=== PATIENT | female | born 1970 | race Caucasian/White ===

== ENCOUNTER 2019-07-07 20:30 | Inpatient (IN) | payer SELFPAY | END 2019-07-09 15:47 | disposition home or self-care (01) | DRG 880 | PROVIDERS: Admitting Provider Psychiatry & Neurology Psychiatry; Emergency Provider Emergency Medicine; Visit Provider Psychiatry & Neurology Psychiatry | DX: F41.8 Other specified anxiety disorders (principal); F15.129 Other stimulant abuse with intoxication, unspecified; F11.129 Opioid abuse with intoxication, unspecified; Z59.0 Homelessness; Z53.29 Procedure and treatment not carried out because of patient's decision for other reasons; F17.210 Nicotine dependence, cigarettes, uncomplicated; I10 Essential (primary) hypertension ==

== ENCOUNTER 2019-07-26 16:58 | Inpatient (IN) | payer SELFPAY ==
[2019-07-26] VITALS (10 sets, daily range): BP systolic 124–196; BP diastolic 69–113; PULSE 62–106; RESP 10–28; TEMP 36.4–36.9; O2SAT 86–97; BMI 24.2
--- NOTE | 2019-07-26 17:04 | ED_ITS ---
Entered by Tiffanie Johnson, acting as scribe for Timothy Escobar DO HPI - Alcohol General: Chief Complaint: Alcohol Stated Complaint: ETOH INTOX Time Seen by Provider: 07/26/19 17:04 Source: patient Mode of arrival: EMS Limitations: altered mental status History of Present Illness: HPI narrative: 49 yo Female presents to ED with complaint of alcohol intoxication. Per EMS, patient swallowed multiple safety pins yesterday. Per special police, patient has consumed a gallon of Aristocrat vodka and she had another small bottle while the officer was at the home. Pt's roommate called EMS regarding the patient. 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 Chronic alcohol use: Yes Review of Systems General: Reports: ROS unobtainable due to mental status PFSH ED PFSH: Statuses (acute, chronic, etc) shown below reflect problem list status as previously entered and may not be historically accurate Medical History (Updated 07/26/19 @ 18:23 by Timothy Escobar DO) Bipolar disorder (Acute) HTN (hypertension) (Acute) Manic depressive disorder (Acute) Uterine cancer (Acute) Surgical History (Updated 07/26/19 @ 18:22 by Tiffanie Johnson) History of (Acute) History of plastic surgery (Acute) History of tubal ligation (Acute) Social History Smoking and tobacco status: current every day smoker Physical Exam Const: COMMON NORMALS: no apparent distress, average body habitus, oriented x3, no limitations, healthy appearing, alert and well nourished HENMT: COMMON NORMALS: normocephalic, head/scalp atraumatic, hearing grossly normal bilaterally, external ears normal, EAC's normal, TM's normal bilaterally, external nose normal, nasal mucous membranes and turbinates normal, moist oral mucous membranes, oropharynx normal, dentition normal and gingiva normal HEAD & SCALP: normocephalic and atraumatic NOSE: external nose normal and nasal mucous membranes and turbinates normal EXTERNAL EAR: Yes external ears normal EXTERNAL AUDITORY CANAL: EAC's normal TYMPANIC MEMBRANE: TM's normal bilaterally Eye: COMMON NORMALS: PERRL, EOMs intact bilaterally, conjunctivae normal, no scleral icterus, no papilledema, normal visual wiseman by confrontation and fundi normal bilaterally CONJUNCTIVA: Yes conjunctivae normal PUPIL: Yes PERRL DIRECT OPHTHALMOSCOPY: Yes no papilledema and Yes fundi normal bilaterally Neck/C-Spine: COMMON NORMALS: full ROM, no lymphadenopathy, supple, no meningeal signs, no JVD, thyroid normal and no carotid bruits THYROID: thyroid normal Chest: COMMONS NORMALS: inspection of chest normal and palpation of chest normal Resp: COMMON NORMALS: normal respiratory effort, no retractions, no use of accessory muscles, clear to auscultation bilaterally and percussion normal AUSCULTATION: clear to auscultation bilaterally PERCUSSION: percussion normal Cardio: COMMON NORMALS: no JVD, regular rate, regular rhythm, S1 normal heart sound, S2 normal heart sound, no gallops, no clicks, no murmurs, no rub and peripheral pulses 2+ throughout RATE: regular rate RHYTHM: regular rhythm HEART SOUNDS: S1 normal and S2 normal PERIPHERAL PULSES: pulses 2+ throughout GI: COMMON NORMALS: normal to inspection, nondistended, normoactive bowel sounds, soft to palpation, non-tender, no hepatosplenomegaly, no masses and no bruits PALPATION: Yes soft and Yes no hepatosplenomegaly : COMMON NORMALS: Yes no CVA tenderness and Yes external appearance normal BLADDER/KIDNEY EXAM: Yes no CVA tenderness Back/Pelvis: COMMON NORMALS: no CVA tenderness, thoracic and lumbar spine normal to inspection, no thoracic nor lumbar tenderness, thoraco-lumbar ROM normal and straight leg raise negative bilaterally Extremity: COMMON NORMALS: normal to inspection, full ROM, normal capillary refill, no joint enlargement, no clubbing, cyanosis or edema, no calf tenderness and no pedal edema Neuro: COMMON NORMALS: oriented x3 SENSORIUM/ORIENTATION: Yes alert MENI NGEAL SIGNS: Yes no meningeal signs Skin: COMMON NORMALS: no rashes or lesions noted, no wounds, skin turgor n ormal, no jaundice, no petechiae and no mottling GENERAL SKIN EXAM: no rashes or lesions noted and turgor normal Course Vital Signs: Vital signs: Vital Signs Temperature 97.5 F L 07/26/19 17:01 Pulse Rate 99 07/26/19 18:19 Respiratory Rate 16 07/26/19 18:19 Blood Pressure 174/113 07/26/19 18:19 Pulse Oximetry 97 07/26/19 18:19 MDM - Alcohol Lab Data: Labs: Lab Results 07/26/19 07/26/19 07/26/19 Range/Units 17:33 17:33 17:38 WBC 6.3 (4.0-10.0) 10^3/ uL RBC 3.92 L (4.1-5.3) 10^6/u L Hgb 10.8 L (11.5-15.3) g/dL Hct 33.1 L (37.0-47.0) % MCV 84.4 (81-99) fL MCH 27.6 L (28.0-34.0) pg MCHC 32.6 (30.0-36.0) g/dL RDW 15.3 H (12.1-15.1) % Plt Count 287 (130-400) 10^3/c mm MPV 9.2 (7.4-10.4) fL Neut % (Auto) 63.8 % Lymph % (Auto) 29.3 % [place]ville % (Auto) 5.2 % Eos % (Auto) 0.9 % Baso % (Auto) 0.6 % Neut # (Auto) 4.0 (1.8-7.7) 10^3/u L Lymph # (Auto) 1.9 (0.8-4.8) 10^3/u L [place]ville # (Auto) 0.3 (0.2-0.9) 10^3/u L Eos # (Auto) 0.1 (0.0-0.8) 10^3/u L Baso # (Auto) 0.0 (0.0-0.1) 10^3/u L Nucleated RBC % (a uto) 0 % Nucleated RBCs # 0.0 /100WBC Sodium 139 (136-145) mmol/L Potassium 3.0 L (3.5-5.1) mmol/L Chloride 102 (98-107) mmol/L Carbon Dioxide 23 (22-29) mmol/L Anion Gap 17.0 (5-19) BUN 7 (6-20) mg/dL Creatinine 0.4 L (0.5-0.9) mg/dL GFR Calculation 169.0 H (90-130) mL/min Glucose 112 H (74-109) mg/dL Calcium 8.4 L (8.6-10.0) mg/Dl Total Bilirubin 0.2 (0.15-1.2) mg/dL AST 26 (0-32) U/L ALT 20 (0-33) U/L Alkaline Phosphata se 73 (35-105) IU/L Total Protein 5.8 L (6.6-8.7) g/dL Albumin 4.4 (3.5-5.2) g/dL Globulin 1.4 (1.3-4.6) g/dL HCG, Qual Negative (Negative) Urine Color (Yellow) Urine Appearance (CLEAR) Urine pH (5-7) Ur Specific Gravit y (1.005-1.030) Urine Protein (Negative) Urine Glucose (UA) (Normal) Urine Ketones (Negative) Urine Occult Blood (Negative) Urine Nitrate (Negative) Urine Bilirubin (NEGATIVE) Urine Urobilinogen (Negative) mg/dL Ur Leukocyte Akila ase (Negative) Urine RBC (0-2) /hpf Urine WBC (0-5) /hpf Ur Squamous Epith Cells (0-5) Urine Bacteria (NONE) Salicylates < 0.3 L (3-10) mg/dL Urine Opiates Scre en (Negative) ng/mL Acetaminophen < 5.0 L (10-30) ug/mL Ur Barbiturates Sc reen (Negative) ng/mL Ur Phencyclidine S crn (Negative) ng/mL Ur Amphetamines Sc reen (Negative) ng/mL U Benzodiazepines Scrn (Negative) ng/mL Urine Cocaine Scre en (Negative) ng/mL U Marijuana (THC) Screen (Negative) ng/mL Ethyl Alcohol 359 H* (0-10) mg/dL 07/26/19 07/26/19 Range/Units 17:38 17:38 WBC (4.0-10.0) 10^3/ uL RBC (4.1-5.3) 10^6/u L Hgb (11.5-15.3) g/dL Hct (37.0-47.0) % MCV (81-99) fL MCH (28.0-34.0) pg MCHC (30.0-36.0) g/dL RDW (12.1-15.1) % Plt Count (130-400) 10^3/c mm MPV (7.4-10.4) fL Neut % (Auto) % Lymph % (Auto) % Granville % (Auto) % Eos % (Auto) % Baso % (Auto) % Neut # (Auto) (1.8-7.7) 10^3/u L Lymph # (Auto) (0.8-4.8) 10^3/u L [place]ville # (Auto) (0.2-0.9) 10^3/u L Eos # (Auto) (0.0-0.8) 10^3/u L Baso # (Auto) (0.0-0.1) 10^3/u L Nucleated RBC % (a uto) % Nucleated RBCs # /100WBC Sodium (136-145) mmol/L Potassium (3.5-5.1) mmol/L Chloride (98-107) mmol/L Carbon Dioxide (22-29) mmol/L Anion Gap (5-19) BUN (6-20) mg/dL Creatinine (0.5-0.9) mg/dL GFR Calculation (90-130) mL/min Glucose (74-109) mg/dL Calcium (8.6-10.0) mg/Dl Total Bilirubin (0.15-1.2) mg/dL AST (0-32) U/L ALT (0-33) U/L Alkaline Phosphata se (35-105) IU/L Total Protein (6.6-8.7) g/dL Albumin (3.5-5.2) g/dL Globulin (1.3-4.6) g/dL HCG, Qual (Negative) Urine Color Yellow (Yellow) Urine Appearance Clear (CLEAR) Urine pH 6 (5-7) Ur Specific Gravit y 1.010 (1.005-1.030) Urine Protein Neg (Negative) Urine Glucose (UA) Norm (Normal) Urine Ketones Negative (Negative) Urine Occult Blood Neg (Negative) Urine Nitrate Positive H (Negative) Urine Bilirubin Neg (NEGATIVE) Urine Urobilinogen Norm (Negative) mg/dL Ur Leukocyte Akila ase Negative (Negative) Urine RBC 0-4 H (0-2) /hpf Urine WBC 0-4 H (0-5) /hpf Ur Squamous Epith Cells 0-4 H (0-5) Urine Bacteria 2+ H (NONE) Salicylates (3-10) mg/dL Urine Opiates Scre en Negative (Negative) ng/mL Acetaminophen (10-30) ug/mL Ur Barbiturates Sc reen Negative (Negative) ng/mL Ur Phencyclidine S crn Negative (Negative) ng/mL Ur Amphetamines Sc reen Positive H (Negative) ng/mL U Benzodiazepines Scrn Negative (Negative) ng/mL Urine Cocaine Scre en Negative (Negative) ng/mL U Marijuana (THC) Screen Negative (Negative) ng/mL Ethyl Alcohol (0-10) mg/dL Discharge Plan Discharge Patient Disposition: Admitted As Inpatient Clinical Impression: Alcoholic intoxication Qualifiers: Complication of substance-induced condition: with delirium Qualified Code(s): F10.921 - Alcohol use, unspecified with intoxication delirium 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
--- NOTE | 2019-07-26 17:07 | ECG_ITS ---
Measurements Intervals [place] Rate: 100 P: 80 AL: 164 QRS: 63 QRSD: 92 T: 68 QT: 382 QTc: 494 SINUS TACHYCARDIA POSSIBLE ANTEROLATERAL MYOCARDIAL INFARCTION , OF INDETERMINATE AGE [30 ms Q WAVE IN I/aVL/V3-V6] No previous ECG available for comparison Electronically Signed On 07-27-2019 5:56:31 PERFORATOR TYPIST by Alice Avila M.D. [email or web address]
--- NOTE | 2019-07-26 17:07 | XRR_ITS ---
PROCEDURE INFORMATION: Exam: XR Chest, 1 View Exam date and time: 07/26/2019 5:26 PM Age: 49 years old Clinical indication: Screening exam; Other screening; Patient HX: Checking for fb; Additional info: Swallowed safety pins TECHNIQUE: Imaging protocol: XR of the chest Views: 1 view. COMPARISON: No relevant prior studies available. FINDINGS: Lungs: Unremarkable. No consolidation. Pleural space: Unremarkable. No pleural effusion. No pneumothorax. Heart/Mediastinum: Unremarkable. No cardiomegaly. Bones/joints: Unremarkable. XR/XR chest 1V portable [id number] IMPRESSION: No acute findings.
--- NOTE | 2019-07-26 17:10 | XRR_ITS ---
PROCEDURE INFORMATION: Exam: XR Abdomen, 1 View Exam date and time: 07/26/2019 5:12 PM Age: 49 years old Clinical indication: Screening exam; Other: Looking for safety pins; Additional info: Abd pain TECHNIQUE: Imaging protocol: XR of the abdomen. Views: Frontal supine view of the abdomen. 1 View. COMPARISON: No relevant prior studies available. FINDINGS: Gastrointestinal tract: There are mildly dilated air-filled loops of small bowel concerning for enteritis or low-grade partial small bowel obstruction. The greatest transverse measurement the dilated loops of bowel is 3 cm. Vasculature: There are numerous benign phleboliths in the pelvis. Bones/joints: Unremarkable. Soft tissues: No foreign body or safety pin is identified. XR/XR KUB portable [id number] IMPRESSION: 1. Dilated loops of small bowel concerning for mild partial small bowel obstruction or enteritis. 2. No foreign body is identified.
--- NOTE | 2019-07-26 17:14 | PC.NURSE ---
Radiology at bedside
[2019-07-26] MEDS: folic acid 1 MG, multivitamin inj 10 ML, thiamine 100 MG in sodium chloride 0.9% 1,000 ML 252.8 MG IV (17:39)
[2019-07-26] MEDS: sodium chloride 0.9% 1,000 ML 999 ML IV (17:39)
[2019-07-26] MEDS: haloperidol inj 5 mg/mL INJ 1 mL IM (17:40)
[2019-07-26 17:41] LABS: Basophils % 0.6 %; Eosinophils # 0.1 10^3/uL (0.0-0.8); Eosinophils % 0.9 %; Hematocrit 33.1 % (37.0-47.0); Hemoglobin 10.8 g/dL (11.5-15.3); Lymphocytes # 1.9 10^3/uL (0.8-4.8); Lymphocytes % 29.3 %; Mean Corpuscular HGB Conc 32.6 g/dL (30.0-36.0); Mean Corpuscular Hemoglobin 27.6 pg (28.0-34.0); Mean Corpuscular Volume 84.4 fL (81-99); Mean Platelet Volume 9.2 fL (7.4-10.4); Monocytes # 0.3 10^3/uL (0.2-0.9); Monocytes % 5.2 %; Neutrophils % 63.8 %; Nucleated Red Blood Cells % 0 %; Platelet Count 287 10^3/cmm (130-400); Red Blood Count 3.92 10^6/uL (4.1-5.3); Red Cell Distribution Width 15.3 % (12.1-15.1); White Blood Count 6.3 10^3/uL (4.0-10.0)
[2019-07-26 17:59] LABS: Alanine Aminotransferase 20 U/L (0-33); Albumin Level 4.4 g/dL (3.5-5.2); Alkaline Phosphatase 73 IU/L (35-105); Aspartate Amino Transferase 26 U/L (0-32); Blood Urea Nitrogen 7 mg/dL (6-20); Calcium 8.4 mg/Dl (8.6-10.0); Carbon Dioxide 23 mmol/L (22-29); Chloride 102 mmol/L (98-107); Globulin 1.4 g/dL (1.3-4.6); Glucose 112 mg/dL (74-109); Sodium 139 mmol/L (136-145); Total Bilirubin 0.2 mg/dL (0.15-1.2); Total Protein 5.8 g/dL (6.6-8.7)
[2019-07-26 18:01] LABS: Acetaminophen < 5.0 ug/mL (10-30); Salicylate < 0.3 mg/dL (3-10)
[2019-07-26 18:06] LABS: Alcohol Level 359 mg/dL (0-10)
[2019-07-26 18:21] LABS: HCG Qualitative Urine. Negative (Negative); Urine Appearance Clear (CLEAR); Urine Color Yellow (Yellow)
[2019-07-26 18:22] LABS: Add Urine Culture? Yes; Bacteria Urine 2+; Bilirubin Urine Neg (NEGATIVE); Blood Urine Neg (Negative); Glucose Urine UA Norm (Normal); Ketones Urine Negative (Negative); Leukocyte Esterase Urine Negative (Negative); Nitrate Urine Positive (Negative); Protein Urine Neg (Negative); RBC Urine 0-4 /hpf (0-2); Squamous Epithelial Cell Urine 0-4 (0-5); Urobilinogen Urine Norm (Negative); WBC Urine 0-4 /hpf (0-5); pH Urine 6 (5-7)
--- NOTE | 2019-07-26 18:28 | PC.NURSE ---
Pt assisted to BSC, linens and gown changed, pt put back in bed and given warm blankets.
[2019-07-26 18:30] LABS: Barbiturates Screen Urine Negative (Negative); Benzodiazepines Screen Urine Negative (Negative); Cocaine Screen Urine Negative (Negative); Opiate Screen Urine Negative (Negative); PCP Screen Urine Negative (Negative); THC Screen Urine Negative (Negative)
[2019-07-26 18:40] LABS: Amphetamines Screen Urine Positive (Negative)
--- NOTE | 2019-07-26 19:06 | PM.HP ---
Providers/Chief Complaint Chief Complaint: ETOH INTOX History of Present Illness Keya Leonard is a 49 year old female who was seen by Dr. Ignacio Castaneda for her psychotic behavior in June 2019, at that time she had bipolar presentation, U tox was positive for methamphetamine, benzodiazepine, she was discharged AGAINST MEDICAL ADVICE to her aunt's home when she was very abusive and uncooperative with the staff. Today patient has been sent to the ER for her psychotic behavior by her aunt. Patient is stating she has no idea why she was sent to the hospital, she is denying any suicidal or homicidal ideation. She is endorsing to smoking a few cigarettes a day and drinking vodka 2 shots today, she is denying use of methamphetamine cocaine or marijuana. She is endorsing to using marijuana when she was in [place] when she became homeless. She is stating that she moved to [place] 2 weeks ago to live with her and and that experiences not going well for her. She is denying chest pain, shortness of breath, dysuria, abdominal pain she is able to tell me that she is in the ER she is oriented to time place and person, she kept asking that she should be discharged. Diagnostics in ER showed electrolyte imbalance, tachycardia, hypotension, patient was exhibiting psychotic/very anxious behavior however cooperative with the staff on this visit Hospitalist service was requested to admit to ICU because of her high alcohol level and high risk for withdrawal Review of Systems Narrative: Very agitated, nonpurposeful extremity movements no active tremors She looks dehydrated Unkempt appearance Const: Reports: chills and change in weight Eyes: Reports: eye discomfort and dry eyes ENMT: Denies: throat pain or uvular edema Card: Denies: chest pain or palpitations Resp: Denies: shortness of breath or non-productive cough GI: Denies: abdominal pain, nausea, vomiting or coffee grounds in vomit : Denies: flank pain, difficulty urinating, urinary frequency or urinary urgency Musc: Denies: neck pain or back pain Neuro: Reports: dizziness and confusion; Denies: headache Psych: Reports: anxiety, mood swings, irritability, paranoia, memory loss and difficulty concentrating; Denies: visual hallucinations, auditory hallucinations, suicidal ideation or homicidal ideation Endo: Denies: excessive urination James/Lymph: Denies: easy bruising All/Imm: Denies: hives Medications/Allergies Home Medications Medication Instructions Recorded Confirmed Last Taken Type No Known Home Medications 07/26/19 07/26/19 Unknown History Allergies Allergy/AdvReac Type Severity Reaction Status Date / Time No Known Allergies Allergy Verified 07/26/19 17:10 PFSH Acute PFSH: Statuses (acute, chronic, etc) shown below reflect problem list status as previously entered and may not be historically accurate Medical History (Updated 07/26/19 @ 19:46 by Mervat Felder MD) Bipolar disorder (Acute) HTN (hypertension) (Acute) Manic depressive disorder (Acute) Polysubstance abuse (Acute) Uterine cancer (Acute) Surgical History (Updated 07/26/19 @ 18:22 by Tiffanie Johnson) History of (Acute) History of plastic surgery (Acute) History of tubal ligation (Acute) Family History (Updated 07/26/19 @ 19:50 by Mervat Felder MD) Other Hyperlipidemia Hypertension Social History (Updated 07/26/19 @ 19:50 by Mervat Felder MD) Smoking and tobacco status: current every day smoker Alcohol intake: current Substance/Drug Use: current Lives independently: No Household members: other Details: Lives with her aunt Marital status: Number of children: 5 Vitals/I&O/Wt Last Vital Signs Temp 97.5 F L 07/26/19 17:01 Pulse 99 07/26/19 18:19 Resp 16 07/26/19 18:19 BP 174/113 07/26/19 18:19 Pulse Ox 97 07/26/19 18:19 07/26/19 07/26/19 07/26/19 06:59 14:59 22:59 Intake Total 2010. Balance 2010. Weight last 48 hrs Weight 68.039 kg Physical Exam Const: GENERAL APPEARANCE: cooperative, in distress, anxious and ill appearing; not comfortable, not well kempt, not well developed, not combative and not lethargic NUTRITIONAL APPEARANCE: thin ORIENTATION/CONSCIOUSNESS: Yes awake and Yes oriented to person HENMT: COMMON NORMALS: normocephalic, head/scalp atraumatic, hearing grossly normal bilaterally, external nose normal and nasal mucous membranes and turbinates normal; oral mucous membranes not moist FACE & SINUS: normal facial exam NOSE: external nose normal Eye: COMMON NORMALS: EOMs intact bilaterally and negative for conjunctivae normal PERIORBITAL: periorbital findings abnormal (Periorbital mild edema) EYELID: eyelid abnormal CONJUNCTIVA: Yes conjunctiva abnormal PUPIL: Yes PERRL DIRECT OPHTHALMOSCOPY: Yes decreased light reflex Neck/C-Spine: COMMON NORMALS: full ROM Chest: COMMONS NORMALS: inspection of chest normal CHEST: Yes symmetrical chest wall rise Resp: COMMON NORMALS: normal respiratory effort EFFORT & INSPECTION: Yes able to speak in complete sentences AUSCULTATION: clear to auscultation bilaterally, no crackles and no rales Cardio: COMMON NORMALS: no JVD, S1 normal heart sound and S2 normal heart sound; negative for regular rate JUGULAR VENOUS DISTENTION: no JVD BRUITS: no abdominal aortic bruits GI: COMMON NORMALS: normal to inspection, nondistended, normoactive bowel sounds, soft to palpation, non-tender, no hepatosplenomegaly, no masses and no bruits INSPECTION: Yes normal to inspection AUSCULTATION: Yes normoactive bowel sounds Extremity: COMMON NORMALS: normal to inspection and full ROM Neuro: COMMON NORMALS: oriented x3, CN's II-XII intact bilaterally, moves all extremities, no focal motor deficits, no sensory deficits noted and deep tendon reflexes 2+ bilaterally; negative for gait normal SENSORIUM/ORIENTATION: Yes alert MENINGEAL SIGNS: No no meningeal signs and No nuccal rigidity COORDINATION: [id number] test abnormal and [id number] test abnormal Psych: COMMON NORMALS: cooperative; negative for affect normal APPEARANCE: Yes unkempt ATTITUDE: Yes paranoid and Yes agitated ACTIVITY/MOTOR BEHAVIOR: No appropriate eye contact and Yes avoids eye contact SPEECH: Yes excessive MOOD & AFFECT: Yes anxious THOUGHT PROCESS: circumstantial and confabulating THOUGHT CONTENT: No suicidality, No homicidality, Yes delusion(s), No hallucination(s) and Yes derealization ATTENTION/CONCENTRATION: Yes concentration grossly impaired INSIGHT: limited JUDGEMENT: limited Skin: NAILS: normal A&P Assessment and plan (1) Wernicke encephalopathy: Status: Acute Code(s): E51.2 - Wernicke's encephalopathy (2) Alcoholic intoxication: Status: Acute Qualifiers: Complication of substance-induced condition: with delirium Qualified Code(s): F10.921 - Alcohol use, unspecified with intoxication delirium Code(s): F10.929 - Alcohol use, unspecified with intoxication, unspecified (3) Psychotic behavior due to ingestible alcohol: Status: Acute Code(s): F10.959 - Alcohol use, unspecified with alcohol-induced psychotic disorder, unspecified (4) Polysubstance abuse: Status: Acute Code(s): F19.10 - Other psychoactive substance abuse, uncomplicated (5) HTN (hypertension): Status: Acute Code(s): I10 - Essential (primary) hypertension (6) 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: Status: Acute Qualifiers: Complication of substance-induced condition: with unspecified complication Qualified Code(s): F10.959 - Alcohol use, unspecified with alcohol-induced psychotic disorder, unspecified Code(s): F10.95 - Alcohol use, unspecified with alcohol-induced psychotic disorder, unspecified Additional A&P Information Additional A&P Information: Psychotic behavior due to polysubstance abuse U tox positive for methamphetamine, high levels of alcohol identified Currently patient is very agitated and psychotic with hypotensive and tachycardia she took vodka 2 shots today She is also confabulating and 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 Ignacio Castaneda Patient is full code DVT prophylaxis: Lovenox Attestations Medical Necessity Statement*: Anticipating her stay to cross more than 2 midnights because of her high alcohol level she is high risk for alcohol withdrawal Time Spent in Patient Care: (>than 50% of time spent in counselling and/or direct pt care on unit). 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
--- NOTE | 2019-07-26 19:26 | PC.NURSE ---
REPORT RECEIVED FROM RUBY SHAIKH AND CARE TRANSFERRED TO ABDIRAHMAN SHAIKH
--- NOTE | 2019-07-26 19:31 | PC.NURSE ---
TRIED TO CALL REPORT TO ICU BUT NURSE IN ANOTHER ROOM, ICU STATED THAT THEY WOULD CALL ED NURSE BACK
[2019-07-26 20:59] LABS: Magnesium 1.9 mg/dL (1.7-2.3)
[2019-07-26] MEDS: sodium chloride 0.9% 1,000 ML 150 ML IV (21:03)
[2019-07-26] MEDS: metoprolol tartrate 25 mg Tablet PO (21:07)
--- NOTE | 2019-07-26 21:42 | PC.NURSE ---
Admitted to ICU room 10. Patient is tearful and states I don't know why I am even here . Blood pressure elevated. Patient reports that she is very anxious. 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 Eudora and drink given to patient.
[2019-07-26] MEDS: LORazepam 2 mg/mL INJ 1 mL IVP (22:51)
[2019-07-27] VITALS (18 sets, daily range): BP systolic 122–192; BP diastolic 72–109; PULSE 77–94; RESP 16–87; TEMP 36.8–37.1; O2SAT 93–99
[2019-07-27] MEDS: LORazepam 2 mg/mL INJ 1 mL IVP (03:05)
[2019-07-27] MEDS: sodium chloride 0.9% 1,000 ML 150 ML IV ×4 (03:48→23:45)
[2019-07-27] MEDS: multivitamin therapeutic Tablet 1 TAB PO (09:08)
[2019-07-27] MEDS: folic acid 1 mg Tablet PO (09:08)
[2019-07-27] MEDS: thiamine 100 mg Tablet PO (09:08)
[2019-07-27] MEDS: metoprolol tartrate 25 mg Tablet PO ×2 (09:08→17:04)
[2019-07-27] MEDS: escitalopram 10 mg Tablet 20 MG PO (09:08)
--- NOTE | 2019-07-27 11:52 | PM.PN ---
Subjective Subjective: Interval history: Chart reviewed. Patient seen and examined, asleep but easily arousable, aware she is in the hospital, able to tell me that she lives with her aunt and recently moved from [place] though does not seem to have very good social support. Admits to consumption of hard liquor though denies daily use. Informed by nursing staff that patient has affidavits in chart and family members trying to get her involuntarily admitted to the hospital. Has been appropriate in my interactions with her, denies SI/HI. Noted hypertension so we will add oral antihypertensives and PRN hydralazine. Medications: Reviewed: Yes Medication Review Details: Active Medications Generic Name Dose Route Start Last Admin Trade Name Freq PRN Reason Stop Dose Admin Enoxaparin Sodium 40 mg 07/26/19 22:00 07/26/19 22:17 Lovenox SUBCUT Not Given Q24H BECK Escitalopram Oxala te 20 mg 07/27/19 09:00 07/27/19 09:08 Lexapro PO 20 mg DAILY BECK Administration Folic Acid 1 mg 07/27/19 09:00 07/27/19 09:08 Folic Acid PO 1 mg DAILY BECK Administration Sodium Chloride 1,000 mls @ 150 m ls/hr 07/26/19 18:45 07/27/19 10:26 Sodium Chloride 0.9% IV 150 mls/hr .Q6H40M BECK Administration Lorazepam 2 mg 07/26/19 18:41 Ativan IVP Q6H PRN s/sx's of etoh wi thdrawal Lorazepam 2 mg 07/26/19 20:26 Ativan IM Q4H PRN ALCOWD Protocol Lorazepam 2 mg 07/26/19 20:26 07/27/19 03:05 Ativan IVP 2 mg PRN PRN Administration WITHDRAWAL Protocol Lorazepam 2 mg 07/26/19 20:26 Ativan PO Q4H PRN WITHDRAWAL Protocol Metoprolol Tartrat e 25 mg 07/26/19 20:26 07/27/19 09:08 Lopressor PO 25 mg BID BECK Administration Multivitamins Ther apeutic 1 tab 07/27/19 09:00 07/27/19 09:08 Multivitamin Tab PO 1 tab DAILY BECK Administration Ondansetron HCl 4 mg 07/26/19 18:41 Zofran IVP Q6H PRN NAUSEA AND VOMITI NG Potassium Chloride 40 meq 07/27/19 16:04 Klor-Con 10 PO 07/27/19 16:05 ONCE ONE Thiamine Mononitra te 100 mg 07/27/19 09:00 07/27/19 09:08 Vitamin B-1 PO 100 mg DAILY BECK Administration No Known Allergies Allergy (Verified 07/26/19 17:10) Vitals/I&O/Wt Last Vital Signs Temp 98.7 F 07/27/19 10:00 Pulse 90 07/27/19 10:00 Resp 87 H 07/27/19 10:00 BP 169/99 07/27/19 10:00 Pulse Ox 98 07/27/19 10:00 07/26/19 07/27/19 07/27/19 22:59 06:59 14:59 Intake Total 2411.2 / 2411.2 1600 / 4011.2 995 / 995 Balance 2411.2 / 2411.2 1600 / 4011.2 995 / 995 Weight last 48 hrs Weight 68.039 kg Physical Exam Const: COMMON NORMALS: no apparent distress and oriented x3 GENERAL APPEARANCE: cooperative ORIENTATION/CONSCIOUSNESS: Yes oriented to person, Yes oriented to place and Yes oriented to time HENMT: COMMON NORMALS: normocephalic and head/scalp atraumatic HEAD & SCALP: normocephalic and atraumatic Eye: COMMON NORMALS: PERRL, EOMs intact bilaterally and conjunctivae normal CONJUNCTIVA: Yes conjunctivae normal PUPIL: Yes PERRL Resp: COMMON NORMALS: normal respiratory effort, no retractions, no use of accessory muscles and clear to auscultation bilaterally AUSCULTATION: clear to auscultation bilaterally Cardio: COMMON NORMALS: regular rate, regular rhythm, S1 normal heart sound, S2 normal heart sound and no murmurs RATE: regular rate RHYTHM: regular rhythm HEART SOUNDS: S1 normal and S2 normal OTHER: Noted significant hypertension GI: COMMON NORMALS: normal to inspection, nondistended, normoactive bowel sounds, soft to palpation and non-tender PALPATION: Yes soft Extremity: COMMON NORMALS: normal to inspection and full ROM Neuro: COMMON NORMALS: oriented x3 and no focal motor deficits SENSORIUM/ORIENTATION: Yes oriented to person, Yes oriented to place and Yes oriented to time Psych: COMMON NORMALS: mental status grossly normal, thought process normal, cooperative and speech normal SPEECH: Yes normal speech MOOD & AFFECT: Yes flat affect THOUGHT PROCESS: normal thought process Skin: COMMON NORMALS: no rashes or lesions noted GENERAL SKIN EXAM: no rashes or lesions noted A&P Assessment and plan (1) Alcoholic intoxication: -Evidence of acute alcohol intoxication on admission -Alcohol level of 359 -[facility] protocol, thiamine/multivitamins/folic acid daily -Seizure, aspiration, fall precautions -Very high risk for severe withdrawal -Continue IV fluid hydration -Electrolytes replaced as needed Status: Acute Qualifiers: Complication of substance-induced condition: with delirium Qualified Code(s): F10.921 - Alcohol use, unspecified with intoxication delirium Code(s): F10.929 - Alcohol use, unspecified with intoxication, unspecified (2) Wernicke encephalopathy: -Evidence of confabulation likely secondary to Wernicke's encephalopathy due to alcohol abuse -On thiamine Status: Acute Code(s): E51.2 - Wernicke's encephalopathy (3) Polysubstance abuse: -Evidence of methamphetamines in urine drug screen in addition to alcohol abuse; patient also admits to marijuana use while in [place] Status: Acute Code(s): F19.10 - Other psychoactive substance abuse, uncomplicated (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: -Noted agitation, verbally aggressive behavior reportedly has happened before during recent psychiatric evaluation in June -Will likely need formal psychiatric evaluation; affidavits in chart Status: Acute Qualifiers: Complication of substance-induced condition: with unspecified complication Qualified Code(s): F10.959 - Alcohol use, unspecified with alcohol-induced psychotic disorder, unspecified Code(s): F10.959 - Alcohol use, unspecified with alcohol-induced psychotic disorder, unspecified (5) HTN (hypertension): -Has known history of essential hypertension, has not been on medication recently -Trend towards hypertension noted on review of vital signs, continue to monitor vital signs particularly blood pressure -Suspect that acute withdrawal is likely culprit of increased blood pressure -If continued trend up will titrate metoprolol accordingly consider addition of alternative agent if needed Status: Acute Qualifiers: Hypertension type: essential hypertension Qualified Code(s): I10 - Essential (primary) hypertension Code(s): I10 - Essential (primary) hypertension Additional A&P Information Additional A&P Information: -Hypokalemia: Replaced. Magnesium within normal limits -History of bipolar disorder; will need psychiatric evaluation -regular diet as tolerated -DVT ppx with Lovenox -Dispo: pending Psych; has been living with aunt -Code status: FULL code Attestations Medical Necessity Statement*: Patient requires hospitalization for continued management of acute alcohol intoxication with associated psychosis and Warnicke's encephalopathy, pending psychiatric evaluation. 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
[2019-07-27] MEDS: cloNIDine 0.1 mg Tablet PO ×2 (15:17→18:11)
[2019-07-27] MEDS: hyDRALAzine 20 mg/mL INJ 1 mL 10 MG IVP (15:46)
[2019-07-27] MEDS: enoxaparin 40 mg/0.4 mL Syringe SUBCUT (22:18)
[2019-07-27] MEDS: acetaminophen 325 mg Tablet 650 MG PO (22:46)
[2019-07-28] VITALS (16 sets, daily range): BP systolic 116–167; BP diastolic 71–97; PULSE 71–89; RESP 14–23; TEMP 36.6–37; O2SAT 94–100
[2019-07-28] MEDS: sodium chloride 0.9% 1,000 ML 150 ML IV ×2 (07:41→14:23)
[2019-07-28] MEDS: LORazepam 2 mg/mL INJ 1 mL IVP (07:42)
[2019-07-28] MEDS: thiamine 100 mg Tablet PO (09:02)
[2019-07-28] MEDS: multivitamin therapeutic Tablet 1 TAB PO (09:02)
[2019-07-28] MEDS: escitalopram 10 mg Tablet 20 MG PO (09:03)
[2019-07-28] MEDS: cloNIDine 0.1 mg Tablet PO ×2 (09:03→17:09)
[2019-07-28] MEDS: metoprolol tartrate 25 mg Tablet PO ×2 (09:03→17:09)
[2019-07-28] MEDS: folic acid 1 mg Tablet PO (09:03)
--- NOTE | 2019-07-28 16:47 | PC.CHAP ---
Pastoral Care Encounter/Spiritual Assessment Type of Contact [] Declined returned telephone equipment appraiser visit [x] Patient/Family/Request visit [] Outpatient visit [] Follow-up visit [] Physician referral [] Code/Alert [x] Routine visit [] Staff referral [] Actively dying [] Patient sleeping [] Family support [] [] Out of room [] Palliative care [] [] Receiving care in room [] Pre-surgical visit [] Trauma [] Long length of stay [] ICU visit [] Other: Relational/Emotional Strength [] Patient feels connected with others/family/visitors/staff [x] Distress [x] Loneliness/isolation [] Abandonment Spirituality of Patient [] Person of Jennifer [] Attends Amish of their Jennifer [] Believes in Prayer [] Reads Bible or Yazidism materials [] There are Spiritual issues to be addressed Digital Advertising Specialist Interventions [x] Prayer [x] Active listening [x] Non-anxious presence [x] Spiritual/emotional support [] Crisis/trauma care [x Spiritual counseling [] Bereavement support [] Provided bereavement packet [] Provided Bible/devotional materials [] Provided toy/stuffed animal, coloring book to patient or family member [x] Completed spiritual assessment [] Provided Communion [x] Anointing/[place] [] Salvation [] Other: Impact on Illness or Injury [] Angry [] Fearful [x] Anxious [] Often cries [x] Exhaustion [] Unable to work [] Unable to attend mormon [] Unable to walk/stand [] Unable to read [] Unable to drive [] Unable to eat/drink [] Unable to sleep [] Unable to be with family [] Other: Summary Had prayer with she and nurse Time spent with patient 5 min.
--- NOTE | 2019-07-28 19:29 | P.PN_ITS ---
Subjective Subjective: Interval history: Patient seen and examined, sitter at bedside, resting in bed, has spent much of her time sleeping though easily arousable. Blood pressure continues to be well controlled. Per nursing staff has shown some paranoid behavior and anxiety as well. Has been tolerating oral intake without difficulty. Will discontinue IV fluid hydration at this time. Will transition her off of Ativan and start her on Librium in case her behavior is due to alcohol withdrawal. Medications: Reviewed: Yes Medication Review Details: Active Medications Generic Name Dose Route Start Last Admin Trade Name Freq PRN Reason Stop Dose Admin Acetaminophen 650 mg 07/27/19 22:37 07/27/19 22:46 Tylenol PO 650 mg Q6H PRN Administration MILD PAIN Clonidine HCl 0.1 mg 07/27/19 15:10 07/28/19 17:09 Catapres PO 0.1 mg BID BECK Administration Enoxaparin Sodium 40 mg 07/26/19 22:00 07/27/19 22:18 Lovenox SUBCUT 40 mg Q24H BECK Administration Escitalopram Oxala te 20 mg 07/27/19 09:00 07/28/19 09:03 Lexapro PO 20 mg DAILY BECK Administration Folic Acid 1 mg 07/27/19 09:00 07/28/19 09:03 Folic Acid PO 1 mg DAILY BECK Administration Hydralazine HCl 10 mg 07/27/19 15:09 07/27/19 15:46 Apresoline IVP 10 mg Q4H PRN Administration SYSTOLIC BLOOD AR ESSURE Sodium Chloride 1,000 mls @ 150 m ls/hr 07/26/19 18:45 07/28/19 14:23 Sodium Chloride 0.9% IV 150 mls/hr .Q6H40M BECK Administration Lorazepam 2 mg 07/26/19 18:41 07/28/19 07:42 Ativan IVP 2 mg Q6H PRN Administration s/sx's of etoh wi thdrawal Lorazepam 2 mg 07/26/19 20:26 Ativan IM Q4H PRN ALCOWD Protocol Lorazepam 2 mg 07/26/19 20:26 07/27/19 03:05 Ativan IVP 2 mg PRN PRN Administration WITHDRAWAL Protocol Lorazepam 2 mg 07/26/19 20:26 Ativan PO Q4H PRN WITHDRAWAL Protocol Metoprolol Tartrat e 25 mg 07/26/19 20:26 07/28/19 17:09 Lopressor PO 25 mg BID BECK Administration Multivitamins Ther apeutic 1 tab 07/27/19 09:00 07/28/19 09:02 Multivitamin Tab PO 1 tab DAILY BECK Administration Ondansetron HCl 4 mg 07/26/19 18:41 Zofran IVP Q6H PRN NAUSEA AND VOMITI NG Thiamine Mononitra te 100 mg 07/27/19 09:00 07/28/19 09:02 Vitamin B-1 PO 100 mg DAILY BECK Administration No Known Allergies Allergy (Verified 07/26/19 17:10) Vitals/I&O/Wt Last Vital Signs Temp 98.6 F 07/28/19 18:00 Pulse 86 07/28/19 18:00 Resp 14 07/28/19 18:00 BP 125/78 07/28/19 18:00 Pulse Ox 94 07/28/19 08:57 07/28/19 07/28/19 07/28/19 06:59 14:59 22:59 Intake Total 965 / 3465 1999 Balance 965 / 3465 1999 Physical Exam Const: COMMON NORMALS: no apparent distress and oriented x3 GENERAL APPEARANCE: cooperative ORIENTATION/CONSCIOUSNESS: Yes oriented to person, Yes oriented to place and Yes oriented to time HENMT: COMMON NORMALS: normocephalic and head/scalp atraumatic HEAD & SCALP: normocephalic and atraumatic Eye: COMMON NORMALS: PERRL, EOMs intact bilaterally and conjunctivae normal CONJUNCTIVA: Yes conjunctivae normal PUPIL: Yes PERRL Resp: COMMON NORMALS: normal respiratory effort, no retractions, no use of accessory muscles and clear to auscultation bilaterally AUSCULTATION: clear to auscultation bilaterally Cardio: COMMON NORMALS: regular rate, regular rhythm, S1 normal heart sound, S2 normal heart sound and no murmurs RATE: regular rate RHYTHM: regular rhythm HEART SOUNDS: S1 normal and S2 normal GI: COMMON NORMALS: normal to inspection, nondistended, normoactive bowel sounds, soft to palpation and non-tender PALPATION: Yes soft Extremity: COMMON NORMALS: normal to inspection and full ROM Neuro: COMMON NORMALS: oriented x3 and no focal motor deficits SENS ORIUM/ORIENTATION: Yes oriented to person, Yes oriented to place and Yes oriented to time Psych: COMMON NORMALS: mental status grossly normal, thought process normal, cooperative and speech normal SPEECH: Yes normal speech MOOD & AFFECT: Yes flat affect THOUGHT PROCESS: normal thought process Skin: COMMON NORMALS: no rashes or lesions noted GENERAL SKIN EXAM: no rashes or lesions noted Data Micro: Micro: Microbiology 07/26/19 17:38 Urine Culture - Pr eliminary Urine,Clean Catch Gram Negative R ods A&P Assessment and plan (1) Alcoholic intoxication: -Evidence of acute alcohol intoxication on admission; now resolved -Alcohol level of 359 -[facility] protocol, thiamine/multivitamins/folic acid daily. Will discontinue Ativan and start on Librium for alcohol withdrawal -Seizure, aspiration, fall precautions -Very high risk for severe withdrawal -Discontinue IV fluids, encourage oral hydration -Electrolytes replaced as needed Status: Acute Qualifiers: Complication of substance-induced condition: with delirium Qualified Code(s): F10.921 - Alcohol use, unspecified with intoxication delirium Code(s): F10.929 - Alcohol use, unspecified with intoxication, unspecified (2) Wernicke encephalopathy: -Evidence of confabulation likely secondary to Wernicke's encephalopathy due to alcohol abuse -On thiamine Status: Acute Code(s): E51.2 - Wernicke's encephalopathy (3) Polysubstance abuse: -Evidence of methamphetamines in urine drug screen in addition to alcohol abuse; patient also admits to marijuana use while in [place] Status: Acute Code(s): F19.10 - Other psychoactive substance abuse, uncomplicated (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: -Noted agitation, verbally aggressive behavior reportedly has happened before during recent psychiatric evaluation in June -Will likely need formal psychiatric evaluation; affidavits in chart Status: Acute Qualifiers: Complication of substance-induced condition: with unspecified complication Qualified Code(s): F10.959 - Alcohol use, unspecified with alcohol-induced psychotic disorder, unspecified Code(s): F10.959 - Alcohol use, unspecified with alcohol-induced psychotic disorder, unspecified (5) HTN (hypertension): -Has known history of essential hypertension, has not been on medication recently -Trend towards hypertension noted on review of vital signs, continue to monitor vital signs particularly blood pressure -Suspect that acute withdrawal is likely culprit of increased blood pressure -If continued trend up will titrate metoprolol accordingly consider addition of alternative agent if needed Status: Acute Qualifiers: Hypertension type: essential hypertension Qualified Code(s): I10 - Essential (primary) hypertension Code(s): I10 - Essential (primary) hypertension Additional A&P Information Additional A&P Information: -Hypokalemia: Replaced. Magnesium within normal limits -History of bipolar disorder; will need psychiatric evaluation -regular diet as tolerated -DVT ppx with Lovenox -Dispo: pending Psych; has been living with aunt -Code status: FULL code Attestations Medical Necessity Statement*: Patient requires hospitalization pending psychiatric evaluation and need for continued 1:1 monitoring. 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
[2019-07-28] MEDS: chlordiazePOXIDE 10 mg Capsule PO (20:05)
--- NOTE | 2019-07-28 22:56 | PC.NURSE ---
Call to Dr Segura; patient is complaining of diarrhea and not being able to sleep. Dr Segura verified that the diarrhea is from the ETOH and it needs to run out of her system and it is too soon to give the patient anything to help her sleep since I gave her the Librium earlier. Will continue to monitor
[2019-07-29] VITALS (12 sets, daily range): BP systolic 124–184; BP diastolic 9–105; PULSE 66–85; RESP 16–22; TEMP 36.6–37.1; O2SAT 94–97
[2019-07-29] MEDS: LORazepam 2 mg/mL INJ 1 mL 1 MG IVP (01:48)
--- NOTE | 2019-07-29 02:21 | PC.NURSE ---
Patients CIWA was calculated on a paper CIWA form and her scare was a 20. Ativan was given per Dr Segura.
--- NOTE | 2019-07-29 04:17 | PC.NURSE ---
patient has been refusing the pulse ox most of the night
[2019-07-29] MEDS: cloNIDine 0.1 mg Tablet PO ×2 (08:47→17:56)
[2019-07-29] MEDS: metoprolol tartrate 25 mg Tablet PO ×2 (08:47→17:57)
[2019-07-29] MEDS: folic acid 1 mg Tablet PO (08:47)
[2019-07-29] MEDS: escitalopram 10 mg Tablet 20 MG PO (08:47)
[2019-07-29] MEDS: multivitamin therapeutic Tablet 1 TAB PO (08:47)
[2019-07-29] MEDS: thiamine 100 mg Tablet PO (08:48)
--- NOTE | 2019-07-29 11:28 | PM.PN ---
Subjective Subjective: Interval history: Patient seen and examined, sitting up in bed, sitter at bedside, has multiple complaints stating that she has heard several staff members talking about her, has requested several things such as Imodium and toilet paper which have been withheld from her, believes that we are sharing her personal information with outsiders without her permission. Is getting quite agitated with noted slight increase in BP likely due to this. Discussed briefly with Dr. Castaneda and will place 96 hr hold order and transfer to NPU. Medications: Reviewed: Yes Medication Review Details: Active Medications Generic Name Dose Route Start Last Admin Trade Name Freq PRN Reason Stop Dose Admin Acetaminophen 650 mg 07/27/19 22:37 07/27/19 22:46 Tylenol PO 650 mg Q6H PRN Administration MILD PAIN Chlordiazepoxide 10 mg 07/28/19 19:34 07/28/19 20:05 Librium PO 10 mg Q6H PRN Administration ANXIETY Clonidine HCl 0.1 mg 07/27/19 15:10 07/29/19 08:47 Catapres PO 0.1 mg BID BECK Administration Enoxaparin Sodium 40 mg 07/26/19 22:00 07/28/19 21:12 Lovenox SUBCUT Not Given Q24H BECK Escitalopram Oxala te 20 mg 07/27/19 09:00 07/29/19 08:47 Lexapro PO 20 mg DAILY BECK Administration Folic Acid 1 mg 07/27/19 09:00 07/29/19 08:47 Folic Acid PO 1 mg DAILY BECK Administration Hydralazine HCl 10 mg 07/27/19 15:09 07/27/19 15:46 Apresoline IVP 10 mg Q4H PRN Administration SYSTOLIC BLOOD [place] ESSURE Metoprolol Tartrat e 25 mg 07/26/19 20:26 07/29/19 08:47 Lopressor PO 25 mg BID BECK Administration Multivitamins Ther apeutic 1 tab 07/27/19 09:00 07/29/19 08:47 Multivitamin Tab PO 1 tab DAILY BECK Administration Ondansetron HCl 4 mg 07/26/19 18:41 Zofran IVP Q6H PRN NAUSEA AND VOMITI NG Thiamine Mononitra te 100 mg 07/27/19 09:00 07/29/19 08:48 Vitamin B-1 PO 100 mg DAILY BECK Administration No Known Allergies Allergy (Verified 07/26/19 17:10) Vitals/I&O/Wt Last Vital Signs Temp 98.1 F 07/29/19 06:00 Pulse 67 07/29/19 10:00 Resp 18 07/29/19 10:00 BP 136/85 07/29/19 10:00 Pulse Ox 94 07/29/19 08:30 Physical Exam Const: COMMON NORMALS: no apparent distress and oriented x3 GENERAL APPEARANCE: cooperative ORIENTATION/CONSCIOUSNESS: Yes oriented to person, Yes oriented to place and Yes oriented to time HENMT: COMMON NORMALS: normocephalic and head/scalp atraumatic HEAD & SCALP: normocephalic and atraumatic Eye: COMMON NORMALS: PERRL, EOMs intact bilaterally and conjunctivae normal CONJUNCTIVA: Yes conjunctivae normal PUPIL: Yes PERRL Resp: COMMON NORMALS: normal respiratory effort, no retractions, no use of accessory muscles and clear to auscultation bilaterally AUSCULTATION: clear to auscultation bilaterally Cardio: COMMON NORMALS: regular rate, regular rhythm, S1 normal heart sound, S2 normal heart sound and no murmurs RATE: regular rate RHYTHM: regular rhythm HEART SOUNDS: S1 normal and S2 normal OTHER: Noted significant hypertension GI: COMMON NORMALS: normal to inspection, nondistended, normoactive bowel sounds, soft to palpation and non-tender PALPATION: Yes soft Extremity: COMMON NORMALS: normal to inspection and full ROM Neuro: COMMON NORMALS: oriented x3 and no focal motor deficits SENSORIUM/ORIENTATION: Yes oriented to person, Yes oriented to place and Yes oriented to time Psych: COMMON NORMALS: mental status grossly normal, thought process normal, cooperative and speech normal SPEECH: Yes normal speech MOOD & AFFECT: Yes flat affect THOUGHT PROCESS: normal thought process Skin: COMMON NORMALS: no rashes or lesions noted GENERAL SKIN EXAM: no rashes or lesions noted Data Micro: Micro: Microbiology 07/26/19 17:38 Urine Culture - Pr eliminary Urine,Clean Catch Gram Negative R ods A&P Assessment and plan (1) Alcoholic intoxication: -Evidence of acute alcohol intoxication on admission; now resolved -Alcohol level of 359 -[facility] protocol, thiamine/multivitamins/folic acid daily. Off Ativan and started on Librium for alcohol withdrawal -Seizure, aspiration, fall precautions -Very high risk for severe withdrawal -Discontinued IV fluids, encourage oral hydration -Electrolytes replaced as needed Status: Acute Qualifiers: Complication of substance-induced condition: with delirium Qualified Code(s): F10.921 - Alcohol use, unspecified with intoxication delirium Code(s): F10.929 - Alcohol use, unspecified with intoxication, unspecified (2) Wernicke encephalopathy: -Evidence of confabulation likely secondary to Wernicke's encephalopathy due to alcohol abuse -On thiamine Status: Acute Code(s): E51.2 - Wernicke's encephalopathy (3) Polysubstance abuse: -Evidence of methamphetamines in urine drug screen in addition to alcohol abuse; patient also admits to marijuana use while in [place] Status: Acute Code(s): F19.10 - Other psychoactive substance abuse, uncomplicated (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: -Noted agitation, verbally aggressive behavior reportedly has happened before during recent psychiatric evaluation in June -affidavits in chart -96 hr hold -transfer to NPU for continued care Status: Acute Qualifiers: Complication of substance-induced condition: with unspecified complication Qualified Code(s): F10.959 - Alcohol use, unspecified with alcohol-induced psychotic disorder, unspecified Code(s): F10.959 - Alcohol use, unspecified with alcohol-induced psychotic disorder, unspecified (5) HTN (hypertension): -Has known history of essential hypertension, has not been on medication recently -Trend towards hypertension noted on review of vital signs, continue to monitor vital signs particularly blood pressure -Suspect that acute withdrawal is likely culprit of increased blood pressure -continue Clonidine, metoprolol; titrate as needed; On Hydralazine PRN Status: Acute Qualifiers: Hypertension type: essential hypertension Qualified Code(s): I10 - Essential (primary) hypertension Code(s): I10 - Essential (primary) hypertension Additional A&P Information Additional A&P Information: -Hypokalemia: Replaced. Magnesium within normal limits -History of bipolar disorder; will need psychiatric evaluation -abnormal UA, urine cx growing GNRs, pending ID & sensitivity, no abx as patient is asymptomatic -regular diet as tolerated -DVT ppx with Lovenox -Dispo: pending Psych; has been living with aunt -Code status: FULL code Attestations Medical Necessity Statement*: Patient requires hospitalization for continued 1:1 monitoring, Psychiatric evaluation; will be transferred to NPU. 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
[2019-07-29] MEDS: hyDROXYzine 25 mg Capsule 50 MG PO (20:42)
--- NOTE | 2019-07-29 20:47 | PC.NURSE ---
vistiril 50 mg po given for anxiety.
[2019-07-30 06:00] VITALS: BP 159/94; PULSE 68; RESP 18; TEMP 36.9; O2SAT 96
[2019-07-30] MEDS: hyDROXYzine 25 mg Capsule 50 MG PO (08:21)
--- NOTE | 2019-07-30 08:23 | PC.NURSE ---
Addendum entered by Marietta Mena LPN 07/30/19 10:27: PRN VISTARIL EFFECTIVE NO FURTHER C/O ANXIETY Original Note: PRN VISTARIL 50 MG GIVEN PO PER PT C/O ANXIETY. PT LAYING DOWN IN BED IN ROOM, HAD TO BE WOKEN UP TO ADMINISTER MEDICATION. PT STATED STAFF IS MORE CONCERNED ABOUT MAKING SURE HER DOOR IS OPEN THAN GIVING HER MEDICINE. PT INFORMED THAT IT IS UNIT RULES THAT ALL PT DOORS REMAIN OPEN AT ALL TIMES SO STAFF CAN ENSURE PT SAFETY. PT MOOD VERY IRRITABLE WILL CONT TO MONITOR
[2019-07-30 09:27] VITALS: BP 159/94
[2019-07-30] MEDS: cloNIDine 0.1 mg Tablet PO ×2 (09:27→17:29)
[2019-07-30] MEDS: folic acid 1 mg Tablet PO (09:29)
[2019-07-30] MEDS: thiamine 100 mg Tablet PO (09:29)
[2019-07-30] MEDS: metoprolol tartrate 25 mg Tablet PO ×2 (09:30→17:29)
[2019-07-30] MEDS: escitalopram 10 mg Tablet 20 MG PO (09:31)
[2019-07-30] MEDS: multivitamin therapeutic Tablet 1 TAB PO (09:31)
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
[2019-07-30 13:56] VITALS: BP 116/69; PULSE 73; RESP 16; TEMP 36.8; O2SAT 98
[2019-07-30 20:38] VITALS: BP 116/67; PULSE 67; RESP 18; TEMP 36.3; O2SAT 97
[2019-07-30] MEDS: trazodone 50 mg Tablet PO (21:29)
[2019-07-31 06:00] VITALS: BP 106/68; PULSE 66; RESP 20; TEMP 36.6; O2SAT 99
--- NOTE | 2019-07-31 09:08 | PC.NURSE ---
WHEN TEACHER OF THE HEARING IMPAIRED AND RN WENT TO PATIENTS ROOM TO GIVE HER MORNING MEDICATIONS, PT PARANOID AND SAYING THAT NOBODY CARED ABOUT HER AND THAT WE WERE GIVING HER MEDICATIONS THAT WERE WRONG AND THAT SHE HADN'T SEEN THE DOCTOR,AND THIS WAS HELL, AND HAD TOLD STAFF THAT SHE FELT LIKE SHE WAS GOING TO HAVE A HEART ATTACK,BUT NOBODY CARED. TEACHER OF THE HEARING IMPAIRED ASKED STAFF TO TAKE VS 116/77-97-. MEDICATION NURSE OFFERED PT VISTARIL FOR ANXIETY. PT DENIES ANY PAIN IN HER CHEST THAT RADIATES.DENIES SOB,JUST ANXIOUS. WILL CONT TO MONITOR AND FOLLOW UP NEEDED.
[2019-07-31 09:12] VITALS: BP 116/77; PULSE 97; RESP 19; O2SAT 98
[2019-07-31] MEDS: diphenhydrAMINE 50 mg Capsule PO (12:37)
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
== END 2019-07-31 14:31 | disposition home or self-care (01) | DRG 641 ==
LOC: ER 18:46 → ICU 19:14 → NP 07-29 13:37
PROVIDERS: Admitting Provider Internal Medicine; Emergency Provider Family Medicine; Visit Provider Psychiatry & Neurology Psychiatry
DX: E51.2 Wernicke's encephalopathy (principal); F10.259 Alcohol dependence with alcohol-induced psychotic disorder, unspecified; F10.221 Alcohol dependence with intoxication delirium; F10.239 Alcohol dependence with withdrawal, unspecified; I10 Essential (primary) hypertension; F17.210 Nicotine dependence, cigarettes, uncomplicated; Z59.0 Homelessness; Z85.42 Personal history of malignant neoplasm of other parts of uterus; F32.9 Major depressive disorder, single episode, unspecified; E87.6 Hypokalemia; F31.9 Bipolar disorder, unspecified
CPT/HCPCS: 12345; 71045; 74018; 80053; 80307; 81001; 81025; 83735; 85025; 87077; 87086; 87186; 93005; 96372; 96375; 99283; J0360; J1630; J1650; J2060; J3411; J7030; Q0163

== ENCOUNTER → 2019-09-21 17:00 | Outpatient (BNVA) | payer SELFPAY | PROVIDERS: Visit Provider Family Medicine | DX: M25.521 Pain in right elbow (principal) | CPT/HCPCS: 73080 ==

== ENCOUNTER 2019-12-11 16:08 | Emergency (ER) | payer SELFPAY ==
[2019-12-11] VITALS (7 sets, daily range): BP systolic 162–206; BP diastolic 95–115; PULSE 77–103; RESP 16–21; TEMP 36.5; O2SAT 97–99; BMI 25.7
--- NOTE | 2019-12-11 16:31 | ECG_ITS ---
Measurements Intervals Calvin Rate: 77 P: 63 IL: 160 QRS: 51 QRSD: 88 T: 57 QT: 414 QTc: 469 SINUS RHYTHM POSSIBLE LEFT ATRIAL ENLARGEMENT [-0.1mV P WAVE IN V1/V2] SEPTAL MYOCARDIAL INFARCTION , OF INDETERMINATE AGE [40+ ms Q WAVE IN V1/V2] Compared to ECG 07/26/2019 17:28:14 Sinus tachycardia no longer present Myocardial infarct finding still present Electronically Signed On 12-11-2019 18:00:08 CDT by Alice Avila M.D. [email or web address]
--- NOTE | 2019-12-11 16:32 | XRR_ITS ---
PROCEDURE INFORMATION: Exam: XR Chest, 1 View Exam date and time: 12/11/2019 4:51 PM Age: 49 years old Clinical indication: Chest pain TECHNIQUE: Imaging protocol: XR of the chest Views: 1 view. COMPARISON: CR XR chest 1V portable [id number] 07/26/2019 5:10 PM FINDINGS: Lungs: Unremarkable. No consolidation. Pleural space: Unremarkable. No pleural effusion. No pneumothorax. Heart/Mediastinum: Unremarkable. No cardiomegaly. Bones/joints: Unremarkable. XR/XR chest 1V portable [id number] IMPRESSION: No acute findings.
--- NOTE | 2019-12-11 16:58 | ED_ITS ---
HPI - General Adult General: Chief complaint: General Medical Stated complaint: POSSIBLE ALLERGIC RX/ PANIC ATTACK Time Seen by Provider: 12/11/19 16:09 History of Present Illness: HPI narrative: Patient is a 49-year-old female who presents today with concerns for an allergic reaction. She said she took a sampler radioactive waste diet pill and about 20 or 30 minutes later started having chest pain, nausea, trouble breathing and shaking all over. She also has a history of hypertension but says she did take her blood pressure medicine today. She also has a history of some anxiety. She denies any drug or alcohol use. She reports a history of a heart attack in the past. Onset (ago): hour(s) (1) Location: chest Radiation: non-radiation Severity: moderate Quality: burning and aching Pain Consistency: constant Associated symptoms: Reports chest pain, diaphoresis, dyspnea, malaise, nausea and short of breath; Deny headache(s), rash or vomiting Review of Systems General: Reports: 10 or more systems reviewed and unremarkable except in HPI and below Const: Reports: malaise and diaphoresis Eyes: Denies: change in vision ENMT: Denies: odynophagia Card: Reports: chest pain Resp: Reports: dyspnea; Denies: productive cough or non-productive cough GI: Reports: nausea; Denies: abdominal pain or vomiting : Denies: flank pain or difficulty voiding Musc: Denies: neck pain or back pain Skin/Breast: Denies: rash Neuro: Denies: headache(s), numbness in extremities or weakness in extremities James/Lymph: Denies: easy bruising or easy bleeding PFSH ED PFSH: Medical History Bipolar disorder HTN (hypertension) Manic depressive disorder Polysubstance abuse Uterine cancer Surgical History History of History of plastic surgery History of tubal ligation Family History Other Hyperlipidemia Hypertension Social History Smoking and tobacco status: current every day smoker cigarettes Packs smoked per day: 0.5 Years cigarettes smoked: 3 Quit status (tobacco): has tried quititng Number of times tried to quit tobacco: 2 Second hand smoke exposure: Yes Smoking risk assessment/counseling performed?: Yes Tobacco counseling given: counseling >3 minutes Alcohol intake: current Lives independently: No Household members: other Details: Lives with her aunt Marital status: Number of children: 5 Current gender identity: Female Female Reproductive History: Date of last menstrual period: 12/11/19 Physical Exam Const: COMMON NORMALS: no acute distress, patient oriented x3, no limitations and alert GENERAL APPEARANCE: cooperative and comfortable HENMT: HEAD & SCALP: normal to inspection FACE & SINUS: normal facial exam Eye: GENERAL EYE: appearance normal, both eyes and all related structures Neck/C-Spine: COMMON NORMALS: supple, no meningeal signs and no JVD Chest: COMMONS NORMALS: normal inspection of the chest Resp: COMMON NORMALS: normal respiratory effort, No use of accessory muscles and clear to auscultation bilaterally AUSCULTATION: clear to auscultation bilaterally Cardio: COMMON NORMALS: no JVD, regular rate, regular rhythm and No murmurs present (Cardio) RATE: regular rate RHYTHM: regular rhythm GI: COMMON NORMALS: Normal to inspection, nondistended, normoactive bowel sounds present, Soft to palpation and non-tender INSPECTION: Yes normal to inspection AUSCULTATION: Yes normoactive bowel sounds PALPATION: Yes Soft to palpation Back/Pelvis: COMMON NORMALS: thoracic and lumbar spine normal to inspection Extremity: COMMON NORMALS: normal to inspection Neuro: COMMON NORMALS: patient oriented x3, moves all extremities, no focal motor deficits and no sensory deficits noted SENSORIUM/ORIENTATION: Yes alert MENINGEAL SIGNS: Yes no meningeal signs Psych: COMMON NORMALS: mental status grossly normal, cooperative and normal affect Skin: COMMON NORMALS: no rashes or lesions noted and turgor normal GENERAL SKIN EXAM: no rashes or lesions noted and turgor normal Course ED course: Patient presents with anxiety and agitation after taking a sampler radioactive waste. She does have a history of meth abuse but denies any recent use. She is hypertensive and is supposed to be on clonidine for her blood pressure. She says she took 1 this morning. She does also report a history of an SC. Her work-up in the ED is benign and she felt better after little bit of Ativan in some time. I suggested that she start on amlodipine as this might be a better long-term medication than the clonidine for her blood pressure. For now she can take both if she needs them. We discussed that she should avoid all energy drinks and diet [id number] medicines. Vital Signs: Vital signs: Vital Signs Temperature 97.7 F 12/11/19 16:09 Pulse Rate 103 H 12/11/19 19:41 Respiratory Rate 17 12/11/19 19:41 Blood Pressure 162/95 12/11/19 19:41 Pulse Oximetry 99 12/11/19 19:41 [facility] - General Adult Lab Data: Labs: Lab Results 12/11/19 12/11/19 12/11/19 Range/Units 17:13 17:13 17:13 WBC 7.1 (4.0-10.0) 10^3/ uL RBC 3.68 L (4.1-5.3) 10^6/u L Hgb 9.2 L (11.5-15.3) g/dL Hct 30.2 L (37.0-47.0) % MCV 82.1 (81-99) fL MCH 25.0 L (28.0-34.0) pg MCHC 30.5 (30.0-36.0) g/dL RDW 16.8 H (12.1-15.1) % Plt Count 241 (130-400) 10^3/c mm MPV 10.1 (7.4-10.4) fL Neut % (Auto) 76.7 % Lymph % (Auto) 14.7 % [place] % (Auto) 5.5 % Eos % (Auto) 2.0 % Baso % (Auto) 0.7 % Neut # (Auto) 5.4 (1.8-7.7) 10^3/u L Lymph # (Auto) 1.0 (0.8-4.8) 10^3/u L [place] # (Auto) 0.4 (0.2-0.9) 10^3/u L Eos # (Auto) 0.1 (0.0-0.8) 10^3/u L Baso # (Auto) 0.1 (0.0-0.1) 10^3/u L Nucleated RBC % (a uto) 0 % Nucleated RBCs # 0.0 /100WBC Sodium 141 (136-145) mmol/L Potassium 4.2 (3.5-5.1) mmol/L Chloride 105 (98-107) mmol/L Carbon Dioxide 23 (22-29) mmol/L Anion Gap 17.2 (5-19) BUN 13 (6-20) mg/dL Creatinine 0.5 (0.5-0.9) mg/dL GFR Calculation 130.6 H (90-130) mL/min Glucose 94 (65-115) mg/dL Calculated Osmolal ity 288 (285-295) mOsm/k g Calcium 8.4 L (8.5-10.5) mg/dL Total Bilirubin 0.2 (0.15-1.2) mg/dL AST 23 (0-32) U/L ALT 18 (0-33) U/L Alkaline Phosphata se 59 (35-105) IU/L Troponin T Baselin e 6 (0-10) ng/mL Troponin T 120 Min [place] (0-10) ng/mL Delta Troponin T (0-10) ABS# Total Protein 6.6 (6.6-8.7) g/dL Albumin 4.5 (3.5-5.2) g/dL Globulin 2.1 (1.3-4.6) g/dL 12/11/19 Range/Units 19:00 WBC (4.0-10.0) 10^3/ uL RBC (4.1-5.3) 10^6/u L Hgb (11.5-15.3) g/dL Hct (37.0-47.0) % MCV (81-99) fL MCH (28.0-34.0) pg MCHC (30.0-36.0) g/dL RDW (12.1-15.1) % Plt Count (130-400) 10^3/c mm MPV (7.4-10.4) fL Neut % (Auto) % Lymph % (Auto) % [place] % (Auto) % Eos % (Auto) % Baso % (Auto) % Neut # (Auto) (1.8-7.7) 10^3/u L Lymph # (Auto) (0.8-4.8) 10^3/u L [place] # (Auto) (0.2-0.9) 10^3/u L Eos # (Auto) (0.0-0.8) 10^3/u L Baso # (Auto) (0.0-0.1) 10^3/u L Nucleated RBC % (a uto) % Nucleated RBCs # /100WBC Sodium (136-145) mmol/L Potassium (3.5-5.1) mmol/L Chloride (98-107) mmol/L Carbon Dioxide (22-29) mmol/L Anion Gap (5-19) BUN (6-20) mg/dL Creatinine (0.5-0.9) mg/dL GFR Calculation (90-130) mL/min Glucose (65-115) mg/dL Calculated Osmolal ity (285-295) mOsm/k g Calcium (8.5-10.5) mg/dL Total Bilirubin (0.15-1.2) mg/dL AST (0-32) U/L ALT (0-33) U/L Alkaline Phosphata se (35-105) IU/L Troponin T Baselin e (0-10) ng/mL Troponin T 120 Min [place] 6.00 (0-10) ng/mL Delta Troponin T 0 (0-10) ABS# Total Protein (6.6-8.7) g/dL Albumin (3.5-5.2) g/dL Globulin (1.3-4.6) g/dL Discharge Plan Discharge Patient Disposition: Home, Self-Care Clinical Impression: Hypertension Qualifiers: Hypertension type: unspecified Qualified Code(s): I10 - Essential (primary) hypertension Condition: Stable Prescriptions: New amlodipine 5 mg tablet 5 mg PO DAILY Qty: 30 RF: 0 No Action ibuprofen 800 mg tablet 800 mg PO Q8H Qty: 90 RF: 2 permethrin [Elimite] 5 % cream 1 applic TOPICAL ONCE Qty: 60 RF: 1 escitalopram oxalate 10 mg tablet 20 mg PO DAILY 30 Days Qty: 60 RF: 2 trazodone 50 mg tablet 50 mg PO BEDTIME PRN (Reason: Sleep) 30 Days Qty: 30 RF: 2 bupropion HCl [Wellbutrin XL] 150 mg tablet extended release 24 hr 150 mg PO QAM Qty: 30 RF: 2 clonidine HCl 0.1 mg tablet 0.1 mg PO BID 30 Days Qty: 60 RF: 1 Discharge Orders: Discharge Order (Routine); Ordered 12/11/19 Ordered By: Lauren Jamison Discharge Diet: Usual diet Discharge Activity: Resume usual activity Patient Instructions: Chronic Hypertension (ED) Activity Restrictions/Additional Instructions: Do not use any type of energy drinks or supplements, as these can raise your blood pressure and cause anxiety and unpleasant side effects. Follow up with your regular doctor regarding your blood pressure. Continue your regular medicaitons and start the amlodipine as well. Discharge Date/Time: 12/11/19 19:43 Coding Level of Care Code ED Aeronautical Engineering Teacher for Chg Fwd Exam Comprehensive
[2019-12-11] MEDS: LORazepam 2 mg/mL INJ 1 mL 0.5 MG IVP (17:27)
[2019-12-11 17:32] LABS: Basophils # 0.1 10^3/uL (0.0-0.1); Basophils % 0.7 %; Eosinophils # 0.1 10^3/uL (0.0-0.8); Hematocrit 30.2 % (37.0-47.0); Hemoglobin 9.2 g/dL (11.5-15.3); Lymphocytes % 14.7 %; Mean Corpuscular HGB Conc 30.5 g/dL (30.0-36.0); Mean Corpuscular Volume 82.1 fL (81-99); Mean Platelet Volume 10.1 fL (7.4-10.4); Monocytes # 0.4 10^3/uL (0.2-0.9); Monocytes % 5.5 %; Neutrophils # 5.4 10^3/uL (1.8-7.7); Neutrophils % 76.7 %; Nucleated Red Blood Cells % 0 %; Platelet Count 241 10^3/cmm (130-400); Red Blood Count 3.68 10^6/uL (4.1-5.3); Red Cell Distribution Width 16.8 % (12.1-15.1); White Blood Count 7.1 10^3/uL (4.0-10.0)
[2019-12-11 17:54] LABS: Alanine Aminotransferase 18 U/L (0-33); Albumin Level 4.5 g/dL (3.5-5.2); Alkaline Phosphatase 59 IU/L (35-105); Anion Gap 17.2 (5-19); Aspartate Amino Transferase 23 U/L (0-32); Blood Urea Nitrogen 13 mg/dL (6-20); Calcium 8.4 mg/dL (8.5-10.5); Carbon Dioxide 23 mmol/L (22-29); Chloride 105 mmol/L (98-107); Globulin 2.1 g/dL (1.3-4.6); Glomerular Filtration Rate 130.6 mL/min (90-130); Glucose 94 mg/dL (65-115); Osmolality Calculated 288 mOsm/kg (285-295); Potassium 4.2 mmol/L (3.5-5.1); Sodium 141 mmol/L (136-145); Total Bilirubin 0.2 mg/dL (0.15-1.2); Total Protein 6.6 g/dL (6.6-8.7)
[2019-12-11 17:57] LABS: Troponin(5th) Baseline 6 ng/mL (0-10)
--- NOTE | 2019-12-11 19:08 | PC.NURSE ---
Report received from NEEL Alcaraz and care transferred to NEEL Hicks
[2019-12-11] MEDS: cloNIDine 0.1 mg Tablet PO (19:25)
[2019-12-11 19:26] LABS: Troponin 5 2HR Delta 0 ABS# (0-10)
--- NOTE | 2019-12-11 22:31 | ECG_ITS ---
Measurements Intervals [place] Rate: 68 P: 59 ME: 153 QRS: 61 QRSD: 85 T: 60 QT: 436 QTc: 464 SINUS RHYTHM WITH MARKED SINUS ARRHYTHMIA SEPTAL MYOCARDIAL INFARCTION , OF INDETERMINATE AGE [40+ ms Q WAVE IN V1/V2] Compared to ECG 12/11/2019 16:58:25 No significant changes Electronically Signed On 12-11-2019 21:49:27 CDT by Alice Avila M.D. [id number]
== END 2019-12-11 19:43 | disposition home or self-care (01) ==
PROVIDERS: Emergency Provider Emergency Medicine
DX: I10 Essential (primary) hypertension (principal); Z85.42 Personal history of malignant neoplasm of other parts of uterus; F17.210 Nicotine dependence, cigarettes, uncomplicated
CPT/HCPCS: 12345; 36415; 71045; 80053; 84484; 85025; 93005; 96374; 96375; 99283; J2060

== ENCOUNTER 2020-01-28 15:42 | Emergency (ER) | payer SELFPAY ==
[2020-01-28 16:04] VITALS: BP 175/93; PULSE 71; RESP 14; TEMP 36.6; O2SAT 98; BMI 25.7
== END 2020-01-28 18:53 | disposition left against medical advice (07) ==
PROVIDERS: Emergency Provider Family Medicine; PCP Family Medicine
DX: Z53.21 Procedure and treatment not carried out due to patient leaving prior to being seen by health care provider (principal)
CPT/HCPCS: 99281

== ENCOUNTER → 2020-02-18 12:18 | Outpatient (BNVA) | payer SELFPAY | PROVIDERS: PCP Family Medicine; Visit Provider Family Medicine | DX: R73.9 Hyperglycemia, unspecified (principal) | CPT/HCPCS: 80053; 83036 ==

== ENCOUNTER → 2020-05-03 15:44 | Outpatient (BNVA) | payer MEDICAID, SELFPAY | PROVIDERS: PCP Family Medicine; Visit Provider Nurse Practitioner Family | DX: R87.619 Unspecified abnormal cytological findings in specimens from cervix uteri (principal); R10.9 Unspecified abdominal pain | CPT/HCPCS: 80053; 81003; 85025; 87077; 87086; 87184 ==

== ENCOUNTER → 2020-05-06 10:31 | Outpatient (BNVA) | payer MEDICAID, SELFPAY | PROVIDERS: PCP Family Medicine; Visit Provider Obstetrics & Gynecology | DX: R87.619 Unspecified abnormal cytological findings in specimens from cervix uteri (principal) | CPT/HCPCS: 88175 ==

== ENCOUNTER 2020-05-27 12:42 | Outpatient (CLI) | payer MEDICAID, SELFPAY ==
--- NOTE | 2020-05-27 12:48 | CT_ITS ---
WS: [id number] CT scan of the abdomen and pelvis without Oral and with IV contrast. Additional two-dimensional emi nal and sagittal reconstruction was performed. 05/27/2020 Clinical Data: LLQ abdominal pain Comparison: None. DLP: 1045.[address] scans at [facility] use at least one of these dose optimization techniques: automat ed exposure control; mA and/or kV adjustment per patient size (includes targeted exams where dose is matched to clinical indication); or iterative reconstruction. Findings: The lower lungs show no nodules, masses or effusions. The patient has augmentation mammoplasty implan ts. There are gastric clips and faith from gastric bypass surgery. The liver, gallbladder, spleen, adrenal glands and pancreas are normal. The kidneys show equal bilateral contrast excretion with a small left cyst but no masses. No hydronep hrosis or renal calculi are seen. The abdominal aorta is normal in size. No appendicitis or diverticulitis is seen. There are numerous sigmoid diverticula with a large amount of fecal material in the colon. The small bowel is unremarkable. No abscess, adenopathy, ascites, ma ss, obstruction, or free air is seen. The bladder is unremarkable. Uterus is normal. No inguinal hernia is seen. There is an adnexal cyst o n the left measuring 6.51 cm. The origin of this cyst is unclear but it may be arising from the left ovary. The bones of the lower thorax, lumbar spine, pelvis, and hips show only minimal osteoarthritic change of the lower thoracic and lower lumbar vertebral bodies. CT/CT abdomen pelvis w con* [id number] Impression: 1. Negative for acute intra-abdominal abnormalities. 2. Clips in the stomach from gastric bypass surgery. 3. Left adnexal cyst measuring 6.51 cm, recommend pelvic ultrasound.
[2020-05-27] MEDS: iohexol 300 mg/mL 100 mL Btl IV (13:16)
== END 2020-05-27 12:43 | disposition home or self-care (01) ==
LOC: RADWPI 12:46
PROVIDERS: PCP Family Medicine; Visit Provider Nurse Practitioner Family
DX: R10.32 Left lower quadrant pain (principal)
CPT/HCPCS: 74177; Q9967

== ENCOUNTER 2020-06-21 15:46 | Outpatient (CLI) | payer MEDICAID, SELFPAY ==
[2020-06-21 17:36] LABS: Amphetamines Screen Urine Positive (Negative); Barbiturates Screen Urine Negative (Negative); Benzodiazepines Screen Urine Negative (Negative); Cocaine Screen Urine Negative (Negative); Opiate Screen Urine Negative (Negative); PCP Screen Urine Negative (Negative); THC Screen Urine Negative (Negative)
== END 2020-06-21 15:47 | disposition home or self-care (01) ==
PROVIDERS: PCP Family Medicine; Visit Provider Dermatology
DX: F19.11 Other psychoactive substance abuse, in remission (principal); R20.2 Paresthesia of skin
CPT/HCPCS: 80306

== ENCOUNTER 2020-08-23 14:46 | Emergency (ER) | payer MEDICAID, SELFPAY ==
--- NOTE | 2020-08-23 14:48 | ECG_ITS ---
[facility] Test Date: 2020-08-23 Pat Name: Keya Castaneda Department: Room: Gender: Female Wedding Coordinator: YASEMIN : 1970 Requested By: Selin Pineda Order Number: [id number] Reading MD: BALDEV NIXON Measurements Intervals [place] Rate: 72 P: -33 MN: 143 QRS: 42 QRSD: 91 T: 54 QT: 476 QTc: 522 Interpretive Statements SINUS RHYTHM MINIMAL VOLTAGE CRITERIA FOR LVH, CONSIDER NORMAL VARIANT [MEETS CRITERIA IN ONE OF: R(aVL), S(V1), R(V5), R(V5/V6)+S(V1)] SEPTAL MYOCARDIAL INFARCTION [40+ ms Q WAVE IN V1/V2], OF INDETERMINATE AGE No previous ECG available for comparison Electronically Signed On 08-23-2020 18:01:43 RESEARCH SPEC by BALDEV NIXON [email or web address]
--- NOTE | 2020-08-23 14:48 | XR_ITS ---
WS: [id number] PORTABLE CHEST HISTORY: chest pain COMPARISON: 12/11/2019 Lungs are clear and well expanded. No pleural effusion or pneumothorax. Cardiac size: Normal. Mediastinum/Aorta: Normal mediastinum. No osseous abnormality seen. XR/XR chest 1V portable [id number] IMPRESSION: Unremarkable portable chest.
[2020-08-23 14:59] VITALS: BP 156/73; PULSE 72; RESP 14; TEMP 36.6; O2SAT 97; BMI 30.9
== END 2020-08-23 16:04 | disposition left against medical advice (07) ==
PROVIDERS: Emergency Provider Family Medicine; PCP Nurse Practitioner Family
DX: Z53.21 Procedure and treatment not carried out due to patient leaving prior to being seen by health care provider (principal)
CPT/HCPCS: 71045; 93005; 99281

== ENCOUNTER → 2020-08-25 10:23 | Outpatient (BNVA) | payer MEDICAID, SELFPAY | PROVIDERS: PCP Family Medicine; Visit Provider Psychiatry & Neurology Psychiatry | DX: F60.3 Borderline personality disorder (principal); F31.9 Bipolar disorder, unspecified; F10.20 Alcohol dependence, uncomplicated; F15.20 Other stimulant dependence, uncomplicated; F12.20 Cannabis dependence, uncomplicated; F11.21 Opioid dependence, in remission | CPT/HCPCS: 99214 ==

== ENCOUNTER 2020-08-27 08:52 | Emergency (ER) | payer MEDICAID, SELFPAY ==
[2020-08-27 08:52] VITALS: BP 151/123; PULSE 115; RESP 18; TEMP 36.8; O2SAT 97; BMI 25.7
[2020-08-27 09:10] LABS: Basophils # 0.1 10^3/uL (0.0-0.1); Basophils % 1.2 %; Eosinophils # 0.1 10^3/uL (0.0-0.8); Eosinophils % 0.7 %; Hematocrit 36.7 % (37.0-47.0); Hemoglobin 11.3 g/dL (11.5-15.3); Lymphocytes # 1.7 10^3/uL (0.8-4.8); Lymphocytes % 23.3 %; Mean Corpuscular HGB Conc 30.8 g/dL (30.0-36.0); Mean Corpuscular Hemoglobin 24.9 pg (28.0-34.0); Mean Platelet Volume 9.1 fL (7.4-10.4); Monocytes # 0.4 10^3/uL (0.2-0.9); Neutrophils # 5.08 10^3/uL (1.8-7.7); Neutrophils % 69.4 %; Nucleated Red Blood Cells % 0 %; Platelet Count 390 10^3/cmm (130-400); Red Blood Count 4.53 10^6/uL (4.1-5.3); White Blood Count 7.3 10^3/uL (4.0-10.0)
[2020-08-27] MEDS: ondansetron 2 mg/ML SDV 2 mL 4 MG IVP (09:17)
[2020-08-27] MEDS: sodium chloride 0.9% 1,000 ML 999 ML IV (09:18)
--- NOTE | 2020-08-27 09:19 | ED_ITS ---
HPI - Abdominal Pain General: Chief Complaint: Abdominal Pain Stated Complaint: ABD PAIN / ETOH Time Seen by Provider: 08/27/20 08:57 History of Present Illness: HPI narrative: 50-year-old female presents to the emergency room via EMS. She does not know why she was here. She states she actually feels quite fine. Evidently at home she is claiming some epigastric pain. She drinks very heavily bottle of vodka per day. Evidently her called because of abdominal pain. She states she is chronic pain all over but that is not new or different necessarily. She denies any hematemesis or coffee- ground emesis no dysuria urgency or frequency refers most of her abdominal pain to the epigastric area. MD elicited complaint: abdominal pain Pertinent past history: gastritis Onset (ago): hour(s) Pain Consistency: intermittent Location: Epigastric Severity: moderate Quality: cramping Radiation: none Migration to: no migration Exacerbating factors: nothing Relieving factors: nothing Associated Symptoms: Reports GI cramping and dyspepsia; Denies anorexia, belching, bloating, change in bowel habits, change in stool character, chills, coffee ground emesis, constipation, diarrhea, dysuria, excessive flatus, fever(s), heartburn, hematochezia, hematuria, hematemesis, fec al incontinence, loose stools, melena, nausea, poor appetite, syncope and vomiting Related Data: Date of Last Menstrual Period: 12/11/19 Review of Systems Const: Denies: fever(s) or chills ENMT: Denies: throat pain, ear or mastoid pain, nasal discharge or nasal congestion Card: Denies: syncope Resp: Denies: dyspnea, productive cough or non-productive cough GI: Reports: GI cramping; Denies: nausea, vomiting, hematemesis, coffee ground emesis, heartburn, diarrhea, constipation, bloating, belching, excessive flatus, fecal incontinence, change in bowel habits, change in stool character, hematochezia or melena : Denies: dysuria or hematuria Skin/Breast: Denies: rash or pruritus [facility] ED PFSH: Medical History (Updated 08/27/20 @ 10:20 by Oscar Cabrales DO) Bipolar disorder HTN (hypertension) Hyperglycemia Manic depressive disorder Polysubstance abuse Uterine cancer Surgical History History of History of plastic surgery History of tubal ligation Family History Other Hyperlipidemia Hypertension Social History Smoking and tobacco status: current every day smoker cigarettes Packs smoked per day: 0.5 Years cigarettes smoked: 3 Quit status (tobacco): has tried quititng Number of times tried to quit tobacco: 2 Second hand smoke exposure: Yes Smoking risk assessment/counseling performed?: Yes Tobacco counseling given: counseling >3 minutes Alcohol intake: current Lives independently: No Household members: other Details: Lives with her aunt Marital status: Number of children: 5 Current gender identity: Female Female Reproductive History: Date of last menstrual period: 12/11/19 Physical Exam Const: COMMON NORMALS: no acute distress GENERAL APPEARANCE: cooperative and comfortable HENMT: COMMON NORMALS: normocephalic, atraumatic and hearing grossly normal bilaterally HEAD & SCALP: normocephalic and atraumatic Neck/C-Spine: COMMON NORMALS: no JVD Resp: COMMON NORMALS: normal respiratory effort, No retractions, No use of accessory muscles and clear to auscultation bilaterally AUSCULTATION: clear to auscultation bilaterally Cardio: COMMON NORMALS: no JVD, regular rate, regular rhythm and No murmurs present (Cardio) RATE: regular rate RHYTHM: regular rhythm GI: COMMON NORMALS: Soft to palpation and No hepatosplenomegaly present AUSCULTATION: Yes normoactive bowel sounds PALPATION: Yes Soft to palpation, No Tenderness to palpation present (GI), No Guarding due to palpation present (GI) and Yes No hepatosplenomegaly present Extremity: COMMON NORMALS: normal to inspection, capillary refill normal, no clubbing, cyanosis or edema, no calf tenderness and no pedal edema Course Vital Signs: Vital signs: Vital Signs Temperature 98.2 F 08/27/20 08:52 Pulse Rate 118 H 08/27/20 09:25 Respiratory Rate 18 08/27/20 09:25 Blood Pressure 136/88 08/27/20 09:25 Pulse Oximetry 98 08/27/20 09:25 MDM - Abdominal Pain MDM Narrative: Medical decision making narrative: Patient awake alert ambulatory without difficulty and actually a relatively good historian despite her impressive blood alcohol level. Encourage her to abstain from alcohol. Her response would seem to indicate that this is highly unlikely. Lab Data: Labs: Lab Results 08/27/20 08/27/20 08/27/20 Range/Units 09:00 09:00 09:00 WBC 7.3 (4.0-10.0) 10^3/ uL RBC 4.53 (4.1-5.3) 10^6/u L Hgb 11.3 L (11.5-15.3) g/dL Hct 36.7 L (37.0-47.0) % MCV 81.0 (81-99) fL MCH 24.9 L (28.0-34.0) pg MCHC 30.8 (30.0-36.0) g/dL RDW 19.0 H (12.1-15.1) % Plt Count 390 (130-400) 10^3/c mm MPV 9.1 (7.4-10.4) fL Neut % (Auto) 69.4 % Lymph % (Auto) 23.3 % [place] % (Auto) 5.0 % Eos % (Auto) 0.7 % Baso % (Auto) 1.2 % Neut # (Auto) 5.08 (1.8-7.7) 10^3/u L Lymph # (Auto) 1.7 (0.8-4.8) 10^3/u L [place] # (Auto) 0.4 (0.2-0.9) 10^3/u L Eos # (Auto) 0.1 (0.0-0.8) 10^3/u L Baso # (Auto) 0.1 (0.0-0.1) 10^3/u L Nucleated RBC % (a uto) 0 % Nucleated RBCs # 0.0 /100WBC PT (12.1-14.9) SECO NDS INR (0.8-1.2) APTT (23.9-36.7) SECO NDS Sodium 138 (136-145) mmol/L Potassium 4.0 (3.5-5.1) mmol/L Chloride 99 (98-107) mmol/L Carbon Dioxide 23 (22-29) mmol/L Anion Gap 20.0 H (5-19) BUN 8 (6-20) mg/dL Creatinine 0.4 L (0.5-0.9) mg/dL GFR Calculation 168.3 H (90-130) mL/min Glucose 120 H (65-115) mg/dL Calculated Osmolal ity 286 (285-295) mOsm/k g Calcium 8.3 L (8.5-10.5) mg/dL Total Bilirubin 0.2 (0.15-1.2) mg/dL AST 20 (0-32) U/L ALT 10 (0-33) U/L Alkaline Phosphata se 96 (35-105) IU/L Total Protein 6.9 (6.6-8.7) g/dL Albumin 4.0 (3.5-5.2) g/dL Globulin 2.9 (1.3-4.6) g/dL Lipase 39 (13-60) U/L Urine Color (Yellow) Urine Appearance (CLEAR) Urine pH (5-7) Ur Specific Gravit y (1.005-1.030) Urine Protein (Negative) Urine Glucose (UA) (Normal) Urine Ketones (Negative) Urine Blood (Negative) Urine Nitrate (Negative) Urine Bilirubin (Negative) Urine Urobilinogen (Negative) mg/dL Ur Leukocyte [place] ase (Negative) Urine RBC (0-2) /hpf Urine WBC (0-5) /hpf Ur Squamous Epith Cells (0-5) /hpf Amorphous Sediment Urine Bacteria (NONE) /hpf Urine Mucus /hpf Ethyl Alcohol 309 H* (0-10) mg/dL 08/27/20 08/27/20 Range/Units 09:00 09:36 WBC (4.0-10.0) 10^3/ uL RBC (4.1-5.3) 10^6/u L Hgb (11.5-15.3) g/dL Hct (37.0-47.0) % MCV (81-99) fL MCH (28.0-34.0) pg MCHC (30.0-36.0) g/dL RDW (12.1-15.1) % Plt Count (130-400) 10^3/c mm MPV (7.4-10.4) fL Neut % (Auto) % Lymph % (Auto) % [place] % (Auto) % Eos % (Auto) % Baso % (Auto) % Neut # (Auto) (1.8-7.7) 10^3/u L Lymph # (Auto) (0.8-4.8) 10^3/u L [place] # (Auto) (0.2-0.9) 10^3/u L Eos # (Auto) (0.0-0.8) 10^3/u L Baso # (Auto) (0.0-0.1) 10^3/u L Nucleated RBC % (a uto) % Nucleated RBCs # /100WBC PT 13.80 (12.1-14.9) SECO NDS INR 1.02 (0.8-1.2) APTT 25.2 (23.9-36.7) SECO NDS Sodium (136-145) mmol/L Potassium (3.5-5.1) mmol/L Chloride (98-107) mmol/L Carbon Dioxide (22-29) mmol/L Anion Gap (5-19) BUN (6-20) mg/dL Creatinine (0.5-0.9) mg/dL GFR Calculation (90-130) mL/min Glucose (65-115) mg/dL Calculated Osmolal ity (285-295) mOsm/k g Calcium (8.5-10.5) mg/dL Total Bilirubin (0.15-1.2) mg/dL AST (0-32) U/L ALT (0-33) U/L Alkaline Phosphata se (35-105) IU/L Total Protein (6.6-8.7) g/dL Albumin (3.5-5.2) g/dL Globulin (1.3-4.6) g/dL Lipase (13-60) U/L Urine Color Yellow (Yellow) Urine Appearance Sl hazy (CLEAR) Urine pH 5 (5-7) Ur Specific Gravit y 1.025 (1.005-1.030) Urine Protein 1+ H (Negative) Urine Glucose (UA) Norm (Normal) Urine Ketones Negative (Negative) Urine Blood Trace H (Negative) Urine Nitrate Negative (Negative) Urine Bilirubin Neg (Negative) Urine Urobilinogen Norm (Negative) mg/dL Ur Leukocyte [place]ila ase Negative (Negative) Urine RBC 0-4 H (0-2) /hpf Urine WBC None (0-5) /hpf Ur Squamous Epith Cells 5-10 H (0-5) /hpf Amorphous Sediment Not Reportable Urine Bacteria Trace (NONE) /hpf Urine Mucus 1+ /hpf Ethyl Alcohol (0-10) mg/dL Discharge Plan Discharge Patient Disposition: Home Clinical Impression: Alcoholic intoxication, Polysubstance abuse, Alcoholic gastritis Condition: Stable Prescriptions: New Pepcid 20 mg tablet 20 mg PO BID 56 Days Qty: 112 RF: 0 No Action ibuprofen 800 mg tablet 800 mg PO Q8H Qty: 90 RF: 2 metoprolol succinate 50 mg tablet extended release 24 hr 50 mg PO BID RF: 0 gabapentin 100 mg capsule 100 mg PO DAILY RF: 0 clobetasol 0.05 % ointment 1 applic topical BID 14 Days Qty: 60 RF: 0 metformin 500 mg tablet See Rx Instructions .ROUTE .COMPLEX Qty: 30 RF: 0 clonidine HCl 0.1 mg tablet 0.1 mg PO BID 30 Days Qty: 60 RF: 2 escitalopram oxalate 10 mg tablet 20 mg PO .HS Qty: 60 RF: 2 risperidone [Risperdal] 0.5 mg tablet 0.5 mg PO BID Qty: 60 RF: 2 trazodone 50 mg tablet 50 mg PO BEDTIME PRN (Reason: Sleep) 30 Days Qty: 30 RF: 2 bupropion HCl [Wellbutrin XL] 300 mg tablet extended release 24 hr 300 mg PO QAM Qty: 30 RF: 2 Discharge Orders: Discharge ED (Routine); Ordered 08/27/20 Ordered By: Oscar Cabrales Referrals: Raiza Woo MD [Primary Care Provider] - Discharge Diet: Usual diet Discharge Activity: Increase activity as tolerated Activity Restrictions/Additional Instructions: Recommend abstinence from alcohol. Coding Level of Care Code ED Television News Anchor for Chg Fwd Exam Detailed
[2020-08-27 09:25] VITALS: BP 136/88; PULSE 118; RESP 18; O2SAT 98
[2020-08-27 09:30] LABS: Alanine Aminotransferase 10 U/L (0-33); Alkaline Phosphatase 96 IU/L (35-105); Aspartate Amino Transferase 20 U/L (0-32); Blood Urea Nitrogen 8 mg/dL (6-20); Calcium 8.3 mg/dL (8.5-10.5); Carbon Dioxide 23 mmol/L (22-29); Chloride 99 mmol/L (98-107); Globulin 2.9 g/dL (1.3-4.6); Glomerular Filtration Rate 168.3 mL/min (90-130); Glucose 120 mg/dL (65-115); Lipase 39 U/L (13-60); Osmolality Calculated 286 mOsm/kg (285-295); Sodium 138 mmol/L (136-145); Total Bilirubin 0.2 mg/dL (0.15-1.2); Total Protein 6.9 g/dL (6.6-8.7)
[2020-08-27 09:44] LABS: INR 1.02 (0.8-1.2); Partial Thromboplastin Time 25.2 SECONDS (23.9-36.7)
[2020-08-27 09:58] LABS: Add Urine Microscopic? YES; Bilirubin Urine Neg (Negative); Blood Urine Trace (Negative); Glucose Urine UA Norm (Normal); Ketones Urine Negative (Negative); Leukocyte Esterase Urine Negative (Negative); Nitrate Urine Negative (Negative); Protein Urine 1+ (Negative); Specific Gravity, Urine 1.025 (1.005-1.030); Urine Appearance SL Hazy (CLEAR); Urine Color Yellow (Yellow); Urobilinogen Urine Norm (Negative); pH Urine 5 (5-7)
[2020-08-27 10:01] LABS: RBC Urine 0-4 /hpf (0-2)
[2020-08-27 10:02] LABS: Bacteria Urine TRACE /hpf; Mucus Urine 1+ /hpf
[2020-08-27 10:03] LABS: Add Urine Culture? No
[2020-08-27 10:19] LABS: Alcohol Level 309 mg/dL (0-10)
[2020-08-27 10:27] VITALS: BP 136/88; PULSE 118; RESP 18; O2SAT 98
== END 2020-08-27 10:28 | disposition home or self-care (01) ==
LOC: ER 10:23
PROVIDERS: Emergency Provider Family Medicine; PCP Family Medicine
DX: K29.20 Alcoholic gastritis without bleeding (principal); F10.129 Alcohol abuse with intoxication, unspecified; F19.10 Other psychoactive substance abuse, uncomplicated; Z79.84 Long term (current) use of oral hypoglycemic drugs; Y90.8 Blood alcohol level of 240 mg/100 ml or more; I10 Essential (primary) hypertension; Z85.42 Personal history of malignant neoplasm of other parts of uterus; F17.210 Nicotine dependence, cigarettes, uncomplicated
CPT/HCPCS: 12345; 80053; 80307; 81001; 83690; 85025; 85610; 85730; 96361; 96374; 99283; J2405; J7030

== ENCOUNTER → 2020-09-22 10:54 | Outpatient (BNVA) | payer MEDICAID, SELFPAY | PROVIDERS: PCP Family Medicine; Visit Provider Psychiatry & Neurology Psychiatry | DX: F60.3 Borderline personality disorder (principal); F31.9 Bipolar disorder, unspecified; F10.20 Alcohol dependence, uncomplicated; F32.9 Major depressive disorder, single episode, unspecified; F11.21 Opioid dependence, in remission; F15.20 Other stimulant dependence, uncomplicated; F12.20 Cannabis dependence, uncomplicated; E51.2 Wernicke's encephalopathy | CPT/HCPCS: 99214 ==

== ENCOUNTER → 2021-01-19 12:52 | Outpatient (BNVA) | payer MEDICAID, SELFPAY | PROVIDERS: PCP Family Medicine; Visit Provider Psychiatry & Neurology Psychiatry | DX: F60.3 Borderline personality disorder (principal); F31.9 Bipolar disorder, unspecified; F32.9 Major depressive disorder, single episode, unspecified; Z03.89 Encounter for observation for other suspected diseases and conditions ruled out; F10.20 Alcohol dependence, uncomplicated; Z79.899 Other long term (current) drug therapy; F11.21 Opioid dependence, in remission; F15.20 Other stimulant dependence, uncomplicated; F43.12 Post-traumatic stress disorder, chronic | CPT/HCPCS: 80053; 80061; 83036; 84443; 85025; 99214 ==

== ENCOUNTER → 2021-04-06 13:06 | Outpatient (BNVA) | payer MEDICAID, SELFPAY | PROVIDERS: PCP Family Medicine; Visit Provider Psychiatry & Neurology Psychiatry | DX: F32.9 Major depressive disorder, single episode, unspecified (principal); F11.21 Opioid dependence, in remission; F10.20 Alcohol dependence, uncomplicated; Z79.899 Other long term (current) drug therapy; Z03.89 Encounter for observation for other suspected diseases and conditions ruled out; F15.20 Other stimulant dependence, uncomplicated; F12.20 Cannabis dependence, uncomplicated; E51.2 Wernicke's encephalopathy; F39 Unspecified mood [affective] disorder | CPT/HCPCS: 99214 ==

== ENCOUNTER → 2021-05-18 12:50 | Outpatient (BNVA) | payer MEDICAID, SELFPAY | PROVIDERS: PCP Family Medicine; Visit Provider Psychiatry & Neurology Psychiatry | DX: F32.9 Major depressive disorder, single episode, unspecified (principal); F98.8 Other specified behavioral and emotional disorders with onset usually occurring in childhood and adolescence; F11.21 Opioid dependence, in remission; Z79.899 Other long term (current) drug therapy; Z03.89 Encounter for observation for other suspected diseases and conditions ruled out; F10.20 Alcohol dependence, uncomplicated; F15.20 Other stimulant dependence, uncomplicated; F12.20 Cannabis dependence, uncomplicated; E51.2 Wernicke's encephalopathy | CPT/HCPCS: 99214 ==

== ENCOUNTER → 2021-09-12 12:13 | Outpatient (BNVA) | payer MEDICAID, SELFPAY | PROVIDERS: PCP Family Medicine; Visit Provider Psychiatry & Neurology Psychiatry | DX: F32.9 Major depressive disorder, single episode, unspecified (principal); F11.21 Opioid dependence, in remission; F10.20 Alcohol dependence, uncomplicated; F15.20 Other stimulant dependence, uncomplicated; F12.20 Cannabis dependence, uncomplicated; E51.2 Wernicke's encephalopathy | CPT/HCPCS: 99214 ==

== ENCOUNTER 2021-10-01 12:36 | Inpatient (IN) | payer MEDICAID, SELFPAY ==
[2021-10-01 12:48] VITALS: BP 169/124; PULSE 102; RESP 18; TEMP 36.7; O2SAT 98; BMI 33.3
--- NOTE | 2021-10-01 12:59 | W.ED.PSYCHS ---
HPI - Psych General: Chief Complaint: Psychiatric Symptoms Stated Complaint: Mental Eval, Incoherant Time Seen by Provider: 10/01/21 12:59 Limitations: altered mental status History of Present Illness: Ms. Castaneda is a 51-year-old lady with reported past medical history of bipolar disorder, and per chart review history of substance abuse who presents emergency department with altered mental status. History is somewhat limited but provided by patient's at bedside. He reports never seeing her in the state before. Approximately 2 weeks ago she began acting bizarrely including collecting sticks and leaves from outside and building piles of them believing that they are from God. She has had poor sleep and has been doing other bizarre activities throughout the day. She did sleep for the past 2 nights and was mildly improved in the morning however continue to worsen. Overall the course of symptoms has been worsening. Intensity is moderate to severe. No otherwise known changes in health, exacerbating, or relieving factors. Patient is apparently not on medication for her bipolar at this time. Onset (ago): week(s) Duration: getting worse Review of Systems General: Reports: ROS unobtainable due to mental status PFSH ED PFSH: Medical History ADD (attention deficit disorder) Attention and concentration deficit Bipolar disorder Depression HTN (hypertension) Hyperglycemia Manic depressive disorder Other intermodal customer service (current) drug therapy Polysubstance abuse Psychiatric care Uterine cancer Surgical History History of History of plastic surgery History of tubal ligation Family History Other Hyperlipidemia Hypertension Social History Smoking and tobacco status: current every day smoker cigarettes Packs smoked per day: 0.5 Years cigarettes smoked: 3 Quit status (tobacco): has tried quititng Number of times tried to quit tobacco: 2 Second hand smoke exposure: Yes Smoking risk assessment/counseling performed?: Yes Tobacco counseling given: counseling >3 minutes Alcohol intake: current Lives independently: No Household members: other Details: Lives with her aunt Marital status: Number of children: 5 Current gender identity: Female Female Reproductive History: Date of last menstrual period: 12/11/19 Physical Exam Const: COMMON NORMALS: alert GENERAL APPEARANCE: well developed HENMT: COMMON NORMALS: normocephalic and atraumatic HEAD & SCALP: normocephalic and atraumatic Eye: COMMON NORMALS: conjunctivae normal CONJUNCTIVA: Yes conjunctivae normal SCLERA: sclerae normal Neck/C-Spine: COMMON NORMALS: supple GENERAL: Yes trachea midline Resp: COMMON NORMALS: clear to auscultation bilaterally EFFORT & INSPECTION: Yes able to speak in complete sentences AUSCULTATION: clear to auscultation bilaterally Cardio: COMMON NORMALS: regular rhythm RATE: tachycardic RHYTHM: regular rhythm GI: COMMON NORMALS: Soft to palpation PALPATION: Yes Soft to palpation and No Tenderness to palpation present (GI) Extremity: GENERAL: Yes normal exam except as noted and No edema Neuro: COMMON NORMALS: moves all extremities SENSORIUM/ORIENTATION: Yes alert Psych: ACTIVITY/MOTOR BEHAVIOR: Yes hyperactivity SPEECH: Yes rapid MOOD & AFFECT: Yes elevated mood THOUGHT PROCESS: disorganized INSIGHT: Poor insight present (Psych) JUDGEMENT: Poor judgement present (Psych) Course ED course: - Patient was seen and evaluated by me at bedside - Patient placed on cardiac monitors, IV access obtained - Initial evaluation notable for exam as above, patient appears to have psychosis - Labs notable for no leukocytosis, microcytic anemia. Metabolic panel without acute metabolic derangement to explain symptoms. Urinalysis not concerning for urinary tract infection. Drug screen as tested positive for amphetamines and marijuana. - Case discussed with psychiatry service railroad commissioner. Patient to be admitted to neuropsych unit for stabilization and definitive management. - Based on ED evaluation at this point there is no obvious condition that would preclude the patient from inpatient management of psychiatric concerns. Note: Click bubbles or prepopulated wiseman in note writing are used for assistance with data collection and billing and are inherently more limited than narrative and other text portions of this note. Please use narrative for additional clinical history and defer to narrative/free test for any case of contradictory information. If information appears in only free text or click bubble it should be considered present or absent as reported. Please contact note publicity writer for clarifications of clinical information or contradictory information. MDM is a brief summary, contradictory or erroneous seeming information should be clarified and full note should be reviewed. Vital Signs: Vital signs: Vital Signs Temperature 97.6 F 10/05/21 22:00 Pulse Rate 63 10/06/21 06:00 Respiratory Rate 18 10/06/21 06:00 Blood Pressure 94/63 10/06/21 06:00 Pulse Oximetry 97 10/06/21 06:00 [facility] - Psych Medical Decision Making 51-year-old lady presenting with 2-week history of psychotic behavior. Admitted to psych unit for definitive management and stabilization. Medical Records I reviewed the patient's medical records. Lab Data I reviewed the patient's lab results. : 10/01/21 13:43 10/01/21 13:43 Laboratory Results WBC 5.6 10^3/uL (4.0-10.0) 10/01/21 13:43 RBC 4.55 10^6/uL (4.1-5.3) 10/01/21 13:43 Hgb 10.3 g/dL (11.5-15.3) L 10/01/21 13:43 Hct 34.5 % (37.0-47.0) L 10/01/21 13:43 MCV 75.8 fl (81-99) L 10/01/21 13:43 MCH 22.6 pg (28.0-34.0) L 10/01/21 13:43 MCHC 29.9 g/dL (30.0-36.0) L 10/01/21 13:43 RDW 15.5 % (12.1-15.1) H 10/01/21 13:43 Plt Count 318 10^3/cmm (130-400) 10/01/21 13:43 MPV 10.0 fL (7.4-10.4) 10/01/21 13:43 Neut % (Auto) 57.5 % 10/01/21 13:43 Lymph % (Auto) 27.2 % 10/01/21 13:43 [place] % (Auto) 8.8 % 10/01/21 13:43 Eos % (Auto) 5.2 % 10/01/21 13:43 Baso % (Auto) 1.3 % 10/01/21 13:43 Neut # (Auto) 3.21 10^3/uL (1.8-7.7) 10/01/21 13:43 Lymph # (Auto) 1.5 10^3/uL (0.8-4.8) 10/01/21 13:43 [place] # (Auto) 0.5 10^3/uL (0.2-0.9) 10/01/21 13:43 Eos # (Auto) 0.3 10^3/uL (0.0-0.8) 10/01/21 13:43 Baso # (Auto) 0.1 10^3/uL (0.0-0.1) 10/01/21 13:43 Nucleated RBC % (auto) 0 % 10/01/21 13:43 Nucleated RBCs # 0.0 /100WBC 10/01/21 13:43 Sodium 138 mmol/L (136-145) 10/01/21 13:43 Potassium 4.0 mmol/L (3.5-5.1) 10/01/21 13:43 Chloride 101 mmol/L (98-107) 10/01/21 13:43 Carbon Dioxide 26 mmol/L (22-29) 10/01/21 13:43 Anion Gap 15.0 (5-19) 10/01/21 13:43 BUN 7 mg/dL (6-20) 10/01/21 13:43 Creatinine 0.7 mg/dL (0.5-0.9) 10/01/21 13:43 GFR Calculation 87.9 mL/min (90-130) L 10/01/21 13:43 Glucose 107 mg/dL (65-115) 10/01/21 13:43 Calculated Osmolality 284 mOsm/kg (285-295) L 10/01/21 13:43 Calcium 8.4 mg/dL (8.5-10.5) L 10/01/21 13:43 Total Bilirubin 0.2 mg/dL (0.15-1.2) 10/01/21 13:43 AST 28 U/L (0-32) 10/01/21 13:43 ALT 17 U/L (0-33) 10/01/21 13:43 Alkaline Phosphatase 75 IU/L (35-105) 10/01/21 13:43 Total Protein 6.7 g/dL (6.6-8.7) 10/01/21 13:43 Albumin 4.6 g/dL (3.5-5.2) 10/01/21 13:43 Globulin 2.1 g/dL (1.3-4.6) 10/01/21 13:43 TSH 1.97 uIU/mL (0.27-4.20) 10/01/21 13:43 Urine Color Yellow (Yellow) 10/01/21 14:09 Urine Appearance Clear (CLEAR) 10/01/21 14:09 Urine pH 6 (5-7) 10/01/21 14:09 Ur Specific [place] 1.020 (1.005-1.030) 10/01/21 14:09 Urine Protein Neg (Negative) 10/01/21 14:09 Urine Glucose (UA) Norm (Normal) 10/01/21 14:09 Urine Ketones 1+ (Negative) H 10/01/21 14:09 Urine Blood Neg (Negative) 10/01/21 14:09 Urine Nitrate Negative (Negative) 10/01/21 14:09 Urine Bilirubin Neg (Negative) 10/01/21 14:09 Urine Urobilinogen 1 mg/dL (Negative) H 10/01/21 14:09 Ur Leukocyte Esterase Negative (Negative) 10/01/21 14:09 Salicylates 1.0 mg/dL (3-10) L 10/01/21 13:43 Urine Opiates Screen Negative ng/mL (Negative) 10/01/21 14:09 Acetaminophen < 5.0 ug/mL (10-30) L 10/01/21 13:43 Ur Barbiturates Screen Negative ng/mL (Negative) 10/01/21 14:09 Ur Phencyclidine Scrn Negative ng/mL (Negative) 10/01/21 14:09 Ur Amphetamines Screen Positive ng/mL (Negative) H 10/01/21 14:09 U Benzodiazepines Scrn Negative ng/mL (Negative) 10/01/21 14:09 Urine Cocaine Screen Negative ng/mL (Negative) 10/01/21 14:09 U Marijuana (THC) Screen Positive ng/mL (Negative) H 10/01/21 14:09 Ethyl Alcohol < 10 mg/dL (0-10) 10/01/21 13:43 Discharge Plan Discharge Patient Disposition: Admitted As Inpatient Admit Provider: Blue Washington Clinical Impression: Psychosis Condition: Stable Coding Level of Care Code ED [employer] for Chg Fwd Exam Comprehensive
[2021-10-01 13:47] LABS: Basophils # 0.1 10^3/uL (0.0-0.1); Basophils % 1.3 %; Eosinophils # 0.3 10^3/uL (0.0-0.8); Eosinophils % 5.2 %; Hematocrit 34.5 % (37.0-47.0); Hemoglobin 10.3 g/dL (11.5-15.3); Lymphocytes # 1.5 10^3/uL (0.8-4.8); Lymphocytes % 27.2 %; Mean Corpuscular HGB Conc 29.9 g/dL (30.0-36.0); Mean Corpuscular Hemoglobin 22.6 pg (28.0-34.0); Mean Corpuscular Volume 75.8 fl (81-99); Monocytes # 0.5 10^3/uL (0.2-0.9); Monocytes % 8.8 %; Neutrophils # 3.21 10^3/uL (1.8-7.7); Neutrophils % 57.5 %; Nucleated Red Blood Cells % 0 %; Platelet Count 318 10^3/cmm (130-400); Red Blood Count 4.55 10^6/uL (4.1-5.3); Red Cell Distribution Width 15.5 % (12.1-15.1); White Blood Count 5.6 10^3/uL (4.0-10.0)
[2021-10-01] MEDS: LORazepam 2 mg/mL INJ 1 mL IM ×2 (14:07→17:39)
[2021-10-01 14:13] LABS: Add Urine Microscopic? NO; Charge for UA Resulting for Rev
[2021-10-01 14:13] LABS: Alanine Aminotransferase 17 U/L (0-33); Albumin Level 4.6 g/dL (3.5-5.2); Alkaline Phosphatase 75 IU/L (35-105); Aspartate Amino Transferase 28 U/L (0-32); Blood Urea Nitrogen 7 mg/dL (6-20); Calcium 8.4 mg/dL (8.5-10.5); Carbon Dioxide 26 mmol/L (22-29); Chloride 101 mmol/L (98-107); Globulin 2.1 g/dL (1.3-4.6); Glomerular Filtration Rate 87.9 mL/min (90-130); Glucose 107 mg/dL (65-115); Osmolality Calculated 284 mOsm/kg (285-295); Sodium 138 mmol/L (136-145); Thyroid Stimulating Hormone 1.97 uIU/mL (0.27-4.20); Total Bilirubin 0.2 mg/dL (0.15-1.2); Total Protein 6.7 g/dL (6.6-8.7)
[2021-10-01 14:30] LABS: Bilirubin Urine Neg (Negative); Blood Urine Neg (Negative); Glucose Urine UA Norm (Normal); Ketones Urine 1+ (Negative); Leukocyte Esterase Urine Negative (Negative); Nitrate Urine Negative (Negative); Protein Urine Neg (Negative); Urine Appearance Clear (CLEAR); Urine Color Yellow (Yellow); pH Urine 6 (5-7)
[2021-10-01 14:31] LABS: Urobilinogen Urine 1 mg/dL (Negative)
[2021-10-01 14:38] LABS: Acetaminophen < 5.0 ug/mL (10-30); Alcohol Level < 10 mg/dL (0-10)
[2021-10-01 14:39] LABS: Amphetamines Screen Urine Positive (Negative); Barbiturates Screen Urine Negative (Negative); Benzodiazepines Screen Urine Negative (Negative); Cocaine Screen Urine Negative (Negative); Opiate Screen Urine Negative (Negative); PCP Screen Urine Negative (Negative); THC Screen Urine Positive (Negative)
[2021-10-01 16:18] VITALS: PULSE 98; RESP 17; O2SAT 98
[2021-10-01 16:50] VITALS: BP 183/135; PULSE 97; RESP 18; TEMP 37.5; O2SAT 98
[2021-10-01] MEDS: propranolol 20 mg Tablet PO (17:27)
[2021-10-01] MEDS: haloperidol inj 5 mg/mL INJ 1 mL IM (17:39)
[2021-10-01] MEDS: diphenhydrAMINE 50 mg/mL SDV 1mL IM (17:39)
[2021-10-01 20:12] VITALS: BP 141/64; PULSE 83; RESP 18; TEMP 36.5; O2SAT 97
--- NOTE | 2021-10-01 21:39 | PC.NURSE ---
at 1830 this evening patient was placed on a 96 hour hold due to psychosis, paranoia, hinduism ideation witnessed by this nurse and affidavit filled out by . Physician notified. Order received.
[2021-10-02 06:00] VITALS: BP 145/88; PULSE 89; RESP 18; TEMP 36.3; O2SAT 98
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
[2021-10-02] MEDS: atorvastatin 40 mg Tablet 20 MG PO (09:10)
[2021-10-02] MEDS: metoprolol succinate ER (24 HR) 50 mg Tablet PO (09:11)
[2021-10-02] MEDS: multivitamin therapeutic Tablet 1 TAB PO (09:11)
[2021-10-02] MEDS: folic acid 1 mg Tablet PO (09:11)
[2021-10-02] MEDS: thiamine 100 mg Tablet PO (09:11)
[2021-10-02] MEDS: cloNIDine 0.1 mg Tablet 0.2 MG PO (09:11)
[2021-10-02] MEDS: buPROPion XL (24 HR) 150 mg Tablet PO (09:12)
[2021-10-02] MEDS: escitalopram 10 mg Tablet PO (09:12)
--- NOTE | 2021-10-02 11:33 | NPU.GN ---
[facility] Unit Group Topic:David Villagomez General Mood of Group: Keya did not attend group she wanted to sleep. CSS met with patient after group and client was not awake or stable enough to discuss [facility] services. CSS will re engage with patient tomorrow.
[2021-10-02 14:00] VITALS: BP 132/80; PULSE 69; RESP 18; TEMP 36.7; O2SAT 96
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
[2021-10-02] MEDS: LORazepam 2 mg/mL INJ 1 mL IM (16:03)
[2021-10-02] MEDS: diphenhydrAMINE 50 mg/mL SDV 1mL IM (16:03)
[2021-10-02] MEDS: haloperidol inj 5 mg/mL INJ 1 mL IM (16:03)
--- NOTE | 2021-10-02 16:04 | PC.NURSE ---
PRN ATIVAN/HALODL/BENADRYL ATIVAN 2 MG GIVEN WITH HALDOL 5 MG IM IN LEFT DELTOID PER PT C/O INCREASED AGITATION/ANXIETY. BENADRYL 50 MG GIVEN IM IN RIGHT DELTOID PER PT C/O INCREASED AGITATION/ANXIETY. DURING VISITING HOURS PT BECAME UPSET, YELLING ABOUT BEING ON THE UNIT, DEMANDING TO LEAVE THE UNIT WITH HER . STAFF INFORMED PT SHE WAS ON A COURT ORDERED HOLD, PT CONT TO BE ARGUMENTATIVE WITH STAFF, WAS ESCORTED OFF THE UNIT WITHOUT INCIDENT. SECURITY AND FORESTRY ADVISER ALSO SPEAKING WITH PATIENT ATTEMPTED TO REDIRECT WITH LITTLE SUCCESS. PT WENT INTO HER ROOMS FOR INJECTIONS & TOOK INJECTIONS WILLINGLY. GIVEN DRINKS/SNACKS PER REQUEST. STAFF WILL CONT TO MONITOR FOR DESIRED MED EFFECTIVENESS.
[2021-10-02 20:11] VITALS: BP 97/62; PULSE 68; RESP 18; TEMP 36.4; O2SAT 96
[2021-10-02 20:49] VITALS: BP 97/62
[2021-10-03 09:36] VITALS: BP 97/62
[2021-10-03] MEDS: buPROPion XL (24 HR) 150 mg Tablet PO (09:36)
[2021-10-03] MEDS: folic acid 1 mg Tablet PO (09:36)
[2021-10-03] MEDS: metoprolol succinate ER (24 HR) 50 mg Tablet PO (09:36)
[2021-10-03] MEDS: multivitamin therapeutic Tablet 1 TAB PO (09:36)
[2021-10-03] MEDS: thiamine 100 mg Tablet PO (09:36)
[2021-10-03] MEDS: escitalopram 10 mg Tablet PO (09:36)
[2021-10-03] MEDS: atorvastatin 40 mg Tablet 20 MG PO (09:36)
[2021-10-03] MEDS: cloNIDine 0.1 mg Tablet 0.2 MG PO (09:36)
--- NOTE | 2021-10-03 10:00 | W.PM.NPUPNS ---
Subjective NPU Subjective: She continues to be quite psychotic and delusional. She is not sleeping at night. She is getting Zydis daily. She continues to be full of energy and have difficulty advancing. He says he has already seen him to much information about him. Mental Status Exam MSE Comments: This is a 51-year-old overweight female who appears approximately her stated age and is in no acute distress. She was found in the day room at 9:30 AM appeared to be asleep. She awoke easily but kept her eyes closed throughout the interview. She is fairly groomed and dressed in hospital scrubs. psychomotor activity is decreased. Speech is at a regular rate and rhythm, normal volume, good articulation, not pressured. Alert, oriented X3 Attention and concentration appear to be somewhat decreased. Memory is intact Mood is good. Affect is somewhat bland she has half-asleep Thought process is not logical. Her thoughts are not connected. She knows what she says does not have anything to do with the current context of the conversation or questions asked. Thought content: She admits to hearing voices of her mother and other spirits but no visual hallucinations. She has hyperreligious and believes that she is here to assist with medical experiments requested by the [facility] . No current suicidal ideation, and no homicidal ideation. Fund of knowledge is difficult to discern. Insight and judgment appear to be impaired. Impulse control is impaired. Cognition: Patient Appearance: Disheveled/Poor Hygiene and No Eye Contact Level of Consciousness: Awake and Alert Ability to Follow Directions: Poor Patient Orientation (long list): Person, Place, Time, Name, Age and Birthday Comprehension Ability: Unable to Comprehend Hallucination Type: None Delusion Description: Not Present Thought Process: Appropriate Affect: Affect Description: Anxious, Labile and Tearful Depressive Symptoms: Increased Anxiety Behavior: Patient Behavior: Evasive, Intrusive and Withdrawn Speech Pattern: Garbled Vitals/I&O/Wt Last Vital Signs Temp 97.7 F 10/04/21 06:00 Pulse 80 10/04/21 06:00 Resp 24 H 10/04/21 06:00 BP 124/10/04/21 08:12 Pulse Ox 98 10/04/21 06:00 Data NPU : 10/01/21 13:43 10/01/21 13:43 A&P Assessment and plan (1) Psychosis: Status: Acute (2) Depression: Status: Acute (3) Opioid use disorder, severe, in sustained remission: Status: Acute (4) Alcohol dependence, uncomplicated: Status: Acute (5) Other stimulant dependence, uncomplicated: Status: Acute (6) Cannabis dependence, uncomplicated: Status: Acute (7) Borderline personality disorder: Status: Acute (8) Wernicke encephalopathy: Status: Acute Plan This is a 51-year-old female with a long history of polysubstance abuse with 2 weeks of very erratic behavior and psychosis which has been says it is very different and has never been like this before. Plan: 1. We will restart Lexapro and Wellbutrin. She is receiving Zyprexa Zydis as needed daily 2. Continue every 15 minute checks for safety. 3. Encourage individual, group and milieu therapies. 4. Encourage sober living treatment after discharge at the highest level of care to which she is willing to commit. 5. We will monitor for safety for herself in the community prior to discharge. Involuntary Hold Information 96 Hour Hold: 96 Hour Involuntary Admission: Yes 96 Hour Hold Ending Date: 10/06/21 96 Hour Hold Ending Time: 00:01 Attestations NPU Medical Necessity Statement*: Inpatient hospitalization is medically necessary and the clinically appropriate intervention at this time. We will initiate medications and make changes as indicated. 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
[2021-10-03] MEDS: OLANZapine 5 mg ODT PO (11:01)
--- NOTE | 2021-10-03 11:23 | NPU.GN ---
[facility] Topic: Roll The Dice General Mood of Group: Keya did not attend group today. CSS did meet with her and discussed [facility] services. CSS and patient began to fill out the [facility] paperwork. Patient was mentally and emotionally unstable in the middle of the meeting.. CSS left the room and asked the Manufactured Buildings Supervisor to help her complete the last page when client is stable. At this time client is not stable and her hygiene is poor. Patient sleeps alot and may have some incontinence issues.
[2021-10-03 14:00] VITALS: BP 92/58; PULSE 80; RESP 17; TEMP 36.6; O2SAT 97
[2021-10-03 21:06] VITALS: BP 106/71; PULSE 66; RESP 18; TEMP 36.7; O2SAT 97
[2021-10-04 06:00] VITALS: BP 124/22; PULSE 80; RESP 24; TEMP 36.5; O2SAT 98
[2021-10-04] MEDS: OLANZapine 5 mg ODT PO (07:25)
[2021-10-04 08:12] VITALS: BP 124/22
[2021-10-04] MEDS: escitalopram 10 mg Tablet PO (08:12)
[2021-10-04] MEDS: buPROPion XL (24 HR) 150 mg Tablet PO (08:12)
[2021-10-04] MEDS: atorvastatin 40 mg Tablet 20 MG PO (08:12)
[2021-10-04] MEDS: multivitamin therapeutic Tablet 1 TAB PO (08:12)
[2021-10-04] MEDS: metoprolol succinate ER (24 HR) 50 mg Tablet PO (08:12)
[2021-10-04] MEDS: haloperidol 5 mg Tablet PO (08:12)
[2021-10-04] MEDS: thiamine 100 mg Tablet PO (08:12)
[2021-10-04] MEDS: cloNIDine 0.1 mg Tablet 0.2 MG PO (08:12)
[2021-10-04] MEDS: folic acid 1 mg Tablet PO (08:12)
[2021-10-04] MEDS: LORazepam 2 mg Tablet PO ×2 (09:55→15:16)
--- NOTE | 2021-10-04 11:34 | NPU.GN ---
[facility] Topic:Coping Mechanisms Activity General Mood of Group: Keya did attend and participate in group today. Her hygiene was ok and she was pleasant and social with others in group. Keya does not seem mentally stable yet. She often was in her own conversation instead of on the topic in group. Keya did complete the [facility] paperwork yesterday for [facility] services.
[2021-10-04 14:00] VITALS: BP 97/66; PULSE 72; RESP 17; TEMP 36.8; O2SAT 100
--- NOTE | 2021-10-04 14:04 | W.PM.NPUPNS ---
Subjective NPU Subjective: She continues to be quite psychotic and delusional. She is not sleeping at night. She is getting Zydis daily. He says that she has too much information coming in her head is difficult to sort out well. She said that he is so big and has so much information and she cannot deal with it. She then said it is Jesis that he is doing it. It is her story. She feels this medication comes from [facility]. She continues to be full of energy and have difficulty relaxing and sleeping. He agreed to take something at bedtime to help her sleep. Mental Status Exam MSE Comments: This is a 51-year-old overweight female who appears approximately her stated age and is in no acute distress. She was found in the day room at 9:30 AM appeared to be asleep. She awoke easily but kept her eyes closed throughout the interview. She is fairly groomed and dressed in hospital scrubs. psychomotor activity is decreased. Speech is at a regular rate and rhythm, normal volume, good articulation, not pressured. Alert, oriented X3 Attention and concentration appear to be somewhat decreased. Memory is intact Mood is good. Affect is somewhat bland she has half-asleep Thought process is not logical. Her thoughts are not connected. She knows what she says does not have anything to do with the current context of the conversation or questions asked. Thought content: She admits to hearing voices of her mother and other spirits but no visual hallucinations. She has hyperreligious and believes that she is here to assist with medical experiments requested by the [facility] . No current suicidal ideation, and no homicidal ideation. Fund of knowledge is difficult to discern. Insight and judgment appear to be impaired. Impulse control is impaired. Cognition: Patient Appearance: Disheveled/Poor Hygiene and No Eye Contact Level of Consciousness: Awake and Alert Ability to Follow Directions: Poor Patient Orientation (long list): Person, Place, Time, Name, Age and Birthday Comprehension Ability: Unable to Comprehend Hallucination Type: None Delusion Description: Not Present Thought Process: Appropriate Affect: Affect Description: Anxious, Labile and Tearful Depressive Symptoms: Increased Anxiety Behavior: Patient Behavior: Evasive, Intrusive and Withdrawn Speech Pattern: Garbled Vitals/I&O/Wt Last Vital Signs Temp 97.7 F 10/04/21 06:00 Pulse 80 10/04/21 06:00 Resp 24 H 10/04/21 06:00 BP 124/22 10/04/21 08:12 Pulse Ox 98 10/04/21 06:00 Data NPU : 10/01/21 13:43 10/01/21 13:43 A&P Assessment and plan (1) Psychosis: Status: Acute (2) Depression: Status: Acute (3) Opioid use disorder, severe, in sustained remission: Status: Acute (4) Alcohol dependence, uncomplicated: Status: Acute (5) Other stimulant dependence, uncomplicated: Status: Acute (6) Cannabis dependence, uncomplicated: Status: Acute (7) Borderline personality disorder: Status: Acute (8) Wernicke encephalopathy: Status: Acute Plan This is a 51-year-old female with a long history of polysubstance abuse with 2 weeks of very erratic behavior and psychosis which has been says it is very different and has never been like this before. Plan: 1. We will restart Lexapro and Wellbutrin. She is receiving Zyprexa Zydis as needed daily. We will add Seroquel 150 mg at bedtime. 2. Continue every 15 minute checks for safety. 3. Encourage individual, group and milieu therapies. 4. Encourage sober living treatment after discharge at the highest level of care to which she is willing to commit. 5. We will monitor for safety for herself in the community prior to discharge. Involuntary Hold Information 96 Hour Hold: 96 Hour Involuntary Admission: Yes 96 Hour Hold Ending Date: 10/06/21 96 Hour Hold Ending Time: 00:01 Attestations NPU Medical Necessity Statement*: Inpatient hospitalization is medically necessary and the clinically appropriate intervention at this time. We will initiate medications and make changes as indicated. 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
[2021-10-04 21:05] VITALS: BP 112/73; PULSE 60; RESP 16; TEMP 36.7; O2SAT 98
[2021-10-04] MEDS: quetiapine 100 mg Tablet 150 MG PO (21:17)
[2021-10-05 06:00] VITALS: BP 109/59; PULSE 69; RESP 16; TEMP 36.7; O2SAT 97
[2021-10-05] MEDS: folic acid 1 mg Tablet PO (09:29)
[2021-10-05] MEDS: thiamine 100 mg Tablet PO (09:29)
[2021-10-05] MEDS: multivitamin therapeutic Tablet 1 TAB PO (09:29)
[2021-10-05] MEDS: escitalopram 10 mg Tablet PO (09:29)
[2021-10-05] MEDS: metoprolol succinate ER (24 HR) 50 mg Tablet PO ×2 (09:29→20:43)
[2021-10-05] MEDS: atorvastatin 40 mg Tablet 20 MG PO (09:29)
[2021-10-05] MEDS: buPROPion XL (24 HR) 150 mg Tablet PO (09:30)
[2021-10-05 09:32] VITALS: BP 119/85
--- NOTE | 2021-10-05 12:04 | W.PM.NPUPNS ---
Subjective NPU Subjective: She did not sleep much with the Seroquel 150 mg last night. Past like her room and heard her giggling to herself. I ask her what she was giggling about it and she said that she was just talking to herself. She had taken a straw and put the wrapper in her hair. She had not help with sleep and it. She said it was a mixture of sugar, her lesson from this morning, some coffee and some pretzels. She was trying to eat it with this fall. She said that she was trying to learn how to use chopsticks. The strasw was folded and she was mostly trying to use it as a spoon. She said that she was doing great mood and ready to go home. Mental Status Exam MSE Comments: This is a 51-year-old overweight female who appears approximately her stated age and is in no acute distress. She was sitting in her bed giggling and trying to eat something out of a cup with a straw. She is fairly groomed and dressed in hospital scrubs. psychomotor activity is increased. Speech is at a regular rate and rhythm, normal volume, good articulation, not pressured. Alert, oriented X3 Attention and concentration appear to be somewhat decreased. Memory is intact Mood is good. Affect giddy, Hypodynamic Thought process is not logical. Her thoughts are not connected. She knows what she says does not have anything to do with the current context of the conversation or questions asked. Thought content: She admits to hearing voices of her mother and other spirits but no visual hallucinations. She is obviously delusional thinking well. No current suicidal ideation, and no homicidal ideation. Fund of knowledge is difficult to discern. Insight and judgment appear to be impaired. Impulse control is impaired. Cognition: Patient Appearance: Disheveled/Poor Hygiene and No Eye Contact Level of Consciousness: Awake and Alert Ability to Follow Directions: Poor Patient Orientation (long list): Person and Name Comprehension Ability: Unable to Comprehend Hallucination Type: None Delusion Description: Not Present Thought Process: Disorganized, Flight of Ideas and Loose Associations Affect: Affect Description: Calm Depressive Symptoms: Increased Anxiety Behavior: Patient Behavior: Withdrawn Speech Pattern: Appropriate Vitals/I&O/Wt Last Vital Signs Temp 98.1 F 10/05/21 06:00 Pulse 69 03/17/22 06:00 Resp 16 10/05/21 06:00 BP 119/85 10/05/21 09:32 Pulse Ox 97 10/05/21 06:00 Data NPU : 10/01/21 13:43 10/01/21 13:43 A&P Assessment and plan (1) Psychosis: Status: Acute (2) Depression: Status: Acute (3) Opioid use disorder, severe, in sustained remission: Status: Acute (4) Alcohol dependence, uncomplicated: Status: Acute (5) Other stimulant dependence, uncomplicated: Status: Acute (6) Cannabis dependence, uncomplicated: Status: Acute (7) Borderline personality disorder: Status: Acute (8) Wernicke encephalopathy: Status: Acute Plan This is a 51-year-old female with a long history of polysubstance abuse with 2 weeks of very erratic behavior and psychosis which has been says it is very different and has never been like this before. Plan: 1. We will restart Lexapro and Wellbutrin. She is receiving Zyprexa Zydis as needed daily. Increase Seroquel 300 mg at bedtime. 2. Continue every 15 minute checks for safety. 3. Encourage individual, group and milieu therapies. 4. Encourage sober living treatment after discharge at the highest level of care to which she is willing to commit. 5. We will monitor for safety for herself in the community prior to discharge. Involuntary Hold Information 96 Hour Hold: 96 Hour Involuntary Admission: Yes 96 Hour Hold Ending Date: 10/06/21 96 Hour Hold Ending Time: 00:01 Attestations NPU Medical Necessity Statement*: Inpatient hospitalization is medically necessary and the clinically appropriate intervention at this time. We will initiate medications and make changes as indicated. 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
[2021-10-05] MEDS: OLANZapine 5 mg ODT PO (12:55)
[2021-10-05] MEDS: hyDROXYzine 25 mg Capsule 50 MG PO ×2 (12:55→22:51)
--- NOTE | 2021-10-05 13:45 | PC.NURSE ---
PRN PT HAS REMAINED DELUSIONAL WITH DISORGANIZED THOUGHT PROCESS THROUGHOUT DAY. AT 1255 PT BECAME UPSET AND AGITATED, VOICED RAISED AND CRYING. PRN MEDS OF HYDROXYZINE AND ZYDIS GIVE AT THAT TIME. MEDS SOMEWHAT EFFECT. PT NO LONGER CRYING OR AGITATED BUT DELUSIONAL THOUGHT PROCESS REMAINS. SPEECH IS EXCESSIVE AND RAMBLING STILL.
[2021-10-05 13:53] VITALS: BP 131/85; PULSE 68; RESP 18; TEMP 36.4; O2SAT 96
[2021-10-05] MEDS: haloperidol 5 mg Tablet PO (14:18)
--- NOTE | 2021-10-05 14:55 | PC.NURSE ---
PRN PATIENT BEGAN ESCALATING AGAIN. THOUGHT PROCESS DELUSIONAL. BEGAN TO RAMBLE ABOUT NOT BEING ABLE TO GO TO GROUP OR IT WOULD BE BAD FOR OTHERS. CRYING ANL LOUD RAMBLING SPEECH AGAIN AT THAT TIME. GIVEN PRN HALDOL AT 1420. PATIENT SAT ONE ON ONE WITH STAFF TO TALK AND IS CALM AT THIS TIME.
[2021-10-05] MEDS: quetiapine 300 mg Tablet PO (20:43)
[2021-10-05] MEDS: cloNIDine 0.1 mg Tablet 0.2 MG PO (20:43)
[2021-10-05 22:00] VITALS: BP 155/89; PULSE 71; RESP 18; TEMP 36.4; O2SAT 98
[2021-10-06 06:00] VITALS: BP 94/63; PULSE 63; RESP 18; O2SAT 97
[2021-10-06] MEDS: haloperidol 5 mg Tablet PO (07:01)
--- NOTE | 2021-10-06 07:01 | PC.NURSE ---
patient agitated, stating I want to leave you cannot keep me here against my will I am a human being and I am falsely charged. Dr. Adame notified, states he is going to file 21 day paperwork on her. Patient states I know God has me if I wanted to kill myself and slice open my neck I would I will sign anything that says the hospital is not liable but I want to leave now I am an adult
[2021-10-06] MEDS: buPROPion XL (24 HR) 150 mg Tablet PO (08:24)
[2021-10-06] MEDS: metoprolol succinate ER (24 HR) 50 mg Tablet PO (08:25)
[2021-10-06] MEDS: OLANZapine 5 mg ODT PO (08:25)
[2021-10-06] MEDS: thiamine 100 mg Tablet PO (08:25)
[2021-10-06] MEDS: folic acid 1 mg Tablet PO (08:25)
[2021-10-06] MEDS: escitalopram 10 mg Tablet PO (08:25)
[2021-10-06] MEDS: multivitamin therapeutic Tablet 1 TAB PO (08:25)
[2021-10-06] MEDS: atorvastatin 40 mg Tablet 20 MG PO (08:25)
[2021-10-06 08:29] VITALS: BP 120/79
[2021-10-06] MEDS: cloNIDine 0.1 mg Tablet 0.2 MG PO (08:29)
[2021-10-06] MEDS: LORazepam 2 mg/mL INJ 1 mL IM (08:45)
[2021-10-06] MEDS: diphenhydrAMINE 50 mg/mL SDV 1mL IM (08:45)
[2021-10-06] MEDS: haloperidol inj 5 mg/mL INJ 1 mL IM (08:45)
--- NOTE | 2021-10-06 11:13 | W.PM.NPUPNS ---
Subjective NPU Subjective: She slept well with the Seroquel 300 mg last night. Unfortunately she was quite agitated this morning. She continues to be very delusional. She was demanding to leave. She got more agitated and angry when we told her that we were going to do the 21-day commitment because she was not any better. Director talk to her and explained the 21-day processed in detail. He was told that we were hoping she would not need to stay that whole time. She required a B-52 injection this morning. Mental Status Exam MSE Comments: This is a 51-year-old overweight female who appears approximately her stated age and is in no acute distress. She was in the hallway agitated and complaining about still being here. She is poor groomed and dressed in hospital scrubs. psychomotor activity is increased. Speech is at a regular rate and rhythm, normal volume, good articulation, not pressured. Alert, oriented X3 Attention and concentration appear to be somewhat decreased. Memory is intact Mood is frustrated at being here. Affect angry, Hypodynamic Thought process is not logical. Her thoughts are not connected. She knows what she says does not have anything to do with the current context of the conversation or questions asked. Thought content: She admits to hearing voices of her mother and other spirits but no visual hallucinations. She is obviously delusional and not thinking well. No current suicidal ideation, and no homicidal ideation. Fund of knowledge is difficult to discern. Insight and judgment appear to be impaired. Impulse control is impaired. Cognition: Patient Appearance: Disheveled/Poor Hygiene and No Eye Contact Level of Consciousness: Awake and Alert Ability to Follow Directions: Poor Patient Orientation (long list): Person and Name Comprehension Ability: Unable to Comprehend Hallucination Type: None Delusion Description: Not Present Thought Process: Disorganized, Flight of Ideas and Loose Associations Affect: Affect Description: Appropriate Depressive Symptoms: Increased Anxiety Behavior: Patient Behavior: Appropriate Speech Pattern: Appropriate Vitals/I&O/Wt Last Vital Signs Temp 97.6 F 10/05/21 22:00 Pulse 63 10/06/21 06:00 Resp 18 10/06/21 06:00 BP 120/79 10/06/21 08:29 Pulse Ox 97 10/06/21 06:00 Data NPU : 10/01/21 13:43 10/01/21 13:43 A&P Assessment and plan (1) Psychosis: Status: Acute (2) Depression: Status: Acute (3) Opioid use disorder, severe, in sustained remission: Status: Acute (4) Alcohol dependence, uncomplicated: Status: Acute (5) Other stimulant dependence, uncomplicated: Status: Acute (6) Cannabis dependence, uncomplicated: Status: Acute (7) Borderline personality disorder: Status: Acute (8) Wernicke encephalopathy: Status: Acute Plan This is a 51-year-old female with a long history of polysubstance abuse with 2 weeks of very erratic behavior and psychosis which has been says it is very different and has never been like this before. Plan: 1. We will restart Lexapro and Wellbutrin. She is receiving Zyprexa Zydis as needed daily. Increase Seroquel 300 mg at bedtime. 2. Continue every 15 minute checks for safety. 3. Encourage individual, group and milieu therapies. 4. Encourage sober living treatment after discharge at the highest level of care to which she is willing to commit. 5. We will monitor for safety for herself in the community prior to discharge. Involuntary Hold Information 96 Hour Hold: 96 Hour Involuntary Admission: Yes 96 Hour Hold Ending Date: 10/06/21 96 Hour Hold Ending Time: 00:01 Attestations NPU Medical Necessity Statement*: Inpatient hospitalization is medically necessary and the clinically appropriate intervention at this time. We will initiate medications and make changes as indicated. 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
--- NOTE | 2021-10-06 12:36 | PC.NURSE ---
Patient served [address] documents by .
[2021-10-06 20:18] VITALS: RESP 16
[2021-10-06] MEDS: quetiapine 300 mg Tablet PO (22:00)
[2021-10-07] MEDS: OLANZapine 5 mg ODT PO ×2 (02:48→16:14)
[2021-10-07 06:00] VITALS: BP 100/71; PULSE 63; RESP 16; TEMP 36.4; O2SAT 98
[2021-10-07] MEDS: buPROPion XL (24 HR) 150 mg Tablet PO (08:29)
[2021-10-07 08:31] VITALS: BP 124/74
[2021-10-07] MEDS: hyDROXYzine 25 mg Capsule 50 MG PO (08:32)
[2021-10-07] MEDS: metoprolol succinate ER (24 HR) 50 mg Tablet PO ×2 (08:32→20:43)
[2021-10-07] MEDS: folic acid 1 mg Tablet PO (08:32)
[2021-10-07] MEDS: atorvastatin 40 mg Tablet 20 MG PO (08:32)
[2021-10-07] MEDS: thiamine 100 mg Tablet PO (08:32)
[2021-10-07] MEDS: multivitamin therapeutic Tablet 1 TAB PO (08:32)
[2021-10-07] MEDS: escitalopram 10 mg Tablet PO (08:32)
[2021-10-07] MEDS: acetaminophen 325 mg Tablet 650 MG PO (08:32)
--- NOTE | 2021-10-07 10:09 | W.PM.NPUPNS ---
Subjective NPU Subjective: She slept well last night. She did get up once in the middle of the night and was given Zyprexa Zydis and was back to sleep.He said that she got up twice. The first time she felt intoxicated. She said that she did not like the Seroquel because of that. She has not had side effects from the Seroquel since she was. She says that she feels great. She said that she understands she has a magnetic personality and will want to keep her here however we all need to work together so that she can go home. She said that she understands that timing is perfect. Overall she does not seem as delusional as she has on previous encounters. She has still been agitated at times but has not needed an injection for the agitation such as yesterday. Mental Status Exam MSE Comments: This is a 51-year-old overweight female who appears approximately her stated age and is in no acute distress. She was found standing at the nursing station. She wanted to talk with me so she could try to talk me into letting her go home. She is poor groomed and dressed in hospital scrubs. psychomotor activity is increased. Speech is at a regular rate and rhythm, normal volume, good articulation, not pressured. Alert, oriented X3 Attention and concentration appear to be somewhat decreased. Memory is intact Mood is great. Affect cheerful. Thought process is more logical. Her thoughts are are more connected today She knows what she says does not have anything to do with the current context of the conversation or questions asked. Thought content: She admits to hearing voices of her mother and other spirits but no visual hallucinations. She is obviously delusional and not thinking well. No current suicidal ideation, and no homicidal ideation. Fund of knowledge is difficult to discern. Insight and judgment appear to be impaired. Impulse control is impaired. Cognition: Patient Appearance: Disheveled/Poor Hygiene and No Eye Contact Level of Consciousness: Awake and Alert Ability to Follow Directions: Poor Patient Orientation (long list): Person and Name Comprehension Ability: Unable to Comprehend Hallucination Type: None Delusion Description: Not Present Thought Process: Disorganized, Flight of Ideas and Loose Associations Affect: Affect Description: Appropriate Depressive Symptoms: Increased Anxiety Behavior: Patient Behavior: Appropriate Speech Pattern: Appropriate Vitals/I&O/Wt Last Vital Signs Temp 97.5 F L 03/19/22 06:00 Pulse 63 10/07/21 06:00 Resp 16 10/07/21 06:00 BP 124/74 10/07/21 08:31 Pulse Ox 98 10/07/21 06:00 Data NPU : 10/01/21 13:43 10/01/21 13:43 A&P Assessment and plan (1) Psychosis: Status: Acute (2) Depression: Status: Acute (3) Opioid use disorder, severe, in sustained remission: Status: Acute (4) Alcohol dependence, uncomplicated: Status: Acute (5) Other stimulant dependence, uncomplicated: Status: Acute (6) Cannabis dependence, uncomplicated: Status: Acute (7) Borderline personality disorder: Status: Acute (8) Wernicke encephalopathy: Status: Acute Plan This is a 51-year-old female with a long history of polysubstance abuse with 2 weeks of very erratic behavior and psychosis which has been says it is very different and has never been like this before. Plan: 1. She is receiving Zyprexa Zydis as needed daily. Increase Seroquel 300 mg at bedtime. stop Prozac and wellbutrin. 2. Continue every 15 minute checks for safety. 3. Encourage individual, group and milieu therapies. 4. Encourage sober living treatment after discharge at the highest level of care to which she is willing to commit. 5. We will monitor for safety for herself in the community prior to discharge. Involuntary Hold Information 96 Hour Hold: 96 Hour Involuntary Admission: Yes 96 Hour Hold Ending Date: 10/06/21 96 Hour Hold Ending Time: 00:01 Attestations NPU Medical Necessity Statement*: Inpatient hospitalization is medically necessary and the clinically appropriate intervention at this time. We will initiate medications and make changes as indicated. Coding Level of Care Code Acute Human Resources Benefits Assistant for [facility] Diagnoses Psychosis F29 Depression F32.9 Opioid use disorder, severe, in sustained remission F11.21 Alcohol dependence, uncomplicated F10.20 Other stimulant dependence, uncomplicated F15.20 Cannabis dependence, uncomplicated F12.20 Borderline personality disorder F60.3 Wernicke encephalopathy E51.2
[2021-10-07 14:00] VITALS: BP 124/82; PULSE 71; RESP 22; TEMP 36.7; O2SAT 98
[2021-10-07 20:30] VITALS: BP 120/76; PULSE 64; RESP 17; TEMP 36.8; O2SAT 97
[2021-10-07 20:43] VITALS: BP 122/76
[2021-10-07] MEDS: quetiapine 300 mg Tablet PO (20:43)
[2021-10-07] MEDS: cloNIDine 0.1 mg Tablet 0.2 MG PO (20:43)
[2021-10-07] MEDS: LORazepam 2 mg/mL INJ 1 mL IM ×2 (22:00→22:20)
[2021-10-07] MEDS: haloperidol inj 5 mg/mL INJ 1 mL IM ×2 (22:00→22:20)
[2021-10-07] MEDS: diphenhydrAMINE 50 mg/mL SDV 1mL IM (22:24)
--- NOTE | 2021-10-07 23:00 | PC.NURSE ---
Patient escalating in hallway. Pacing halls and yelling. Pushed snacks and trash off tables in day room onto floor making large mess. When asked to assist cleaning patient escalated further, yelling and screaming at staff stating I want to punch you, stay away from me, I'm leaving, you can't hold me here against my will. Several staff members attempted to redirect and deescalate patient several times. Security was called for safety of unit. Patient grabbed this nurses wrist and held them for a moment then let go. Patient assisted to floor and received PRN Im medication haldol, ativan, and benadryl in day room with assistance from security.Patient calmed down and was apologetic began cleaning up mess. [facility] offered patient clean clothes and shower, when given shower stuff patient became agitated again, this time screaming and yelling, hitting self in face, slamming doors, and hitting wall. All attempts to redirect and deescalate failed. Code 10 called with security still present on unit. MD Washington notified of patient behavior and additional order for IM Ativan and Haldol given. Patient sat down on floor and was compliant with medication. Patient then changed and showered and rested quietly in bed rest of shift.
--- NOTE | 2021-10-08 04:15 | PC.NURSE ---
2199- She was yelling and banging on the padron. She threw her food onto the floor. She was refusing to take any medications. She continued to escalate. She was given Haldol, ativan, and benadryl. 2223- It was not effective. She continue to escalate her behavior. Doctor was called and got once time order for haldol and ativan.
--- NOTE | 2021-10-08 08:37 | W.PM.NPUPNS ---
Subjective NPU Subjective: She slept well last night with the Seroquel 300 mg. She continues to be quite delusional and rambling when she talks. Mental Status Exam MSE Comments: This is a 51-year-old overweight female who appears approximately her stated age and is in no acute distress.? She was found standing at the nursing station.? She wanted to talk with me so she could try to talk me into letting her go home.? She is poor groomed and dressed in hospital scrubs. psychomotor activity is increased. Speech is at a regular rate and rhythm, normal volume, good articulation, not pressured. Alert, oriented X3 Attention and concentration appear to be somewhat decreased. Memory is intact Mood is great.? Affect cheerful. Thought process is more logical.? Her thoughts are are more connected today? She knows what she says does not have anything to do with the current context of the conversation or questions asked. Thought content: She admits to hearing voices of her mother and other spirits but no visual hallucinations.? She is obviously delusional and not thinking well.? No current suicidal ideation, and no homicidal ideation.? Fund of knowledge is difficult to discern. Insight and judgment appear to be impaired. Impulse control is impaired. Cognition: Patient Appearance: Disheveled/Poor Hygiene and No Eye Contact Level of Consciousness: Awake, Alert and Appropriate Ability to Follow Directions: Poor Patient Orientation (long list): Person and Name Comprehension Ability: Unable to Comprehend Hallucination Type: None Delusion Description: Not Present Thought Process: Disorganized, Flight of Ideas and Loose Associations Affect: Affect Description: Anxious Depressive Symptoms: Increased Anxiety Behavior: Patient Behavior: Impulsive, Irritable and Negative Speech Pattern: Animated, Garbled, Includes Profanity and Mumbled Vitals/I&O/Wt Last Vital Signs Temp 97.9 F 10/08/21 20:07 Pulse 57 L 10/08/21 20:07 Resp 16 10/09/21 09:03 BP 88/49 10/08/21 20:47 Pulse Ox 95 10/08/21 20:07 Data NPU : 10/09/21 07:50 10/09/21 07:50 A&P Assessment and plan (1) Psychosis: Status: Acute (2) Opioid use disorder, severe, in sustained remission: Status: Acute (3) Alcohol dependence, uncomplicated: Status: Acute (4) Other stimulant dependence, uncomplicated: Status: Acute (5) Cannabis dependence, uncomplicated: Status: Acute (6) Borderline personality disorder: Status: Acute (7) Wernicke encephalopathy: Status: Acute (8) Bipolar disorder: Status: Acute Plan This is a 51-year-old female with a long history of polysubstance abuse with 2 weeks of very erratic behavior and psychosis which has been says it is very different and has never been like this before. Plan: 1. She is receiving Zyprexa Zydis as needed daily. Increase Seroquel 300 mg at bedtime. stop Prozac and wellbutrin. 2. Continue every 15 minute checks for safety. 3. Encourage individual, group and milieu therapies. 4. Encourage sober living treatment after discharge at the highest level of care to which she is willing to commit. 5. We will monitor for safety for herself in the community prior to discharge. Involuntary Hold Information 96 Hour Hold: 96 Hour Involuntary Admission: Yes 96 Hour Hold Ending Date: 10/06/21 96 Hour Hold Ending Time: 00:01 Attestations NPU Medical Necessity Statement*: Inpatient hospitalization is medically necessary and the clinically appropriate intervention at this time. We will initiate medications and make changes as indicated. Coding Level of Care Code Acute Internal Sales for Jerry Ellis Diagnoses Psychosis F29 Opioid use disorder, severe, in sustained remission F11.21 Alcohol dependence, uncomplicated F10.20 Other stimulant dependence, uncomplicated F15.20 Cannabis dependence, uncomplicated F12.20 Borderline personality disorder F60.3 Wernicke encephalopathy E51.2 Bipolar disorder F31.9
[2021-10-08 09:24] VITALS: BP 127/72
[2021-10-08] MEDS: multivitamin therapeutic Tablet 1 TAB PO (09:24)
[2021-10-08] MEDS: folic acid 1 mg Tablet PO (09:24)
[2021-10-08] MEDS: cloNIDine 0.1 mg Tablet 0.2 MG PO (09:24)
[2021-10-08] MEDS: atorvastatin 40 mg Tablet 20 MG PO (09:27)
[2021-10-08] MEDS: thiamine 100 mg Tablet PO (09:27)
[2021-10-08] MEDS: metoprolol succinate ER (24 HR) 50 mg Tablet PO (09:34)
[2021-10-08] MEDS: OLANZapine 5 mg ODT PO ×2 (10:14→20:46)
[2021-10-08 14:00] VITALS: BP 114/78; PULSE 61; RESP 18; TEMP 36.7; O2SAT 95
[2021-10-08] MEDS: haloperidol inj 5 mg/mL INJ 1 mL IM (15:50)
[2021-10-08] MEDS: diphenhydrAMINE 50 mg/mL SDV 1mL IM (15:50)
[2021-10-08] MEDS: LORazepam 2 mg/mL INJ 1 mL IM (15:50)
--- NOTE | 2021-10-08 17:08 | PC.NURSE ---
OUTBURST DURING VISIT WITH PT BEGAN TO BECOME AGITATED AND YELL AT . STANDING OVER WHO WAS SITTING IN CHAIR, POSTURING TOWARDS . STAFF ATTEMPTED TO VERBALLY DE-ESCALATE PT WITH NO SUCCESS. PT YELLING AT STAFF WELL. ASKED TO STEP OUT TO END VISITATION, PT GRABBED AND STATED HE WAS NOT LEAVING WITHOUT HER AND THAT SHE NEEDED TO LEAVE. PT YELLING ABOUT NOT BEING JAYME AND HAVING ALL THE WORLD ON HER TO CARRY, STATING NOTHING WAS WRONG WITH HER AND SHE WAS TO LEAVE NOW. SPEECH BECAME INCREASINGLY RAMBLING WITH FLIGHTS OF IDEAS. SECURITY PRESENT TO UNIT AND SPOKE WITH PT. PT DID RELEASE AND HE LEFT THE UNIT AT THAT TIME. PT CONTINUED YELLING AND HIT WALL. PT WALKED DOWN MAK AND MOOD CHANGED QUICKLY, PT BEGAN LAUGHING LOUDLY. OFFERED PRN MEDS AND PT AGREEABLE TO TAKING MEDS. MEDS GIVEN AT 1550. PT HAS CONTINUED TO HAVE RAMBLING SPEECH AND EASILY BECOMES AGITATED, BUT HAS NOT HAD ANY FURTHER OUTBURSTS.
[2021-10-08 20:07] VITALS: BP 88/49; PULSE 57; RESP 16; TEMP 36.6; O2SAT 95
[2021-10-08] MEDS: quetiapine 300 mg Tablet PO (20:46)
[2021-10-08 20:47] VITALS: BP 88/49
[2021-10-09 06:00] VITALS: RESP 16
[2021-10-09 08:10] LABS: Basophils # 0.1 10^3/uL (0.0-0.1); Eosinophils # 0.3 10^3/uL (0.0-0.8); Eosinophils % 5.1 %; Hematocrit 32.4 % (37.0-47.0); Hemoglobin 9.4 g/dL (11.5-15.3); Lymphocytes # 1.1 10^3/uL (0.8-4.8); Mean Corpuscular Hemoglobin 22.7 pg (28.0-34.0); Mean Corpuscular Volume 78.1 fl (81-99); Mean Platelet Volume 11.4 fL (7.4-10.4); Monocytes # 0.3 10^3/uL (0.2-0.9); Monocytes % 6.7 %; Neutrophils # 3.17 10^3/uL (1.8-7.7); Nucleated Red Blood Cells % 0 %; Platelet Count 271 10^3/cmm (130-400); Red Blood Count 4.15 10^6/uL (4.1-5.3); Red Cell Distribution Width 15.9 % (12.1-15.1)
[2021-10-09 08:28] LABS: Alanine Aminotransferase 13 U/L (0-33); Albumin Level 3.7 g/dL (3.5-5.2); Alkaline Phosphatase 65 IU/L (35-105); Anion Gap 15.1 (5-19); Aspartate Amino Transferase 22 U/L (0-32); Blood Urea Nitrogen 15 mg/dL (6-20); Calcium 8.9 mg/dL (8.5-10.5); Carbon Dioxide 22 mmol/L (22-29); Chloride 106 mmol/L (98-107); Globulin 2.5 g/dL (1.3-4.6); Glomerular Filtration Rate 87.9 mL/min (90-130); Glucose 152 mg/dL (65-115); Osmolality Calculated 292 mOsm/kg (285-295); Potassium 4.1 mmol/L (3.5-5.1); Sodium 139 mmol/L (136-145); Total Bilirubin 0.2 mg/dL (0.15-1.2); Total Protein 6.2 g/dL (6.6-8.7)
[2021-10-09] MEDS: cloNIDine 0.1 mg Tablet 0.2 MG PO (08:31)
[2021-10-09] MEDS: atorvastatin 40 mg Tablet 20 MG PO (08:31)
[2021-10-09] MEDS: folic acid 1 mg Tablet PO (08:32)
[2021-10-09] MEDS: multivitamin therapeutic Tablet 1 TAB PO (08:32)
[2021-10-09] MEDS: thiamine 100 mg Tablet PO (08:32)
[2021-10-09] MEDS: OLANZapine 5 mg ODT PO (08:32)
[2021-10-09] MEDS: metoprolol succinate ER (24 HR) 50 mg Tablet PO (08:32)
--- NOTE | 2021-10-09 08:34 | P.NPUPN_ITS ---
Subjective NPU Subjective: She is significantly improved today. She is much more calm. I talked with her and he does not feel that she is a danger to herself or others. He still wants her to come home. He promises to make sure that she will take the Seroquel every night to get a good night sleep. He also was instructed about how to use the Zyprexa Zydis when she gets agitated. He is thinking that she has schizophrenia. He was told with she has been very manic recently and we think she has bipolar disorder. Mental Status Exam MSE Comments: This is a 51-year-old overweight female who appears approximately her stated age and is in no acute distress. She was found standing at the nursing station. She wanted to talk with me so she could try to talk me into letting her go home. She is poor groomed and dressed in hospital scrubs. psychomotor activity is almost normal for the first time. Speech is at a regular rate and rhythm, normal volume, good articulation, not pressured. Alert, oriented X3 Attention and concentration appear to be somewhat decreased. Memory is intact Mood is good. Affect cheerful. Thought process is more logical. Her thoughts are are more connected today She knows what she says does not have anything to do with the current context of the conversation or questions asked. Thought content: She admits to hearing voices of her mother and other spirits they are decreasing but no visual hallucinations. She is much more at ease and not talking about delusions. No current suicidal ideation, and no homicidal ideation. Fund of knowledge is difficult to discern. Insight and judgment appear to be impaired. Impulse control is impaired. Cognition: Patient Appearance: Disheveled/Poor Hygiene and No Eye Contact Level of Consciousness: Awake and Alert Ability to Follow Directions: Poor Patient Orientation (long list): Person and Name Comprehension Ability: Unable to Comprehend Hallucination Type: None Delusion Description: Not Present Thought Process: Disorganized, Flight of Ideas and Loose Associations Affect: Affect Description: Anxious Depressive Symptoms: Increased Anxiety Behavior: Patient Behavior: Impulsive, Irritable and Negative Speech Pattern: Animated, Garbled, Includes Profanity and Mumbled Vitals/I&O/Wt Last Vital Signs Temp 97.9 F 10/08/21 20:07 Pulse 57 L 10/08/21 20:07 Resp 16 10/09/21 06:00 BP 88/49 10/08/21 20:47 Pulse Ox 95 10/08/21 20:07 Data NPU : 10/09/21 07:50 10/09/21 07:50 A&P Assessment and plan (1) Psychosis: Status: Acute (2) Opioid use disorder, severe, in sustained remission: Status: Acute (3) Alcohol dependence, uncomplicated: Status: Acute (4) Other stimulant dependence, uncomplicated: Status: Acute (5) Cannabis dependence, uncomplicated: Status: Acute (6) Borderline personality disorder: Status: Acute (7) Wernicke encephalopathy: Status: Acute (8) Bipolar disorder: Status: Acute Plan This is a 51-year-old female with a long history of polysubstance abuse with 2 weeks of very erratic behavior and psychosis which has been says it is very different and has never been like this before. Plan: 1. She is receiving Zyprexa Zydis as needed daily. Increase Seroquel 300 mg at bedtime. stop Prozac and wellbutrin. 2. Continue every 15 minute checks for safety. 3. Encourage individual, group and milieu therapies. 4. Encourage sober living treatment after discharge at the highest level of care to which she is willing to commit. 5. We will monitor for safety for herself in the community prior to discharge. Involuntary Hold Information 96 Hour Hold: 96 Hour Involuntary Admission: Yes 96 Hour Hold Ending Date: 10/06/21 96 Hour Hold Ending Time: 00:01 Attestations NPU Medical Necessity Statement*: Inpatient hospitalization is medically necessary and the clinically appropriate intervention at this time. However, I do not feel that I can testify in court that she is a danger to herself or others and will release her. Coding Level of Care Code Acute Career Development Specialist for Jerry Fwimmanuel Diagnoses Psychosis F29 Opioid use disorder, severe, in sustained remission F11.21 Alcohol dependence, uncomplicated F10.20 Other stimulant dependence, uncomplicated F15.20 Cannabis dependence, uncomplicated F12.20 Borderline personality disorder F60.3 Wernicke encephalopathy E51.2 Bipolar disorder F31.9
--- NOTE | 2021-10-09 08:34 | PC.NURSE ---
PRN ZYPREXA ZYDIS 5 MG GIVEN PO PER PT C/O ANXIETY. WILL CONT TO MONITOR
--- NOTE | 2021-10-09 08:42 | W.PM.NPUDCS ---
Diagnoses at Discharge Discharge Diagnosis (1) Psychosis: Status: Acute (2) Opioid use disorder, severe, in sustained remission: Status: Acute (3) Alcohol dependence, uncomplicated: Status: Acute (4) Other stimulant dependence, uncomplicated: Status: Acute (5) Cannabis dependence, uncomplicated: Status: Acute (6) Borderline personality disorder: Status: Acute (7) Wernicke encephalopathy: Status: Acute (8) Bipolar disorder: Status: Acute Reason for Visit Reason for Visit: Mental Eval, [facility] Brief History: History of Present Illness Keya Castaneda is a 51 year old female Admitted through our emergency department with the following report: Ms. Castaneda is a 51-year-old lady with reported past medical history of bipolar disorder, and per chart review history of substance abuse who presents emergency department with altered mental status.? History is somewhat limited but provided by patient's at bedside.? He reports never seeing her in the state before.? Approximately 2 weeks ago she began acting bizarrely including collecting sticks and leaves from outside and building piles of them believing that they are from God.? She has had poor sleep and has been doing other bizarre activities throughout the day.? She did sleep for the past 2 nights and was mildly improved in the morning however continue to worsen.? Overall the course of symptoms has been worsening.? Intensity is moderate to severe.? No otherwise known changes in health, exacerbating, or relieving factors.? Patient is apparently not on medication for her bipolar at this time. Onset (ago): week(s) Duration: getting worse Urine drug screen was positive for methamphetamine and marijuana. She was uncooperative female a B-52 injection.? She wanted to sign out that her came in and filled out an affidavit. She was admitted to the neuropsychiatry unit for definitive treatment of these issues.? She says that she is here for test.? She says that there is a science project that has been requested by the [employer].? She feels like she has been cured of cancer.? She says that she was diagnosed with cervical cancer about 3 years ago and has not had treatment.? She said she initially thought she did not have a cancer.? She was depressed at the time of the diagnosis and that may be part of the reason that she did not get treatment.? She has not been sleeping but slept well last night was on medication.? She admits to hearing voices.? She hears the voice of her mother is .? She also feels that she is a vessel for many spirits and her their voices. She was recently seen by her outpatient psychiatrist and did admit to some struggles with methamphetamine.? She said that she was compliant with her medications but had not filled the Wellbutrin or Strattera since April and has not felt the Lexapro since January of last year.? She was on risperidone 1 mg twice a day in 2019. Hospital Course Hospital Course She slowly acclimated to the individual, group and milieu therapies provided. The psychosis did not resolve with time as we were hoping when the methamphetamine got out of her system. She was clearly manic and Seroquel was increased up to 300 mg/day which was required to keep her sleeping. She also received numerous injections of Zyprexa Zydis. She received numerous B-52 injections usually precipitated by her visiting in her getting very agitated because he would not take her home. She tolerated these doses and showed steady improvement during her stay. She was able to contract for safety outside hospital prior to discharge. During the hospitalization, patient had routine laboratory studies which were within normal limits except for few outliers. Additionally there was a general medical evaluation which was also within normal limits and revealed no new acute processes. Discharge Summary: At the time of discharge, lethality was denied and psychosis was resolving. Mood and anxiety were well managed. Patient endorsed a plan to follow-up with the aftercare recommendations of the treatment team. Patient was evaluated and deemed to be absent credible lethality, and had achieved the maximum benefit from an inpatient hospitalization, so was discharged. We had filed paperwork for a 21-day commitment and the court hearing was on the day of discharge. She was significantly improved on that date and we did not feel that we could make a case that she was a danger to herself or others. Involuntary Hold Information 96 Hour Hold: 96 Hour Involuntary Admission: Yes 96 Hour Hold Ending Date: 10/06/21 96 Hour Hold Ending Time: 00:01 Mental Status Exam MSE Comments: This is a 51-year-old overweight female who appears approximately her stated age and is in no acute distress. She was found standing at the nursing station. She wanted to talk with me so she could try to talk me into letting her go home. She is poor groomed and dressed in hospital scrubs. psychomotor activity is almost normal for the first time. Speech is at a regular rate and rhythm, normal volume, good articulation, not pressured. Alert, oriented X3 Attention and concentration appear to be somewhat decreased. Memory is intact Mood is good. Affect cheerful. Thought process is more logical. Her thoughts are are more connected today She knows what she says does not have anything to do with the current context of the conversation or questions asked. Thought content: She admits to hearing voices of her mother and other spirits they are decreasing but no visual hallucinations. She is much more at ease and not talking about delusions. No current suicidal ideation, and no homicidal ideation. Fund of knowledge is difficult to discern. Insight and judgment appear to be impaired. Impulse control is impaired. Cognition: Patient Appearance: Disheveled/Poor Hygiene and No Eye Contact Level of Consciousness: Awake and Alert Ability to Follow Directions: Poor Patient Orientation (long list): Person and Name Comprehension Ability: Unable to Comprehend Hallucination Type: None Delusion Description: Not Present Thought Process: Disorganized, Flight of Ideas and Loose Associations Affect: Affect Description: Anxious Depressive Symptoms: Increased Anxiety Behavior: Patient Behavior: Impulsive, Irritable and Negative Speech Pattern: Animated, Garbled, Includes Profanity and Mumbled Discharge Data Studies Completed and Pending: Laboratory Results WBC 5.0 10^3/uL (4.0- 10.0) 10/09/21 07:50 RBC 4.15 10^6/uL (4.1 -5.3) 10/09/21 07:50 Hgb 9.4 g/dL (11.5-15 .3) L 10/09/21 07:50 Hct 32.4 % (37.0-47.0 ) L 10/09/21 07:50 MCV 78.1 fl (81-99) L 10/09/21 07:50 MCH 22.7 pg (28.0-34. 0) L 10/09/21 07:50 MCHC 29.0 g/dL (30.0-3 6.0) L 10/09/21 07:50 RDW 15.9 % (12.1-15.1 ) H 10/09/21 07:50 Plt Count 271 10^3/cmm (130 -400) 10/09/21 07:50 MPV 11.4 fL (7.4-10.4 ) H 10/09/21 07:50 Neut % (Auto) 64.0 % 10/09/21 07:50 Lymph % (Auto) 23.0 % 10/09/21 07:50 [place] % (Auto) 6.7 % 10/09/21 07:50 Eos % (Auto) 5.1 % 10/09/21 07:50 Baso % (Auto) 1.0 % 10/09/21 07:50 Neut # (Auto) 3.17 10^3/uL (1.8 -7.7) 10/09/21 07:50 Lymph # (Auto) 1.1 10^3/uL (0.8- 4.8) 10/09/21 07:50 [place] # (Auto) 0.3 10^3/uL (0.2- 0.9) 10/09/21 07:50 Eos # (Auto) 0.3 10^3/uL (0.0- 0.8) 10/09/21 07:50 Baso # (Auto) 0.1 10^3/uL (0.0- 0.1) 10/09/21 07:50 Nucleated RBC % (a uto) 0 % 10/09/21 07:50 Nucleated RBCs # 0.0 /100WBC 10/09/21 07:50 Sodium 139 mmol/L (136-1 45) 10/09/21 07:50 Potassium 4.1 mmol/L (3.5-5 .1) 10/09/21 07:50 Chloride 106 mmol/L (98-10 7) 10/09/21 07:50 Carbon Dioxide 22 mmol/L (22-29) 10/09/21 07:50 Anion Gap 15.1 (5-19) 10/09/21 07:50 BUN 15 mg/dL (6-20) 10/09/21 07:50 Creatinine 0.7 mg/dL (0.5-0. 9) 10/09/21 07:50 GFR Calculation 87.9 mL/min (90-1 30) L 10/09/21 07:50 Glucose 152 mg/dL (65-115 ) H 10/09/21 07:50 Calculated Osmolal ity 292 mOsm/kg (285- 295) 10/09/21 07:50 Calcium 8.9 mg/dL (8.5-10 .5) 10/09/21 07:50 Total Bilirubin 0.2 mg/dL (0.15-1 .2) 10/09/21 07:50 AST 22 U/L (0-32) 10/09/21 07:50 ALT 13 U/L (0-33) 10/09/21 07:50 Alkaline Phosphata se 65 IU/L (35-105) 10/09/21 07:50 Total Protein 6.2 g/dL (6.6-8.7 ) L 10/09/21 07:50 Albumin 3.7 g/dL (3.5-5.2 ) 10/09/21 07:50 Globulin 2.5 g/dL (1.3-4.6 ) 10/09/21 07:50 TSH 1.97 uIU/mL (0.27 -4.20) 10/01/21 13:43 Urine Color Yellow (Yellow) 10/01/21 14:09 Urine Appearance Clear (CLEAR) 10/01/21 14:09 Urine pH 6 (5-7) 10/01/21 14:09 Ur Specific Gravit y 1.020 (1.005-1.0 30) 10/01/21 14:09 Urine Protein Neg (Negative) 10/01/21 14:09 Urine Glucose (UA) Norm (Normal) 10/01/21 14:09 Urine Ketones 1+ (Negative) H 10/01/21 14:09 Urine Blood Neg (Negative) 10/01/21 14:09 Urine Nitrate Negative (Negati ve) 10/01/21 14:09 Urine Bilirubin Neg (Negative) 10/01/21 14:09 Urine Urobilinogen 1 mg/dL (Negative ) H 10/01/21 14:09 Ur Leukocyte Akila ase Negative (Negati ve) 10/01/21 14:09 Salicylates 1.0 mg/dL (3-10) L 10/01/21 13:43 Urine Opiates Scre en Negative ng/mL (N egative) 10/01/21 14:09 Acetaminophen < 5.0 ug/mL (10-3 0) L 10/01/21 13:43 Ur Barbiturates Sc reen Negative ng/mL (N egative) 10/01/21 14:09 Ur Phencyclidine S crn Negative ng/mL (N egative) 10/01/21 14:09 Ur Amphetamines Sc reen Positive ng/mL (N egative) H 10/01/21 14:09 U Benzodiazepines Scrn Negative ng/mL (N egative) 10/01/21 14:09 Urine Cocaine Scre en Negative ng/mL (N egative) 10/01/21 14:09 U Marijuana (THC) Screen Positive ng/mL (N egative) H 10/01/21 14:09 Ethyl Alcohol < 10 mg/dL (0-10) 10/01/21 13:43 Vitals: Last Vital Signs Temp 97.9 F 10/08/21 20:07 Pulse 57 L 10/08/21 20:07 Resp 16 10/09/21 06:00 BP 88/49 10/08/21 20:47 Pulse Ox 95 10/08/21 20:07 Discharge Plan Discharge Patient Disposition: Home Condition: Stable Prescriptions: New quetiapine 300 mg Tablet 300 mg PO BEDTIME 30 Days Qty: 30 1RF olanzapine 5 mg Tablet,Disintegrating 5 mg PO BID PRN (Reason: Agitation/Psychosis) 30 Days Qty: 30 1RF Continued metoprolol succinate 50 mg tablet extended release 24 hr 50 mg PO BID 0RF metformin 500 mg tablet See Rx Instructions .ROUTE .COMPLEX Qty: 30 0RF Dose Instruction: Take 1 tablet by mouth once daily Rx Instructions: Take 1 tablet by mouth once daily atorvastatin 20 mg Tablet 20 mg PO DAILY 0RF clonidine HCl 0.2 mg Tablet 0.2 mg PO BID 0RF Discharge Orders: Discharge Order (Routine); Ordered 10/09/21 Ordered By: Blue Washington Referrals: [facility] [Outside] - 1 month Raiza Woo MD [Primary Care Provider] - 10/11/21 10:20 am (Follow up appointment. ) Discharge Diet: Regular Discharge Activity: Resume usual activity Patient Instructions: Opioid Safety Discharge Attestations NPU Time Spent in Discharge Care*: greater than 30 min Specific Discharge Activities: Specific discharge activities: educating patient, educating and/or supporting family/caregiver, discussing with rifle case repairer/social workers/dc planners, documenting/other paperwork and evaluating patient/reviewing data Coding Level of Care Code Acute Chg FW DC note Diagnoses Psychosis F29 Opioid use disorder, severe, in sustained remission F11.21 Alcohol dependence, uncomplicated F10.20 Other stimulant dependence, uncomplicated F15.20 Cannabis dependence, uncomplicated F12.20 Borderline personality disorder F60.3 Wernicke encephalopathy E51.2 Bipolar disorder F31.9
[2021-10-09 09:03] VITALS: RESP 16
== END 2021-10-09 10:15 | disposition home or self-care (01) | DRG 885 ==
LOC: ER 15:04 → NP 15:20
PROVIDERS: Admitting Provider Psychiatry & Neurology Psychiatry; Emergency Provider Emergency Medicine; PCP Family Medicine; Visit Provider Psychiatry & Neurology Psychiatry
DX: F31.2 Bipolar disorder, current episode manic severe with psychotic features (principal); F15.20 Other stimulant dependence, uncomplicated; F10.288 Alcohol dependence with other alcohol-induced disorder; F11.20 Opioid dependence, uncomplicated; E51.2 Wernicke's encephalopathy; F98.8 Other specified behavioral and emotional disorders with onset usually occurring in childhood and adolescence; I10 Essential (primary) hypertension; Z85.42 Personal history of malignant neoplasm of other parts of uterus; F17.210 Nicotine dependence, cigarettes, uncomplicated; F12.20 Cannabis dependence, uncomplicated; F60.3 Borderline personality disorder
CPT/HCPCS: 36415; 80053; 80306; 80307; 81003; 84443; 85025; 96372; 97150; 97165; 99285; J1200; J1630; J2060; J3411

== ENCOUNTER → 2021-10-12 15:40 | Outpatient (BNVA) | payer MEDICAID, SELFPAY | PROVIDERS: PCP Family Medicine; Visit Provider Psychiatry & Neurology Psychiatry | DX: F10.20 Alcohol dependence, uncomplicated (principal); F12.20 Cannabis dependence, uncomplicated; F11.21 Opioid dependence, in remission; F15.20 Other stimulant dependence, uncomplicated; F19.10 Other psychoactive substance abuse, uncomplicated; F29 Unspecified psychosis not due to a substance or known physiological condition | CPT/HCPCS: 99214 ==

== ENCOUNTER 2021-10-17 15:06 | Inpatient (IN) | payer MEDICAID, SELFPAY ==
[2021-10-17 15:06] VITALS: BP 184/107; PULSE 107; RESP 18; TEMP 36.9; O2SAT 97; BMI 29.9
--- NOTE | 2021-10-17 15:11 | CT_ITS ---
WS: [id number] CT HEAD NONCONTRAST HISTORY: ams TECHNIQUE: Contiguous axial imaging performed through the brain in 2.5 mm imaging. Bone and soft tiss ue windows. Sagittal and coronal reformats reviewed. All CT scans at [facility] use at least one of these dose optimization techniques: automated exposure control; mA and/or kV adjustment per pa tient size (includes targeted exams where dose is matched to clinical indication); or iterative recon struction. DLP: 1803.94 mGy.cm COMPARISON: None available. No acute intracranial hemorrhage, midline shift or mass effect. No atrophy or prior infarcts or herniation. Ventricles: Normal size with no hydrocephalus. Paranasal sinuses: As visualized are clear. Mastoid air cells: Well pneumatized. Calvarium and scalp: Skull is intact with no soft tissue edema or swelling. CT/CT head wo con* [id number] IMPRESSION: Negative head CT.
--- NOTE | 2021-10-17 15:12 | ECG_ITS ---
[facility] Test Date: 2021-10-17 Pat Name: Keya Castaneda Department: Room: Gender: Female Tube Builder: : 1970 Requested By: Sary Greer Order Number: [id number] Lorena MD: Tian Cardona M.D. Measurements Intervals [place] Rate: 100 P: 71 AL: 159 QRS: 53 QRSD: 91 T: 62 QT: 390 QTc: 503 Interpretive Statements SINUS TACHYCARDIA MINIMAL VOLTAGE CRITERIA FOR LVH, CONSIDER NORMAL VARIANT [MEETS CRITERIA IN ONE OF: R(aVL), S(V1), R(V5), R(V5/V6)+S(V1)] SEPTAL MYOCARDIAL INFARCTION , PROBABLY OLD [40+ ms Q WAVE IN V1/V2] Compared to ECG 08/23/2020 14:57:57 Sinus rhythm no longer present Myocardial infarct finding still present Electronically Signed On 10-18-2021 17:03:48 CDT by Tian Cardona M.D. [id number]
[2021-10-17 15:30] LABS: Glucose Point of Care 104 mg/dL (70-110)
[2021-10-17 15:35] LABS: Add Urine Microscopic? NO; Charge for UA Resulting for Rev
[2021-10-17 15:39] LABS: Basophils # 0.1 10^3/uL (0.0-0.1); Eosinophils # 0.1 10^3/uL (0.0-0.8); Eosinophils % 1.2 %; Hematocrit 29.5 % (37.0-47.0); Hemoglobin 8.6 g/dL (11.5-15.3); Lymphocytes # 0.8 10^3/uL (0.8-4.8); Lymphocytes % 10.6 %; Mean Corpuscular HGB Conc 29.2 g/dL (30.0-36.0); Mean Corpuscular Hemoglobin 22.2 pg (28.0-34.0); Mean Platelet Volume 10.3 fL (7.4-10.4); Monocytes # 0.4 10^3/uL (0.2-0.9); Monocytes % 5.5 %; Neutrophils # 5.96 10^3/uL (1.8-7.7); Neutrophils % 81.3 %; Nucleated Red Blood Cells % 0 %; Platelet Count 352 10^3/cmm (130-400); Red Blood Count 3.88 10^6/uL (4.1-5.3); Red Cell Distribution Width 15.9 % (12.1-15.1); White Blood Count 7.3 10^3/uL (4.0-10.0)
[2021-10-17 15:43] LABS: Bilirubin Urine Neg (Negative); Blood Urine Neg (Negative); Glucose Urine UA Norm (Normal); Ketones Urine 1+ (Negative); Leukocyte Esterase Urine Negative (Negative); Nitrate Urine Negative (Negative); Protein Urine Neg (Negative); Urine Appearance Clear (CLEAR); Urine Color Yellow (Yellow); Urobilinogen Urine Neg (Negative); pH Urine 5 (5-7)
[2021-10-17 15:50] LABS: Amphetamines Screen Urine Positive (Negative); Barbiturates Screen Urine Negative (Negative); Benzodiazepines Screen Urine Negative (Negative); Cocaine Screen Urine Negative (Negative); Opiate Screen Urine Negative (Negative); PCP Screen Urine Negative (Negative); THC Screen Urine Positive (Negative)
--- NOTE | 2021-10-17 15:57 | W.ED.GENADLT ---
HPI - General Adult General: Chief complaint: General Medical Stated complaint: HYPERTENSION Time Seen by Provider: 10/17/21 15:10 History of Present Illness: Patient is a 51-year-old female with a history of high blood pressure ADD, bipolar disorder, depression who presents to the emergency room for concerns of altered mental status and elevated blood pressure. Per EMS, patient was outside when she called EMS today for concerns of elevated blood pressure. By the time EMS arrived, patient was smiling and confused. EMS tells me that patient cannot stop smiling and was reported to be digging in somebody else's backyard. Patient on arrival does not recall any of this. Patient reports that her blood pressure is elevated. Patient denies any active complaints, chest pain shortness breath palpitation abdominal complaints nausea/vomiting, diarrhea focal weakness, or any other complaints at this time. Patient denies any ingestion at this time. No history of thyroid issues. Patient denies any headache or any other neurological complaints. Police brought in involuntary commitment form given concerns for patient's safety and inability to care of self. Onset: unknown Duration:ongoing Location:streets Severity:moderate/severe Associated symptoms: Deny chest pain, dyspnea, nausea, rash, palpitations or vomiting Review of Systems Const: Denies: fever(s) or chills Eyes: Denies: change in vision ENMT: Denies: mouth pain Card: Denies: chest pain or palpitations Resp: Denies: dyspnea or non-productive cough GI: Denies: abdominal pain, nausea, vomiting or diarrhea : Denies: dysuria Musc: Denies: extremity pain Skin/Breast: Denies: rash or new lesions Neuro: Reports: other (+confusion); Denies: weakness in extremities Psych: Reports: mood swings James/Lymph: Denies: easy bruising PFS ED PFSH: Medical History ADD (attention deficit disorder) Attention and concentration deficit Bipolar disorder Depression HTN (hypertension) Hyperglycemia Manic depressive disorder Other halfway (current) drug therapy Polysubstance abuse Psychiatric care Uterine cancer Surgical History History of History of plastic surgery History of tubal ligation Family History Other Hyperlipidemia Hypertension Social History Smoking and tobacco status: current every day smoker cigarettes Packs smoked per day: 0.5 Years cigarettes smoked: 3 Quit status (tobacco): has tried quititng Number of times tried to quit tobacco: 2 Second hand smoke exposure: Yes Smoking risk assessment/counseling performed?: Yes Tobacco counseling given: counseling >3 minutes Alcohol intake: current Lives independently: No Household members: other Details: Lives with her aunt Marital status: Number of children: 5 Current gender identity: Female Female Reproductive History: Date of last menstrual period: 12/11/19 Physical Exam Const: COMMON NORMALS: alert HENMT: COMMON NORMALS: atraumatic HEAD & SCALP: atraumatic MOUTH: moist mucous membranes not abnormal Eye: COMMON NORMALS: EOMs intact bilaterally and conjunctivae normal CONJUNCTIVA: Yes conjunctivae normal Neck/C-Spine: COMMON NORMALS: full ROM and supple Resp: COMMON NORMALS: normal respiratory effort and clear to auscultation bilaterally AUSCULTATION: clear to auscultation bilaterally Cardio: RATE: tachycardic GI: COMMON NORMALS: Soft to palpation and non-tender PALPATION: Yes Soft to palpation Extremity: COMMON NORMALS: full ROM Neuro: SENSORIUM/ORIENTATION: Yes alert MOTOR EXAM: No Abnormal motor strength present and Other motor observations present (no focal motor deficits) Psych: SPEECH: Yes incoherent and Yes rapid MOOD & AFFECT: Yes elevated mood Course Vital Signs: Vital signs: Vital Signs Temperature 98.4 F 10/17/21 15:06 Pulse Rate 107 H 10/17/21 15:06 Respiratory Rate 18 10/17/21 15:06 Blood Pressure 184/107 10/17/21 15:06 Pulse Oximetry 97 10/17/21 15:06 MDM - General Adult Medical Decision Making 51-year-old female w/ hx of manic depression presents emergency room for altered mental status and elevated blood pressure. Mildly hypertensive on arrival. Wrist exam with normal limit. Patient is noted to be disorganized in thoughts and having pressured speech. White count 7.3, hemoglobin 8.6 down from baseline of 9-10. CT brain negative for any acute finding. TSH T4 within normal limit. Salicylate Tylenol within normal. Patient has meth and marijuana in the urine. S/p 1L of NS. BP improved with norvasc. Case was discussed with Dr. Castaneda concern concerns for underlying psychiatric/maniac issues, and Dr. Castaneda agree with inpatient admission at this time. Disposition: admission Lab Data : 10/17/21 15:10 10/17/21 15:[address] 10/17/21 15:11 IMPRESSION: Negative head CT. Laboratory Results WBC 7.3 10^3/uL (4.0-10.0) 10/17/21 15:10 RBC 3.88 10^6/uL (4.1-5.3) L 10/17/21 15:10 Hgb 8.6 g/dL (11.5-15.3) L 10/17/21 15:10 Hct 29.5 % (37.0-47.0) L 10/17/21 15:10 MCV 76.0 fl (81-99) L 10/17/21 15:10 MCH 22.2 pg (28.0-34.0) L 10/17/21 15:10 MCHC 29.2 g/dL (30.0-36.0) L 10/17/21 15:10 RDW 15.9 % (12.1-15.1) H 10/17/21 15:10 Plt Count 352 10^3/cmm (130-400) 10/17/21 15:10 MPV 10.3 fL (7.4-10.4) 10/17/21 15:10 Neut % (Auto) 81.3 % 10/17/21 15:10 Lymph % (Auto) 10.6 % 10/17/21 15:10 [place] % (Auto) 5.5 % 10/17/21 15:10 Eos % (Auto) 1.2 % 10/17/21 15:10 Baso % (Auto) 1.0 % 10/17/21 15:10 Neut # (Auto) 5.96 10^3/uL (1.8-7.7) 10/17/21 15:10 Lymph # (Auto) 0.8 10^3/uL (0.8-4.8) 10/17/21 15:10 [place] # (Auto) 0.4 10^3/uL (0.2-0.9) 10/17/21 15:10 Eos # (Auto) 0.1 10^3/uL (0.0-0.8) 10/17/21 15:10 Baso # (Auto) 0.1 10^3/uL (0.0-0.1) 10/17/21 15:10 Nucleated RBC % (auto) 0 % 10/17/21 15:10 Nucleated RBCs # 0.0 /100WBC 10/17/21 15:10 Sodium 137 mmol/L (136-145) 10/17/21 15:10 Potassium 3.2 mmol/L (3.5-5.1) L 10/17/21 15:10 Chloride 103 mmol/L (98-107) 10/17/21 15:10 Carbon Dioxide 22 mmol/L (22-29) 10/17/21 15:10 Anion Gap 15.2 (5-19) 10/17/21 15:10 BUN 9 mg/dL (6-20) 10/17/21 15:10 Creatinine 0.6 mg/dL (0.5-0.9) 10/17/21 15:10 GFR Calculation 105.0 mL/min (90-130) 10/17/21 15:10 Glucose 97 mg/dL (65-115) 10/17/21 15:10 POC Glucose 104 mg/dL (70-110) 10/17/21 15:26 Calculated Osmolality 283 mOsm/kg (285-295) L 10/17/21 15:10 Calcium 9.0 mg/dL (8.5-10.5) 10/17/21 15:10 Total Bilirubin 0.3 mg/dL (0.15-1.2) 10/17/21 15:10 AST 41 U/L (0-32) H 10/17/21 15:10 ALT 21 U/L (0-33) 10/17/21 15:10 Alkaline Phosphatase 73 IU/L (35-105) 10/17/21 15:10 Total Protein 6.5 g/dL (6.6-8.7) L 10/17/21 15:10 Albumin 4.3 g/dL (3.5-5.2) 10/17/21 15:10 Globulin 2.2 g/dL (1.3-4.6) 10/17/21 15:10 Lipase 13 U/L (13-60) 10/17/21 15:10 TSH 2.71 uIU/mL (0.27-4.20) 10/17/21 15:10 Free T4 1.14 ng/dL (0.82-1.77) 10/17/21 15:10 Urine Color Yellow (Yellow) 10/17/21 15:23 Urine Appearance Clear (CLEAR) 10/17/21 15:23 Urine pH 5 (5-7) 10/17/21 15:23 Ur Specific [place] 1.020 (1.005-1.030) 10/17/21 15:23 Urine Protein Neg (Negative) 10/17/21 15:23 Urine Glucose (UA) Norm (Normal) 10/17/21 15:23 Urine Ketones 1+ (Negative) H 10/17/21 15:23 Urine Blood Neg (Negative) 10/17/21 15:23 Urine Nitrate Negative (Negative) 10/17/21 15:23 Urine Bilirubin Neg (Negative) 10/17/21 15:23 Urine Urobilinogen Neg mg/dL (Negative) 10/17/21 15:23 Ur Leukocyte Esterase Negative (Negative) 10/17/21 15:23 Salicylates < 0.3 mg/dL (3-10) L 10/17/21 15:10 Urine Opiates Screen Negative ng/mL (Negative) 10/17/21 15:23 Acetaminophen < 5.0 ug/mL (10-30) L 10/17/21 15:10 Ur Barbiturates Screen Negative ng/mL (Negative) 10/17/21 15:23 Ur Phencyclidine Scrn Negative ng/mL (Negative) 10/17/21 15:23 Ur Amphetamines Screen Positive ng/mL (Negative) H 10/17/21 15:23 U Benzodiazepines Scrn Negative ng/mL (Negative) 10/17/21 15:23 Urine Cocaine Screen Negative ng/mL (Negative) 10/17/21 15:23 U Marijuana (THC) Screen Positive ng/mL (Negative) H 10/17/21 15:23 Ethyl Alcohol < 10 mg/dL (0-10) 10/17/21 15:10 Imaging Data Other Imaging: Radiologist's impression: [address] [address] [address] Scan Report Signed Patient: Keya Castaneda Unit #: [id number] : 1970 Age/Sex: 51 / F ADM Date: 10/17/21 Loc: ER Room/Bed: Attending Dr: Ordering Provider/Ordering MD: Sary Greer MD Date of Service: 10/17/21 Procedure(s): CT head wo con* [id number] Accession Number(s): [id number] Report Number: [id number] WS: [id number] CT HEAD NONCONTRAST HISTORY: ams TECHNIQUE: Contiguous axial imaging performed through the brain in 2.5 mm imaging. Bone and soft tissue windows. Sagittal and coronal reformats reviewed.? All CT scans at [facility] use at least one of these dose optimization techniques: automated exposure control; mA and/or kV adjustment per patient size (includes targeted exams where dose is matched to clinical indication); or iterative reconstruction. DLP: 1803.94 mGy.cm COMPARISON: None available. No acute intracranial hemorrhage, midline shift or mass effect. No atrophy or prior infarcts or herniation. Ventricles:? Normal size with no hydrocephalus. Paranasal sinuses: As visualized are clear. Mastoid air cells: Well pneumatized. Calvarium and scalp: Skull is intact with no soft tissue edema or swelling. CT/CT head wo con* [id number] IMPRESSION: ? Negative head CT. ? Dictated By: Nelsy Wilson DO Signed By: Nelsy Wilson DO Signed Date/Time: 10/17/21 1551 DD/ 1549 Discharge Plan Discharge Patient Disposition: Admitted As Inpatient Clinical Impression: Altered mental status, Kate, Psychosis Condition: Stable Coding Level of Care Code ED Radiation Therapy Technician for Chg Fwd Exam Comprehensive
[2021-10-17 15:59] LABS: Alcohol Level < 10 mg/dL (0-10)
[2021-10-17] MEDS: sodium chloride 0.9% 1,000 ML 999 ML IV (16:00)
[2021-10-17 16:05] LABS: Alanine Aminotransferase 21 U/L (0-33); Albumin Level 4.3 g/dL (3.5-5.2); Alkaline Phosphatase 73 IU/L (35-105); Anion Gap 15.2 (5-19); Aspartate Amino Transferase 41 U/L (0-32); Blood Urea Nitrogen 9 mg/dL (6-20); Carbon Dioxide 22 mmol/L (22-29); Chloride 103 mmol/L (98-107); Free T4 Free Thyroxine 1.14 ng/dL (0.82-1.77); Globulin 2.2 g/dL (1.3-4.6); Glucose 97 mg/dL (65-115); Lipase 13 U/L (13-60); Osmolality Calculated 283 mOsm/kg (285-295); Potassium 3.2 mmol/L (3.5-5.1); Sodium 137 mmol/L (136-145); Thyroid Stimulating Hormone 2.71 uIU/mL (0.27-4.20); Total Bilirubin 0.3 mg/dL (0.15-1.2); Total Protein 6.5 g/dL (6.6-8.7)
--- NOTE | 2021-10-17 16:07 | PC.PHAR ---
PT UNABLE TO VERIFY MEDICATIONS-MEDICATIONS ENTERED ARE FROM WHEN THE PT WAS HERE ON 10/01/21 AND WHAT THE PHARMACY HAS FILLED FOR THE PT
[2021-10-17 16:10] LABS: Acetaminophen < 5.0 ug/mL (10-30); Salicylate < 0.3 mg/dL (3-10)
[2021-10-17] MEDS: amlodipine 5 mg Tablet PO (16:33)
[2021-10-17 17:34] VITALS: BP 183/106; PULSE 96; RESP 22; O2SAT 95
--- NOTE | 2021-10-17 17:43 | PC.NURSE ---
When patient arrived it was observed once she was in the room she was responding to internal stimuli. Patient hyperactive at this time. Patient cooperative at this time.
--- NOTE | 2021-10-17 17:44 | PC.NURSE ---
Report given to Ruchi SHAIKH.
[2021-10-17] MEDS: LORazepam 2 mg/mL INJ 1 mL IM (18:09)
[2021-10-17] MEDS: haloperidol inj 5 mg/mL INJ 1 mL IM (18:10)
--- NOTE | 2021-10-17 18:29 | PC.NURSE ---
Patient wheeled to her unit with this RN and Larry from security. Patient was cooperative but hyperactive during transport. patient stable upon transfer. Patient belongings went in locked nursing station. Patient IV removed before transport.
[2021-10-17 19:00] VITALS: BMI 29.9
[2021-10-17 22:00] VITALS: RESP 16
[2021-10-18 06:00] VITALS: BP 169/79; PULSE 100; RESP 18; TEMP 36.9; O2SAT 99
[2021-10-18] MEDS: metformin 500 mg Tablet PO ×2 (09:13→18:04)
[2021-10-18 09:14] VITALS: BP 169/79
[2021-10-18] MEDS: metoprolol tartrate 50 mg Tablet PO ×2 (09:14→18:04)
[2021-10-18] MEDS: atorvastatin 40 mg Tablet 20 MG PO (09:14)
[2021-10-18] MEDS: cloNIDine 0.1 mg Tablet 0.2 MG PO ×2 (09:14→18:05)
--- NOTE | 2021-10-18 09:35 | PC.OT ---
OT EVALUATION ORDERS RECEIVED. PER NURSING, HOLD EVALUATION AT THIS TIME
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
[2021-10-18] MEDS: OLANZapine 5 mg ODT PO (11:07)
--- NOTE | 2021-10-18 11:11 | PC.NURSE ---
Zyprexia 5 mg sl given for c/o anxiety.
--- NOTE | 2021-10-18 11:54 | NPU.GN ---
[facility] Group Topic:David Villagomez General Mood of Group: Patient did not attend group today.
[2021-10-18 14:00] VITALS: RESP 17
[2021-10-18 18:05] VITALS: BP 169/79
[2021-10-18 19:31] VITALS: RESP 18
[2021-10-18] MEDS: quetiapine 300 mg Tablet PO (22:06)
[2021-10-19 05:05] VITALS: BP 109/61; PULSE 68; RESP 16; TEMP 36.6; O2SAT 95
[2021-10-19] MEDS: acetaminophen 325 mg Tablet 650 MG PO (08:52)
[2021-10-19] MEDS: metformin 500 mg Tablet PO ×2 (08:52→18:14)
[2021-10-19 08:53] VITALS: BP 109/61
[2021-10-19] MEDS: atorvastatin 40 mg Tablet 20 MG PO (08:53)
[2021-10-19] MEDS: metoprolol tartrate 50 mg Tablet PO ×2 (08:53→18:14)
[2021-10-19] MEDS: cloNIDine 0.1 mg Tablet 0.2 MG PO ×2 (08:53→18:14)
--- NOTE | 2021-10-19 12:47 | NPU.GN ---
[facility] Group Topic:Dice Breaker General Mood of Group Patient did attend group today. Patient did participate but kept interrupting group with blurting out. Patients hygiene was poor. Patient also talks to herself. Patient does not seem stable at this time.
[2021-10-19] MEDS: OLANZapine 5 mg ODT PO (13:19)
[2021-10-19] MEDS: hyDROXYzine 25 mg Capsule 50 MG PO (13:19)
[2021-10-19] MEDS: diphenhydrAMINE 50 mg/mL SDV 1mL IM (13:43)
[2021-10-19] MEDS: LORazepam 2 mg/mL INJ 1 mL IM (13:44)
[2021-10-19] MEDS: haloperidol inj 5 mg/mL INJ 1 mL IM (13:44)
[2021-10-19 14:00] VITALS: BP 149/88; PULSE 69; RESP 18; TEMP 36.3; O2SAT 99
--- NOTE | 2021-10-19 14:15 | PC.NURSE ---
[facility] PATIENT SPOKE ON PHONE WITH . BECAME AGITATED THAT HE COULD NOT COME AND CHECK HER OUT. BEGAN YELLING OUT. STAFF OUT TO MAK WITH PATIENT. VERBAL DEESCALATION ATTEMPTED BY NURSE AND DIRECTOR TO NO EFFECT. STAFF ATTEMPTED REDIRECT THOUGHT PROCESS. FOOD AND DRINK GIVEN BUT ONLY BRIEFLY CALMED PATIENT. PATIENT THEN STARTED SCREAMING AND STAMPING FEET, TELLING STAFF TO LEAVE HER ALONE AND LET HER OUT RIGHT NOW. DR. BROUSSARD NOTIFIED. PATIENT DID AGREE TO TAKE MEDICATIONS WILLINGLY. PATIENT TO ROOM AND RESTED ON BED WHILE NURSES X2 GAVE INJECTIONS OF HALDOL, ATIVAN, AND BENADRYL TO RIGHT AND LEFT GLUTE WITHOUT INCIDENT. PATIENT REMAINED IN BED AFTER. SNACK AND DRINK LEFT WITH PATIENT IN ROOM. PT REMAINS IN BED RESTING WITH EYES CLOSED AT THIS TIME.
--- NOTE | 2021-10-19 15:46 | W.PM.NPUPNS ---
Subjective NPU Subjective: Patient presents today with another erratic outburst that lasted likely 20 minutes or more. She was seen in vomiting noted for her to be here and no reason for her to be held against my will. Multiple staff attempted to assist her in de-escalating offering medications. Ultimately she was able to go down to her room and take as needed medication without incident or restraint. After which she spoke in a fairly pressured fashion without pausing not making much sense whatsoever with that long rant. Mental Status Exam MSE Comments: This is an obese white female in hospital scrubs with limited? and limited eye contact.? No abnormal movements except for significant? psychomotor agitation.? Uncooperative with exam in extreme distress.? Speech was increased rate and volume.? Mood not described, affect agitated. Thought process disorganized.? Thought content: Patient did not respond to questions of lethality but had no aggression toward self or others but had significant agitation, there were no delusions reported or but paranoid and persecutory thinking existed, she was clearly responding to internal stimuli but did not report any auditory or visual hallucinations. ? Attention and concentration were impaired and memory was impaired, but none were formally tested.? She is alert and oriented x3.? Insight and judgment are impaired, impulse control impaired. Vitals/I&O/Wt Last Vital Signs Temp 97.3 F L 10/19/21 14:00 Pulse 69 10/19/21 14:00 Resp 16 10/19/21 21:30 BP 149/88 10/19/21 18:14 Pulse Ox 99 10/19/21 14:00 Data NPU : 10/17/21 15:10 10/17/21 15:10 A&P Assessment and plan (1) Delirium: Status: Acute (2) Altered mental status: Status: Acute (3) Kate: Status: Acute (4) Psychosis: Status: Acute (5) Other stimulant dependence, uncomplicated: Status: Acute (6) Cannabis dependence, uncomplicated: Status: Acute (7) Borderline personality disorder: Status: Acute (8) Polysubstance abuse: Status: Acute Plan This is a 51-year-old female with a long history of active addiction to multiple substances, psychosis with several weeks of very erratic behavior and psychosis presents unable to cognitively/actively participate in her initial assessment. Plan: 1.? Continue current medication.? Will evaluate for changes as she becomes more cogent. 2.? Continue every 15 minute checks for safety. 3.? Encourage individual, group and milieu therapies. 4.? Encourage sober living treatment after discharge at the highest level of care to which she is willing to commit. Involuntary Hold Information 96 Hour Hold: 96 Hour Involuntary Admission: Yes 96 Hour Hold Ending Date: 10/23/21 96 Hour Hold Ending Time: 16:15 Attestations NPU Medical Necessity Statement*: Inpatient hospitalization is medically necessary and the clinically appropriate intervention at this time. We will monitor medication to make changes as indicated. Likely length of stay 3 to 5 days. Coding Level of Care Code Acute Senior Mechanical Development Engineer for g Fwd Diagnoses Delirium R41.0 Altered mental status R41.82 Kate F30.9 Psychosis F29 Other stimulant dependence, uncomplicated F15.20 Cannabis dependence, uncomplicated F12.20 Borderline personality disorder F60.3 Polysubstance abuse F19.10
[2021-10-19 18:14] VITALS: BP 149/88
[2021-10-19 21:30] VITALS: RESP 16
[2021-10-20 06:00] VITALS: BP 117/80; PULSE 72; RESP 18; TEMP 36.5; O2SAT 97
[2021-10-20] MEDS: OLANZapine 5 mg ODT PO (06:55)
[2021-10-20 08:22] VITALS: BP 117/80
[2021-10-20] MEDS: acetaminophen 325 mg Tablet 650 MG PO (08:22)
[2021-10-20] MEDS: cloNIDine 0.1 mg Tablet 0.2 MG PO ×2 (08:22→18:35)
[2021-10-20] MEDS: metformin 500 mg Tablet PO ×2 (08:23→18:35)
[2021-10-20] MEDS: atorvastatin 40 mg Tablet 20 MG PO (08:23)
[2021-10-20] MEDS: metoprolol tartrate 50 mg Tablet PO ×2 (08:23→18:35)
--- NOTE | 2021-10-20 10:56 | NPU.GN ---
[facility] Group Topic: David Villagomez General Mood of Group: Patient did attend and participate in group today. Patients hygiene was very poor.. Patient was social and seems very unstable at this time. Patient kept blurting out in group and having her own conversation.
[2021-10-20 14:00] VITALS: BP 115/76; PULSE 62; RESP 17; TEMP 36.2; O2SAT 99
[2021-10-20] MEDS: haloperidol inj 5 mg/mL INJ 1 mL IM (14:50)
[2021-10-20] MEDS: diphenhydrAMINE 50 mg/mL SDV 1mL IM (14:51)
[2021-10-20] MEDS: LORazepam 2 mg/mL INJ 1 mL IM (14:51)
--- NOTE | 2021-10-20 17:51 | P.NPUPN_ITS ---
Subjective NPU Subjective: Patient presents today essentially unchanged and having a really rough time with outbursts and psychosis. She continues to be resistant to a trial of medication but has had multiple doses of antipsychotics which would be the recommendation. We discussed the fact that we believe she would benefit from taking an antipsychotic but she was clear that she did not make methamphetamine was a problem and that she believes her mind is working fine without any medications. That being said after she escalates she is generally amenable to taking something to help her but does not understand that we could schedule something that would help her. Mental Status Exam MSE Comments: This is an obese white female in hospital scrubs with limited grooming and eye contact.? No abnormal movements except for significant? psychomotor agitation.? Uncooperative with exam in extreme distress.? Speech was increased rate and volume.? Mood not described, affect agitated.? Thought process disorganized.? Thought content: Patient did not respond to questions of lethality but had no aggression toward self or others but had significant agitation, there were no delusions reported or but paranoid and persecutory thi nking existed, she was clearly responding to internal stimuli but did not report any auditory or visual hallucinations. ? Attention and concentration were impaired and memory was impaired, but none were formally tested.? She is alert and oriented x3.? Insight and judgment are impaired, impulse control impaired. Vitals/I&O/Wt Last Vital Signs Temp 97.2 F L 10/20/21 14:00 Pulse 62 10/20/21 14:00 Resp 17 10/20/21 14:00 BP 115/76 10/20/21 14:00 Pulse Ox 99 10/20/21 14:00 Data NPU : 10/17/21 15:10 10/17/21 15:10 A&P Assessment and plan (1) Delirium: Status: Acute (2) Altered mental status: Status: Acute (3) Kate: Status: Acute (4) Psychosis: Status: Acute (5) Bipolar disorder: Status: Acute (6) Borderline personality disorder: Status: Acute (7) Cannabis dependence, uncomplicated: Status: Acute (8) Other stimulant dependence, uncomplicated: Status: Acute (9) Polysubstance abuse: Status: Acute Plan This is a 51-year-old female with a long history of active addiction to multiple substances, psychosis with several weeks of very erratic behavior and psychosis presents unable to cognitively/actively participate in her initial assessment. Plan: 1.? Continue current medication.? Will evaluate for changes as she becomes more cogent. 2.? Continue every 15 minute checks for safety. 3.? Encourage individual, group and milieu therapies. 4.? Encourage sober living treatment after discharge at the highest level of care to which she is willing to commit. Involuntary Hold Information 96 Hour Hold: 96 Hour Involuntary Admission: Yes 96 Hour Hold Ending Date: 10/23/21 96 Hour Hold Ending Time: 16:15 Attestations NPU Medical Necessity Statement*: Inpatient hospitalization is medically necessary and the clinically appropriate intervention at this time. We will monitor medication to make changes as indicated. Likely length of stay 3 to 5 days. Coding Level of Care Code Acute Director Operating Room for Jerry Fwd Diagnoses Delirium R41.0 Altered mental status R41.82 Kate F30.9 Psychosis F29 Bipolar disorder F31.9 Borderline personality disorder F60.3 Cannabis dependence, uncomplicated F12.20 Other stimulant dependence, uncomplicated F15.20 Polysubstance abuse F19.10
[2021-10-20 18:35] VITALS: BP 115/76
[2021-10-20 20:43] VITALS: BP 120/74; PULSE 67; RESP 17; O2SAT 96
--- NOTE | 2021-10-21 02:29 | PC.NURSE ---
Patient is at the nurses station. She has been sleeping all shift up to this point related to the b52 the patient received earlier in the day. The RN attempted to give the patient her seroquel and the patient got upset stating that seroquel makes her feel like she has taken a date rape drug. She says that she has told this to her Dr. and her and velvet one will listen. She refused the medication. Patient asked for a snack and wanted popcorn. She was standing there opening creamer packets and pouring them in her mouth. She asked for more creamer saying that she needed it to pour over her popcorn. She walked back to her room.
[2021-10-21 06:00] VITALS: BP 116/71; PULSE 65; RESP 17; O2SAT 98
[2021-10-21 08:21] VITALS: BP 116/71
[2021-10-21] MEDS: metformin 500 mg Tablet PO ×2 (08:21→17:25)
[2021-10-21] MEDS: cloNIDine 0.1 mg Tablet 0.2 MG PO ×2 (08:21→17:25)
[2021-10-21] MEDS: atorvastatin 40 mg Tablet 20 MG PO (08:22)
[2021-10-21] MEDS: metoprolol tartrate 50 mg Tablet PO ×2 (08:22→17:25)
--- NOTE | 2021-10-21 08:27 | PC.NURSE ---
Blood Pressure BP 125/83, taken by this RN. Rechecked BP prior to administration of Clonidine 0.2 MG and Metoprolol to ensure BP was therapeutic for dose of medication that was administered. Patient aroused to voice and was laughing with eyes closed, then took meds and laid back down.
[2021-10-21] MEDS: acetaminophen 325 mg Tablet 650 MG PO (08:57)
[2021-10-21] MEDS: haloperidol 5 mg Tablet PO ×2 (09:01→15:33)
--- NOTE | 2021-10-21 10:24 | PC.NURSE ---
PRN Medications Patient up to nurses station, states she is in pain and I need to go smoke some ice because its like air and its the only thing that helps my pain. Informed patient she can have Tylenol. Verbalized acceptance. Reports back pain 02/28. Tylenol 650 mg given as ordered for pain. Reassessed pain. No pain reported or observed. Medication effective.
[2021-10-21] MEDS: nicotine 21 mg Patch 1 PATCH TRANSDERMA (11:47)
--- NOTE | 2021-10-21 12:14 | P.NPUPN_ITS ---
Subjective NPU Subjective: Patient presents today continuing to have extreme psychosis. She is talking freely about using methamphetamine now and reporting that there?s nothing wrong with it and ask him to be discharged so that she can ?go out and have some more ice.? She continues to be resistant to medication as we discussed the risks benefits and alternatives of considering an antipsychotic as unclear if she understood. Her was planning on visiting today and we are hoping that he could convince her to give some antipsychotic to try and hosted her psychosis can be broken and we could begin talking about sober living treatment of some sort. Mental Status Exam MSE Comments: This is an obese white female in hospital scrubs with limited grooming and eye contact.? No abnormal movements except for significant? psychomotor agitation.? Uncooperative with exam in extreme distress.? Speech was increased rate and volume.? Mood described as I am fine, affect agitated.? Thought process disorganized.? Thought content: Patient denied SI/HI but had significant agitation, there were no delusions reported or but paranoid and persecutory thinking existed, she was clearly responding to internal stimuli but did not report any auditory or visual hallucinations. ? Attention and concentration were impaired and memory was impaired, but none were formally tested.? She is alert and oriented x3.? Insight and judgment are impaired, impulse control impaired. Vitals/I&O/Wt Last Vital Signs Temp 97.2 F L 10/20/21 14:00 Pulse 65 10/21/21 06:00 Resp 17 10/21/21 06:00 BP 116/71 10/21/21 06:00 Pulse Ox 98 10/21/21 06:00 Data NPU : 10/17/21 15:10 10/17/21 15:10 A&P Assessment and plan (1) Delirium: Status: Acute (2) Altered mental status: Status: Acute (3) Kate: Status: Acute (4) Psychosis: Status: Acute (5) Bipolar disorder: Status: Acute (6) Polysubstance abuse: Status: Acute (7) Borderline personality disorder: Status: Acute (8) Cannabis dependence, uncomplicated: Status: Acute (9) Other stimulant dependence, uncomplicated: Status: Acute Plan This is a 51-year-old female with a long history of active addiction to multiple substances, psychosis with several weeks of very erratic behavior and psychosis presents unable to cognitively/actively participate in her initial assessment. Plan: 1.? Continue current medication.? Will evaluate for changes as she becomes more cogent. 2.? Continue every 15 minute checks for safety. 3.? Encourage individual, group and milieu therapies. 4.? Encourage sober living treatment after discharge at the highest level of care to which she is willing to commit. Involuntary Hold Information 96 Hour Hold: 96 Hour Involuntary Admission: Yes 96 Hour Hold Ending Date: 10/23/21 96 Hour Hold Ending Time: 16:15 Attestations NPU Medical Necessity Statement*: Inpatient hospitalization is medically necessary and the clinically appropriate intervention at this time. We will monitor medication to make changes as indicated. Likely length of stay 3 to 5 days. Coding Level of Care Code Acute Predictive Maintenance Technician for [place] Fwd Diagnoses Delirium R41.0 Altered mental status R41.82 Kate F30.9 Psychosis F29 Bipolar disorder F31.9 Polysubstance abuse F19.10 Borderline personality disorder F60.3 Cannabis dependence, uncomplicated F12.20 Other stimulant dependence, uncomplicated F15.20
[2021-10-21 14:00] VITALS: BP 104/69; PULSE 70; RESP 17; TEMP 36.3; O2SAT 95
[2021-10-21] MEDS: LORazepam 2 mg Tablet PO (15:33)
[2021-10-21] MEDS: diphenhydrAMINE 25 mg Capsule 50 MG PO (15:33)
--- NOTE | 2021-10-21 16:04 | PC.NURSE ---
VISITATION PT HAS HISTORY OF BECOMING HIGHLY AGITATED WHEN TALKING ON PHONE OR VISITING WITH . HAS VERBALIZED THAT HE WOULD NOT COME IN FOR VISITS SINCE LAST NPU ADMISSION, SECURITY WAS REQUIRED TO INTERVENE WHEN HE WAS READY TO LEAVE. DID COME TO VISITATION TODAY, STATING THAT SHE BEGGED HIM TO COME. NURSING STAFF AND DR PLANNED TO OFFER PRN MEDICATION FOR ANXIETY AND AGITATION IN ADVANCE TO PREVENT ESCALATION. STAFF TOOK MEDICATION WILLINGLY. STAFF EDUCATED PT PRIOR TO VISIT THAT SHE WOULD NOT BE ABLE TO LEAVE WITH FROM VISITATION. PATIENT VERBALIZED UNDERSTANDING OF THIS AT THAT TIME BUT THOUGHT PROCESS DOES REMAIN DISORGANIZED. PT HAD VISIT WITH THAT JUST ENDED. PT AGITATED ABOUT NOT BEING ABLE TO LEAVE WITH OR GOING OUTSIDE TO SMOKE. PT YELLING. STAFF ABLE TO VERBALLY DEESCALATE. HUSDAND LEFT. PT RETURNED TO ROOM ANGRILY BUT NO LONGER YELLING.
[2021-10-21 17:25] VITALS: BP 116/79
[2021-10-21 20:58] VITALS: BP 123/78; PULSE 56; RESP 16; TEMP 36.6; O2SAT 94
[2021-10-22 03:43] VITALS: BMI 29.6
[2021-10-22 06:00] VITALS: RESP 18
[2021-10-22] MEDS: diphenhydrAMINE 50 mg/mL SDV 1mL IM (08:46)
[2021-10-22] MEDS: LORazepam 2 mg/mL INJ 1 mL IM (08:46)
[2021-10-22] MEDS: haloperidol inj 5 mg/mL INJ 1 mL IM (08:46)
[2021-10-22 08:54] VITALS: BP 123/78
[2021-10-22] MEDS: cloNIDine 0.1 mg Tablet 0.2 MG PO ×2 (08:54→17:20)
[2021-10-22] MEDS: paliperidone ER 6 mg Tablet PO (08:54)
[2021-10-22] MEDS: metformin 500 mg Tablet PO ×2 (08:55→17:20)
[2021-10-22] MEDS: metoprolol tartrate 50 mg Tablet PO ×2 (08:55→17:20)
[2021-10-22] MEDS: atorvastatin 40 mg Tablet 20 MG PO (08:55)
--- NOTE | 2021-10-22 09:21 | W.PM.NPUPNS ---
Subjective NPU Subjective: Patient presented today having yet another explosive moment that needed IM as needed medication. During the conversation and de-escalation we did have a discussion about the risks, benefits and alternatives of Invega and she understood agreed to proceed as is documented in this note. She spent the time with this teletypewriter operator ranting about random things happen, methamphetamine, whether laying down or not laying down was good. She continued to spew of flight of ideas and reported wanting to be discharged essentially so she can go use. Mental Status Exam MSE Comments: This is an obese white female in hospital scrubs with limited grooming and eye contact.? No abnormal movements except for significant? psychomotor agitation.? Uncooperative with exam in extreme distress.? Speech was increased rate and volume.? Mood described as I want to be discharged, affect agitated.? Thought process disorganized.? Thought content: Patient denied suicidal or homicidal ideation but had significant agitation and intrusiveness there were no delusions reported or but paranoid and persecutory thinking existed, she was clearly responding to internal stimuli but did not report any auditory or visual hallucinations. ? Attention and concentration were impaired and memory was impaired, but none were formally tested.? She is alert and oriented x3.? Insight and judgment are impaired, impulse control impaired. Vitals/I&O/Wt Last Vital Signs Temp 97.8 F 10/21/21 20:58 Pulse 56 L 10/21/21 20:58 Resp 18 10/22/21 06:00 BP 123/78 10/22/21 08:54 Pulse Ox 94 10/21/21 20:58 Weight last 48 hrs Weight 80.853 kg Data NPU : 10/17/21 15:10 10/17/21 15:10 A&P Assessment and plan (1) Delirium: Status: Acute (2) Altered mental status: Status: Acute (3) Kate: Status: Acute (4) Psychosis: Status: Acute (5) Bipolar disorder: Status: Acute (6) Methamphetamine use disorder, severe: Status: Acute (7) Borderline personality disorder: Status: Acute Plan This is a 51-year-old female with a long history of active addiction to multiple substances, psychosis with several weeks of very erratic behavior and psychosis presents unable to cognitively/actively participate in her initial assessment. Plan: 1.? Continue current medication.? Started Invega 6 mg p.o. every morning. 2.? Continue every 15 minute checks for safety. 3.? Encourage individual, group and milieu therapies. 4.? Encourage sober living treatment after discharge at the highest level of care to which she is willing to commit. Involuntary Hold Information 96 Hour Hold: 96 Hour Involuntary Admission: Yes 96 Hour Hold Ending Date: 10/23/21 96 Hour Hold Ending Time: 16:15 Attestations NPU Medical Necessity Statement*: Inpatient hospitalization is medically necessary and the clinically appropriate intervention at this time. We will monitor medication to make changes as indicated. Likely length of stay 3 to 5 days. Coding Level of Care Code Acute Semiconductor Packages Leak Tester for g Fwd Diagnoses Delirium R41.0 Altered mental status R41.82 Kate F30.9 Psychosis F29 Bipolar disorder F31.9 Methamphetamine use disorder, severe F15.20 Borderline personality disorder F60.3
--- NOTE | 2021-10-22 10:24 | PC.NURSE ---
AT 0830 PT BEGAN TO ESCALATE AND BECOME INCREASINGLY AGITATED. TEARFUL, LOUDLY SPEAKING ABOUT NEEDING TO LEAVE. STATING THAT SHE NEEDED TO GO USE METH. RAMBLING ABOUT METH BEING A BAD NAME FOR THE DRUG AND THAT IT MAKES IT SOUND BAD BUT THAT IT IS ACTUALLY HEALTHY FOR YOU. STAFF ATTEMPTED TO EDUCATE PT ON RISKS AND HEALTHY ISSUES IN RELATION TO SUBSTANCE USE. PT RESISTIVE TO EDUCATION AND BECAME MORE ANGRY. DEMANDING TO CALL THE POLICE TO BE ABLE TO LEAVE. STAFF ATTEMPTED EDUCATION ON 96 HOUR HOLDS TO NO BENEFIT. STAFF BEGAN YELLING AT NURSE TO GET AWAY AND ABOUT STAFF BEING ROBOTS. STAFF UNABLE TO CALM OR REDIRECT PT. SECURITY TO UNIT. DR ON UNIT. PT GIVEN INJ TO B/L GLUTES. PT AGREEABLE TO TAKING INJ. PT REMAINED IN ROOM TALKING TO DR, SECURITY, AND NURSE AFTER. RAPIDLY CHANGED TO LAUGHING AND TELLING STAFF SHE LOVED THEM. AFTER CALMING, PT RETURNED TO DAYROOM TO WATCH TV.
[2021-10-22] MEDS: acetaminophen 325 mg Tablet 650 MG PO (13:55)
[2021-10-22 14:00] VITALS: BP 88/49; PULSE 68; RESP 16; TEMP 36.6; O2SAT 100
--- NOTE | 2021-10-22 14:27 | PC.NURSE ---
Prn Medication Up to nurses station at 1353 c/o neck and back pain, rates pain 9/10. Tylenol 650 mg given as ordered at 1355. States, i need something stronger. Patient did take medication without issue. Reassessed pain at 1426, presents in day area eating lunch in no distress. Does report pain 8/10. Continues to verbalize to this RN she needs something stronger, like a shot. While educating patient, no distress is noted, continues to eat lunch with no observed pain indicators. All questions answered and support voiced.
[2021-10-22 15:17] VITALS: BP 102/64
[2021-10-22 17:20] VITALS: BP 102/64
[2021-10-22] MEDS: quetiapine 300 mg Tablet PO (19:59)
[2021-10-22 20:12] VITALS: RESP 18
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
[2021-10-23 06:00] VITALS: BP 95/57; PULSE 76; RESP 18; TEMP 36.6; O2SAT 99
[2021-10-23] MEDS: acetaminophen 325 mg Tablet 650 MG PO ×2 (07:04→12:00)
[2021-10-23] MEDS: paliperidone ER 6 mg Tablet PO (08:28)
[2021-10-23] MEDS: metoprolol tartrate 50 mg Tablet PO ×2 (08:28→18:28)
[2021-10-23] MEDS: metformin 500 mg Tablet PO ×2 (08:28→18:28)
[2021-10-23] MEDS: atorvastatin 40 mg Tablet 20 MG PO (08:28)
[2021-10-23] MEDS: OLANZapine 5 mg ODT PO (09:00)
--- NOTE | 2021-10-23 09:50 | PC.NURSE ---
prn note patient noted to have pressured rambling speech, very loud and stating she should be leaving soon. Zyprexa administered at 0900. med partially effective at this time.
--- NOTE | 2021-10-23 10:12 | PC.NURSE ---
Addendum entered by Mary Rosenberg RN 10/23/21 11:41: Prn note: Ativan, Haldol and Benadryl effective. Patient resting quietly with eyes closed. Original Note: Prn note Patient continued to shout and ramble at the nurses station. She became verbally aggressive. Staff spoke with physician and Ativan 2mg IM with Haldol 5mg Im and Benadryl 50 mg Im ordered and given by staff. Patient in room at this time.
[2021-10-23] MEDS: LORazepam 2 mg/mL INJ 1 mL IM ×2 (10:16→15:40)
[2021-10-23] MEDS: haloperidol inj 5 mg/mL INJ 1 mL IM ×2 (10:16→15:40)
[2021-10-23] MEDS: diphenhydrAMINE 50 mg/mL SDV 1mL IM ×2 (10:17→15:41)
[2021-10-23 14:00] VITALS: BP 117/78; PULSE 66; RESP 17; TEMP 36.6; O2SAT 98
--- NOTE | 2021-10-23 15:41 | PC.NURSE ---
Prn note While spouse was visiting, patient became verbally aggressive, screaming she wanted to leave, banging fists on the desk. Staff attempted to redirect patient with no success. Staff assisted patient to room and received Ativan 2mg IM, Haldol 5mg IM and Benadryl 50 mg IM. Physician aware.
--- NOTE | 2021-10-23 16:33 | W.PM.NPUPNS ---
Subjective NPU Subjective: Patient presents today with continued difficulty controlling her outburst. She had another meltdown that led to as needed medication but she has been taking the Invega the last 2 days. Her came to visit and that ended poorly again. To continue to have no insight into the level of impairment that she is demonstrating at this point. A 21-day hold was filed as her 96-hour hold and is tomorrow and she is not safe for discharge. She was not happy hearing that and reported being very angry with this group underwriter because there is nothing wrong with her use of methamphetamine. Mental Status Exam MSE Comments: This is an obese white female in hospital scrubs with limited grooming and eye contact.? No abnormal movements except for significant? psychomotor agitation.? Uncooperative with exam in extreme distress.? Speech was increased rate and volume.? Mood described as I want to be discharged, affect agitated.? Thought process disorganized.? Thought content: Patient denied suicidal or homicidal ideation but had significant agitation and intrusiveness there were no delusions reported or but paranoid and persecutory thinking existed, she was clearly responding to internal stimuli but did not report any auditory or visual hallucinations. ? Attention and concentration were impaired and memory was impaired, but none were formally tested.? She is alert and oriented x3.? Insight and judgment are impaired, impulse control impaired. Vitals/I&O/Wt Last Vital Signs Temp 97.8 F 10/23/21 14:00 Pulse 66 10/23/21 14:00 Resp 17 10/23/21 14:00 BP 117/78 10/23/21 14:00 Pulse Ox 98 10/23/21 14:00 Weight last 48 hrs Weight 80.853 kg Data NPU : 10/17/21 15:10 10/17/21 15:10 A&P Assessment and plan (1) Methamphetamine use disorder, severe: Status: Acute (2) Delirium: Status: Acute (3) Altered mental status: Status: Acute (4) Kate: Status: Acute (5) Psychosis: Status: Acute (6) Bipolar disorder: Status: Acute (7) Psychosis: Status: Acute Plan This is a 51-year-old female with a long history of active addiction to multiple substances, psychosis with several weeks of very erratic behavior and psychosis presents unable to cognitively/actively participate in her initial assessment. Plan: 1.? Continue current medication.? Started Invega 6 mg p.o. every morning. 2.? Continue every 15 minute checks for safety. 3.? Encourage individual, group and milieu therapies. 4.? Encourage sober living treatment after discharge at the highest level of care to which she is willing to commit. 5. 21-day hold paperwork filed. Involuntary Hold Information 96 Hour Hold: 96 Hour Involuntary Admission: Yes 96 Hour Hold Ending Date: 10/23/21 96 Hour Hold Ending Time: 16:15 Attestations NPU Medical Necessity Statement*: Inpatient hospitalization is medically necessary and the clinically appropriate intervention at this time. We will monitor medication to make changes as indicated. Likely length of stay 7-10 days. Coding Level of Care Code Acute Commissioning Manager for Jerry Fwd Diagnoses Methamphetamine use disorder, severe F15.20 Delirium R41.0 Altered mental status R41.82 Kate F30.9 Psychosis F29 Bipolar disorder F31.9 Psychosis F29
--- NOTE | 2021-10-23 16:43 | PC.SOCIAL ---
Patient attended and participated in group. After the conclusion of group she became less appropriate.
[2021-10-23 18:28] VITALS: BP 117/73
[2021-10-23] MEDS: cloNIDine 0.1 mg Tablet 0.2 MG PO (18:28)
[2021-10-23 20:45] VITALS: RESP 20
[2021-10-24 06:00] VITALS: BP 129/74; PULSE 64; RESP 17; TEMP 36.5; O2SAT 97
[2021-10-24] MEDS: atorvastatin 40 mg Tablet 20 MG PO (09:49)
[2021-10-24] MEDS: metoprolol tartrate 50 mg Tablet PO ×2 (09:49→18:27)
[2021-10-24] MEDS: metformin 500 mg Tablet PO ×2 (09:49→18:27)
[2021-10-24] MEDS: paliperidone ER 6 mg Tablet PO (09:50)
[2021-10-24 09:51] VITALS: BP 105/72
[2021-10-24] MEDS: LORazepam 2 mg/mL INJ 1 mL IM ×2 (11:13→15:00)
[2021-10-24] MEDS: haloperidol inj 5 mg/mL INJ 1 mL IM ×2 (11:13→15:00)
[2021-10-24] MEDS: diphenhydrAMINE 50 mg/mL SDV 1mL IM ×2 (11:13→15:00)
--- NOTE | 2021-10-24 11:19 | PC.NURSE ---
PT'S MOOD HAS BEEN CHANGING RAPIDLY THROUGHOUT MORNING. ESCALATES QUICKLY ABOUT WANTING TO TALK TO DR RIGHT NOW ABOUT DISCHARGE. STAFF HAS BEEN OFFERING VERBAL DEESCALATION AND REDIRECTION TO SOME EFFECT THROUGHOUT MORNING. AT APPROXIMATELY 1100 PT BEGAN YELLING AGAIN ABOUT BEING HELD AGAINST HER WILL AND THERE BEING NO REASON FOR HER TO BE HERE. STAFF UNABLE TO DEESCALATE AT THAT TIME. SECURITY PRESENT ON UNIT. PT BECAME INCREASINGLY AGITATED, HITTING DOORS AND YELLING. DR ATTEMPTED TO TALK WITH PATIENT TO EXPLAIN REASONING FOR HOLD TO NO EFFECT. PT OFFERED MEDICATIONS, DECLINED PO BUT TOOK INJ WILLINGLY TO B/L DELTOIDS. PT HUGGING STAFF SOON MEDICATIONS GIVEN. DRINKS GIVEN. WALKING IN MAK AT THIS TIME.
--- NOTE | 2021-10-24 13:02 | PC.SOCIAL ---
Patient did not attend group.
[2021-10-24 14:00] VITALS: BP 105/67; PULSE 71; RESP 18; TEMP 37; O2SAT 96
--- NOTE | 2021-10-24 15:08 | PC.NURSE ---
PT RETURNED FROM COURT. VERY AGITATED UPON RETURN D/T REALIZING THAT SHE WOULD NOW BE ON A 21 DAY HOLD. PT SCREAMING AT STAFF FUCK YOU AND YOU TO EACH STAFF MEMBER. HITTING RODARTE AND DOORS, SLAMMING PHONE REPEATEDLY, POSTURING AT STAFF. SECURITY TO UNIT AGAIN. PT RETURNED TO ROOM WILLINGLY WITH SECURITY AND TOOK MEDICATIONS WILLINGLY. MEDS GIVEN USING ASEPTIC TECHNIQUE WITHOUT ISSUES. CRYING IN BED AFTER, TALKING ABOUT WANTING TO GO AND NOT UNDERSTANDING HOW TO GET BETTER OR WHY STAFF FEELS THAT SHE NEEDS TO GET BETTER. STAFF ATTEMPT TO OFFER EDUCATION. PT NOT RECEPTIVE TO EDU D/T DISORGANIZATION OF THOUGHT PROCESS.
--- NOTE | 2021-10-24 15:33 | W.PM.NPUPNS ---
Subjective NPU Subjective: Patient presents today unhappy about the hearing where she was remanded to [facility] for up to 21 days. She was not honest in the court room denying drug use. When she returned she had a meltdown and needed as needed medication again. She has continued to take the Invega. We discussed the fact that she did not need to stay here for 21 days we just need to make sure that she is safe and less volatile when she returns to community. She reported that she has capacity to do that but continues not to be able to display it. Mental Status Exam MSE Comments: This is an obese white female in hospital scrubs with limited grooming and eye contact.? No abnormal movements except for significant? psychomotor agitation.? Uncooperative with exam in extreme distress.? Speech was increased rate and volume.? Mood described as I want to be discharged, affect agitated.? Thought process disorganized.? Thought content: Patient denied suicidal or homicidal ideation but had significant agitation and intrusiveness there were no delusions reported or but paranoid and persecutory thinking existed, she was clearly responding to internal stimuli but did not report any auditory or visual hallucinations. ? Attention and concentration were impaired and memory was impaired, but none were formally tested.? She is alert and oriented x3.? Insight and judgment are impaired, impulse control impaired. Vitals/I&O/Wt Last Vital Signs Temp 97.8 F 10/23/21 14:00 Pulse 66 10/23/21 14:00 Resp 20 H 10/23/21 20:45 BP 117/73 10/23/21 18:28 Pulse Ox 98 10/23/21 14:00 Data NPU : 10/17/21 15:10 10/17/21 15:10 A&P Assessment and plan (1) Methamphetamine use disorder, severe: Status: Acute (2) Delirium: Status: Acute (3) Altered mental status: Status: Acute (4) Kate: Status: Acute (5) Psychosis: Status: Acute (6) Bipolar disorder: Status: Acute (7) Abnormal Pap smear of cervix: Status: Acute (8) Polysubstance abuse: Status: Acute Plan This is a 51-year-old female with a long history of active addiction to multiple substances, psychosis with several weeks of very erratic behavior and psychosis presents unable to cognitively/actively participate in her initial assessment. Plan: 1.? Continue current medication.? Started Invega 6 mg p.o. every morning. 2.? Continue every 15 minute checks for safety. 3.? Encourage individual, group and milieu therapies. 4.? Encourage sober living treatment after discharge at the highest level of care to which she is willing to commit. 5.? Patient on 21-day hold. Involuntary Hold Information 96 Hour Hold: 96 Hour Involuntary Admission: Yes 96 Hour Hold Ending Date: 10/23/21 96 Hour Hold Ending Time: 16:15 Attestations NPU Medical Necessity Statement*: npatient hospitalization is medically necessary and the clinically appropriate intervention at this time. We will monitor medication to make changes as indicated. Likely length of stay 7-10 days. Coding Level of Care Code Acute General Cleaner for Jerry [place] Diagnoses Methamphetamine use disorder, severe F15.20 Delirium R41.0 Altered mental status R41.82 Kate F30.9 Psychosis F29 Bipolar disorder F31.9 Abnormal Pap smear of cervix R87.619 Polysubstance abuse F19.10
[2021-10-24 20:29] VITALS: BP 149/84; PULSE 75; RESP 16; TEMP 36.9; O2SAT 96
[2021-10-25] MEDS: trazodone 50 mg Tablet PO (00:33)
[2021-10-25 06:00] VITALS: BP 153/67; PULSE 82; RESP 19; TEMP 36.8; O2SAT 97
[2021-10-25] MEDS: acetaminophen 325 mg Tablet 650 MG PO (06:11)
[2021-10-25] MEDS: atorvastatin 40 mg Tablet 20 MG PO (09:11)
[2021-10-25 09:12] VITALS: BP 153/67
[2021-10-25] MEDS: cloNIDine 0.1 mg Tablet 0.2 MG PO ×2 (09:12→17:32)
[2021-10-25] MEDS: metoprolol tartrate 50 mg Tablet PO ×2 (09:13→17:32)
[2021-10-25] MEDS: paliperidone ER 6 mg Tablet PO (09:13)
[2021-10-25] MEDS: metformin 500 mg Tablet PO ×2 (09:13→17:32)
--- NOTE | 2021-10-25 13:27 | PC.SOCIAL ---
Patient attended group intermittently. She participated to a limited extent while she was present.
[2021-10-25 13:59] VITALS: RESP 17; TEMP 36.9
[2021-10-25] MEDS: haloperidol inj 5 mg/mL INJ 1 mL IM (15:19)
[2021-10-25] MEDS: LORazepam 2 mg/mL INJ 1 mL IM (15:19)
[2021-10-25] MEDS: nicotine 21 mg Patch 1 PATCH TRANSDERMA (15:20)
[2021-10-25] MEDS: diphenhydrAMINE 50 mg/mL SDV 1mL IM (15:20)
--- NOTE | 2021-10-25 15:35 | W.PM.NPUPNS ---
Subjective NPU Subjective: Patient had multiple episodes where staff had to come to her area in numbers. She was very upset because it was decided that her not visit today secondary to the fact that she continues to have these eruptions right after he leaves. However by without effective at a certain level because she had an erection due to him not being able to come. Later she confronted this software writer and for peer to time would not let this software writer pass demanding that she be discharged. She struggling with personal space and lacking insight into her behavior patterns. Mental Status Exam MSE Comments: This is an obese white female in hospital scrubs with limited grooming and eye contact.? No abnormal movements except for significant? psychomotor agitation.? Uncooperative with exam in extreme distress.? Speech was increased rate and volume.? Mood described can I go home if I am quiet for 2 hours, affect agitated.? Thought process disorganized.? Thought content: Patient denied suicidal or homicidal ideation but had significant agitation and intrusiveness there were no delusions reported or but paranoid and persecutory thinking existed, she was clearly responding to internal stimuli but did not report any auditory or visual hallucinations. ? Attention and concentration were impaired and memory was impaired, but none were formally tested.? She is alert and oriented x3.? Insight and judgment are impaired, impulse control impaired. Vitals/I&O/Wt Last Vital Signs Temp 98.5 F 10/25/21 13:59 Pulse 82 10/25/21 06:00 Resp 17 10/25/21 20:59 BP 153/67 10/25/21 17:32 Pulse Ox 97 10/25/21 06:00 Data NPU : 10/17/21 15:10 10/17/21 15:10 A&P Assessment and plan (1) Methamphetamine use disorder, severe: Status: Acute (2) Delirium: Status: Acute (3) Altered mental status: Status: Acute (4) Kate: Status: Acute (5) Psychosis: Status: Acute (6) Bipolar disorder: Status: Acute (7) Abnormal Pap smear of cervix: Status: Acute (8) Borderline personality disorder: Status: Acute (9) Polysubstance abuse: Status: Acute Plan This is a 51-year-old female with a long history of active addiction to multiple substances, psychosis with several weeks of very erratic behavior and psychosis presents unable to cognitively/actively participate in her initial assessment. Plan: 1.? Continue current medication.? Started Invega 6 mg p.o. every morning. 2.? Continue every 15 minute checks for safety. 3.? Encourage individual, group and milieu therapies. 4.? Encourage sober living treatment after discharge at the highest level of care to which she is willing to commit. 5.? Patient on 21-day hold. Involuntary Hold Information 96 Hour Hold: 96 Hour Involuntary Admission: Yes 96 Hour Hold Ending Date: 10/23/21 96 Hour Hold Ending Time: 16:15 Attestations NPU Medical Necessity Statement*: Inpatient hospitalization is medically necessary and the clinically appropriate intervention at this time. We will monitor medication to make changes as indicated. Likely length of stay 7-10 days. Coding Level of Care Code Acute Dietitian Teacher for Jerry Fwd Diagnoses Methamphetamine use disorder, severe F15.20 Delirium R41.0 Altered mental status R41.82 Kate F30.9 Psychosis F29 Bipolar disorder F31.9 Abnormal Pap smear of cervix R87.619 Borderline personality disorder F60.3 Polysubstance abuse F19.10
[2021-10-25 17:32] VITALS: BP 153/67
[2021-10-25 20:59] VITALS: RESP 17
[2021-10-25] MEDS: quetiapine 300 mg Tablet PO (21:33)
[2021-10-26 06:00] VITALS: BP 137/83; PULSE 80; RESP 17; TEMP 36.4; O2SAT 95
[2021-10-26] MEDS: acetaminophen 325 mg Tablet 650 MG PO (08:40)
[2021-10-26] MEDS: paliperidone ER 6 mg Tablet PO (08:40)
[2021-10-26 08:41] VITALS: BP 137/83
[2021-10-26] MEDS: cloNIDine 0.1 mg Tablet 0.2 MG PO ×2 (08:41→17:24)
[2021-10-26] MEDS: metoprolol tartrate 50 mg Tablet PO ×2 (08:41→17:24)
[2021-10-26] MEDS: metformin 500 mg Tablet PO ×2 (08:41→17:24)
[2021-10-26] MEDS: OLANZapine 5 mg ODT PO (08:42)
[2021-10-26] MEDS: atorvastatin 40 mg Tablet 20 MG PO (08:42)
[2021-10-26] MEDS: calcium carbonate 500 mg Chew Tablet 1000 MG PO (08:42)
--- NOTE | 2021-10-26 13:39 | PC.NURSE ---
Patient has been delusional speaking to self in day area intermittently throughout the shift. Then she will have increased energy and states she is cleaning up in the day area while chanting this is how robots clean, this is how the robots clean. Did receive anti-anxiety mediations to relieve anxiety. Somewhat effective. Currently in group and appears to have eyes closed at times with inattention noted.
[2021-10-26 14:00] VITALS: BP 116/80; PULSE 83; RESP 20; TEMP 36.7; O2SAT 100
--- NOTE | 2021-10-26 15:22 | W.PM.NPUPNS ---
Subjective NPU Subjective: She was found sitting with her during visiting hours. He feels that she is doing better. He certainly did not want to say in front of her that he did not think she was ready to go home but it seemed apparent. He did argue when I said she needed to stay longer. She said that she wanted to come back and volunteer and run groups. She was making some rhyming things with my name. She became somewhat agitated and followed me back to the nurses station continuing to argue about her need to go home. She Nestl? said that she was not getting much sleep and was up and down. When I assume she sleep with the fact that she was not doing so well she said she was sleeping well and sleeping and getting plenty of sleep. She required a B-52 yesterday when she became very agitated when her did not come to visit. I came here outside yelling and complaining as I dictate this note because I did not let her go home. Mental Status Exam MSE Comments: This is an obese white female in hospital scrubs with limited grooming and eye contact.? No abnormal movements except for significant? psychomotor agitation.? Uncooperative with exam in extreme distress.? Speech was increased rate and volume.? Mood described can I go home if I am quiet for 2 hours, affect agitated.? Thought process disorganized.? Thought content: Patient denied suicidal or homicidal ideation but had significant agitation and intrusiveness there were no delusions reported or but paranoid and persecutory thinking existed, she was clearly responding to internal stimuli but did not report any auditory or visual hallucinations. ? Attention and concentration were impaired and memory was impaired, but none were formally tested.? She is alert and oriented x3.? Insight and judgment are impaired, impulse control impaired. Cognition: Patient Appearance: Disheveled/Poor Hygiene Level of Consciousness: Awake, Disoriented and Restless Patient Cognition Impaired: No Ability to Follow Directions: Fair Patient Orientation (long list): Person, Place, Name and Year Comprehension Ability: Moderate Impairment Hallucination Type: None Delusion Description: Not Present Thought Process: Disorganized, Flight of Ideas and Loose Associations Affect: Affect Description: Anxious Behavior: Patient Behavior: Irritable and Negative Speech Pattern: Clear Vitals/I&O/Wt Last Vital Signs Temp 98.1 F 10/26/21 14:00 Pulse 83 10/26/21 14:00 Resp 20 H 10/26/21 14:00 BP 116/80 10/26/21 14:00 Pulse Ox 100 10/26/21 14:00 Data NPU : 10/17/21 15:10 10/17/21 15:10 A&P Assessment and plan (1) Methamphetamine use disorder, severe: Status: Acute (2) Delirium: Status: Acute (3) Altered mental status: Status: Acute (4) Kate: Status: Acute (5) Psychosis: Status: Acute (6) Bipolar disorder: Status: Acute (7) Abnormal Pap smear of cervix: Status: Acute (8) Borderline personality disorder: Status: Acute (9) Polysubstance abuse: Status: Acute Plan This is a 51-year-old female with a long history of active addiction to multiple substances, psychosis with several weeks of very erratic behavior and psychosis presents unable to cognitively/actively participate in her initial assessment. Plan: 1.? Continue current medication.? Started Invega 6 mg p.o. every morning. 2.? Continue every 15 minute checks for safety. 3.? Encourage individual, group and milieu therapies. 4.? Encourage sober living treatment after discharge at the highest level of care to which she is willing to commit. 5.? Patient on 21-day hold. Involuntary Hold Information 96 Hour Hold: 96 Hour Involuntary Admission: Yes 96 Hour Hold Ending Date: 10/23/21 96 Hour Hold Ending Time: 16:15 Attestations NPU Medical Necessity Statement*: Inpatient hospitalization is medically necessary and the clinically appropriate intervention at this time. We will initiate medications and make changes as indicated. Coding Level of Care Code Acute Customs Patrol Officer for Jerry Ellis Diagnoses Methamphetamine use disorder, severe F15.20 Delirium R41.0 Altered mental status R41.82 Kate F30.9 Psychosis F29 Bipolar disorder F31.9 Abnormal Pap smear of cervix R87.619 Borderline personality disorder F60.3 Polysubstance abuse F19.10
[2021-10-26] MEDS: haloperidol inj 5 mg/mL INJ 1 mL IM (15:58)
[2021-10-26] MEDS: LORazepam 2 mg/mL INJ 1 mL IM (15:58)
[2021-10-26] MEDS: diphenhydrAMINE 50 mg/mL SDV 1mL IM (15:59)
--- NOTE | 2021-10-26 16:25 | PC.NURSE ---
Addendum entered by Elle Ramírez RN 10/26/21 18:35: 1650 In room continues to be delusional, speaking to unseen others. Patient is safe and calm. 1830 Resting in bed with eyes closed. No issues noted. Original Note: Behavior/Agitation/PRN Medication administration Security was asked to be present during visit due to previous episodes of escalation resulting in PRN medications and having leave due to aggressive behaviors in the past. here visiting and patient became increasingly agitated, yelling and verbally aggressive with and staff. Patient demanding to leave stating you have me here against my will, let me leave. Patient then began beating on door to acute side so hard it was opening at the bottom of door. Staff asked to leave due to increased agitation. Once was asked to leave patient started blocking husbands way to leave and yelling in husbands face. Continued to escalate rapidly. was escorted out the door without incidence. Patient then was very agitated, yellling and screaming and refused to go to room. At 1545 security and PRODUCTION SUPERVISOR TRAINEE initiated salt and escorted to room to receive, IM Ativan, Haldol and Benadryl. Once in room patient continued to yell, degrade staff, cuss and began hitting herself and in chest and face. Staff then held arms so she could no longer hurt herself, at that time 1549 IM medications were administered in both deltoids. Patient safe and left in room to calm. 3 minutes later came to nurses station requesting water and began calling staff robots and started pounding on the glass as she walked off. By 1628 patient asked for an attends and new set of scrubs to clean up. Appears to be calmer.
--- NOTE | 2021-10-26 16:58 | PC.SOCIAL ---
Patient attended group and had limited involvement.
[2021-10-26 17:24] VITALS: BP 116/80
--- NOTE | 2021-10-26 18:58 | PC.NURSE ---
1558 Administered a B52 for behaviors, also self harm. 5mg Haldol 2mg Ativan 50mg Benadryl continue to monitor pt
[2021-10-26 20:44] VITALS: RESP 17
[2021-10-26] MEDS: quetiapine 300 mg Tablet PO ×2 (22:00→22:40)
[2021-10-27 08:14] VITALS: BP 116/80
[2021-10-27] MEDS: cloNIDine 0.1 mg Tablet 0.2 MG PO ×2 (08:14→17:41)
[2021-10-27] MEDS: ondansetron 4 MG Tablet PO (08:15)
[2021-10-27] MEDS: metformin 500 mg Tablet PO ×2 (08:15→17:42)
[2021-10-27] MEDS: loperamide 2 mg Capsule PO (08:15)
[2021-10-27] MEDS: OLANZapine 5 mg ODT PO (08:15)
[2021-10-27] MEDS: paliperidone ER 6 mg Tablet PO (08:15)
[2021-10-27] MEDS: metoprolol tartrate 50 mg Tablet PO ×2 (08:15→17:42)
[2021-10-27] MEDS: atorvastatin 40 mg Tablet 20 MG PO (08:16)
--- NOTE | 2021-10-27 11:38 | W.PM.NPUPNS ---
Subjective NPU Subjective: She had another blowup yesterday afternoon. It was after I had talked with her and when her was leaving. She required a B-52 injection. She was more uncooperative with the injection than she frequently is. She settled down and was okay after the injection. She slept well last night. She still says that she is here and should not be. She said that I was making things up to keep her here. She was told repeatedly that she has had a blowup and required a B-52 injection every day and that is why she is still here. I told her if she maintained herself for the next 3 days and did not require an injection she could go home on Saturday. She also agreed to try starting lithium. Mental Status Exam MSE Comments: This is an obese white female in hospital scrubs with limited grooming and eye contact.? No abnormal movements. She had less psychomotor activity than previous days. she was fairly cooperative. Speech was normal rate and volume.? Mood described good if I could go home.? Thought process more organized.? Thought content: Patient denied suicidal or homicidal ideation but had significant agitation and intrusiveness there were no delusions reported or but paranoid and persecutory thinking existed. She said that she was trying to do what Garfield wanted and that I was saying that Garfield was not good enough to go home. ? Attention and concentration were impaired and memory was impaired, but none were formally tested.? She is alert and oriented x3.? Insight and judgment are impaired, impulse control impaired. Cognition: Patient Appearance: Appears Older than Age Level of Consciousness: Awake, Disoriented and Restless Patient Cognition Impaired: No Ability to Follow Directions: Fair Patient Orientation (long list): Person, Place, Name, Age, Birthday and Year Comprehension Ability: Moderate Impairment Hallucination Type: None Delusion Description: Not Present Thought Process: Circumstantial, Disorganized and Flight of Ideas Affect: Affect Description: Appropriate Behavior: Patient Behavior: Appropriate Speech Pattern: Appropriate Vitals/I&O/Wt Last Vital Signs Temp 98.1 F 10/26/21 14:00 Pulse 83 10/26/21 14:00 Resp 17 10/26/21 20:44 BP 116/80 10/27/21 08:14 Pulse Ox 100 10/26/21 14:00 Data NPU : 10/17/21 15:10 10/17/21 15:10 A&P Assessment and plan (1) Methamphetamine use disorder, severe: Status: Acute (2) Delirium: Status: Acute (3) Altered mental status: Status: Acute (4) Kate: Status: Acute (5) Psychosis: Status: Acute (6) Bipolar disorder: Status: Acute (7) Abnormal Pap smear of cervix: Status: Acute (8) Borderline personality disorder: Status: Acute (9) Polysubstance abuse: Status: Acute Plan This is a 51-year-old female with a long history of active addiction to multiple substances, psychosis with several weeks of very erratic behavior and psychosis presents unable to cognitively/actively participate in her initial assessment. Plan: 1.? Continue current medication.? Increase Invega 9 mg p.o. every morning. Continue Seroquel 300 mg at bedtime. Start lithium once today and 2 doses tomorrow. 2.? Continue every 15 minute checks for safety. 3.? Encourage individual, group and milieu therapies. 4.? Encourage sober living treatment after discharge at the highest level of care to which she is willing to commit. 5.? Patient on 21-day hold. Involuntary Hold Information 96 Hour Hold: 96 Hour Involuntary Admission: Yes 96 Hour Hold Ending Date: 10/23/21 96 Hour Hold Ending Time: 16:15 Attestations NPU Medical Necessity Statement*: Inpatient hospitalization is medically necessary and the clinically appropriate intervention at this time. We will initiate medications and make changes as indicated. Coding Level of Care Code Acute Press Tender [employer] for Jerry Ellis Diagnoses Methamphetamine use disorder, severe F15.20 Delirium R41.0 Altered mental status R41.82 Kate F30.9 Psychosis F29 Bipolar disorder F31.9 Abnormal Pap smear of cervix R87.619 Borderline personality disorder F60.3 Polysubstance abuse F19.10
--- NOTE | 2021-10-27 14:36 | PC.NURSE ---
Verbally aggressive towards staff. Patient verbally deescalated by this nurse and other staff. Patient agreed to take medications to help her anxiety levels. See MAR. Patient now cooperative with staff and apologetic.
[2021-10-27] MEDS: LORazepam 2 mg/mL INJ 1 mL IM (14:40)
[2021-10-27] MEDS: haloperidol inj 5 mg/mL INJ 1 mL IM (14:40)
[2021-10-27] MEDS: diphenhydrAMINE 50 mg/mL SDV 1mL IM (14:41)
--- NOTE | 2021-10-27 14:46 | PC.NURSE ---
Followed up with patient. Patient in day room watching TV and thanking nurse.
[2021-10-27 17:41] VITALS: BP 122/76
[2021-10-27] MEDS: lithium carbonate 300 mg Capsule PO (17:42)
[2021-10-27 17:54] VITALS: BP 122/76; PULSE 74
[2021-10-28 05:49] VITALS: BP 116/87; PULSE 81; RESP 16; O2SAT 96
--- NOTE | 2021-10-28 09:11 | W.PM.NPUPNS ---
Subjective NPU Subjective: She seems to be doing better. She did not require a B-52 injection yesterday. She said that she is trying to learn from her behaviors. 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 He says that she has made things from toilet paper and they are very intricate and amazing. She says that she tries to show what God can do through her art work. For some reason her Seroquel 300 mg is listed as active but did not popups last night to be given and she did not get it. She still slept well. She received 1 dose of lithium yesterday afternoon and denies any side effects. She said that she is due to start work on Saturday. She was supposed to start last Saturday. 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 She has worked with her before but she had cancer and needed a higher level of care but is back home now. Mental Status Exam MSE Comments: This is an obese white female in hospital scrubs with limited grooming but good eye contact.? No abnormal movements. She had less psychomotor activity than previous days. she was fairly cooperative. Speech was normal rate and volume.? Mood described really good.? Thought process more organized.? Thought content: Patient denied suicidal or homicidal ideation but had significant agitation and intrusiveness there were no delusions reported or but paranoid and persecutory thinking existed. She said that she is trying to show up [place] due to her art work.? Attention and concentration were impaired and memory was impaired, but none were formally tested.? She is alert and oriented x3.? Insight and judgment are impaired, impulse control impaired. Cognition: Patient Appearance: Appears Older than Age Level of Consciousness: Awake, Disoriented and Restless Patient Cognition Impaired: No Ability to Follow Directions: Fair Patient Orientation (long list): Person, Place, Name, Age, Birthday and Year Comprehension Ability: Moderate Impairment Hallucination Type: None Delusion Description: Not Present Thought Process: Appropriate Affect: Affect Description: Appropriate Behavior: Patient Behavior: Appropriate and Cooperative Speech Pattern: Appropriate Vitals/I&O/Wt Last Vital Signs Temp 98.1 F 10/26/21 14:00 Pulse 81 10/28/21 05:49 Resp 16 10/28/21 05:49 BP 116/87 10/28/21 05:49 Pulse Ox 96 10/28/21 05:49 Data NPU : 10/17/21 15:10 10/17/21 15:10 A&P Assessment and plan (1) Methamphetamine use disorder, severe: Status: Acute (2) Delirium: Status: Acute (3) Altered mental status: Status: Acute (4) Kate: Status: Acute (5) Psychosis: Status: Acute (6) Bipolar disorder: Status: Acute (7) Abnormal Pap smear of cervix: Status: Acute (8) Borderline personality disorder: Status: Acute (9) Polysubstance abuse: Status: Acute Plan This is a 51-year-old female with a long history of active addiction to multiple substances, psychosis with several weeks of very erratic behavior and psychosis presents unable to cognitively/actively participate in her initial assessment. Plan: 1.? Continue current medication.? Increase Invega 9 mg p.o. every morning. Continue Seroquel 300 mg at bedtime. Start lithium given 1 dose yesterday and will have 2 doses today 2.? Continue every 15 minute checks for safety. 3.? Encourage individual, group and milieu therapies. 4.? Encourage sober living treatment after discharge at the highest level of care to which she is willing to commit. 5.? Patient on 21-day hold. Involuntary Hold Information 96 Hour Hold: 96 Hour Involuntary Admission: Yes 96 Hour Hold Ending Date: 10/23/21 96 Hour Hold Ending Time: 16:15 Attestations NPU Medical Necessity Statement*: Inpatient hospitalization is medically necessary and the clinically appropriate intervention at this time. We will initiate medications and make changes as indicated. Coding Level of Care Code Acute Renal Case Manager for Jerry Fwd Diagnoses Methamphetamine use disorder, severe F15.20 Delirium R41.0 Altered mental status R41.82 Kate F30.9 Psychosis F29 Bipolar disorder F31.9 Abnormal Pap smear of cervix R87.619 Borderline personality disorder F60.3 Polysubstance abuse F19.10
[2021-10-28] MEDS: paliperidone ER 6 mg Tablet PO (09:15)
[2021-10-28 09:16] VITALS: BP 112/74
[2021-10-28] MEDS: metformin 500 mg Tablet PO ×2 (09:16→16:51)
[2021-10-28] MEDS: cloNIDine 0.1 mg Tablet 0.2 MG PO ×2 (09:16→16:50)
[2021-10-28] MEDS: paliperidone ER 3 mg Tablet PO (09:16)
[2021-10-28] MEDS: atorvastatin 40 mg Tablet 20 MG PO (09:16)
[2021-10-28] MEDS: lithium carbonate 300 mg Capsule PO ×2 (09:16→16:51)
[2021-10-28] MEDS: metoprolol tartrate 50 mg Tablet PO ×2 (09:16→16:52)
[2021-10-28] MEDS: haloperidol 5 mg Tablet PO ×2 (12:50→16:51)
--- NOTE | 2021-10-28 12:51 | PC.NURSE ---
Addendum entered by Mary Rosenberg RN 10/28/21 14:32: Prn note Patient more calm. Haldol effective. Original Note: Prn note Patient noted to begin to escalate, becoming loud and responding to others. Haldol given to help with anxiety.
[2021-10-28] MEDS: nicotine 2 mg Gum BUCCAL (13:21)
[2021-10-28 14:00] VITALS: BP 130/79; PULSE 66; RESP 17; TEMP 36.3; O2SAT 97
[2021-10-28] MEDS: OLANZapine 5 mg ODT PO (15:08)
--- NOTE | 2021-10-28 15:09 | PC.NURSE ---
Prn note Patient approached the desk, stating that she would like to go home and she felt very anxious. staff explained that the dr did not want to discharge today because he didn't feel like she was ready. Zyprexa given for agitation.
[2021-10-28] MEDS: acetaminophen 325 mg Tablet 650 MG PO (16:33)
[2021-10-28 16:50] VITALS: BP 130/79
[2021-10-28 19:46] VITALS: BP 120/72; PULSE 70; RESP 14; TEMP 36.8; O2SAT 94
[2021-10-28] MEDS: quetiapine 300 mg Tablet PO (20:36)
[2021-10-28] MEDS: trazodone 50 mg Tablet PO (20:48)
[2021-10-29] MEDS: acetaminophen 325 mg Tablet 650 MG PO (05:18)
[2021-10-29 06:00] VITALS: BP 95/59; PULSE 66; RESP 14; TEMP 36.7; O2SAT 96
[2021-10-29] MEDS: cloNIDine 0.1 mg Tablet 0.2 MG PO ×2 (08:04→20:31)
[2021-10-29] MEDS: metformin 500 mg Tablet PO ×2 (08:04→16:35)
[2021-10-29] MEDS: metoprolol tartrate 50 mg Tablet PO ×2 (08:04→20:31)
[2021-10-29] MEDS: lithium carbonate 300 mg Capsule PO ×2 (08:04→20:31)
[2021-10-29] MEDS: atorvastatin 40 mg Tablet 20 MG PO (08:04)
[2021-10-29] MEDS: paliperidone ER 6 mg Tablet PO (08:04)
[2021-10-29] MEDS: paliperidone ER 3 mg Tablet PO (08:04)
--- NOTE | 2021-10-29 10:00 | W.PM.NPUPNS ---
Subjective NPU Subjective: She seems to be doing better. She has not required B-52 injection in the last 2 afternoons. She actually asked for a shot twice yesterday evening. She said that the shots helped and she wanted to get better. When asked what she wanted to be better she really could not describe it. She begged to be discharged so that she could start work tomorrow morning at 8:00. She got down on her knees and asked. She did not mention any hyperreligious content today. She has not had any side effects from the lithium. Mental Status Exam MSE Comments: This is an obese white female in hospital scrubs with limited grooming but eye contact.? No abnormal movements. She had less psychomotor activity than previous days. she was fairly cooperative. Speech was normal rate and volume.? Mood described good.? Thought process more organized.? Thought content: Patient denied suicidal or homicidal ideation but had significant agitation and intrusiveness there were no delusions reported or but paranoid and persecutory thinking existed. Attention and concentration were impaired and memory was impaired, but none were formally tested.? She is alert and oriented x3.? Insight and judgment are poor improved, impulse control is poor but improved. Cognition: Patient Appearance: Appears Older than Age Level of Consciousness: Awake, Disoriented and Restless Patient Cognition Impaired: No Ability to Follow Directions: Fair Patient Orientation (long list): Person, Place, Name, Age, Birthday and Year Comprehension Ability: Moderate Impairment Hallucination Type: None Delusion Description: Not Present Thought Process: Appropriate Affect: Affect Description: Calm Behavior: Patient Behavior: Cooperative Speech Pattern: Clear and Delayed Vitals/I&O/Wt Last Vital Signs Temp 98.0 F 10/29/21 06:00 Pulse 66 10/29/21 06:00 Resp 14 10/29/21 06:00 BP 95/59 10/29/21 06:00 Pulse Ox 96 10/29/21 06:00 Weight last 48 hrs Weight 83.733 kg Data NPU : 10/17/21 15:10 10/17/21 15:10 A&P Assessment and plan (1) Methamphetamine use disorder, severe: Status: Acute (2) Delirium: Status: Acute (3) Altered mental status: Status: Acute (4) Kate: Status: Acute (5) Psychosis: Status: Acute (6) Bipolar disorder: Status: Acute (7) Abnormal Pap smear of cervix: Status: Acute (8) Borderline personality disorder: Status: Acute (9) Polysubstance abuse: Status: Acute Plan This is a 51-year-old female with a long history of active addiction to multiple substances, psychosis with several weeks of very erratic behavior and psychosis presents unable to cognitively/actively participate in her initial assessment. Seems to have had a good response to lithium at a very low-dose Plan: 1.? Continue current medication.? Increase Invega 9 mg p.o. every morning. Continue Seroquel 300 mg at bedtime. Continue lithium 300 mg twice a day 2.? Continue every 15 minute checks for safety. 3.? Encourage individual, group and milieu therapies. 4.? Encourage sober living treatment after discharge at the highest level of care to which she is willing to commit. 5.? Patient on 21-day hold. Involuntary Hold Information 96 Hour Hold: 96 Hour Involuntary Admission: Yes 96 Hour Hold Ending Date: 10/23/21 96 Hour Hold Ending Time: 16:15 Attestations NPU Medical Necessity Statement*: Inpatient hospitalization is medically necessary and the clinically appropriate intervention at this time. We will initiate medications and make changes as indicated. Coding Level of Care Code Acute Education Reviewer for Jerry Fwd Diagnoses Methamphetamine use disorder, severe F15.20 Delirium R41.0 Altered mental status R41.82 Kate F30.9 Psychosis F29 Bipolar disorder F31.9 Abnormal Pap smear of cervix R87.619 Borderline personality disorder F60.3 Polysubstance abuse F19.10
[2021-10-29] MEDS: hyDROXYzine 25 mg Capsule 50 MG PO (12:15)
[2021-10-29] MEDS: OLANZapine 5 mg ODT PO (12:15)
--- NOTE | 2021-10-29 12:18 | PC.NURSE ---
PRN VISTARIL & ZYPREXA ZYDIS VISTARIL 50 MG GIVEN PO WITH ZYPREXA ZYDIS 5 MG PO PER PT C/O ANXIETY/AGITATION. PT UP TO THE DESK CURSING, UPSET THAT KITCHEN DIDN'T SEND HER THE RIGHT FUCKING STUFF ON HER TRAY.
[2021-10-29] MEDS: haloperidol 5 mg Tablet PO (13:43)
--- NOTE | 2021-10-29 13:44 | PC.NURSE ---
PRN HALDOL HALDOL 5 MG GIVEN PO PER PT C/O FURTHER AGITATION.
[2021-10-29 14:00] VITALS: BP 121/69; PULSE 77; RESP 17; TEMP 36.7; O2SAT 97
--- NOTE | 2021-10-29 14:34 | XRR_ITS ---
PROCEDURE INFORMATION: Exam: XR Abdomen Exam date and time: 10/29/2021 3:06 PM Age: 51 years old Clinical indication: Other: History of gastric by pass; Prior surgery; Surgery date: 6+ months TECHNIQUE: Imaging protocol: XR of the abdomen. Views: Frontal supine view of the abdomen. 1 View. COMPARISON: CT abdomen pelvis w con* [id number] 05/27/2020 1:12 PM FINDINGS: Gastrointestinal tract: Normal. No bowel dilation. Bones/joints: Unremarkable. XR/XR abdomen 1V* [id number] IMPRESSION: No acute findings.
--- NOTE | 2021-10-29 14:34 | XRR_ITS ---
PROCEDURE INFORMATION: Exam: XR Chest Exam date and time: 10/29/2021 3:07 PM Age: 51 years old Clinical indication: Pain; Other: History of gastric bypass; Prior surgery; Surgery date: 6+ months TECHNIQUE: Imaging protocol: XR of the chest. Views: 1 view. COMPARISON: CR XR chest 1V portable [id number] 08/23/2020 3:16 PM FINDINGS: Lungs: Unremarkable. No consolidation. Pleural spaces: Unremarkable. No pleural effusion. No pneumothorax. Heart/Mediastinum: Unremarkable. No cardiomegaly. Bones/joints: Unremarkable. XR/XR chest 1V portable [id number] IMPRESSION: No acute findings.
[2021-10-29] MEDS: nicotine 2 mg Gum BUCCAL (15:12)
[2021-10-29] MEDS: blistex lip oint 7 gm Tube 1 APPLIC TOPICAL (16:37)
[2021-10-29 20:27] VITALS: BP 115/65; PULSE 76; RESP 16; TEMP 36.7; O2SAT 98
[2021-10-29 20:31] VITALS: BP 115/65
[2021-10-29] MEDS: quetiapine 300 mg Tablet PO (20:31)
[2021-10-30 06:00] VITALS: BP 103/66; PULSE 77; RESP 19; TEMP 36.8; O2SAT 96
[2021-10-30] MEDS: metformin 500 mg Tablet PO (06:11)
--- NOTE | 2021-10-30 07:24 | W.PM.NPUDCS ---
Diagnoses at Discharge Discharge Diagnosis (1) Methamphetamine use disorder, severe: Status: Acute (2) Delirium: Status: Acute (3) Altered mental status: Status: Acute (4) Kate: Status: Acute (5) Psychosis: Status: Acute (6) Bipolar disorder: Status: Acute (7) Abnormal Pap smear of cervix: Status: Acute (8) Borderline personality disorder: Status: Acute (9) Polysubstance abuse: Status: Acute Reason for Visit Reason for Visit: HYPERTENSION Brief History: is a 51-year-old female with a history of high blood pressure ADD, bipolar disorder, depression who presents to the emergency room for concerns of altered mental status and elevated blood pressure.? Per EMS, patient was outside when she called EMS today for concerns of elevated blood pressure.? By the time EMS arrived, patient was smiling and confused.? EMS tells me that patient cannot stop smiling and was reported to be digging in somebody else's backyard.? Patient on arrival does not recall any of this.? Patient reports that her blood pressure is elevated.? Patient denies any active complaints, chest pain shortness breath palpitation abdominal complaints nausea/vomiting, diarrhea focal weakness, or any other complaints at this time.? Patient denies any ingestion at this time.? No history of thyroid issues.? Patient denies any headache or any other neurological complaints.? Police brought in involuntary commitment form given concerns for patient's safety and inability to care of self. Onset: unknown Duration:ongoing Location:streets Severity:moderate/severe Associated symptoms: Deny chest pain, dyspnea, nausea, rash, palpitations or vomiting She was admitted to the neuropsychiatric unit for definitive treatment of those issues.? Unfortunately on admission she was mostly in no condition to be an accurate historian.? At 1 point need for her belongings were taken she was observed in the emergency department having a full on conversation on her phone as if she was face timing however there was no one on the other and.? She was highly energetic and did not answer any questions directly.? She appeared to be under the influence of methamphetamine in extreme fashion.? She was admitted to the neuropsychiatric unit on 10/02/2021 and excerpt of that interaction is included below for context. Hospital Course Hospital Course She slowly acclimated to the individual, group and milieu therapies provided. She was initially started on Invega increased to 6 mg along with Seroquel 300 mg at bedtime. She did not have much of a response and Invega was increased to 9 mg and lithium was added and then she seemed to get much better. She tolerated these doses and showed steady improvement during her stay. She was able to contract for safety outside hospital prior to discharge. During the hospitalization, patient had routine laboratory studies which were within normal limits except for few outliers. Additionally there was a general medical evaluation which was also within normal limits and revealed no new acute processes. Discharge Summary: At the time of discharge, lethality was denied and psychosis was resolving. Mood and anxiety were well managed. Patient endorsed a plan to follow-up with the aftercare recommendations of the treatment team. Patient was evaluated and deemed to be absent credible lethality, and had achieved the maximum benefit from an inpatient hospitalization, so was discharged. Involuntary Hold Information 96 Hour Hold: 96 Hour Involuntary Admission: Yes 96 Hour Hold Ending Date: 10/23/21 96 Hour Hold Ending Time: 16:15 Mental Status Exam MSE Comments: This is an obese white female in hospital scrubs with limited grooming but eye contact.? No abnormal movements. She has some increased psychomotor activity but much better than previous days. she was fairly cooperative. Speech was normal rate and volume.? Mood described good.? Thought process more organized.? Thought content: Patient denied suicidal or homicidal ideation but had significant agitation and intrusiveness there were no delusions reported. She continues to be somewhat religiously preoccupied. Attention and concentration were impaired and memory was impaired, but none were formally tested.? She is alert and oriented x3.? Insight and judgment are poor improved, impulse control is poor but improved. Cognition: Patient Appearance: Appropriate and Appears Older than Age Level of Consciousness: Awake, Disoriented and Restless Patient Cognition Impaired: No Ability to Follow Directions: Fair Patient Orientation (long list): Person, Place, Name, Age, Birthday and Year Comprehension Ability: Moderate Impairment Hallucination Type: None Delusion Description: Not Present Thought Process: Appropriate Affect: Affect Description: Calm Behavior: Patient Behavior: Appropriate and Cooperative Speech Pattern: Appropriate and Clear Discharge Data Studies Completed and Pending: Completed Studies During Hospitalization Category Date Time Status CT head wo con* 7 0450 Urgent Cat Scan 10/17/21 15:11 Completed XR abdomen 1V* 74 018 Routine Exams 10/29/21 14:34 Completed XR chest 1V enedina ble [id number] Routine Exams 10/29/21 14:34 Completed Radiology Impressions Head CT 10/17/21 15:11 IMPRESSION: Negative head CT. Abdomen X-Ray 10/29/21 14:34 IMPRESSION: No acute findings. Chest X-Ray 10/29/21 14:34 IMPRESSION: No acute findings. Laboratory Results WBC 7.3 10^3/uL (4.0- 10.0) 10/17/21 15:10 RBC 3.88 10^6/uL (4.1 -5.3) L 10/17/21 15:10 Hgb 8.6 g/dL (11.5-15 .3) L 10/17/21 15:10 Hct 29.5 % (37.0-47.0 ) L 10/17/21 15:10 MCV 76.0 fl (81-99) L 10/17/21 15:10 MCH 22.2 pg (28.0-34. 0) L 10/17/21 15:10 MCHC 29.2 g/dL (30.0-3 6.0) L 10/17/21 15:10 RDW 15.9 % (12.1-15.1 ) H 10/17/21 15:10 Plt Count 352 10^3/cmm (130 -400) 10/17/21 15:10 MPV 10.3 fL (7.4-10.4 ) 10/17/21 15:10 Neut % (Auto) 81.3 % 10/17/21 15:10 Lymph % (Auto) 10.6 % 10/17/21 15:10 [place] % (Auto) 5.5 % 10/17/21 15:10 Eos % (Auto) 1.2 % 10/17/21 15:10 Baso % (Auto) 1.0 % 10/17/21 15:10 Neut # (Auto) 5.96 10^3/uL (1.8 -7.7) 10/17/21 15:10 Lymph # (Auto) 0.8 10^3/uL (0.8- 4.8) 10/17/21 15:10 [place] # (Auto) 0.4 10^3/uL (0.2- 0.9) 10/17/21 15:10 Eos # (Auto) 0.1 10^3/uL (0.0- 0.8) 10/17/21 15:10 Baso # (Auto) 0.1 10^3/uL (0.0- 0.1) 10/17/21 15:10 Nucleated RBC % (a uto) 0 % 10/17/21 15:10 Nucleated RBCs # 0.0 /100WBC 10/17/21 15:10 Sodium 137 mmol/L (136-1 45) 10/17/21 15:10 Potassium 3.2 mmol/L (3.5-5 .1) L 10/17/21 15:10 Chloride 103 mmol/L (98-10 7) 10/17/21 15:10 Carbon Dioxide 22 mmol/L (22-29) 10/17/21 15:10 Anion Gap 15.2 (5-19) 10/17/21 15:10 BUN 9 mg/dL (6-20) 10/17/21 15:10 Creatinine 0.6 mg/dL (0.5-0. 9) 10/17/21 15:10 GFR Calculation 105.0 mL/min (90- 130) 10/17/21 15:10 Glucose 97 mg/dL (65-115) 10/17/21 15:10 POC Glucose 104 mg/dL (70-110 ) 10/17/21 15:26 Calculated Osmolal ity 283 mOsm/kg (285- 295) L 10/17/21 15:10 Calcium 9.0 mg/dL (8.5-10 .5) 10/17/21 15:10 Total Bilirubin 0.3 mg/dL (0.15-1 .2) 10/17/21 15:10 AST 41 U/L (0-32) H 10/17/21 15:10 ALT 21 U/L (0-33) 10/17/21 15:10 Alkaline Phosphata se 73 IU/L (35-105) 10/17/21 15:10 Total Protein 6.5 g/dL (6.6-8.7 ) L 10/17/21 15:10 Albumin 4.3 g/dL (3.5-5.2 ) 10/17/21 15:10 Globulin 2.2 g/dL (1.3-4.6 ) 10/17/21 15:10 Lipase 13 U/L (13-60) 10/17/21 15:10 TSH 2.71 uIU/mL (0.27 -4.20) 10/17/21 15:10 Free T4 1.14 ng/dL (0.82- 1.77) 10/17/21 15:10 Urine Color Yellow (Yellow) 10/17/21 15:23 Urine Appearance Clear (CLEAR) 10/17/21 15:23 Urine pH 5 (5-7) 10/17/21 15:23 Ur Specific Gravit y 1.020 (1.005-1.0 30) 10/17/21 15:23 Urine Protein Neg (Negative) 10/17/21 15:23 Urine Glucose (UA) Norm (Normal) 10/17/21 15:23 Urine Ketones 1+ (Negative) H 10/17/21 15:23 Urine Blood Neg (Negative) 10/17/21 15:23 Urine Nitrate Negative (Negati ve) 10/17/21 15:23 Urine Bilirubin Neg (Negative) 10/17/21 15:23 Urine Urobilinogen Neg mg/dL (Negati ve) 10/17/21 15:23 Ur Leukocyte Akila ase Negative (Negati ve) 10/17/21 15:23 Salicylates < 0.3 mg/dL (3-10 ) L 10/17/21 15:10 Urine Opiates Scre en Negative ng/mL (N egative) 10/17/21 15:23 Acetaminophen < 5.0 ug/mL (10-3 0) L 10/17/21 15:10 Ur Barbiturates Sc reen Negative ng/mL (N egative) 10/17/21 15:23 Ur Phencyclidine S crn Negative ng/mL (N egative) 10/17/21 15:23 Ur Amphetamines Sc reen Positive ng/mL (N egative) H 10/17/21 15:23 U Benzodiazepines Scrn Negative ng/mL (N egative) 10/17/21 15:23 Urine Cocaine Scre en Negative ng/mL (N egative) 10/17/21 15:23 U Marijuana (THC) Screen Positive ng/mL (N egative) H 10/17/21 15:23 Ethyl Alcohol < 10 mg/dL (0-10) 10/17/21 15:10 Vitals: Last Vital Signs Temp 98.3 F 10/30/21 06:00 Pulse 77 10/30/21 06:00 Resp 19 H 10/30/21 06:00 BP 103/66 10/30/21 06:00 Pulse Ox 96 10/30/21 06:00 Discharge Plan Discharge Patient Disposition: Home Condition: Stable Prescriptions: New lithium carbonate 300 mg Capsule 300 mg PO 0900,2100 30 Days Qty: 60 1RF paliperidone 3 mg Tablet Extended Release 24hr 3 mg PO DAILY 30 Days Qty: 30 1RF paliperidone 6 mg Tablet Extended Release 24hr 6 mg PO DAILY 30 Days Qty: 30 1RF Continued atorvastatin 20 mg Tablet 20 mg PO DAILY 0RF clonidine HCl 0.2 mg Tablet 0.2 mg PO BID 0RF metformin 500 mg tablet 500 mg PO BID 0RF metoprolol tartrate 50 mg tablet 50 mg PO BID 0RF quetiapine 300 mg Tablet 300 mg PO BEDTIME 30 Days Qty: 30 1RF olanzapine 5 mg Tablet,Disintegrating 5 mg PO BID PRN (Reason: Agitation/Psychosis) 30 Days Qty: 30 1RF Discharge Orders: Discharge Order (Routine); Ordered 10/30/21 Ordered By: Bleu [place] Referrals: [facility] with [facility] [Other] [facility] [Other] Daxa Rivas MD [[place]] - Raiza Woo MD [Primary Care Provider] - Discharge Diet: Regular Discharge Activity: Resume usual activity Patient Instructions: Opioid Safety Discharge Attestations NPU Time Spent in Discharge Care*: greater than 30 min Specific Discharge Activities: Specific discharge activities: educating patient, discussing with director of casework services/social workers/dc planners, documenting/other paperwork and evaluating patient/reviewing data Coding Level of Care Code Acute [facility] FW DC note Diagnoses Methamphetamine use disorder, severe F15.20 Delirium R41.0 Altered mental status R41.82 Kate F30.9 Psychosis F29 Bipolar disorder F31.9 Abnormal Pap smear of cervix R87.619 Borderline personality disorder F60.3 Polysubstance abuse F19.10
[2021-10-30] MEDS: atorvastatin 40 mg Tablet 20 MG PO (08:19)
[2021-10-30] MEDS: paliperidone ER 3 mg Tablet PO (08:19)
[2021-10-30] MEDS: lithium carbonate 300 mg Capsule PO (08:19)
[2021-10-30] MEDS: paliperidone ER 6 mg Tablet PO (08:19)
[2021-10-30] MEDS: cloNIDine 0.1 mg Tablet 0.2 MG PO (08:20)
[2021-10-30] MEDS: metoprolol tartrate 50 mg Tablet PO (08:20)
[2021-10-30 08:22] VITALS: BP 103/66; PULSE 77; RESP 19; TEMP 36.8; O2SAT 96
== END 2021-10-30 09:05 | disposition home or self-care (01) | DRG 885 ==
LOC: ER 16:52 → NP 10-18 06:14
PROVIDERS: Admitting Provider Psychiatry & Neurology Psychiatry; Emergency Provider Emergency Medicine; PCP Family Medicine; Visit Provider Psychiatry & Neurology Psychiatry
DX: F31.9 Bipolar disorder, unspecified (principal); F15.20 Other stimulant dependence, uncomplicated; F98.8 Other specified behavioral and emotional disorders with onset usually occurring in childhood and adolescence; I10 Essential (primary) hypertension; F17.210 Nicotine dependence, cigarettes, uncomplicated; F10.20 Alcohol dependence, uncomplicated; F12.20 Cannabis dependence, uncomplicated; F60.3 Borderline personality disorder
CPT/HCPCS: 36416; 70450; 71045; 74018; 80053; 80306; 80307; 81003; 82962; 83690; 84439; 84443; 85025; 93005; 96360; 96372; 97150; 97165; 99285; J1200; J1630; J2060; J7030; Q0162

== ENCOUNTER 2022-02-27 15:39 | Inpatient (IN) | payer MEDICAID, SELFPAY ==
[2022-02-27 15:46] VITALS: BP 179/100; PULSE 105; RESP 18; TEMP 36.6; O2SAT 98; BMI 25.7
--- NOTE | 2022-02-27 16:04 | ECG_ITS ---
[facility] Test Date: 2022-02-27 Pat Name: Keya Castaneda Department: Room: Gender: Female Consulting Application Engineer: : 1970 Requested By: Sary Greer Order Number: [id number] Lorena MD: Alfred Zamora M.D. Measurements Intervals [place] Rate: 86 P: 64 IA: 160 QRS: 64 QRSD: 94 T: 58 QT: 392 QTc: 469 Interpretive Statements SINUS RHYTHM MODERATE VOLTAGE CRITERIA FOR LVH, CONSIDER NORMAL VARIANT [MEETS CRITERIA IN ONE OF: R(aVL), S(V1), R(V5), R(V5/V6)+S(V1)] POSSIBLE SEPTAL MYOCARDIAL INFARCTION , OF INDETERMINATE AGE [30 ms Q WAVE IN V1/V2] Compared to ECG 10/17/2021 16:30:46 Sinus tachycardia no longer present Myocardial infarct finding still present Electronically Signed On 02-27-2022 18:56:08 CDT by Alfred Zamora M.D. [email or web address]
--- NOTE | 2022-02-27 16:18 | W.ED.GENADLT ---
HPI - General Adult General: Chief complaint: Psychiatric Symptoms Stated complaint: MHE Time Seen by Provider: 02/27/22 16:01 History of Present Illness: HPI: [51]yo patient w/ hx of meth use (last use was yesterday), bipolar disorder presenting to the emergency room for concerns of psychosis. Per patient's , patient since using meth has been laughing inappropriately and not able to follow command. Patient has been off and having worsening psychosis. For On arrival, the patient is AAOx3 and cooperative with my evaluation. No focal complaints of chest pain, shortness of breath, palpitations, N/V, focal GI/ complaints. Currently denies SI/HI. +Auditory hallucinations. Onset: acute on chronic Duration: ongoing Location: home Severity: severe Associated symptoms: Deny chest pain, dyspnea, nausea, rash, palpitations or vomiting Review of Systems Const: Denies: fever(s) or chills Eyes: Denies: change in vision ENMT: Denies: mouth pain Card: Denies: chest pain or palpitations Resp: Denies: dyspnea or non-productive cough GI: Denies: abdominal pain, nausea, vomiting or diarrhea : Denies: dysuria Musc: Denies: extremity pain Skin/Breast: Denies: rash or new lesions Neuro: Denies: weakness in extremities Psych: Reports: paranoia, auditory hallucinations and other (+psychosis) James/Lymph: Denies: easy bruising PFS ED PFSH: Medical History ADD (attention deficit disorder) Attention and concentration deficit Bipolar disorder Depression HTN (hypertension) Hyperglycemia Manic depressive disorder Other skilled nursing (current) drug therapy Polysubstance abuse Psychiatric care Uterine cancer Surgical History History of History of plastic surgery History of tubal ligation Family History Other Hyperlipidemia Hypertension Social History Smoking and tobacco status: current every day smoker cigarettes Packs smoked per day: 0.5 Years cigarettes smoked: 3 Quit status (tobacco): has tried quititng Number of times tried to quit tobacco: 2 Second hand smoke exposure: Yes Smoking risk assessment/counseling performed?: Yes Tobacco counseling given: counseling >3 minutes Alcohol intake: current Lives independently: No Household members: other Details: Lives with her aunt Marital status: Number of children: 5 Current gender identity: Female Physical Exam Const: COMMON NORMALS: alert HENMT: COMMON NORMALS: atraumatic HEAD & SCALP: atraumatic MOUTH: moist mucous membranes not abnormal Eye: COMMON NORMALS: EOMs intact bilaterally and conjunctivae normal CONJUNCTIVA: Yes conjunctivae normal Neck/C-Spine: COMMON NORMALS: full ROM and supple Resp: COMMON NORMALS: normal respiratory effort and clear to auscultation bilaterally AUSCULTATION: clear to auscultation bilaterally Cardio: COMMON NORMALS: regular rate RATE: regular rate GI: COMMON NORMALS: Soft to palpation and non-tender PALPATION: Yes Soft to palpation Extremity: COMMON NORMALS: full ROM Neuro: SENSORIUM/ORIENTATION: Yes alert MOTOR EXAM: No Abnormal motor strength present and Other motor observations present (no focal motor deficits) Psych: COMMON NORMALS: speech normal SPEECH: Yes normal speech MOOD & AFFECT: Yes elevated mood, Yes Labile affect present and Yes Other affect and mood findings present (+laughing inappropriately) Course Vital Signs: Vital signs: Vital Signs Temperature 98 F 02/27/22 15:46 Pulse Rate 105 H 02/27/22 15:46 Respiratory Rate 18 02/27/22 15:46 Blood Pressure 179/100 02/27/22 15:46 Pulse Oximetry 98 02/27/22 15:46 Oxygen Delivery Me thod 02/27/22 15:46 MDM - General Adult Medical Decision Making [51]yo patient w/ hx of bipolar disorder and meth use presenting for worsening psychosis, auditory hallucinations after using meth. HDS, exam within normal limit Thoughts are linear and organized, and the patient has no VH, or HI. Clinically the patient displays no overt toxidrome; they are well appearing, with low suspicion for toxic ingestion given history and exam. Symptoms unlikely 2/2 anemia, hypothyroidism, infection, or ICH. Workup: CBC, CMP, Lipase, salicylate/tylenol, serum ethanol, UDS Lab findings: wnl [5:45pm] On reassessment, labs and workup wnl. Patient is hemodynamically stable with no acute medical complaints. Case discussed with psychiatric provider Dr. Galicia at [facility] psych inpatient with recommendation for admission Disposition: Psych Lab Data : 02/27/22 16:10 02/27/22 16:10 Laboratory Results WBC 5.6 10^3/uL (4.0-10.0) 02/27/22 16:10 RBC 4.17 10^6/uL (4.1-5.3) 02/27/22 16:10 Hgb 9.6 g/dL (11.5-15.3) L 02/27/22 16:10 Hct 31.4 % (37.0-47.0) L 02/27/22 16:10 MCV 75.3 fl (81-99) L 02/27/22 16:10 MCH 23.0 pg (28.0-34.0) L 02/27/22 16:10 MCHC 30.6 g/dL (30.0-36.0) 02/27/22 16:10 RDW 16.6 % (12.1-15.1) H 02/27/22 16:10 Plt Count 278 10^3/cmm (130-400) 02/27/22 16:10 MPV 10.2 fL (7.4-10.4) 02/27/22 16:10 Neut % (Auto) 64.8 % 02/27/22 16:10 Lymph % (Auto) 26.5 % 02/27/22 16:10 [place] % (Auto) 5.9 % 02/27/22 16:10 Eos % (Auto) 2.2 % 02/27/22 16:10 Baso % (Auto) 0.4 % 02/27/22 16:10 Neut # (Auto) 3.62 10^3/uL (1.8-7.7) 02/27/22 16:10 Lymph # (Auto) 1.5 10^3/uL (0.8-4.8) 02/27/22 16:10 [place] # (Auto) 0.3 10^3/uL (0.2-0.9) 02/27/22 16:10 Eos # (Auto) 0.1 10^3/uL (0.0-0.8) 02/27/22 16:10 Baso # (Auto) 0.0 10^3/uL (0.0-0.1) 02/27/22 16:10 Nucleated RBC % (auto) 0 % 02/27/22 16:10 Nucleated RBCs # 0.0 /100WBC 02/27/22 16:10 Discharge Plan Discharge Patient Disposition: Admitted As Inpatient Clinical Impression: Psychosis, Kate, Methamphetamine use Condition: Stable Coding Level of Care Code ED Laboratory Engineer for Jerry Fwd Exam Comprehensive
[2022-02-27 16:24] LABS: Basophils % 0.4 %; Eosinophils # 0.1 10^3/uL (0.0-0.8); Eosinophils % 2.2 %; Hematocrit 31.4 % (37.0-47.0); Hemoglobin 9.6 g/dL (11.5-15.3); Lymphocytes # 1.5 10^3/uL (0.8-4.8); Lymphocytes % 26.5 %; Mean Corpuscular HGB Conc 30.6 g/dL (30.0-36.0); Mean Corpuscular Volume 75.3 fl (81-99); Mean Platelet Volume 10.2 fL (7.4-10.4); Monocytes # 0.3 10^3/uL (0.2-0.9); Monocytes % 5.9 %; Neutrophils # 3.62 10^3/uL (1.8-7.7); Neutrophils % 64.8 %; Nucleated Red Blood Cells % 0 %; Platelet Count 278 10^3/cmm (130-400); Red Blood Count 4.17 10^6/uL (4.1-5.3); Red Cell Distribution Width 16.6 % (12.1-15.1); White Blood Count 5.6 10^3/uL (4.0-10.0)
[2022-02-27 16:49] LABS: Alanine Aminotransferase 13 U/L (0-33); Albumin Level 4.4 g/dL (3.5-5.2); Alcohol Level 36 mg/dL (0-10); Alkaline Phosphatase 73 IU/L (35-105); Anion Gap 14.9 (5-19); Aspartate Amino Transferase 22 U/L (0-32); Blood Urea Nitrogen 10 mg/dL (6-20); Calcium 8.6 mg/dL (8.5-10.5); Carbon Dioxide 25 mmol/L (22-29); Chloride 106 mmol/L (98-107); Globulin 2.1 g/dL (1.3-4.6); Glomerular Filtration Rate 129.6 mL/min (90-130); Glucose 98 mg/dL (65-115); Lipase 14 U/L (13-60); Osmolality Calculated 293 mOsm/kg (285-295); Potassium 3.9 mmol/L (3.5-5.1); Salicylate 0.4 mg/dL (3-10); Sodium 142 mmol/L (136-145); Total Bilirubin 0.2 mg/dL (0.15-1.2); Total Protein 6.5 g/dL (6.6-8.7)
[2022-02-27 16:52] LABS: Acetaminophen < 5.0 ug/mL (10-30)
[2022-02-27 17:40] VITALS: BP 189/111; PULSE 87; RESP 20; TEMP 36.8; O2SAT 97
[2022-02-27] MEDS: ziprasidone 20 mg/mL SDV 10 MG IM (18:02)
[2022-02-27 18:59] VITALS: BP 176/102
[2022-02-27 20:16] VITALS: BP 169/99; PULSE 90; RESP 16; TEMP 36.3; O2SAT 96
[2022-02-28 06:00] VITALS: BP 152/89; PULSE 99; RESP 16; O2SAT 98
[2022-02-28] MEDS: hyDROXYzine 25 mg Capsule 50 MG PO (07:38)
[2022-02-28] MEDS: OLANZapine 5 mg ODT PO (07:38)
[2022-02-28] MEDS: ziprasidone 20 mg/mL SDV 10 MG IM (09:12)
--- NOTE | 2022-02-28 09:23 | PC.OT ---
UNABLE TO ATTEMPT OT EVALUATION TODAY THE PATIENT APPEARS TO BE RESPONDING TO INTERNAL STIMULI AND VERY UPSET THIS MORNING.
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
[2022-02-28 14:00] VITALS: BP 184/122; PULSE 95; RESP 16; O2SAT 96
[2022-02-28 18:22] VITALS: BP 184/122
[2022-02-28] MEDS: cloNIDine 0.1 mg Tablet 0.2 MG PO (18:22)
[2022-02-28 20:44] VITALS: BP 140/90; PULSE 75; RESP 16; TEMP 36.6; O2SAT 99
[2022-03-01 06:00] VITALS: BP 147/94; PULSE 83; RESP 18; TEMP 36.7; O2SAT 99
[2022-03-01] MEDS: ziprasidone hcl 20 mg Capsule PO (06:30)
[2022-03-01 14:00] VITALS: BP 172/86; PULSE 88; RESP 14; TEMP 36.4; O2SAT 100
[2022-03-01 17:08] LABS: Amphetamines Screen Urine Positive (Negative); Barbiturates Screen Urine Negative (Negative); Benzodiazepines Screen Urine Negative (Negative); Cocaine Screen Urine Negative (Negative); Opiate Screen Urine Negative (Negative); PCP Screen Urine Negative (Negative); THC Screen Urine Positive (Negative)
--- NOTE | 2022-03-01 17:36 | P.NPUPN_ITS ---
Subjective NPU Subjective: Patient presents today at 1 point asking staff about possibly leaving. During our time together she was extremely disorganized speaking about random things that had to do with the question that was asked. Almost like she was waking up in the middle of the interview and when to say something and then when asked about the relevance of what she said she was confused and could not identify what that had to do with anything for that matter. We discussed the fact that our goal is to help her manage the psychosis with which she presents. She cannot answer coherently about the medication suggestions that this business writer has for her psychosis. We discussed that if she does not improve we would need to go the route of 96-hour hold/21-day hold to be of assistance to her. Mental Status Exam MSE Comments: This is a well-nourished well-developed white female in hospital scrubs disheveled with limited eye contact.? No abnormal movements except for significant? psychomotor retardation.? Somewhat cooperative with exam in no acute distress.? Speech was limited and increased rate and decreased volume.? Significant dysarthria made in part to her absent dentition. Mood not described in a organized fashion, affect slightly subdued.? Thought process disorganized.? Thought content: Patient did not answer questions regarding lethality, delusions or hallucinations however, she was clearly responding to internal stimuli. . ? Attention and concentration were impaired and memory was impaired, but none were formally tested.? She is alert and oriented x3.? Insight and judgment are impaired, impulse control impaired. Vitals/I&O/Wt Last Vital Signs Temp 97.6 F 03/01/22 22:00 Pulse 88 03/01/22 22:00 Resp 15 03/01/22 22:00 BP 155/82 03/01/22 22:00 Pulse Ox 97 03/01/22 22:00 O2 Del Method 03/01/22 22:00 Data NPU : 02/27/22 16:10 02/27/22 16:10 A&P Assessment and plan (1) Psychosis: Status: Acute (2) Impulse control disorder: Status: Acute (3) Methamphetamine use disorder, severe: Status: Acute (4) Wernicke encephalopathy: Status: Acute (5) Alcohol dependence, uncomplicated: Status: Acute (6) Altered mental status: Status: Resolved (7) Kate: Status: Acute (8) Psychosis: Status: Acute (9) Unspecified psychosis: Status: Acute Plan This is a 51-year-old female with a long history of active addiction to multiple substances, psychosis and altered mental status currently unable to provide any coherent statements. Plan: 1.? Reevaluate medications, she has been noncompliant. She has already required multiple prn medications for agitation. 2.? Continue every 15 minute checks for safety. 3.? Encourage individual, group and milieu therapies. 4.? Encourage sober living treatment after discharge at the highest level of care to which she is willing to commit. 5. Patient may need guardianship unable to make informed consent at this time. Involuntary Hold Information 96 Hour Hold: 96 Hour Involuntary Admission: No Attestations [facility] Medical Necessity Statement*: Inpatient hospitalization is medically necessary and the clinically appropriate intervention at this time. We will monitor medi cation to make changes as indicated. Patient will be in the hospital for over two midnights. Likely length of stay 6-10 days. Will likely need to do some kind of hold given her inability for informed consent. 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
[2022-03-01 22:00] VITALS: BP 155/82; PULSE 88; RESP 15; TEMP 36.4; O2SAT 97
[2022-03-02 06:00] VITALS: RESP 17
[2022-03-02] MEDS: folic acid 1 mg Tablet PO (09:31)
[2022-03-02] MEDS: thiamine 100 mg Tablet PO (09:31)
[2022-03-02] MEDS: multivitamin therapeutic Tablet 1 TAB PO (09:31)
[2022-03-02] MEDS: LORazepam 2 mg Tablet PO (13:56)
[2022-03-02 14:00] VITALS: BP 163/85; PULSE 71; RESP 18; TEMP 36.6; O2SAT 97
--- NOTE | 2022-03-02 15:50 | W.PM.NPUPNS ---
Subjective NPU Subjective: Patient presents today continuing to be focused on leaving but outside of that having no goal-directed clarity of action. At 1 point when asked why she thinks going home is a good idea she responded because I am part human and part I don't know. She continues to have significant confusion and disorganization in conversation and thought. Due to concerns about her lack of ability to make informed consent and her continued thought disorder we discussed that we would be initiating a 96-hour hold to assure for her safety moving forward. Mental Status Exam MSE Comments: This is a well-nourished well-developed white female in hospital scrubs disheveled with limited eye contact.? No abnormal movements except for significant? psychomotor retardation.? Somewhat cooperative with exam in no acute distress.? Speech was limited and increased rate and decreased volume.? Significant dysarthria made in part to her absent dentition. Mood not described in a organized fashion, affect slightly subdued.? Thought process disorganized.? Thought content: Patient did not answer questions regarding lethality, delusions or hallucinations however, she was clearly responding to internal stimuli. . ? Attention and concentration were impaired and memory was impaired, but none were formally tested.? She is alert and oriented x3.? Insight and judgment are impaired, impulse control impaired. Vitals/I&O/Wt Last Vital Signs Temp 98 F 03/02/22 14:00 Pulse 76 03/02/22 20:01 Resp 15 03/02/22 20:01 BP 149/78 03/02/22 20:01 Pulse Ox 94 03/02/22 20:01 O2 Del Method 03/01/22 22:00 Data NPU : 02/27/22 16:10 02/27/22 16:10 A&P Assessment and plan (1) Psychosis: Status: Acute (2) Impulse control disorder: Status: Acute (3) Methamphetamine use disorder, severe: Status: Acute (4) Wernicke encephalopathy: Status: Acute (5) Alcohol dependence, uncomplicated: Status: Acute (6) Altered mental status: Status: Resolved (7) Kate: Status: Acute (8) Psychosis: Status: Acute (9) Unspecified psychosis: Status: Acute Plan This is a 51-year-old female with a long history of active addiction to multiple substances, psychosis and altered mental status currently unable to provide any coherent statements. Plan: 1.? Reevaluate medications, she has been noncompliant. She has already required multiple prn medications for agitation. We will restart medication when she gets approval. 2.? Continue every 15 minute checks for safety. 3.? Encourage individual, group and milieu therapies. 4.? Encourage sober living treatment after discharge at the highest level of care to which she is willing to commit. 5. Placed on a 96-hour hold. Involuntary Hold Information 96 Hour Hold: 96 Hour Involuntary Admission: No Attestations [facility] Medical Necessity Statement*: Inpatient hospitalization is medically necessary and the clinically appropriate intervention at this time. We will monitor medication to make changes as indicated. Likely length of stay 6-10 days. 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
[2022-03-02 20:01] VITALS: BP 149/78; PULSE 76; RESP 15; O2SAT 94
[2022-03-03 06:00] VITALS: BP 155/82; PULSE 79; RESP 15; O2SAT 93
[2022-03-03] MEDS: acetaminophen 325 mg Tablet 650 MG PO (09:44)
[2022-03-03] MEDS: LORazepam 2 mg Tablet PO (09:45)
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
[2022-03-03] MEDS: ziprasidone 20 mg/mL SDV IM (09:49)
--- NOTE | 2022-03-03 10:42 | W.PM.NPUPNS ---
Subjective NPU Subjective: Patient presents today reporting that he is very tired. She was lying in her bed and difficult to arouse. Once she sat up she more or less fell asleep in between questions. We discussed the 98-hour hold from yesterday and continued concerns with her confusion, disorganization/psychosis. She did mention wanting to go home but otherwise was very disorganized with limited spontaneous speech. I try to review her past medications in hopes of initiating something but she essentially did not answer the question. Mental Status Exam MSE Comments: This is a well-nourished well-developed white female in hospital scrubs disheveled with limited eye contact.? No abnormal movements except for significant? psychomotor retardation.? Somewhat cooperative with exam in no acute distress.? Speech was limited and decreased rate and volume.? Significant dysarthria made in part to her absent dentition. Mood not described as want to go home, affect subdued.? Thought process disorganized.? Thought content: Patient did not answer questions regarding lethality, delusions or hallucinations however, she did not appear to be responding to internal stimuli. ?Attention and concentration were impaired and memory was impaired, but none were formally tested.? She is alert and oriented x3.? Insight and judgment are impaired, impulse control impaired. Vitals/I&O/Wt Last Vital Signs Temp 98 F 03/02/22 14:00 Pulse 79 03/03/22 06:00 Resp 15 03/03/22 06:00 BP 155/82 03/03/22 06:00 Pulse Ox 93 03/03/22 06:00 O2 Del Method 03/01/22 22:00 Data NPU : 02/27/22 16:10 02/27/22 16:10 A&P Assessment and plan (1) Psychosis: Status: Acute (2) Impulse control disorder: Status: Acute (3) Methamphetamine use disorder, severe: Status: Acute (4) Wernicke encephalopathy: Status: Acute (5) Alcohol dependence, uncomplicated: Status: Acute (6) Altered mental status: Status: Resolved (7) Kate: Status: Acute (8) Psychosis: Status: Acute (9) Unspecified psychosis: Status: Acute Plan This is a 51-year-old female with a long history of active addiction to multiple substances, psychosis and altered mental status currently unable to provide any coherent statements. Plan: 1.? Reevaluate medications, she has been noncompliant. We will restart medication when she gets approval. 2.? Continue every 15 minute checks for safety. 3.? Encourage individual, group and milieu therapies. 4.? Encourage sober living treatment after discharge at the highest level of care to which she is willing to commit. 5. Placed on a 96-hour hold. Involuntary Hold Information 96 Hour Hold: 96 Hour Involuntary Admission: No Attestations [facility] Medical Necessity Statement*: Inpatient hospitalization is medically necessary and the clinically appropriate intervention at this time. We will monitor medication to make changes as indicated. Likely length of stay 5-9 days. Coding Level of Care Code Acute House Calls Nurse Practitioner for [facility] Fwd Diagnoses Psychosis F29 Impulse control disorder F63.9 Methamphetamine use disorder, severe F15.20 Wernicke encephalopathy E51.2 Alcohol dependence, uncomplicated F10.20 Altered mental status R41.82 Kate F30.9 Psychosis F29 Unspecified psychosis F29
[2022-03-03 13:49] VITALS: BP 184/112; PULSE 98; RESP 18; TEMP 36.3; O2SAT 97
[2022-03-03 14:28] VITALS: BP 182/96
[2022-03-03] MEDS: cloNIDine 0.1 mg Tablet PO (14:28)
[2022-03-03 15:23] VITALS: BP 138/84
[2022-03-03 19:37] VITALS: BP 131/87; PULSE 102; RESP 16; TEMP 36.4; O2SAT 96
--- NOTE | 2022-03-03 21:55 | NUR.SHIFT ---
Patient has been sleeping in bed since this nurse arrived on shift. Patient arousable by touch, but this nurse let her go back to sleep due to the escalation on previous shift. Unable to do full shift assessment at this time due to patient drowsiness from IM geodon. will do assessment if patient awakens. q15 min safety checks continued in milieu.
[2022-03-04] MEDS: OLANZapine 5 mg ODT PO (05:35)
[2022-03-04] MEDS: LORazepam 2 mg Tablet PO (05:35)
[2022-03-04 05:53] VITALS: BP 131/92; PULSE 110; RESP 18; TEMP 36.8; O2SAT 95
[2022-03-04 06:00] VITALS: BMI 25.7
[2022-03-04 14:00] VITALS: BP 143/80; PULSE 92; RESP 16; TEMP 36.6; O2SAT 97
[2022-03-04] MEDS: ziprasidone hcl 20 mg Capsule PO (15:05)
[2022-03-04] MEDS: diphenhydrAMINE 50 mg/mL SDV 1mL IM (15:28)
[2022-03-04] MEDS: haloperidol inj 5 mg/mL INJ 1 mL IM (15:29)
--- NOTE | 2022-03-04 15:30 | PC.NURSE ---
Patient became agitated while visiting her . patient started yelling at her Patient stated to I can leave so you can both go fuck. Patient started hitting her chest, pulling hair and throwing chips on the floor. Staff attempted to de verbally escalate patient without success. Patient was escorted back to room by staff and security. Haldol 5 mg was given into left deltoid and Benadryl 50 mg IM was given into right deltoid. Physician at bedside.
--- NOTE | 2022-03-04 16:40 | P.NPUPN_ITS ---
Subjective NPU Subjective: Patient presents today continuing to have obvious sequela from long-term methamphetamine use. She is able to articulate what she wants to go home but beyond that her ability to be precise in her communications is continuing to show impairment. She continues to be resistant to medication. An d her visited that led to a very explosive episode that she ultimately required as needed medications to be able to bring herself under control. We continue to discuss concerns about her ability to function independently. Mental Status Exam MSE Comments: This is a well-nourished well-developed white female in hospital scrubs disheveled with limited eye contact.? No abnormal movements except for significant? psychomotor retardation.? Somewhat cooperative with exam in extreme distress at times.? Speech was increased rate and volume.? Significant dysarthria made in part to her absent dentition. Mood not described as I want to go home, affect irritable.? Thought process disorganized.? Thought content: Patient did not answer questions regarding lethality, delusions or hallucinations however, she did not appear to be responding to internal stimuli. ?Attention and concentration were impaired and memory was impaired, but none were formally tested.? She is alert and oriented x person and place though she at times seems limited in her appreciation of place.? Insight and judgment are impaired, impulse control impaired. Vitals/I&O/Wt Last Vital Signs Temp 96.9 F L 03/04/22 21:00 Pulse 101 H 03/04/22 21:00 Resp 14 03/04/22 21:00 BP 111/70 03/04/22 21:00 Pulse Ox 99 03/04/22 21:00 O2 Del Method 03/04/22 21:00 Weight last 48 hrs Weight 70.307 kg Data NPU : 02/27/22 16:10 02/27/22 16:10 A&P Assessment and plan (1) Psychosis: Status: Acute (2) Impulse control disorder: Status: Acute (3) Methamphetamine use disorder, severe: Status: Acute (4) Wernicke encephalopathy: Status: Acute (5) Alcohol dependence, uncomplicated: Status: Acute (6) Altered mental status: Status: Resolved (7) Kate: Status: Acute (8) Psychosis: Status: Acute (9) Unspecified psychosis: Status: Acute Plan This is a 51-year-old female with a long history of active addiction to multiple substances, psychosis and altered mental status currently unable to provide any coherent statements. Plan: 1.? Reevaluate medications, she has been noncompliant. We will restart medication when she gets approval. 2.? Continue every 15 minute checks for safety. 3.? Encourage individual, group and milieu therapies. 4.? Encourage sober living treatment after discharge at the highest level of care to which she is willing to commit. 5. Placed on a 96-hour hold. Involuntary Hold Information 96 Hour Hold: 96 Hour Involuntary Admission: No Attestations [facility] Medical Necessity Statement*: Inpatient hospitalization is medically necessary and the clinically appropriate intervention at this time. We will monitor medication to make changes as indicated. Likely length of stay 5-9 days. 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
--- NOTE | 2022-03-04 17:00 | PC.NURSE ---
Yesterday DIEGO was trying to de escalate patient, patient stated My is the only one who can treat me for cancer because he has the perfect formula to make ICE. He makes it for me and he sometimes gives me a shot ,but he doesn't want to hurt me, so I drink it or snort it.
[2022-03-04 20:24] VITALS: BP 111/70; PULSE 101; RESP 14; TEMP 36.1; O2SAT 99
[2022-03-04 21:00] VITALS: BP 111/70; PULSE 101; RESP 14; TEMP 36.1; O2SAT 99
--- NOTE | 2022-03-04 21:30 | NUR.SHIFT ---
ASSESSMENT AT BEDSIDE. PT IS CALM AND COOPERATIVE. EUTHYMIC AFFECT. DENIES ANXIETY/DEPRESSION/SI/HI/AVH AT THIS TIME. PT REPORTS MOOD IS SINGING . PT SPEAKING NONSENSICALLY WITH FLIGHT OF IDEAS. PT IS GROGGY AT THIS TIME. VSS. Q15 MIN SAFETY CHECKS CONTINUED IN [place].
[2022-03-05 06:00] VITALS: BP 128/83; PULSE 94; RESP 17; TEMP 36.7; O2SAT 98
[2022-03-05] MEDS: thiamine 100 mg Tablet PO (08:42)
[2022-03-05] MEDS: folic acid 1 mg Tablet PO (08:42)
[2022-03-05] MEDS: multivitamin therapeutic Tablet 1 TAB PO (08:42)
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
--- NOTE | 2022-03-05 09:57 | W.PM.NPUPNS ---
Subjective NPU Subjective: Patient presents today having a somewhat better day in the sense that she was not as irritable. She continues to endorse a desire to go home and focused her discussion on being able to leave. We discussed the fact that we would need to make a decision on a 21-day hold if she would not show some improvement in her ability to function cognitively raising worries about her vulnerability outside the hospital. Mental Status Exam MSE Comments: This is a well-nourished well-developed white female in hospital scrubs disheveled with limited eye contact.? No abnormal movements except for significant? psychomotor retardation.? More cooperative with exam in mild distress.? Speech was increased rate and volume.? Significant dysarthria made in part to her absent dentition. Mood not described as I am better than yesterday, affect less irritable.? Thought process disorganized.? Thought content: Patient did not answer questions regarding lethality, delusions or hallucinations however, she did not appear to be responding to internal stimuli. ?Attention and concentration were impaired and memory was impaired, but none were formally tested.? She is alert and oriented x person and place though she at times seems limited in her appreciation of place.? Insight and judgment are impaired, impulse control impaired. Vitals/I&O/Wt Last Vital Signs Temp 98.0 F 03/05/22 06:00 Pulse 94 03/05/22 06:00 Resp 17 03/05/22 06:00 BP 128/83 03/05/22 06:00 Pulse Ox 98 03/05/22 06:00 O2 Del Method 03/05/22 06:00 Weight last 48 hrs Weight 70.307 kg Data NPU : 02/27/22 16:10 02/27/22 16:10 A&P Assessment and plan (1) Psychosis: Status: Acute (2) Impulse control disorder: Status: Acute (3) Methamphetamine use disorder, severe: Status: Acute (4) Wernicke encephalopathy: Status: Acute (5) Alcohol dependence, uncomplicated: Status: Acute (6) Altered mental status: Status: Resolved (7) Kate: Status: Acute (8) Psychosis: Status: Acute (9) Unspecified psychosis: Status: Acute Plan This is a 51-year-old female with a long history of active addiction to multiple substances, psychosis and altered mental status currently unable to provide any coherent statements. Plan: 1.? Reevaluate medications, she has been noncompliant. We will restart medication when she gets approval. 2.? Continue every 15 minute checks for safety. 3.? Encourage individual, group and milieu therapies. 4.? Encourage sober living treatment after discharge at the highest level of care to which she is willing to commit. 5. Placed on a 96-hour hold. We will have to consider a 21-day hold. Involuntary Hold Information 96 Hour Hold: 96 Hour Involuntary Admission: No Attestations NPU Medical Necessity Statement*: Inpatient hospitalization is medically necessary and the clinically appropriate intervention at this time. We will monitor medication to make changes as indicated. Likely length of stay 4-8 days. Coding Level of Care Code Acute Principal Archaeologist for Jerry Fwd Diagnoses Psychosis F29 Impulse control disorder F63.9 Methamphetamine use disorder, severe F15.20 Wernicke encephalopathy E51.2 Alcohol dependence, uncomplicated F10.20 Altered mental status R41.82 Kate F30.9 Psychosis F29 Unspecified psychosis F29
[2022-03-05] MEDS: ziprasidone hcl 20 mg Capsule PO (12:25)
[2022-03-05] MEDS: acetaminophen 325 mg Tablet 650 MG PO (12:25)
[2022-03-05 14:00] VITALS: BP 143/95; PULSE 127; RESP 18; TEMP 37; O2SAT 97
[2022-03-05 20:07] VITALS: BP 142/94; PULSE 92; RESP 16; TEMP 36.8; O2SAT 100
[2022-03-06 06:00] VITALS: BP 132/79; PULSE 119; RESP 16; TEMP 36.9; O2SAT 98
[2022-03-06] MEDS: folic acid 1 mg Tablet PO (08:52)
[2022-03-06] MEDS: multivitamin therapeutic Tablet 1 TAB PO (08:52)
[2022-03-06] MEDS: thiamine 100 mg Tablet PO (08:52)
[2022-03-06 13:18] VITALS: BP 152/96; PULSE 94; RESP 17; TEMP 37.5; O2SAT 92
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
--- NOTE | 2022-03-06 15:09 | W.PM.NPUPNS ---
Subjective NPU Subjective: Patient presents today in much better spirits than yesterday. She was very playful and at times inappropriate. Staff reported periods of manic or near manic energy. She continued to talk about going home but did not in a more playful urging sort of way. She said she might consider a medication as we discussed the likelihood of a 21-day hold. Mental Status Exam MSE Comments: This is a well-nourished well-developed white female in hospital scrubs improved grooming and eye contact.? No abnormal movements except for significant? psychomotor agitation with very high energy.? More cooperative with exam in mild distress.? Speech was increased rate and volume.? Significant dysarthria made in part to her absent dentition. Mood not described as I feel great, affect hyperkinetic.? Thought process disorganized with some tangentiality and flight of ideas.? Thought content: She denied suicidal or homicidal ideation, there were no delusions reported but some possible grandiose delusions noted. She denied any auditory or visual hallucinations and she did not appear to be responding to internal stimuli. ?Attention and concentration were improving and memory was impaired, but none were formally tested.? She is alert and oriented x person and place though she at times seems limited in her appreciation of place.? Insight and judgment are impaired, impulse control impaired. Vitals/I&O/Wt Last Vital Signs Temp 99.5 F 03/06/22 13:18 Pulse 94 03/06/22 13:18 Resp 17 03/06/22 13:18 BP 152/96 03/06/22 13:18 Pulse Ox 92 03/06/22 13:18 O2 Del Method 03/06/22 13:18 Data NPU : 02/27/22 16:10 02/27/22 16:10 A&P Assessment and plan (1) Psychosis: Status: Acute (2) Impulse control disorder: Status: Acute (3) Methamphetamine use disorder, severe: Status: Acute (4) Wernicke encephalopathy: Status: Acute (5) Alcohol dependence, uncomplicated: Status: Acute (6) Altered mental status: Status: Resolved (7) Kate: Status: Acute (8) Psychosis: Status: Acute (9) Unspecified psychosis: Status: Acute Plan This is a 51-year-old female with a long history of active addiction to multiple substances, psychosis and altered mental status currently unable to provide any coherent statements. Plan: 1.? Reevaluate medications, she has been noncompliant. We will restart medication when she gets approval. 2.? Continue every 15 minute checks for safety. 3.? Encourage individual, group and milieu therapies. 4.? Encourage sober living treatment after discharge at the highest level of care to which she is willing to commit. 5. Placed on a 96-hour hold. We will have to consider a 21-day hold. Involuntary Hold Information 96 Hour Hold: 96 Hour Involuntary Admission: No Attestations NPU Medical Necessity Statement*: Inpatient hospitalization is medically necessary and the clinically appropriate intervention at this time. We will monitor medication to make changes as indicated. Likely length of stay 4-8 days. Coding Level of Care Code Acute Historiography Professor for Jerry Ellis Diagnoses Psychosis F29 Impulse control disorder F63.9 Methamphetamine use disorder, severe F15.20 Wernicke encephalopathy E51.2 Alcohol dependence, uncomplicated F10.20 Altered mental status R41.82 Kate F30.9 Psychosis F29 Unspecified psychosis F29
[2022-03-06] MEDS: ziprasidone 20 mg/mL SDV IM (17:36)
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
[2022-03-06] MEDS: acetaminophen 325 mg Tablet 650 MG PO (18:44)
[2022-03-06 20:11] VITALS: BP 151/95; PULSE 87; RESP 18; TEMP 36.5; O2SAT 100
[2022-03-07] MEDS: acetaminophen 325 mg Tablet 650 MG PO (01:59)
[2022-03-07 06:00] VITALS: BP 145/80; PULSE 98; RESP 16; TEMP 36.7; O2SAT 99
[2022-03-07] MEDS: diphenhydrAMINE 50 mg/mL SDV 1mL IM ×2 (06:42→17:01)
[2022-03-07] MEDS: LORazepam 2 mg/mL INJ 1 mL IM ×2 (06:42→17:02)
[2022-03-07] MEDS: haloperidol inj 5 mg/mL INJ 1 mL IM ×2 (06:42→17:02)
[2022-03-07] MEDS: ibuprofen 600 mg Tablet PO (06:42)
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
[2022-03-07] MEDS: multivitamin therapeutic Tablet 1 TAB PO (08:43)
[2022-03-07] MEDS: thiamine 100 mg Tablet PO (08:43)
[2022-03-07] MEDS: folic acid 1 mg Tablet PO (08:43)
[2022-03-07 14:00] VITALS: BP 150/77; PULSE 83; RESP 18; TEMP 37; O2SAT 96
--- NOTE | 2022-03-07 15:42 | PC.NURSE ---
scheduled Motrin @ 1500 held d/t level of sedation, pt unable to safely swallow meds
--- NOTE | 2022-03-07 16:12 | P.NPUPN_ITS ---
Subjective NPU Subjective: Patient presents today reporting that she wants to go home. We discussed the fact that she still having psychotic symptoms and is still disorganized and needs to start medication. We discussed the risk-benefit alternatives of restarting Invega and she understood and agreed proceed as documented in this note. We discussed the fact that we talk with her and her is on board that grieving significantly this time and having the end result being that she is off of the methamphetamine is critical to her wellness. We discussed the fact that with her not getting better we did file a 21-day hold and we are awaiting the hearing date. It may be tomorrow or the day after. Mental Status Exam MSE Comments: This is a well-nourished well-developed white female in hospital scrubs improved grooming and eye contact.? No abnormal movements except for significant? psychomotor agitation with very high energy.? Less cooperative with exam in mild to moderate distress.? Speech was increased rate and volume.? Significant dysarthria made in part to her absent dentition. Mood not described as I don't know, affect irritable.? Thought process disorganized.? Thought content: She denied suicidal or homicidal ideation, there were no delusions reported or noted. She denied any auditory or visual hallucinations and she did not appear to be responding to internal stimuli. ?Attention and concentration were improving and memory was impaired, but none were formally tested.? She is alert and oriented x person and place though she at times seems limited in her appreciation of place.? Insight and judgment are impaired, impulse control impaired. Vitals/I&O/Wt Last Vital Signs Temp 98.0 F 03/07/22 06:00 Pulse 98 03/07/22 06:00 Resp 16 03/07/22 06:00 BP 145/80 03/07/22 06:00 Pulse Ox 99 03/07/22 06:00 O2 Del Method 03/07/22 06:00 Data NPU : 02/27/22 16:10 02/27/22 16:10 A&P Assessment and plan (1) Psychosis: Status: Acute (2) Impulse control disorder: Status: Acute (3) Methamphetamine use disorder, severe: Status: Acute (4) Wernicke encephalopathy: Status: Acute (5) Alcohol dependence, uncomplicated: Status: Acute (6) Altered mental status: Status: Resolved (7) Kate: Status: Acute (8) Psychosis: Status: Acute (9) Unspecified psychosis: Status: Acute Plan This is a 51-year-old female with a long history of active addiction to multiple substances, psychosis and altered mental status currently unable to provide any coherent statements. Plan: 1.? Reevaluate medications, she has been noncompliant. Start Invega 6 mg po qdaily. 2.? Continue every 15 minute checks for safety. 3.? Encourage individual, group and milieu therapies. 4.? Encourage sober living treatment after discharge at the highest level of care to which she is willing to commit. 5. Placed on a 96-hour hold. Filed for a 21-day hold. Involuntary Hold Information 96 Hour Hold: 96 Hour Involuntary Admission: No Attestations NPU Medical Necessity Statement*: Inpatient hospitalization is medically necessary and the clinically appropriate intervention at this time. We will monitor medication to make changes as indicated. Likely length of stay 4-8 days. May be longer with 21-day hold. Coding Level of Care Code Acute Business System Consultant for Jerry Ellis Diagnoses Psychosis F29 Impulse control disorder F63.9 Methamphetamine use disorder, severe F15.20 Wernicke encephalopathy E51.2 Alcohol dependence, uncomplicated F10.20 Altered mental status R41.82 Kate F30.9 Psychosis F29 Unspecified psychosis F29
[2022-03-07] MEDS: paliperidone ER 6 mg Tablet PO (16:39)
--- NOTE | 2022-03-07 17:02 | PC.NURSE ---
PRN BENADRYL/HALDOL/ATIVAN BENADRYL 50 MG GIVEN IM IN RIGHT DELTOID, HALDOL 5 MG GIVEN WITH ATIVAN 2 MG IM IN LEFT BUTTOCK PER PT C/O INCREASED ANXIETY/AGITATION/AGGRESSION...PT DEMANDING, YELLING & CURSING AT STAFF, CLAIMING THIS NURSE ASKED TO SCAN HER COURT BAND ....THIS NURSE ASKED TO SCAN HER ARM BAND, DID NOT USE THE WORD COURT AT ALL DURING CONVERSATION...PT YELLING AT PHYSICIAN, STATED HOW IT WAS BULL SHIT THAT SHE WAS HERE...NPU DIRECTOR SPOKE WITH PATIENT IN HER ROOM, PT AGREEABLE TO TAKE PRN MEDICATIONS AT THIS TIME...PRINTED INFORMATION ABOUT PRN MEDS GIVEN TO PATIENT AT THIS TIME PER HER REQUEST....STAFF WILL CONT TO MONITOR CLOSELY
[2022-03-07 19:59] VITALS: BP 144/80; PULSE 79; RESP 14; TEMP 36.8; O2SAT 96
[2022-03-08] MEDS: hyDROXYzine 25 mg Capsule 50 MG PO (04:54)
[2022-03-08] MEDS: ibuprofen 600 mg Tablet PO (04:58)
--- NOTE | 2022-03-08 05:24 | PC.NURSE ---
Patient complained of neck and back pain,medicated with Ibuprofen 600 mg po.
[2022-03-08 06:00] VITALS: RESP 15
[2022-03-08] MEDS: paliperidone ER 6 mg Tablet PO (11:13)
[2022-03-08] MEDS: multivitamin therapeutic Tablet 1 TAB PO (11:13)
[2022-03-08] MEDS: thiamine 100 mg Tablet PO (11:14)
[2022-03-08] MEDS: folic acid 1 mg Tablet PO (11:14)
--- NOTE | 2022-03-08 12:26 | P.NPUPN_ITS ---
Subjective NPU Subjective: Patient presents today reporting that she is feeling better and believes she should go home. We discussed the fact that she will have a hearing today to discuss with net software engineer her believe that she should be allowed to go home. We told her however that we do believe that her condition requires that she take the Invega and that I will assist her in getting home soon. We went to the hearing and she was placed on a 21-day hold. We discussed that if she continues to not do the methamphetamine and take her medication is that she will improve dramatically. Mental Status Exam MSE Comments: This is a well-nourished well-developed white female in hospital scrubs improved grooming and eye contact.? No abnormal movements except for significant? psychomotor retardation.? Less cooperative with exam in mild to moderate distress.? Speech was decreased rate and volume.? Significant dysarthria made in part to her absent dentition. Mood not described as I want to go home, affect irritable.? Thought process disorganized.? Thought content: She denied suicidal or homicidal ideation, there were no delusions reported or noted. She denied any auditory or visual hallucinations and she did not appear to be responding to internal stimuli. ?Attention and concentration were improving and memory was impaired, but none were formally tested.? She is alert and oriented x person and place though she at times seems limited in her appreciation of place.? Insight and judgment are impaired, impulse control impa ired. Vitals/I&O/Wt Last Vital Signs Temp 98.2 F 03/07/22 19:59 Pulse 79 03/07/22 19:59 Resp 15 03/08/22 06:00 BP 144/80 03/07/22 19:59 Pulse Ox 96 03/07/22 19:59 O2 Del Method 03/07/22 19:59 Data NPU : 02/27/22 16:10 02/27/22 16:10 A&P Assessment and plan (1) Psychosis: Status: Acute (2) Impulse control disorder: Status: Acute (3) Methamphetamine use disorder, severe: Status: Acute (4) Wernicke encephalopathy: Status: Acute (5) Alcohol dependence, uncomplicated: Status: Acute (6) Altered mental status: Status: Resolved (7) Kate: Status: Acute (8) Psychosis: Status: Acute (9) Unspecified psychosis: Status: Acute Plan This is a 51-year-old female with a long history of active addiction to multiple substances, psychosis and altered mental status currently unable to provide any coherent statements. Plan: 1.? Reevaluate medications, she has been noncompliant. Started Invega 6 mg po qdaily. We will recommend a long-acting injection 2.? Continue every 15 minute checks for safety. 3.? Encourage individual, group and milieu therapies. 4.? Encourage sober living treatment after discharge at the highest level of care to which she is willing to commit. 5. Patient now on a 21-day hold. Involuntary Hold Information 96 Hour Hold: 96 Hour Involuntary Admission: No Attestations NPU Medical Necessity Statement*: Inpatient hospitalization is medically necessary and the clinically appropriate intervention at this time. We will monitor medication to make changes as indicated. Likely length of stay 6 to 10 days. Coding Level of Care Code Acute Advertising Director for [facility] Diagnoses Psychosis F29 Impulse control disorder F63.9 Methamphetamine use disorder, severe F15.20 Wernicke encephalopathy E51.2 Alcohol dependence, uncomplicated F10.20 Altered mental status R41.82 Kate F30.9 Psychosis F29 Unspecified psychosis F29
[2022-03-08] MEDS: OLANZapine 5 mg ODT PO (12:50)
--- NOTE | 2022-03-08 12:50 | PC.NURSE ---
PRN ZYPREXA ZYDIS 5 MG GIVEN PO PER PT C/O AGITATION, LEAVING UNIT TO GO TO [address], UPSET STATED SHE DOESN'T KNOW WHAT IS GOING ON
--- NOTE | 2022-03-08 12:51 | PC.NURSE ---
OFF UNIT FOR [address]
--- NOTE | 2022-03-08 13:52 | PC.NURSE ---
RETURN TO UNIT FROM COURT
[2022-03-08 14:00] VITALS: BP 118/76; PULSE 87; RESP 18; O2SAT 97
[2022-03-08 19:49] VITALS: RESP 15
[2022-03-09 06:00] VITALS: RESP 16
[2022-03-09] MEDS: folic acid 1 mg Tablet PO (09:44)
[2022-03-09] MEDS: thiamine 100 mg Tablet PO (09:44)
[2022-03-09] MEDS: paliperidone ER 6 mg Tablet PO (09:44)
[2022-03-09] MEDS: multivitamin therapeutic Tablet 1 TAB PO (09:44)
[2022-03-09] MEDS: nicotine 4 mg lozenge MUCOUS MEM (11:46)
--- NOTE | 2022-03-09 13:47 | W.PM.NPUPNS ---
Subjective NPU Subjective: Patient presents today continuing to focus on discharge. She continues to be resistant to the idea that addiction is what is driving her difficulties. She did eventually say that she would agree to some treatment at [facility] but was still resistant. We discussed the importance of her taking her medication and the possibility of increasing the Invega to 9 mg p.o. nightly. Otherwise she continued to have moments where there were outbursts and she was screaming reporting that she needs to be home and there is nothing that can be done to help her here and she does not even have a drug problem. Mental Status Exam MSE Comments: This is a well-nourished well-developed white female in hospital scrubs improved grooming and eye contact.? No abnormal movements except for significant? psychomotor retardation.? Less cooperative with exam in mild to moderate distress.? Speech was decreased rate and volume.? Significant dysarthria made in part to her absent dentition. Mood not described as I want to go home, affect irritable.? Thought process disorganized.? Thought content: She denied suicidal or homicidal ideation, there were no delusions reported or noted. She denied any auditory or visual hallucinations and she did not appear to be responding to internal stimuli. ?Attention and concentration were improving and memory was impaired, but none were formally tested.? She is alert and oriented x person and place though she at times seems limited in her appreciation of purpose.? Insight and judgment are impaired, impulse control impaired. Vitals/I&O/Wt Last Vital Signs Temp 98.2 F 03/07/22 19:59 Pulse 87 03/08/22 14:00 Resp 16 03/09/22 06:00 BP 118/76 03/08/22 14:00 Pulse Ox 97 03/08/22 14:00 O2 Del Method 03/08/22 14:00 Data NPU : 02/27/22 16:10 02/27/22 16:10 A&P Assessment and plan (1) Psychosis: Status: Acute (2) Impulse control disorder: Status: Acute (3) Methamphetamine use disorder, severe: Status: Acute (4) Wernicke encephalopathy: Status: Acute (5) Alcohol dependence, uncomplicated: Status: Acute (6) Altered mental status: Status: Resolved (7) Kate: Status: Acute (8) Psychosis: Status: Acute (9) Unspecified psychosis: Status: Acute Plan This is a 51-year-old female with a long history of active addiction to multiple substances, psychosis and altered mental status currently unable to provide any coherent statements. Plan: 1.? Reevaluate medications, she has been noncompliant. Started Invega 6 mg po qdaily. Consider increasing to 9 mg. We will recommend a long-acting injection 2.? Continue every 15 minute checks for safety. 3.? Encourage individual, group and milieu therapies. 4.? Encourage sober living treatment after discharge at the highest level of care to which she is willing to commit. 5. Patient now on a 21-day hold. Involuntary Hold Information 96 Hour Hold: 96 Hour Involuntary Admission: No Attestations NPU Medical Necessity Statement*: Inpatient hospitalization is medically necessary and the clinically appropriate intervention at this time. We will monitor medication to make changes as indicated. Likely length of stay 6 to 10 days. Coding Level of Care Code Acute Air Conditioning Installer Supervisor for Jerry Fwd Diagnoses Psychosis F29 Impulse control disorder F63.9 Methamphetamine use disorder, severe F15.20 Wernicke encephalopathy E51.2 Alcohol dependence, uncomplicated F10.20 Altered mental status R41.82 Kate F30.9 Psychosis F29 Unspecified psychosis F29
[2022-03-09 14:00] VITALS: BP 124/82; PULSE 88; RESP 17; O2SAT 97
[2022-03-09 18:38] LABS: HIV 1 & 2 Antibody Non-Reactive (Non-Reactiv); HIV 1 & 2 Antigen Non-Reactive (Non-Reactiv)
[2022-03-09 18:47] LABS: Hepatitis B Surface Antigen Non-Reactive (Nonreactive)
[2022-03-09 19:00] LABS: Hepatitis C Virus Antibody Non-Reactive (Nonreactive)
[2022-03-09 22:00] VITALS: RESP 14
[2022-03-10] MEDS: acetaminophen 325 mg Tablet 650 MG PO (04:53)
[2022-03-10 06:00] VITALS: BP 116/78; PULSE 88; RESP 14; O2SAT 97
[2022-03-10] MEDS: paliperidone ER 6 mg Tablet PO (08:48)
[2022-03-10] MEDS: ziprasidone hcl 20 mg Capsule PO (08:48)
[2022-03-10] MEDS: folic acid 1 mg Tablet PO (08:48)
[2022-03-10] MEDS: thiamine 100 mg Tablet PO (08:48)
[2022-03-10] MEDS: multivitamin therapeutic Tablet 1 TAB PO (08:48)
[2022-03-10] MEDS: LORazepam 1 mg Tablet 2 MG PO (13:58)
[2022-03-10] MEDS: paliperidone ER 3 mg Tablet PO (13:58)
[2022-03-10 14:00] VITALS: BP 130/86; PULSE 116; RESP 18; TEMP 36.7; O2SAT 95
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
--- NOTE | 2022-03-10 14:43 | PC.NURSE ---
MED CHANGE, INVEGA INCREASED TO 9MG DAILY, 3MG GIVEN AT TIME OF ORDER CHANGE TO COMPLETE 9MG DOSING FOR TODAY, PT AWARE OF INCREASED DOSING AND WAS COMPLIANT WITH PO TAKING
[2022-03-10] MEDS: ibuprofen 600 mg Tablet PO (17:59)
[2022-03-10] MEDS: benztropine 1 mg Tablet PO (17:59)
[2022-03-10 20:20] VITALS: RESP 16
[2022-03-11 06:00] VITALS: BP 126/86; PULSE 91; RESP 18; TEMP 36.6; O2SAT 96
[2022-03-11] MEDS: paliperidone 3 MG, paliperidone 6 MG 9 MG PO (08:09)
[2022-03-11] MEDS: folic acid 1 mg Tablet PO (08:10)
[2022-03-11] MEDS: multivitamin therapeutic Tablet 1 TAB PO (08:10)
[2022-03-11] MEDS: thiamine 100 mg Tablet PO (08:10)
[2022-03-11] MEDS: ziprasidone hcl 20 mg Capsule PO (08:12)
--- NOTE | 2022-03-11 13:33 | PC.NURSE ---
PT STATES SHE HAD INCREASING ANXIETY, SPEAKING ABOUT GOING HOME TODAY AND SEEING HER DURING VISITING HOURS TODAY, PT IS ON A RESTRICTED VISITOR LIST DUE TO BEHAVIORS WHEN COMES TO UNIT REQUIRING PRN MEDS. PT RECEIVED PRN PO GEODON FOR ANXIETY
[2022-03-11 13:56] VITALS: BP 149/82; PULSE 84; RESP 17; TEMP 37.1; O2SAT 97
[2022-03-11] MEDS: ibuprofen 600 mg Tablet PO (14:38)
[2022-03-11] MEDS: diphenhydrAMINE 50 mg/mL SDV 1mL IM (15:05)
[2022-03-11] MEDS: haloperidol inj 5 mg/mL INJ 1 mL IM (15:05)
[2022-03-11] MEDS: LORazepam 2 mg/mL INJ 1 mL IM (15:05)
--- NOTE | 2022-03-11 15:13 | W.PM.BREST ---
Face to Face: Restrn/Seclusion Events leading up to initiation: Verbalizing threat to self or others, Demonstrating self-destructive behavior (cutting, hitting padron etc.) and Combative/Striking out at staff or others Evaluation of patient's immediate situation: Alert and oriented, No signs of physical distress and Signs of psychological distress Patient reaction since intervention applied: De-escalation/no displays of violent/destructive behavior Recent labs reviewed: Yes Review of medications: Yes Patient's current medical/behavioral condition: No new concerns since last ROS Need for restraint or seclusion is: No longer present Attending notified: Attending completed assessment
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
--- NOTE | 2022-03-11 16:28 | PC.NURSE ---
PT CONT TO SLEEP IN BED WITHOUT S/S OF DISCOMFORT, WRISTS AND ANKLES SHOW NO S/S OF REDNESS OR INJURY
[2022-03-11 22:00] VITALS: BP 152/81; PULSE 84; RESP 16; TEMP 36.3; O2SAT 97
[2022-03-12 06:00] VITALS: BP 83/61; PULSE 140; RESP 20; TEMP 36.9; O2SAT 94
[2022-03-12] MEDS: folic acid 1 mg Tablet PO (08:33)
[2022-03-12] MEDS: multivitamin therapeutic Tablet 1 TAB PO (08:33)
[2022-03-12] MEDS: paliperidone 3 MG, paliperidone 6 MG 9 MG PO (08:33)
[2022-03-12] MEDS: thiamine 100 mg Tablet PO (08:34)
[2022-03-12 14:00] VITALS: BP 152/82; PULSE 96; RESP 16; TEMP 36.4; O2SAT 100
--- NOTE | 2022-03-12 14:50 | W.PM.NPUPNS ---
Subjective NPU Subjective: Patient presents today having been calm for the better part of the day. She reported that she is doing fine on the medication. She denied any new concerns regarding the anything other than her not coming there. She was apologetic for her behavior yesterday, reporting that she is not sure what she was acting that way. She reports he feels bad because her was tearful about not being able to see her we discussed how critical it was that she shows she can continue to manage her self today and possibly tomorrow if she has a good first half a day we can consider the possibility of a visit. We began discussing the possibility of the Invega injection. Mental Status Exam MSE Comments: This is a well-nourished well-developed white female in hospital scrubs with improved grooming and eye contact.? No abnormal movements except for mild psychomotor retardation.? More cooperative with exam in no acute distress.? Speech was more normal rate and volume.? Significant dysarthria made in part to her absent dentition. Mood described as better, affect less irritable.? Thought process more linear.? Thought content: She denied suicidal or homicidal ideation, there were no delusions reported or noted. She denied any auditory or visual hallucinations and she did not appear to be responding to internal stimuli. ?Attention and concentration were improving and memory was impaired, but none were formally tested.? She is alert and oriented x person and place though she at times seems limited in her appreciation of purpose.? Insight and judgment are impaired, impulse control impaired. Vitals/I&O/Wt Last Vital Signs Temp 98.5 F 03/12/22 06:00 Pulse 140 H 03/12/22 06:00 Resp 20 H 03/12/22 06:00 BP 83/61 03/12/22 06:00 Pulse Ox 94 03/12/22 06:00 O2 Del Method 03/12/22 06:00 Weight last 48 hrs Weight 70.76 kg Data NPU : 02/27/22 16:10 02/27/22 16:10 A&P Assessment and plan (1) Psychosis: Status: Acute (2) Impulse control disorder: Status: Acute (3) Methamphetamine use disorder, severe: Status: Acute (4) Wernicke encephalopathy: Status: Acute (5) Alcohol dependence, uncomplicated: Status: Acute (6) Altered mental status: Status: Resolved (7) Kate: Status: Acute (8) Psychosis: Status: Acute (9) Unspecified psychosis: Status: Acute Plan This is a 51-year-old female with a long history of active addiction to multiple substances, psychosis and altered mental status currently unable to provide any coherent statements. Plan: 1.? Reevaluate medications, she has been noncompliant. Started Invega 6 mg po qdaily and increased to 9 mg. We will recommend a long-acting injection 2.? Continue every 15 minute checks for safety. 3.? Encourage individual, group and milieu therapies. 4.? Encourage sober living treatment after discharge at the highest level of care to which she is willing to commit. 5. Patient now on a 21-day hold. Involuntary Hold Information 96 Hour Hold: 96 Hour Involuntary Admission: No Attestations NPU Medical Necessity Statement*: Inpatient hospitalization is medically necessary and the clinically appropriate intervention at this time. We will monitor medication to make changes as indicated. Likely length of stay 6 to 10 days. 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
[2022-03-12] MEDS: trazodone 50 mg Tablet PO (19:42)
[2022-03-12 21:17] VITALS: BP 126/83; PULSE 114; RESP 17; TEMP 36.8; O2SAT 97
[2022-03-12] MEDS: OLANZapine 5 mg ODT PO (21:57)
[2022-03-13 06:00] VITALS: BP 127/72; PULSE 84; RESP 16; TEMP 36.9; O2SAT 95
[2022-03-13] MEDS: paliperidone 3 MG, paliperidone 6 MG 9 MG PO (09:40)
[2022-03-13] MEDS: multivitamin therapeutic Tablet 1 TAB PO (09:40)
[2022-03-13] MEDS: thiamine 100 mg Tablet PO (09:40)
[2022-03-13] MEDS: folic acid 1 mg Tablet PO (09:40)
[2022-03-13] MEDS: nicotine 2 mg Gum BUCCAL (10:10)
[2022-03-13] MEDS: hyDROXYzine 25 mg Capsule 50 MG PO ×2 (10:36→18:24)
--- NOTE | 2022-03-13 10:37 | PC.NURSE ---
Patient at nurses station stating my nanxiety is really high today. Hydroxyzine 50 mg po given for this.
[2022-03-13] MEDS: ziprasidone hcl 20 mg Capsule PO ×2 (12:10→18:28)
--- NOTE | 2022-03-13 12:13 | PC.NURSE ---
Patient at the nurses station verbally escalated over her belongings list. Patient verbalized the medication that this nurse gave her previously for anxiety did not help. Geodon 20 mg po given for this.
[2022-03-13 14:00] VITALS: BP 134/79; PULSE 91; RESP 16; TEMP 36.6; O2SAT 99
--- NOTE | 2022-03-13 16:44 | W.PM.NPUPNS ---
Subjective NPU Subjective: Patient presents today seeming less volatile than previous days. She appears to be dealing with the momentum of a good day yesterday. We agreed that if she manages her self well today she will be allowed to have a visitor. Her visited without incident. Which is a very significant improvement for her. She was less driven about going home. She did have a moment where she expressed/endorsed anxiety and did get as needed medication to help her continue to avoid outbursts. We began a discussion about Invega Paulina. Mental Status Exam MSE Comments: This is a well-nourished well-developed white female in hospital scrubs with improved grooming and eye contact.? No abnormal movements except for mild psychomotor retardation.? More cooperative with exam in no acute distress.? Speech was more normal rate and volume.? Significant dysarthria made in part to her absent dentition. Mood described as okay, affect less irritable.? Thought process more linear.? Thought content: She denied suicidal or homicidal ideation, there were no delusions reported or noted. She denied any auditory or visual hallucinations and she did not appear to be responding to internal stimuli. ?Attention and concentration were improving and memory was impaired, but none were formally tested.? She is alert and oriented x person and place though she at times seems limited in her appreciation of purpose.? Insight and judgment are impaired, impulse control impaired, but improving. Vitals/I&O/Wt Last Vital Signs Temp 98 F 03/13/22 14:00 Pulse 91 03/13/22 14:00 Resp 16 03/13/22 14:00 BP 134/79 03/13/22 14:00 Pulse Ox 99 03/13/22 14:00 O2 Del Method 03/13/22 14:00 Data NPU : 02/27/22 16:10 02/27/22 16:10 A&P Assessment and plan (1) Psychosis: Status: Acute (2) Impulse control disorder: Status: Acute (3) Methamphetamine use disorder, severe: Status: Acute (4) Wernicke encephalopathy: Status: Acute (5) Alcohol dependence, uncomplicated: Status: Acute (6) Altered mental status: Status: Resolved (7) Kate: Status: Acute (8) Psychosis: Status: Acute (9) Unspecified psychosis: Status: Acute Plan This is a 51-year-old female with a long history of active addiction to multiple substances, psychosis and altered mental status currently unable to provide any coherent statements. Plan: 1.? Reevaluate medications, she has been noncompliant. Started Invega 6 mg po qdaily and increased to 9 mg. We will recommend a long-acting injection 2.? Continue every 15 minute checks for safety. 3.? Encourage individual, group and milieu therapies. 4.? Encourage sober living treatment after discharge at the highest level of care to which she is willing to commit. 5. Patient now on a 21-day hold. Involuntary Hold Information 96 Hour Hold: 96 Hour Involuntary Admission: No Attestations NPU Medical Necessity Statement*: Inpatient hospitalization is medically necessary and the clinically appropriate intervention at this time. We will monitor medication to make changes as indicated. Likely length of stay 5-9 days. 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
[2022-03-13 20:23] VITALS: BP 136/72; PULSE 96; RESP 16; TEMP 36.4; O2SAT 98
[2022-03-14 06:00] VITALS: BP 155/90; PULSE 104; RESP 17; TEMP 36.8; O2SAT 98
[2022-03-14] MEDS: thiamine 100 mg Tablet PO (08:28)
[2022-03-14] MEDS: paliperidone 3 MG, paliperidone 6 MG 9 MG PO (08:28)
[2022-03-14] MEDS: ziprasidone hcl 20 mg Capsule PO ×2 (08:28→17:04)
[2022-03-14] MEDS: multivitamin therapeutic Tablet 1 TAB PO (08:29)
[2022-03-14] MEDS: folic acid 1 mg Tablet PO (08:29)
[2022-03-14] MEDS: acetaminophen 325 mg Tablet 650 MG PO ×2 (09:14→16:11)
--- NOTE | 2022-03-14 09:17 | PC.NURSE ---
Patient with c/o back pain rated 5. Tylenol 650 mg po given for this.
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
[2022-03-14 14:00] VITALS: BP 124/81; PULSE 124; RESP 16; TEMP 37.2; O2SAT 95
[2022-03-14] MEDS: hyDROXYzine 25 mg Capsule 50 MG PO (16:10)
--- NOTE | 2022-03-14 16:12 | PC.NURSE ---
Patient with c/o headache rated 5. Tylenol 650 mg po given. Patient with c/o anxiety. Hydroxyzine 50 mg po given.
--- NOTE | 2022-03-14 17:11 | PC.NURSE ---
Patient at nurses station yelling and hitting patient doors. She verbalized that she was upset that Dr. Castaneda did not see her yet and skipped her. Explained to patien that she was in the bathroom when he went to see her and he would still her. Patient apologized. Patient did verbalize increased anxiety due. Geodon 20 mg po given for this.
[2022-03-14 19:55] VITALS: BP 130/66; PULSE 94; RESP 17; TEMP 36.9; O2SAT 98
[2022-03-15] MEDS: OLANZapine 5 mg ODT PO ×2 (02:43→08:05)
[2022-03-15 06:00] VITALS: BP 135/90; PULSE 101; RESP 16; TEMP 36.6; O2SAT 99
[2022-03-15] MEDS: paliperidone 3 MG, paliperidone 6 MG 9 MG PO (08:05)
[2022-03-15] MEDS: folic acid 1 mg Tablet PO (08:05)
[2022-03-15] MEDS: multivitamin therapeutic Tablet 1 TAB PO (08:05)
[2022-03-15] MEDS: ziprasidone hcl 20 mg Capsule PO ×2 (08:06→16:00)
[2022-03-15] MEDS: thiamine 100 mg Tablet PO (08:06)
[2022-03-15] MEDS: benztropine 1 mg Tablet PO (08:06)
[2022-03-15] MEDS: ibuprofen 600 mg Tablet PO (08:06)
[2022-03-15] MEDS: acetaminophen 325 mg Tablet 650 MG PO (12:30)
[2022-03-15] MEDS: hyDROXYzine 25 mg Capsule 50 MG PO (12:31)
[2022-03-15 14:00] VITALS: BP 185/91; PULSE 108; RESP 20; TEMP 36.8; O2SAT 99
[2022-03-15] MEDS: propranolol 20 mg Tablet 10 MG PO (16:54)
--- NOTE | 2022-03-15 17:07 | PC.NURSE ---
AFTER VISIT WITH PT BECAME AGITATED AND INCREASINGLY. BP WAS ELEVATED TO 185/80 WITH HR 108. PT CONTINUES TO SAY SHE IS HAVING CHEST PAIN WHILE BEATING ON HER CHEST. PT WAS VERBALLY REDIRECTED MULTIPLE TIMES WITH NO EFFECT. PT WAS GIVEN GEODON [address] BROUSSARD WAS NOTIFIED. NEW ORDERS RECEIVED FOR PROPANOLOL 10 MG PO BID. FIRST DOSE WAS GIVEN WITH NO EFFECT. PT CONTINUES TO YELL AT STAFF AND DR BROUSSARD WANTING AN EKG SO SHE CAN BE TRANSFERRED TO THE ER AND LEAVE THIS PLACE. PT WAS EDUCATED THAT IF SHE NEEDED AN EKG ONE WOULD BE ORDERED AND SHE NEEDS TO CALM DOWN AND LET THE MEDICATIONS WORK. PT THEN BEGAN TO CUSS THIS RN OUT AND THEN STOMPED DOWN THE MAK AND WENT TO HER ROOM. SECURITY WAS CALLED FOR STAND BY.
--- NOTE | 2022-03-15 17:22 | PC.NURSE ---
PRN MEDICATION WENT TO ROOM TO SPEAK TO PT ABOUT AGRESSIVE BEHAVIORS AND EDUCATE HER ABOUT CHEST PAIN, AND RETAKING BP. ATTMEPTNG TO DEESCALATE .PT STATES I'VE JUST BEEN WANTING SOMEONE TO LISTEN TO ME ABOUT MY CHEST PAIN. I THINK I'M A HAVING A PANICK ATTACK AND I KEEP ITCHING EVERYWHERE. THIS RN INFORMED PT I AM HERE TO LISTEN TO HER AND ADVOCATE HER NEEDS. ASSESSED HEART AND LUNGS. HR IS 110 APICALLY AND TACHYCARDIC. LUNG LOBES ARE CLEAR IN UPPER BILATERAL LOBES AND DIMINISHED IN BILATERAL BASES, SPO2 96% ON RA. PT DID AGREE TO TAKE BENADRYL 50 MG IN LEFT DELTOID AND 2 MG OF ATIVAN AND 5 MG OF HALDOL GIVEN TO RIGHT DELTOID. PT DID CALM AND BECAME REMORSEFUL ABOUT AGRESSIVE BEHAVIORS. SECURITY WAS ON STANDBY BUT WERE NOT NEEDED.
[2022-03-15] MEDS: diphenhydrAMINE 50 mg/mL SDV 1mL IM (17:25)
[2022-03-15] MEDS: LORazepam 2 mg/mL INJ 1 mL IM (17:25)
--- NOTE | 2022-03-15 17:31 | P.NPUPN_ITS ---
Subjective NPU Subjective: Patient presents today once again hyper focused on discharge. We allowed her to visit and it did not go well after he left. She struggled with emotional regulation. It did not escalate to a code being called but it took her hours to get back to her new baseline. Even before then she was not able to comprehend or take in what the concerns are that led to her staying in the hospital at this point. Demonstrating very limited insight. Spent significant time talking about her addiction and the grave impact is having on her cognitive functioning but she could not understand what was being discussed. Mental Status Exam MSE Comments: This is a well-nourished well-developed white female in hospital scrubs with improved grooming and eye contact.? No abnormal movements except for significant psychomotor agitation at times.? More cooperative with exam at baseline but having moments of extreme distress.? Speech was more normal rate and volume except during her explosion.? Significant dysarthria made in part to her absent dentition. Mood described as why can I go home, help me understand, affect labile.? Thought process more linear.? Thought content: She denied suicidal or homicidal ideation, there were no delusions reported or noted. She denied any auditory or visual hallucinations and she did not appear to be responding to internal stimuli. ?Attention and concentration were improving and memory was impaired, but none were formally tested.? She is alert and oriented x person.? Insight and judgment are impaired, impulse control impaired, but improving. Vitals/I&O/Wt Last Vital Signs Temp 97.8 F 03/15/22 06:00 Pulse 101 H 03/15/22 06:00 Resp 16 03/15/22 06:00 BP 135/90 03/15/22 06:00 Pulse Ox 99 03/15/22 06:00 O2 Del Method 03/15/22 06:00 03/14/22 03/14/22 03/15/22 14:59 22:59 06:59 Intake Total 480 / 480 Balance 480 / 480 Data NPU : 02/27/22 16:10 02/27/22 16:10 Involuntary Hold Information 96 Hour Hold: 96 Hour Involuntary Admission: No Attestations NPU Medical Necessity Statement*: Inpatient hospitalization is medically necessary and the clinically appropriate intervention at this time. We will monitor medication to make changes as indicated. Likely length of stay 4-8 days. 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
--- NOTE | 2022-03-15 17:32 | PC.NURSE ---
URINE DRUG SCREEN + URINE DRUG SCREEN WAS ORDERED DUE TO [employer]ESS[employer] BEHAVIORS AND REPORTS OR CHEST PAIN AFTER SEEING DURING VISIT. UDS WAS ORDERED AND OBTAINED. PT DID ATTEMPT TO THROW URINE AT [facility] BUT WAS VERBALLY REDIRECTED.
--- NOTE | 2022-03-15 18:18 | PC.NURSE ---
NEW ORDERS NOTIFIED DR. BROUSSARD OF HOME MEDICATIONS. NEW ORDERS TO START METFORMIN 500 MG PO BID AND METOPOROL 50 MG PO DAILY. ORDERS PLACED AND PT NOTIFIED OF NEW ORDERS. PTS BP WAS RETAKEN AND BP IS 159/90 WITH HR OF 87.
[2022-03-15 19:12] LABS: Amphetamines Screen Urine Negative (Negative); Barbiturates Screen Urine Negative (Negative); Benzodiazepines Screen Urine Negative (Negative); Cocaine Screen Urine Negative (Negative); Opiate Screen Urine Negative (Negative); PCP Screen Urine Negative (Negative); THC Screen Urine Negative (Negative)
[2022-03-15 22:00] VITALS: RESP 15
[2022-03-16 06:00] VITALS: BP 150/82; PULSE 88; RESP 15; TEMP 37; O2SAT 95
[2022-03-16] MEDS: metoprolol tartrate 50 mg Tablet PO (08:06)
[2022-03-16] MEDS: thiamine 100 mg Tablet PO (08:06)
[2022-03-16] MEDS: folic acid 1 mg Tablet PO (08:06)
[2022-03-16] MEDS: multivitamin therapeutic Tablet 1 TAB PO (08:07)
[2022-03-16] MEDS: ziprasidone hcl 20 mg Capsule PO (08:07)
[2022-03-16] MEDS: paliperidone 3 MG, paliperidone 6 MG 9 MG PO (08:07)
[2022-03-16] MEDS: metformin 500 mg Tablet PO ×2 (08:07→18:13)
--- NOTE | 2022-03-16 11:19 | PC.NURSE ---
NEW ORDERS PT AT DESK REQUESTING MY SHOTS I GOT YESTERDAY, I'M GETTING WORKED UP. NOTIFIED DR. BROUSSARD OF REQUESTS AND REPORTED ANXIETY. NEW ORDERS TO INCREASE INVEGA TO 12 MG PO DAILY TO START TOMORROW WITH A 3 MG DOSE OF INVEGA NOW. [facility] PT NOTIFIED STILL WANTS HER SHOTS.
[2022-03-16] MEDS: ziprasidone 20 mg/mL SDV IM (11:32)
--- NOTE | 2022-03-16 11:39 | PC.NURSE ---
PRN MEDICATION PT CONTINUES TO BE ANXIOUS DEMANDING SHE TAKES HER SHOT LIKE I DID YESTERDAY. SPOKE TO PT IN DEPTH ABOUT MEDICATIONS AND PT FEELS LIKE THE SHOTS WORK BEST AND THAT'S WHAT I'M GOING TO TAKE. SPOKE WITH DR. BROUSSARD AND HE STATED THIS RN COULD GIVE THE PRN GEODON IM. GEODON 20 MG WAS GIVEN IN THE LEFT DELTOID ORERED. ALL QUESTIONS ANSWERED AND SUPPORT VOICED.
[2022-03-16] MEDS: paliperidone ER 3 mg Tablet PO (11:44)
--- NOTE | 2022-03-16 11:44 | PC.NURSE ---
NEW ORDERS NEW ORDERS WERE RECEIVED TO DISCONTINUE GEODON 20 MG PO BID AND TO INCREASE GEODON TO 40 MG BID SCHEDULED. ORDERS PLACED. PT EDUCATED, VERBALIZED UNDERSTANDING.
[2022-03-16 14:00] VITALS: BP 144/79; PULSE 83; RESP 16; TEMP 36.6; O2SAT 95
--- NOTE | 2022-03-16 15:36 | W.PM.NPUPNS ---
Subjective NPU Subjective: Patient presents today being somewhat irritated with staff but identifying her emotional dysregulation and asking for medication preemptively. When we met she was very calm and somewhat disconnected emotionally. She seemed to be dejected about her situation. We continue to discuss our goal to get her discharged but to protect her from her own self-destructive behavior. This was respectful during the interview and denied any new or problematic issues. Mental Status Exam MSE Comments: This is a well-nourished well-developed white female in hospital scrubs with improved grooming and eye contact.? No abnormal movements except for significant psychomotor retardation.? More cooperative with exam in no acute distress.? Speech was decreased rate and volume.? Some dysarthria likely caused in part to her absent dentition. Mood described as okay, affect subdued.? Thought process more linear.? Thought content: She denied suicidal or homicidal ideation, there were no delusions reported or noted. She denied any auditory or visual hallucinations. ?Attention and concentration were improving and memory was impaired, but none were formally tested.? She is alert and oriented x person.? Insight and judgment are impaired, impulse control improving. Vitals/I&O/Wt Last Vital Signs Temp 97.9 F 03/16/22 14:00 Pulse 83 03/16/22 14:00 Resp 16 03/16/22 14:00 BP 144/79 03/16/22 14:00 Pulse Ox 95 03/16/22 14:00 O2 Del Method 03/16/22 14:00 Data NPU : 02/27/22 16:10 02/27/22 16:10 A&P Assessment and plan (1) Psychosis: Status: Acute (2) Impulse control disorder: Status: Acute (3) Methamphetamine use disorder, severe: Status: Acute (4) Wernicke encephalopathy: Status: Acute (5) Alcohol dependence, uncomplicated: Status: Acute (6) Altered mental status: Status: Resolved (7) Kate: Status: Acute (8) Psychosis: Status: Acute (9) Unspecified psychosis: Status: Acute Plan This is a 51-year-old female with a long history of active addiction to multiple substances, psychosis and altered mental status currently unable to provide any coherent statements. Plan: 1.? Reevaluate medications, she has been noncompliant. Started Invega 6 mg po qdaily and increased to 9 mg. We will recommend long-acting injectable. Increased Geodon to 40 mg p.o. twice daily. 2.? Continue every 15 minute checks for safety. 3.? Encourage individual, group and milieu therapies. 4.? Encourage sober living treatment after discharge at the highest level of care to which she is willing to commit. 5. Patient now on a 21-day hold. Involuntary Hold Information 96 Hour Hold: 96 Hour Involuntary Admission: No Attestations NPU Medical Necessity Statement*: Inpatient hospitalization is medically necessary and the clinically appropriate intervention at this time. We will monitor medication to make changes as indicated. Likely length of stay 4-8 days. Coding Level of Care Code Acute Publisher Assistant for [facility] Fwd Diagnoses Psychosis F29 Impulse control disorder F63.9 Methamphetamine use disorder, severe F15.20 Wernicke encephalopathy E51.2 Alcohol dependence, uncomplicated F10.20 Altered mental status R41.82 Kate F30.9 Psychosis F29 Unspecified psychosis F29
[2022-03-16] MEDS: ziprasidone hcl 40 mg Capsule PO (18:13)
[2022-03-16 20:56] VITALS: BP 132/76; PULSE 74; RESP 18; O2SAT 98
[2022-03-17 06:00] VITALS: BP 132/76; PULSE 74; RESP 18; TEMP 36.6; O2SAT 98
--- NOTE | 2022-03-17 08:25 | P.NPUPN_ITS ---
Subjective NPU Subjective: Patient presents today being fairly calm initially. She did report having some shortness of breath and the respiratory consult was requested. She continued however to get in her monitor of what is going to be discharged and why is she being forced to stay. We continue to try to explain her situation to her and we discussed the likelihood of an injection of Geodon but concerns about whether or not she is having significant enough improvement to justify it. Mental Status Exam MSE Comments: This is a well-nourished well-developed white female in hospital scrubs with improved grooming and eye contact.? No abnormal movements except for significant psychomotor retardation.? More cooperative with exam in no acute distress.? Speech was decreased rate and volume.? Some dysarthria likely caused in part to her absent dentition. Mood described as okay, affect tearful.? Thought process more linear.? Thought content: She denied suicidal or homicidal ideation, there were no delusions reported or noted. She denied any auditory or visual hallucinations. ?Attention and concentration were improving and memory was impaired, but none were formally tested.? She is alert and oriented x person.? Insight and judgment are impaired, impulse control improving. Vitals/I&O/Wt Last Vital Signs Temp 97.9 F 03/16/22 14:00 Pulse 74 03/16/22 20:56 Resp 18 03/16/22 20:56 BP 132/76 03/16/22 20:56 Pulse Ox 98 03/16/22 20:56 O2 Del Method 03/16/22 14:00 Data NPU : 02/27/22 16:10 02/27/22 16:10 A&P Assessment and plan (1) Psychosis: Status: Acute (2) Impulse control disorder: Status: Acute (3) Methamphetamine use disorder, severe: Status: Acute (4) Wernicke encephalopathy: Status: Acute (5) Alcohol dependence, uncomplicated: Status: Acute (6) Altered mental status: Status: Resolved (7) Kate: Status: Acute (8) Psychosis: Status: Acute (9) Unspecified psychosis: Status: Acute Plan This is a 51-year-old female with a long history of active addiction to multiple substances, psychosis and altered mental status currently unable to provide any coherent statements. Plan: 1.? Reevaluate medications, she has been noncompliant. Started Invega 6 mg po qdaily and increased to 9 mg. We will recommend long-acting injectable. Increased Geodon to 40 mg p.o. twice daily. 2.? Continue every 15 minute checks for safety. 3.? Encourage individual, group and milieu therapies. 4.? Encourage sober living treatment after discharge at the highest level of care to which she is willing to commit. 5. Patient now on a 21-day hold. Involuntary Hold Information 96 Hour Hold: 96 Hour Involuntary Admission: No Attestations NPU Medical Necessity Statement*: Inpatient hospitalization is medically necessary and the clinically appropriate intervention at this time. We will monitor medication to make changes as indicated. Likely length of stay 4-8 days. Coding Level of Care Code Acute [employer] Consultant for [facility] Fwd Diagnoses Psychosis F29 Impulse control disorder F63.9 Methamphetamine use disorder, severe F15.20 Wernicke encephalopathy E51.2 Alcohol dependence, uncomplicated F10.20 Altered mental status R41.82 Kate F30.9 Psychosis F29 Unspecified psychosis F29
[2022-03-17] MEDS: ziprasidone 20 mg/mL SDV IM (08:40)
[2022-03-17] MEDS: diphenhydrAMINE 50 mg/mL SDV 1mL IM (08:40)
[2022-03-17 08:46] VITALS: BP 121/77; PULSE 127; RESP 19; TEMP 36.6; O2SAT 96
[2022-03-17] MEDS: ziprasidone hcl 40 mg Capsule PO ×2 (10:40→21:35)
[2022-03-17] MEDS: thiamine 100 mg Tablet PO (10:40)
[2022-03-17] MEDS: metoprolol tartrate 50 mg Tablet PO (10:40)
[2022-03-17] MEDS: paliperidone ER 3 mg Tablet 12 MG PO (10:40)
[2022-03-17] MEDS: folic acid 1 mg Tablet PO (10:40)
[2022-03-17] MEDS: metformin 500 mg Tablet PO ×2 (10:40→21:35)
[2022-03-17] MEDS: multivitamin therapeutic Tablet 1 TAB PO (10:40)
--- NOTE | 2022-03-17 11:15 | PC.NURSE ---
PT AT NURSES STATION DEMANDING HER SHOTS FOR THE DAY YELLING ITS THE ONLY THING THAT WORKS FOR ME AND YOU KNOW IT. MED NURSE NOTIFIED TO GIVE PRN MEDS. PT THEN REQUESTED BENADRYL WELL DUE TO ITCHING AND STARTED SCRATCHING HER SELF ALL OVER BODY. NO INJURIES WERE OBSERVED. PT STOPPED WHEN THIS RN INFORMED HER THAT WE WOULD GIVE HER BENADRYL. PT STATES I AM HAVING A HEART ATTACK AND CANT BREATH. PT WAS TACHYCARDIC AT 120. VSS WNL SEE VITAL FLOW SHEET FOR DETAILS. PT WAS GIVEN GEODON AND BENADRYL IM. PT THEN CALMED DOWN ATE BREAKFAST AND WENT TO BED. SHE DID DENY PAIN. DENIES SI/HI AND AVH AT THIS TIME. ALL QUESTIONS ANSWERED AND SUPPORT VOICED.
[2022-03-17] MEDS: propranolol 20 mg Tablet 10 MG PO (13:18)
[2022-03-17] MEDS: OLANZapine 5 mg ODT PO (13:18)
--- NOTE | 2022-03-17 13:19 | PC.NURSE ---
PRN MEDICATIONS PT AT NURSES STATION REQUESTING ANXIETY MEDS AND MY HEART MEDICATION PT WAS GIVEN PROPANOL 10 MG AND ZYDIS 5 MG ORDERED. PT TOOK MEDS AND WENT TO ROOM
[2022-03-17 14:00] VITALS: BP 102/61; PULSE 77; RESP 16; TEMP 36.6; O2SAT 96
[2022-03-17] MEDS: haloperidol inj 5 mg/mL INJ 1 mL IM (16:10)
[2022-03-17] MEDS: LORazepam 2 mg/mL INJ 1 mL IM (16:10)
--- NOTE | 2022-03-17 16:17 | PC.NURSE ---
PRN Med given After patient's visited she became very anxious and agitated. Patient began demanding her haldol and ativan. She was given haldol 5 mg in the right deltoid and ativan 2 mg in the left deltoid.
[2022-03-17 20:15] VITALS: RESP 20
[2022-03-17] MEDS: trazodone 50 mg Tablet PO (21:36)
[2022-03-17 21:57] VITALS: O2SAT 95
[2022-03-18 06:00] VITALS: BP 120/78; PULSE 107; RESP 20; TEMP 36.8; O2SAT 97
--- NOTE | 2022-03-18 07:00 | W.PM.NPUPNS ---
Subjective NPU Subjective: Patient presents today fairly despondent and feeling like she does not know how she is going to get discharged. We discussed the fact that Dr. Galicia will be in tomorrow and service essentially a second opinion. We discussed the critical nature of her not using methamphetamines given how disorganized that has left her. We discussed the long-acting injectable as a consideration for discharge. And once again challenged her to consider some intensive sober living treatment and she continues to be ambivalent. Mental Status Exam MSE Comments: This is a well-nourished well-developed white female in hospital scrubs with improved grooming and eye contact.? No abnormal movements except for significant psychomotor retardation.? More cooperative with exam in no acute distress.? Speech was decreased rate and volume.? Some dysarthria likely caused in part to her absent dentition. Mood described as I think fine, affect subdued.? Thought process more linear.? Thought content: She denied suicidal or homicidal ideation, there were no delusions reported or noted. She denied any auditory or visual hallucinations. ?Attention and concentration were improving and memory was impaired, but none were formally tested.? She is alert and oriented x person.? Insight and judgment are impaired, impulse control improving. Vitals/I&O/Wt Last Vital Signs Temp 98 F 03/17/22 14:00 Pulse 77 03/17/22 14:00 Resp 20 H 03/17/22 20:15 BP 102/61 03/17/22 14:00 Pulse Ox 95 03/17/22 21:57 O2 Del Method 03/17/22 21:57 Data NPU : 02/27/22 16:10 02/27/22 16:10 A&P Assessment and plan (1) Psychosis: Status: Acute (2) Impulse control disorder: Status: Acute (3) Methamphetamine use disorder, severe: Status: Acute (4) Wernicke encephalopathy: Status: Acute (5) Alcohol dependence, uncomplicated: Status: Acute (6) Altered mental status: Status: Resolved (7) Kate: Status: Acute (8) Psychosis: Status: Acute (9) Unspecified psychosis: Status: Acute Plan This is a 51-year-old female with a long history of active addiction to multiple substances, psychosis and altered mental status currently unable to provide any coherent statements. Plan: 1.? Reevaluate medications, she has been noncompliant. Started Invega 6 mg po qdaily and increased to 9 mg. We will recommend long-acting injectable. Increased Geodon to 40 mg p.o. twice daily. 2.? Continue every 15 minute checks for safety. 3.? Encourage individual, group and milieu therapies. 4.? Encourage sober living treatment after discharge at the highest level of care to which she is willing to commit. 5. Patient now on a 21-day hold. Involuntary Hold Information 96 Hour Hold: 96 Hour Involuntary Admission: No Attestations NPU Medical Necessity Statement*: Inpatient hospitalization is medically necessary and the clinically appropriate intervention at this time. We will monitor medication to make changes as indicated. Likely length of stay 3 7 days. Coding Level of Care Code Acute Watch And Clock Repairer for [facility] Fwd Diagnoses Psychosis F29 Impulse control disorder F63.9 Methamphetamine use disorder, severe F15.20 Wernicke encephalopathy E51.2 Alcohol dependence, uncomplicated F10.20 Altered mental status R41.82 Kate F30.9 Psychosis F29 Unspecified psychosis F29
[2022-03-18] MEDS: haloperidol inj 5 mg/mL INJ 1 mL IM (08:21)
[2022-03-18] MEDS: diphenhydrAMINE 50 mg/mL SDV 1mL IM (08:22)
[2022-03-18] MEDS: LORazepam 2 mg/mL INJ 1 mL IM (08:22)
--- NOTE | 2022-03-18 08:23 | PC.NURSE ---
Pt expriencing high levels of anxiety, asking for medication. Administered Ativan 2mg, Haldol 5mg in the Right deltoid, Benadryl 50mg to the left deltoid.
[2022-03-18] MEDS: folic acid 1 mg Tablet PO (08:38)
[2022-03-18] MEDS: thiamine 100 mg Tablet PO (08:38)
[2022-03-18] MEDS: paliperidone ER 3 mg Tablet 12 MG PO (08:38)
[2022-03-18] MEDS: multivitamin therapeutic Tablet 1 TAB PO (08:38)
[2022-03-18] MEDS: metformin 500 mg Tablet PO ×2 (08:38→17:25)
[2022-03-18] MEDS: metoprolol tartrate 50 mg Tablet PO (08:41)
[2022-03-18] MEDS: ziprasidone hcl 40 mg Capsule PO ×2 (11:52→17:25)
[2022-03-18 14:00] VITALS: BP 99/65; PULSE 84; RESP 16; TEMP 36.9; O2SAT 97
[2022-03-18] MEDS: OLANZapine 5 mg ODT PO (18:18)
[2022-03-18] MEDS: propranolol 20 mg Tablet 10 MG PO (18:18)
[2022-03-18 19:45] VITALS: BP 94/59; PULSE 80; RESP 16; TEMP 36.8; O2SAT 95
[2022-03-19 06:00] VITALS: BP 108/66; PULSE 80; RESP 17; TEMP 36.2; O2SAT 98
[2022-03-19] MEDS: metformin 500 mg Tablet PO ×2 (07:41→16:43)
[2022-03-19] MEDS: thiamine 100 mg Tablet PO (07:42)
[2022-03-19] MEDS: ziprasidone hcl 40 mg Capsule PO ×2 (07:42→16:43)
[2022-03-19] MEDS: folic acid 1 mg Tablet PO (07:42)
[2022-03-19] MEDS: paliperidone ER 3 mg Tablet 12 MG PO (07:42)
[2022-03-19] MEDS: multivitamin therapeutic Tablet 1 TAB PO (07:44)
[2022-03-19] MEDS: ibuprofen 600 mg Tablet PO ×2 (08:33→19:18)
[2022-03-19] MEDS: ziprasidone 20 mg/mL SDV IM (08:34)
[2022-03-19] MEDS: metoprolol tartrate 50 mg Tablet PO (08:34)
[2022-03-19] MEDS: diphenhydrAMINE 50 mg/mL SDV 1mL IM ×2 (08:34→16:43)
--- NOTE | 2022-03-19 10:23 | PC.NURSE ---
Nurse note Patient sitting on edge of bed. Says she slept a little last night but was up and down throughout the night. Stated her left leg and back were hurting and rated the pain at a 7 on a 1-10 scale. Patient denies any suicidal or homicidal ideations. Denies any visual or auditory hallucinations. She states she is very anxious and rates it at an 8 on a scale of 1-10. Ibuprofen was given this AM for the pain. Diphenhydramine and Geodon were given IM. Upon listening, her heart rate was a little elevated. Will continue to evaluate if it goes down after giving her metoprolol and anxiety medications. No other concerns at this time.
[2022-03-19 14:00] VITALS: BP 109/76; PULSE 77; RESP 18; TEMP 36.4; O2SAT 99
[2022-03-19] MEDS: acetaminophen 325 mg Tablet 650 MG PO (14:01)
[2022-03-19] MEDS: OLANZapine 5 mg ODT PO (14:50)
--- NOTE | 2022-03-19 15:41 | PC.NURSE ---
PRN Meds Patient stated she was getting anxious and would like her shots. We offered to give her olanzapine instead and she accepted.
[2022-03-19] MEDS: nicotine 4 mg lozenge MUCOUS MEM ×2 (15:46→19:22)
[2022-03-19] MEDS: haloperidol inj 5 mg/mL INJ 1 mL IM (16:44)
--- NOTE | 2022-03-19 17:36 | PC.NURSE ---
PRN MEDICATION/BEHAVIOR PT CONTINUES TO ASK FOR MY SHOTS PT STATES, I SAW THE DRRoxanna AND I'M NOT LEAVING SO I NEED MY SHOT THIS RN EXPLAINED TO PT THAT SHE NEEDS TO USE HER COPING SKILLS. PT STATED NO GIVE ME THE FUCKING SHOT. INFORMED PT I WOULD NEED TO SPEAK TO FIRST AND VERIFY GIVING THEM TO HER. THIS RN WENT AND SPOKE TO DR. LIND IN PERSON AND ASKED IF IT WAS OK TO GIVE INJECTIONS. DR. LIND GAVE THE OK TO GIVE INJECTIONS. HALDOL 5 MG GIVEN IN LEFT DELTOID, BENADRYL 50 MG GIVEN IN RIGHT DELTOID. PT WAS VERY HAPPY AND THANKFUL SHE RECEIVED SHOTS. ALL QUESTIONS ANSWERED AND SUPPORT VOICE.D
--- NOTE | 2022-03-19 18:57 | W.PM.NPUPNS ---
Subjective NPU Subjective: OfPatient is a 51-year-old white female with a history amphetamine dependence and psychosis who reports that she feels ready to return home. Patient had reported that she was feeling better. She continued to minimize the seriousness and the significance of her methamphetamine use and how it it made her extremely ill and unable to be managed in a home setting. Patient continued to believe that outpatient substance abuse treatment was an option for her and continued to minimize the potential nature of the symptoms recurring if she did not take her medications as prescribed and continue to use methamphetamine. She had attributed much of her problems initially on admission to alcohol withdrawal 2 days prior to admission. Mental Status Exam MSE Comments: This is a well-nourished well-developed white female in hospital scrubs with improved grooming and eye contact.? No abnormal movements except for significant psychomotor retardation.? More cooperative with exam in no acute distress.? Speech was decreased rate and volume.? Some dysarthria likely caused in part to her absent dentition. Mood described as better, affect remained flat. ? Thought process was linear but superficial, Thought content: She denied suicidal or homicidal ideation, there were no delusions reported or noted. She denied any auditory or visual hallucinations. ?Attention and concentration were improving and memory was impaired, but none were formally tested.? She is alert and oriented to person.? Insight and judgment were poor. impulse control appeared signficantly improved. . Vitals/I&O/Wt Last Vital Signs Temp 97.6 F 03/19/22 14:00 Pulse 77 03/19/22 14:00 Resp 18 03/19/22 14:00 BP 109/76 03/19/22 14:00 Pulse Ox 99 03/19/22 14:00 O2 Del Method 03/19/22 14:00 Weight last 48 hrs Weight 76.113 kg Data NPU : 02/27/22 16:10 02/27/22 16:10 A&P Assessment and plan (1) Psychosis: Status: Acute (2) Impulse control disorder: Status: Acute (3) Methamphetamine use disorder, severe: Status: Acute (4) Wernicke encephalopathy: Status: Acute (5) Alcohol dependence, uncomplicated: Status: Acute (6) Altered mental status: Status: Resolved (7) Kate: Status: Acute (8) Psychosis: Status: Acute (9) Unspecified psychosis: Status: Acute Plan This is a 51-year-old female with a long history of active addiction to multiple substances, psychosis and altered mental status currently showing continued feeble insight in regards to her well being with likely substance abuse treatment needed. Plan: 1.? Reevaluate medications, she has been noncompliant. Started Invega 9mg daily We will continue to recommend long-acting injectable. Continue Geodon 40mg bid. SHE CONTINUES to request as needed prn for agitation and anxiety. 2.? Continue every 15 minute checks for safety. 3.? Encourage individual, group and milieu therapies. 4.? Encourage sober living treatment after discharge at the highest level of care to which she is willing to commit. 5. Patient now on a 21-day hold. Involuntary Hold Information 96 Hour Hold: 96 Hour Involuntary Admission: No Attestations NPU Medical Necessity Statement*: Inpatient hospitalization is medically necessary and the clinically appropriate intervention at this time. We will monitor medication to make changes as indicated. Likely length of stay 3-7 days. Coding Level of Care Code Established Pt Acute Clinical Studies Specialist for [facility] Patient Type Established History Problem Focused Exam Problem Focused Medical Decision Making Straight Forward Diagnoses Psychosis F29 Impulse control disorder F63.9 Methamphetamine use disorder, severe F15.20 Wernicke encephalopathy E51.2 Alcohol dependence, uncomplicated F10.20 Altered mental status R41.82 Kate F30.9 Psychosis F29 Unspecified psychosis F29
[2022-03-19 19:53] VITALS: BP 108/77; PULSE 85; RESP 17; TEMP 36.7; O2SAT 96
[2022-03-19] MEDS: trazodone 50 mg Tablet PO (20:04)
[2022-03-19] MEDS: hyDROXYzine 25 mg Capsule 50 MG PO (20:04)
[2022-03-20] MEDS: hyDROXYzine 25 mg Capsule 50 MG PO (05:34)
[2022-03-20 06:00] VITALS: BP 123/81; PULSE 86; RESP 17; TEMP 36.6; O2SAT 96
[2022-03-20] MEDS: ziprasidone hcl 40 mg Capsule PO ×2 (08:37→18:22)
[2022-03-20] MEDS: metoprolol tartrate 50 mg Tablet PO (08:37)
[2022-03-20] MEDS: paliperidone ER 3 mg Tablet 12 MG PO (08:37)
[2022-03-20] MEDS: multivitamin therapeutic Tablet 1 TAB PO (08:37)
[2022-03-20] MEDS: thiamine 100 mg Tablet PO (08:37)
[2022-03-20] MEDS: metformin 500 mg Tablet PO ×2 (08:37→18:22)
[2022-03-20] MEDS: OLANZapine 5 mg ODT PO (08:39)
[2022-03-20] MEDS: nicotine 4 mg lozenge MUCOUS MEM ×2 (08:39→13:55)
[2022-03-20] MEDS: folic acid 1 mg Tablet PO (09:49)
[2022-03-20] MEDS: haloperidol 5 mg Tablet PO ×2 (09:50→15:00)
[2022-03-20] MEDS: quetiapine 100 mg Tablet PO (11:05)
[2022-03-20 14:00] VITALS: BP 123/79; PULSE 82; RESP 16; TEMP 36.8; O2SAT 97
[2022-03-20] MEDS: benztropine 1 mg Tablet PO (15:00)
[2022-03-20] MEDS: propranolol 20 mg Tablet 10 MG PO (15:00)
[2022-03-20] MEDS: ziprasidone 20 mg/mL SDV IM (16:08)
--- NOTE | 2022-03-20 18:23 | W.PM.NPUPNS ---
Subjective NPU Subjective: Patient is a 51-year-old white female with a history amphetamine dependence and psychosis who continues to report being ready to return home. Patient had completed an Occupational Therapy evaluation today with the results pending. She had reported a visit from her today and states that she is ready to engage in outpatient treatment but did not wish to consider inpatient treatment at this time. The patient has been compliant on the milieu. She reports having significant anxiety and states that she feels at times restless. The patient continues to repeatedly ask for as needed medications to manage her anxiety and worry and has been receiving as needed's of other antipsychotic medications besides the paliperidone and Geodon. Patient did report at times feeling like she was having difficulties with wanting to come out of her skin. She reported that she often needed to walk and pace on the unit Mental Status Exam MSE Comments: This is a well-nourished well-developed white female in hospital scrubs with improved grooming and eye contact.? No abnormal movements except for significant psychomotor retardation.? More cooperative with exam in no acute distress.? Speech was decreased rate and volume.? Some dysarthria likely caused in part to her absent dentition. Mood described as better, affect remained flat. ? Thought process was linear but superficial, Thought content: She denied suicidal or homicidal ideation, there were no delusions reported or noted. She denied any auditory or visual hallucinations. ?Attention and concentration were improving and memory was impaired, but none were formally tested.? She is alert and oriented to person.? Insight and judgment were poor. impulse control appeared signficantly improved. There was evidence of akathisia. Vitals/I&O/Wt Last Vital Signs Temp 98.2 F 03/20/22 14:00 Pulse 82 03/20/22 14:00 Resp 16 03/20/22 14:00 BP 123/79 03/20/22 14:00 Pulse Ox 97 03/20/22 14:00 O2 Del Method 03/19/22 14:00 Data NPU : 02/27/22 16:10 02/27/22 16:10 A&P Assessment and plan (1) Psychosis: Status: Acute (2) Impulse control disorder: Status: Acute (3) Methamphetamine use disorder, severe: Status: Acute (4) Wernicke encephalopathy: Status: Acute (5) Alcohol dependence, uncomplicated: Status: Acute (6) Altered mental status: Status: Resolved (7) Kate: Status: Acute (8) Psychosis: Status: Acute (9) Unspecified psychosis: Status: Acute Plan This is a 51-year-old female with a long history of active addiction to multiple substances, psychosis and altered mental status currently showing continued feeble insight in regards to her well being with likely substance abuse treatment needed. Plan: 1.? Reevaluate medications, she has been noncompliant. Patient currently appears to have akathisia and I am concerned about Geodon and the multiple other prn agents. I will begin taper of Geodon and reduce immediately to 2omg bid and start seroquel 200mg at night while remaining on invega. 2.? Continue every 15 minute checks for safety. 3.? Encourage individual, group and milieu therapies. 4.? Encourage sober living treatment after discharge at the highest level of care to which she is willing to commit. 5. Patient now on a 21-day hold. Involuntary Hold Information 96 Hour Hold: 96 Hour Involuntary Admission: No Attestations NPU Medical Necessity Statement*: Inpatient hospitalization is medically necessary and the clinically appropriate intervention at this time. We will monitor medication to make changes as indicated. Likely length of stay 4-8 days. Coding Level of Care Code Established Pt Acute Therapeutic Case Manager for [facility] Patient Type Established History Problem Focused Exam Problem Focused Medical Decision Making Straight Forward Diagnoses Psychosis F29 Impulse control disorder F63.9 Methamphetamine use disorder, severe F15.20 Wernicke encephalopathy E51.2 Alcohol dependence, uncomplicated F10.20 Altered mental status R41.82 Kate F30.9 Psychosis F29 Unspecified psychosis F29
[2022-03-20] MEDS: quetiapine 100 mg Tablet 200 MG PO (20:47)
[2022-03-20 21:59] VITALS: BP 120/67; PULSE 80; RESP 16; TEMP 36.9; O2SAT 98
[2022-03-21 06:00] VITALS: BP 120/67; PULSE 80; RESP 16; TEMP 36.9; O2SAT 98
[2022-03-21 06:30] VITALS: BP 118/69; PULSE 80; RESP 16; TEMP 36.9; O2SAT 96
[2022-03-21] MEDS: ziprasidone hcl 20 mg Capsule PO (08:09)
[2022-03-21] MEDS: paliperidone ER 3 mg Tablet 12 MG PO (08:09)
[2022-03-21] MEDS: metformin 500 mg Tablet PO ×2 (08:10→17:25)
[2022-03-21] MEDS: metoprolol tartrate 50 mg Tablet PO (08:10)
[2022-03-21] MEDS: nicotine 4 mg lozenge MUCOUS MEM ×3 (08:38→16:12)
[2022-03-21] MEDS: quetiapine 25 mg Tablet 100 MG PO (08:45)
[2022-03-21] MEDS: haloperidol inj 5 mg/mL INJ 1 mL IM (11:53)
[2022-03-21] MEDS: diphenhydrAMINE 50 mg/mL SDV 1mL IM (11:54)
--- NOTE | 2022-03-21 13:28 | P.NPUPN_ITS ---
Subjective NPU Subjective: Patient is a 51-year-old white female with a history amphetamine dependence and psychosis who continues to request as needed medications for managing her anxiety. She states that she is agreeable to considering outpatient [facility] but does not feel that inpatient treatment for her substance abuse is necessary. [facility] had shown evidence of requiring assistance in 8 out of 13 areas and appeared to support the idea that she would possibly struggle with maintaining independent living without substantial supervision despite her current beliefs regarding her ability to care for herself. The patient had continue to struggle with manner managing her anxiety but states that she wishes to return to live with her . She is reports struggles with being in groups at times and appeared minimally engaged in therapy on the milieu. Mental Status Exam MSE Comments: This is a well-nourished well-developed white female in hospital scrubs with improved grooming and eye contact.? No abnormal movements except for significant psychomotor retardation.? More oppositional with exam but in no acute distress. ? Speech was decreased rate and normal volume.? Some dysarthria likely caused in part to her absent dentition. Mood described as annoyed, affect was labile. ? Thought process was linear but superficial, Thought content: She denied suicidal or homicidal ideation, there were no delusions reported or noted. She denied any auditory or visual hallucinations. ?Attention and concentration were improving and memory was impaired, but none were formally tested.? She is alert and oriented to person.? Insight was feeble and judgment was poor. impulse control was still poor. Less akathisia appreciated. Vitals/I&O/Wt Last Vital Signs Temp 98.5 F 03/21/22 06:30 Pulse 80 03/21/22 06:30 Resp 16 03/21/22 06:30 BP 118/69 03/21/22 06:30 Pulse Ox 96 03/21/22 06:30 O2 Del Method 03/21/22 06:30 Data NPU : 02/27/22 16:10 02/27/22 16:10 A&P Assessment and plan (1) Psychosis: Status: Acute (2) Impulse control disorder: Status: Acute (3) Methamphetamine use disorder, severe: Status: Acute (4) Wernicke encephalopathy: Status: Acute (5) Alcohol dependence, uncomplicated: Status: Acute (6) Altered mental status: Status: Resolved (7) Kate: Status: Acute (8) Psychosis: Status: Acute (9) Unspecified psychosis: Status: Acute Plan This is a 51-year-old female with a long history of active addiction to multiple substances, psychosis and altered mental status currently showing continued feeble insight in regards to her well being with likely substance abuse treatment needed. Plan: 1.? Reevaluate medications, she has been noncompliant. Patient currently appears to have akathisia but improving, I have discontinued Geodon, and Seroquel increased to 100mg in am, 200mg at night. 2.? Continue every 15 minute checks for safety. 3.? Encourage individual, group and milieu therapies. 4.? Encourage sober living treatment after discharge at the highest level of care to which she is willing to commit. 5. Patient now on a 21-day hold. Involuntary Hold Information 96 Hour Hold: 96 Hour Involuntary Admission: No Attestations NPU Medical Necessity Statement*: Inpatient hospitalization is medically necessary and the clinically appropriate intervention at this time. We will monitor medication to make changes as indicated. Likely length of stay 2-3days. Coding Level of Care Code Established Pt Acute Financial Compliance Manager for Jerry Ellis Patient Type Established History Problem Focused Exam Problem Focused Medical Decision Making Straight Forward Diagnoses Psychosis F29 Impulse control disorder F63.9 Methamphetamine use disorder, severe F15.20 Wernicke encephalopathy E51.2 Alcohol dependence, uncomplicated F10.20 Altered mental status R41.82 Kate F30.9 Psychosis F29 Unspecified psychosis F29
[2022-03-21 14:00] VITALS: BP 109/73; PULSE 83; RESP 20; TEMP 36.7; O2SAT 96
[2022-03-21] MEDS: haloperidol 5 mg Tablet PO (16:12)
[2022-03-21] MEDS: propranolol 20 mg Tablet 10 MG PO (16:12)
[2022-03-21] MEDS: ibuprofen 600 mg Tablet PO (17:25)
[2022-03-21] MEDS: benztropine 1 mg Tablet PO (17:52)
[2022-03-21 21:18] VITALS: RESP 17
[2022-03-21] MEDS: quetiapine 100 mg Tablet 200 MG PO (21:29)
[2022-03-22 06:00] VITALS: BP 108/67; PULSE 102; RESP 16; TEMP 36.7; O2SAT 98
[2022-03-22] MEDS: quetiapine 100 mg Tablet PO ×2 (06:19→14:55)
[2022-03-22] MEDS: metformin 500 mg Tablet PO ×2 (10:54→17:46)
[2022-03-22] MEDS: OLANZapine 5 mg ODT PO (10:54)
[2022-03-22] MEDS: metoprolol tartrate 50 mg Tablet PO (10:54)
[2022-03-22] MEDS: paliperidone ER 3 mg Tablet 12 MG PO (10:55)
[2022-03-22] MEDS: nicotine 4 mg lozenge MUCOUS MEM ×2 (11:08→16:07)
[2022-03-22] MEDS: benztropine 1 mg Tablet PO (13:31)
[2022-03-22] MEDS: propranolol 20 mg Tablet 10 MG PO (13:31)
[2022-03-22 14:00] VITALS: BP 103/54; PULSE 81; RESP 17; TEMP 36.7; O2SAT 96
--- NOTE | 2022-03-22 14:32 | PC.NURSE ---
NEW ORDERS DR. GOMEZ GAVE ORDERS TO START SEROQUEL 100 MG AT 1400 DAILY IN CONJUNCTION HER AM DOSE AND BEDTIME DOSE. PT EDUCATED ON NEW ORDERS AND VERBVALIZES UNDERSTANDING. 1400 DOSE TO START NOW, MED NURSE NOTIFIED
[2022-03-22] MEDS: haloperidol 5 mg Tablet PO (16:17)
--- NOTE | 2022-03-22 18:39 | W.PM.NPUPNS ---
Subjective NPU Subjective: Patient is a 51-year-old white female with a history amphetamine dependence and psychosis who continues to request as needed medications for managing her anxiety. Patient continues to be redirectable on the milieu but has continued to repeat request medications to manage her anxiety. She reported having increased craving cravings for alcohol and reports that she had been given a prescription for naltrexone to manage her alcohol dependence. She continued to report that she wished to have outpatient substance abuse treatment despite previously stating that inpatient substance abuse treatment may be necessary. Patient had reported continued desire to return to live with her and reported that she wanted to get family counseling. She minimized any thoughts of hurting herself or others today. Mental Status Exam MSE Comments: This is a well-nourished well-developed white female who appeared much older than her stated age. She was wearing hospital scrubs with adequate grooming and fair eye contact.? No abnormal movements except for significant psychomotor retardation.? Cooperative with exam today and in no acute distress. ? Speech was decreased rate and normal volume.? Some dysarthria likely caused in part to her absent dentition. Mood described as annoyed, affect was labile. ? Thought process was linear but superficial, Thought content: She denied suicidal or homicidal ideation, there were no delusions reported or noted. She denied any auditory or visual hallucinations. ?Attention and concentration were improving and memory was impaired, but none were formally tested.? She is alert and oriented to person.? Insight was feeble and judgment was poor. impulse control was still poor. Less akathisia appreciated. Vitals/I&O/Wt Last Vital Signs Temp 98.0 F 03/22/22 14:00 Pulse 81 03/22/22 14:00 Resp 17 03/22/22 14:00 BP 103/54 03/22/22 14:00 Pulse Ox 96 03/22/22 14:00 O2 Del Method 03/22/22 14:00 Data NPU : 02/27/22 16:10 02/27/22 16:10 A&P Assessment and plan (1) Psychosis: Status: Acute (2) Impulse control disorder: Status: Acute (3) Methamphetamine use disorder, severe: Status: Acute (4) Wernicke encephalopathy: Status: Acute (5) Alcohol dependence, uncomplicated: Status: Acute (6) Altered mental status: Status: Resolved (7) Kate: Status: Acute (8) Psychosis: Status: Acute (9) Unspecified psychosis: Status: Acute Plan This is a 51-year-old female with a long history of active addiction to multiple substances, psychosis and altered mental status currently showing continued feeble insight in regards to her well being with likely substance abuse treatment needed. Plan: 1.? Reevaluate medications, she has been noncompliant. Patient currently appears to have akathisia but improving, continue paliperidone 12mg as prescribed, and increase seroquel 100mg in am, 100mg at 2PM, 200mg at night. Start naltrexone 50mg in am. 2.? Continue every 15 minute checks for safety. 3.? Encourage individual, group and milieu therapies. 4.? Encourage sober living treatment after discharge at the highest level of care to which she is willing to commit. 5. Patient now on a 21-day hold. Involuntary Hold Information 96 Hour Hold: 96 Hour Involuntary Admission: No Attestations NPU Medical Necessity Statement*: Inpatient hospitalization is medically necessary and the clinically appropriate intervention at this time. We will monitor medication to make changes as indicated. Likely length of stay 2-3days. Coding Level of Care Code Established Pt Acute Set O Type Operator for Jerry Ellis Patient Type Established History Problem Focused Exam Problem Focused Medical Decision Making Straight Forward Diagnoses Psychosis F29 Impulse control disorder F63.9 Methamphetamine use disorder, severe F15.20 Wernicke encephalopathy E51.2 Alcohol dependence, uncomplicated F10.20 Altered mental status R41.82 Kate F30.9 Psychosis F29 Unspecified psychosis F29
[2022-03-22] MEDS: quetiapine 100 mg Tablet 200 MG PO (21:01)
[2022-03-22 21:59] VITALS: BP 95/64; PULSE 100; RESP 17; TEMP 36.4; O2SAT 100
[2022-03-23] MEDS: hyDROXYzine 25 mg Capsule 50 MG PO ×2 (02:26→20:10)
[2022-03-23] MEDS: trazodone 50 mg Tablet PO ×2 (02:26→20:10)
[2022-03-23 06:00] VITALS: BP 112/73; PULSE 103; RESP 17; TEMP 36.8; O2SAT 95
[2022-03-23] MEDS: metoprolol tartrate 50 mg Tablet PO (09:04)
[2022-03-23] MEDS: metformin 500 mg Tablet PO ×2 (09:05→17:27)
[2022-03-23] MEDS: naltrexone hcl 50 mg Tablet PO (09:05)
[2022-03-23] MEDS: paliperidone ER 6 mg Tablet 12 MG PO (09:06)
[2022-03-23] MEDS: quetiapine 100 mg Tablet PO ×2 (09:07→15:08)
--- NOTE | 2022-03-23 10:07 | PC.NURSE ---
Nurse Assessment Patient is lying in bed asleep. When I entered the room she woke up and was very angry I had awakened her. She quickly joellen out of bed and said, this is just great. You guys wake me up as soon as I finally get to sleep. Patient stated she had no suicidal or homicidal ideations. Denied any auditory or visual hallucinations. She stated she did not sleep well at all last night. She denied any pain or anxiety despite exhibiting anxious behaviors like tapping her foot.
[2022-03-23 10:32] LABS: Glucose Point of Care 189 mg/dL (70-110)
[2022-03-23 14:00] VITALS: BP 102/64; PULSE 76; RESP 18; TEMP 36.6; O2SAT 98
[2022-03-23] MEDS: nicotine 4 mg lozenge MUCOUS MEM ×2 (15:15→20:10)
[2022-03-23] MEDS: ibuprofen 600 mg Tablet PO (15:59)
--- NOTE | 2022-03-23 18:13 | P.NPUPN_ITS ---
Subjective NPU Subjective: Patient is a 51-year-old white female with a history amphetamine dependence and psychosis admitted with disorganized behavior currently on Paliperidone and seroquel. The patient had not required any use of as needed antipsychotic medications yesterday for the first time here in the hospital. She had reported that she is motivated to return home and continue her treatment on an outpatient basis for substance abuse. She reports no current side effects from her medication. She denies any feelings of hopelessness or worthlessness. Mental Status Exam MSE Comments: This is a well-nourished well-developed white female who appeared much older than her stated age. She was wearing hospital scrubs with adequate grooming and fair eye contact.? No abnormal movements except for significant psychomotor retardation.? Cooperative with exam today and in no acute distress. ? Speech was normal in rate and normal volume.? Some mild dysarthria appreciated. Mood described as okay. Her affect was restricted. ? Thought process was linear but superficial, Thought content: She denied suicidal or homicidal ideation, there were no delusions reported or noted. She denied any auditory or visual hallucinations. ?Attention and concentration were improving and memory was impaired, but none were formally tested.? She is alert and oriented to person.? Insight was poor and judgment was guarded. impulse control was improving. No akathisia appreciated. Vitals/I&O/Wt Last Vital Signs Temp 97.8 F 03/23/22 14:00 Pulse 76 03/23/22 14:00 Resp 18 03/23/22 14:00 BP 102/64 03/23/22 14:00 Pulse Ox 98 03/23/22 14:00 O2 Del Method 03/23/22 14:00 Data NPU : 02/27/22 16:10 02/27/22 16:10 A&P Assessment and plan (1) Psychosis: Status: Acute (2) Impulse control disorder: Status: Acute (3) Methamphetamine use disorder, severe: Status: Acute (4) Wernicke encephalopathy: Status: Acute (5) Alcohol dependence, uncomplicated: Status: Acute (6) Altered mental status: Status: Resolved (7) Kate: Status: Acute (8) Psychosis: Status: Acute (9) Unspecified psychosis: Status: Acute Plan This is a 51-year-old female with a long history of active addiction to multiple substances, psychosis and altered mental status currently showing continued feeble insight in regards to her well being with likely substance abuse treatment needed. Plan: 1.? Reevaluate medications, she has been noncompliant. Patient currently appears to have akathisia but improving, continue paliperidone 12mg as pr escribed, and continue paliperidone seroquel 100mg in am, 100mg at 2PM, 200mg at night. Continue naltrexone 50mg in am. 2.? Continue every 15 minute checks for safety. 3.? Encourage individual, group and milieu therapies. 4.? Encourage sober living treatment after discharge at the highest level of care to which she is willing to commit. 5. Patient likely d/c tomorow. . Involuntary Hold Information 96 Hour Hold: 96 Hour Involuntary Admission: No Attestations NPU Medical Necessity Statement*: Inpatient hospitalization is medically necessary and the clinically appropriate intervention at this time. We will monitor medication to make changes as indicated with likely discharge tommorow. Coding Level of Care Code Established Pt Acute Career Advisor for Jerry Ellis Patient Type Established History Problem Focused Exam Problem Focused Medical Decision Making Straight Forward Diagnoses Psychosis F29 Impulse control disorder F63.9 Methamphetamine use disorder, severe F15.20 Wernicke encephalopathy E51.2 Alcohol dependence, uncomplicated F10.20 Altered mental status R41.82 Kate F30.9 Psychosis F29 Unspecified psychosis F29
[2022-03-23] MEDS: quetiapine 100 mg Tablet 200 MG PO (20:09)
[2022-03-23 20:24] VITALS: BP 93/64; PULSE 103; RESP 18; O2SAT 97
[2022-03-24 06:00] VITALS: BP 116/85; PULSE 83; RESP 17; O2SAT 97
[2022-03-24] MEDS: ibuprofen 600 mg Tablet PO (06:33)
[2022-03-24] MEDS: nicotine 4 mg lozenge MUCOUS MEM (06:33)
[2022-03-24] MEDS: paliperidone ER 6 mg Tablet 12 MG PO (08:11)
[2022-03-24] MEDS: quetiapine 100 mg Tablet PO (08:13)
[2022-03-24] MEDS: metformin 500 mg Tablet PO (08:14)
[2022-03-24] MEDS: naltrexone hcl 50 mg Tablet PO (08:14)
[2022-03-24] MEDS: metoprolol tartrate 50 mg Tablet PO (08:14)
[2022-03-24 08:24] LABS: Glucose Point of Care 101 mg/dL (70-110)
--- NOTE | 2022-03-24 09:22 | P.NPUDS_ITS ---
Diagnoses at Discharge Discharge Diagnosis (1) Psychosis: Status: Resolved (2) Impulse control disorder: Status: Acute (3) Methamphetamine use disorder, severe: Status: Resolved (4) Alcohol dependence, uncomplicated: Status: Acute (5) Altered mental status: Status: Resolved (6) Kate: Status: Resolved (7) Psychosis: Status: Resolved (8) Unspecified psychosis: Status: Resolved Reason for Visit Reason for Visit: MHE Brief History: Chief Complaint:?? MHE HPI NPU History of Present Illness Keya Castaneda is a 51 year old female brought to the emergency room with altered mental status.? She arrived at the emergency room with her who had reported that Delia had been using methamphetamine and had been out of control in the home environment.? The patient on interview today on the neuropsychiatric unit had reported methamphetamine use 2 days ago.? She was in no condition to provide any accurate history today.? There was complaints elicited by the patie nt that she was hearing the voice of the devil inside of her skull and reports that it is haunting her and her family.? She had reported that she wished to be home with her . She had been hospitalized in October of this year with an excerpt here that appears familiar: is a 51-year-old female with a history of high blood pressure ADD, bipolar disorder, depression who presents to the emergency room for concerns of altered mental status and elevated blood pressure.? Per EMS, patient was outside when she called EMS today for concerns of elevated blood pressure.? By the time EMS arrived, patient was smiling and confused.? EMS tells me that patient cannot stop smiling and was reported to be digging in somebody else's backyard.? Patient on arrival does not recall any of this.? Patient reports that her blood pressure is elevated.? Patient denies any active complaints, chest pain shortness breath palpitation abdominal complaints nausea/vomiting, diarrhea focal weakness, or any other complaints at this time.? Patient denies any ingestion at this time.? No history of thyroid issues.? Patient denies any headache or any other neurological complaints.? Police brought in involuntary commitment form given concerns for patient's safety and inability to care of self. Onset: unknown Duration:ongoing Location:streets Severity:moderate/severe Associated symptoms: Deny chest pain, dyspnea, nausea, rash, palpitations or vomiting Previous psychiatric history: She has a history of multiple inpatient psychiatric hospitalizations most recently at the [facility] in October of this year.? She has a history of outpatient services through [facility]. Outpatient psychiatric history:? She has a past history of treatment under Dr. Kwesi Ibrahim at [facility] most recently in September 2021.? She has a past history of reported Wernicke's encephalopathy and an extended history of alcohol and substance abuse.? She has a history of notable noncompliance with taking her medications and had previously been discharged on lithium paliperidone and clonidine all of which she has been noncompliant with. Medical History: hypertension Allergies; nkda Surgeries; unknown Social History: Per previous records, the patient had reported a good childhood.? She had graduated high school and had some college.? She is a practicing heterosexual and has a long relationship with her first .? She reports being raised in a good [employer] family and reports no history per previous records.? There was no history of any developmental delays reported per previous records.? Her legal history is unknown at this time. Family psychiatric history: possible addiction history in first degree relatives. Medications on admission: none Hospital Course Hospital Course During the hospitalization, patient had routine laboratory studies which were within normal limits except for few outliers.? Additionally there was a general medical evaluation which was also within normal limits and revealed no new acute processes. Keya toxicology screen was positive for amphetamine and alcohol on admission. She was extremely psychotic and required the use of multiple use of antipsychotics for several days and the patient was placed on CIWA protocol and given ativan for potential alcohol withdrawal related symptoms for the first 72 hours of admission. She was eventually started on routine medications which stabilized her over the course of weeks. Discharge Summary: At the time of discharge, lethality was denied and psychosis was resolving.? Mood and anxiety were well managed.? Patient endorsed a plan to avoid all drugs of abuse and follow-up with the aftercare recommendations of the treatment team.? Patient was evaluated and deemed to be absent credible lethality, and had achieved the maximum benefit from an inpatient hospitalization, so was discharged. There was still great concern that she was refusing dual diagnosis treatment on an inpatient basis which was recommended by the treatment team. Involuntary Hold Information 96 Hour Hold: 96 Hour Involuntary Admission: No Mental Status Exam MSE Comments: This is a well-nourished well-developed white female who appeared much older than her stated age. She was wearing hospital scrubs with adequate grooming and fair eye contact.? No abnormal movements except for significant psychomotor retardation.? Cooperative with exam today and in no acute distress. ? Speech was normal in rate and normal volume.? Some mild dysarthria appreciated. Mood described as okay. Her affect was restricted. ? Thought process was linear but superficial, Thought content: She denied suicidal or homicidal ideation, there were no delusions reported or noted. She denied any auditory or visual hallucinations. ?Attention and concentration were improving and memory was impaired, but none were formally tested.? She is alert and oriented to person.? Insight was poor and judgment was guarded. impulse control was improving. No akathisia appreciated. Discharge Data Studies Completed and Pending: Laboratory Results WBC 5.6 10^3/uL (4.0- 10.0) 02/27/22 16:10 RBC 4.17 10^6/uL (4.1 -5.3) 02/27/22 16:10 Hgb 9.6 g/dL (11.5-15 .3) L 02/27/22 16:10 Hct 31.4 % (37.0-47.0 ) L 02/27/22 16:10 MCV 75.3 fl (81-99) L 02/27/22 16:10 MCH 23.0 pg (28.0-34. 0) L 02/27/22 16:10 MCHC 30.6 g/dL (30.0-3 6.0) 02/27/22 16:10 RDW 16.6 % (12.1-15.1 ) H 02/27/22 16:10 Plt Count 278 10^3/cmm (130 -400) 02/27/22 16:10 MPV 10.2 fL (7.4-10.4 ) 02/27/22 16:10 Neut % (Auto) 64.8 % 02/27/22 16:10 Lymph % (Auto) 26.5 % 02/27/22 16:10 [place] % (Auto) 5.9 % 02/27/22 16:10 Eos % (Auto) 2.2 % 02/27/22 16:10 Baso % (Auto) 0.4 % 02/27/22 16:10 Neut # (Auto) 3.62 10^3/uL (1.8 -7.7) 02/27/22 16:10 Lymph # (Auto) 1.5 10^3/uL (0.8- 4.8) 02/27/22 16:10 [place] # (Auto) 0.3 10^3/uL (0.2- 0.9) 02/27/22 16:10 Eos # (Auto) 0.1 10^3/uL (0.0- 0.8) 02/27/22 16:10 Baso # (Auto) 0.0 10^3/uL (0.0- 0.1) 02/27/22 16:10 Nucleated RBC % (a uto) 0 % 02/27/22 16:10 Nucleated RBCs # 0.0 /100WBC 02/27/22 16:10 Sodium 142 mmol/L (136-1 45) 02/27/22 16:10 Potassium 3.9 mmol/L (3.5-5 .1) 02/27/22 16:10 Chloride 106 mmol/L (98-10 7) 02/27/22 16:10 Carbon Dioxide 25 mmol/L (22-29) 02/27/22 16:10 Anion Gap 14.9 (5-19) 02/27/22 16:10 BUN 10 mg/dL (6-20) 02/27/22 16:10 Creatinine 0.5 mg/dL (0.5-0. 9) 02/27/22 16:10 GFR Calculation 129.6 mL/min (90- 130) 02/27/22 16:10 Glucose 98 mg/dL (65-115) 02/27/22 16:10 POC Glucose 101 mg/dL (70-110 ) 03/24/22 08:20 Calculated Osmolal ity 293 mOsm/kg (285- 295) 02/27/22 16:10 Calcium 8.6 mg/dL (8.5-10 .5) 02/27/22 16:10 Total Bilirubin 0.2 mg/dL (0.15-1 .2) 02/27/22 16:10 AST 22 U/L (0-32) 02/27/22 16:10 ALT 13 U/L (0-33) 02/27/22 16:10 Alkaline Phosphata se 73 IU/L (35-105) 02/27/22 16:10 Total Protein 6.5 g/dL (6.6-8.7 ) L 02/27/22 16:10 Albumin 4.4 g/dL (3.5-5.2 ) 02/27/22 16:10 Globulin 2.1 g/dL (1.3-4.6 ) 02/27/22 16:10 Lipase 14 U/L (13-60) 02/27/22 16:10 Salicylates 0.4 mg/dL (3-10) L 02/27/22 16:10 Urine Opiates Scre en Negative ng/mL (N egative) 03/15/22 17:00 Acetaminophen < 5.0 ug/mL (10-3 0) L 02/27/22 16:10 Ur Barbiturates Sc reen Negative ng/mL (N egative) 03/15/22 17:00 Ur Phencyclidine S crn Negative ng/mL (N egative) 03/15/22 17:00 Ur Amphetamines Sc reen Negative ng/mL (N egative) 03/15/22 17:00 U Benzodiazepines Scrn Negative ng/mL (N egative) 03/15/22 17:00 Urine Cocaine Scre en Negative ng/mL (N egative) 03/15/22 17:00 U Marijuana (THC) Screen Negative ng/mL (N egative) 03/15/22 17:00 Ethyl Alcohol 36 mg/dL (0-10) H 02/27/22 16:10 Hep Bs Antigen Non-reactive (No nreactive) 03/09/22 17:10 Hepatitis C Antibo dy Non-reactive (No nreactive) 03/09/22 17:10 HIV 1&2 Ab & HIV 1 Ag Non-reactive (No n-Reactiv) 03/09/22 17:10 HIV 1&2 Antibody Non-reactive (No n-Reactiv) 03/09/22 17:10 Vitals: Last Vital Signs Temp 97.8 F 03/23/22 14:00 Pulse 83 03/24/22 06:00 Resp 17 03/24/22 06:00 BP 116/85 03/24/22 06:00 Pulse Ox 97 03/24/22 06:00 O2 Del Method 03/23/22 14:00 Discharge Plan Discharge Patient Disposition: Home Condition: Stable Prescriptions: New naltrexone 50 mg Tablet 50 mg PO DAILY 30 Days Qty: 30 1RF quetiapine 100 mg Tablet 100 mg PO 1600 30 Days Qty: 30 1RF quetiapine 100 mg Tablet 200 mg PO BEDTIME 30 Days Qty: 60 1RF quetiapine 100 mg Tablet 100 mg PO 0800 30 Days Qty: 30 1RF metoprolol tartrate 50 mg Tablet 50 mg PO DAILY 30 Days Qty: 30 1RF paliperidone 6 mg Tablet Extended Release 24hr 12 mg PO DAILY 30 Days Qty: 60 1RF Continued atorvastatin 20 mg Tablet 20 mg PO DAILY metformin 500 mg tablet 500 mg PO BID 30 Days Qty: 60 1RF Discontinued clonidine HCl 0.2 mg Tablet 0.2 mg PO BID metoprolol tartrate 50 mg tablet 50 mg PO BID lithium carbonate 300 mg Capsule 300 mg PO 0900,2100 30 Days Qty: 60 1RF paliperidone 3 mg Tablet Extended Release 24hr 3 mg PO DAILY 30 Days Qty: 30 1RF paliperidone 6 mg Tablet Extended Release 24hr 6 mg PO DAILY 30 Days Qty: 30 1RF quetiapine 300 mg Tablet 300 mg PO BEDTIME 30 Days Qty: 30 1RF olanzapine 5 mg Tablet,Disintegrating 5 mg PO BID PRN (Reason: Agitation/Psychosis) 30 Days Qty: 30 1RF No Action Invega Sustenna 78 mg/0.5 mL syringe 78 mg IM Q30D 30 Days Qty: 0.5 1RF Discharge Orders: Discharge Order (Routine); Ordered 03/24/22 Ordered By: Devin Galicia Referrals: [facility] [Outside] - 7-10 days (Call for admission date. ) Daxa Rivas MD [[place]] - 03/29/22 2:45 pm Raiza Woo MD [Primary Care Provider] - Discharge Diet: Advance as tolerated Discharge Activity: Resume usual activity Patient Instructions: Metoprolol (By mouth), Naltrexone (By mouth) (Revia), Quetiapine (By mouth), Paliperidone (By mouth), Psychotic Disorder (DC), Opioid Safety Discharge Attestations NPU Time Spent in Discharge Care*: less than 30 min Specific Discharge Activities: Specific discharge activities: educating pat ient, educating and/or supporting family/caregiver, discussing with pcp/other providers, discussing with shoe caser/social workers/dc planners, documenting/other paperwork and evaluating patient/reviewing data Coding Level of Care Code Established Pt Acute Chg FW DC note Patient Type Established History Problem Focused Exam Problem Focused Medical Decision Making Straight Forward Diagnoses Psychosis F29 Impulse control disorder F63.9 Methamphetamine use disorder, severe F15.20 Alcohol dependence, uncomplicated F10.20 Altered mental status R41.82 Kate F30.9 Psychosis F29 Unspecified psychosis F29
== END 2022-03-24 10:35 | disposition home or self-care (01) | DRG 885 ==
LOC: ER 16:18 → NP 20:08
PROVIDERS: Psychiatry & Neurology Psychiatry; Admitting Provider Psychiatry & Neurology Psychiatry; Emergency Provider Emergency Medicine; PCP Family Medicine; Visit Provider Psychiatry & Neurology Psychiatry
DX: F29 Unspecified psychosis not due to a substance or known physiological condition (principal); F15.20 Other stimulant dependence, uncomplicated; E51.2 Wernicke's encephalopathy; F63.9 Impulse disorder, unspecified; I10 Essential (primary) hypertension; F31.9 Bipolar disorder, unspecified; F17.210 Nicotine dependence, cigarettes, uncomplicated; F10.20 Alcohol dependence, uncomplicated; F41.9 Anxiety disorder, unspecified
CPT/HCPCS: 36415; 36416; 80053; 80306; 80307; 82962; 83690; 85025; 86803; 87340; 87806; 93005; 94664; 96372; 97150; 97165; 99285; J1200; J1630; J2060; J3486

== ENCOUNTER → 2023-01-31 13:54 | Outpatient (BNVA) | payer MEDICAID, SELFPAY | PROVIDERS: PCP Family Medicine; Visit Provider Psychiatry & Neurology Psychiatry | DX: Z79.899 Other long term (current) drug therapy (principal) | CPT/HCPCS: 80053; 80061; 83036; 84443; 85025 ==

== ENCOUNTER 2023-03-27 11:25 | Emergency (ER) | payer MEDICAID, SELFPAY ==
[2023-03-27 11:42] VITALS: BP 158/112; PULSE 136; RESP 17; TEMP 36.6; O2SAT 97
--- NOTE | 2023-03-27 12:18 | W.ED.ALCOHOL ---
HPI - Alcohol General: Chief Complaint: Alcohol Stated Complaint: withdrawal Time Seen by Provider: 03/27/23 12:13 Source: patient and family () Mode of arrival: wheelchair Limitations: altered mental status (intoxicated) History of Present Illness: Patient is a 52-year-old female with a longstanding history of alcohol abuse and dependence here stating she is toxic from alcohol . states she has been on an alcohol binge recently stating she drinks a gallon of vodka a day. He states today she hasn't had that much and am concerned she could go into DTs . Patient states her last drink of alcohol was prior to arrival in the ED. History from patient herself is difficult to obtain as she is fairly belligerent at the moment and rolling around on the bed hollering help me . She tells me she is not suicidal. She states she wants to get sober and go to rehab. Patient's physical complaint this time is my whole body hurts . MD complaint: alcohol intoxication and alcohol dependence Last drink: Hours (ago) Chronic alcohol use: Yes Previous visits for alcohol intoxication: Yes Recent trauma: No Associated symptoms: Reports no associated symptoms; Deny abdominal pain or vomiting Treatments prior to arrival: none Review of Systems Const: Reports: other (says her whole body hurts); Denies: fever(s), chills, fatigue or malaise Eyes: Denies: change in vision, blurry vision, photophobia, floaters or seeing flashes Card: Denies: chest pain Resp: Denies: dyspnea GI: Denies: abdominal pain, vomiting or diarrhea Skin/Breast: Denies: rash Neuro: Denies: headache(s), numbness in extremities, weakness in extremities, sensory changes or dizziness PFSH ED PFSH: Medical History ADD (attention deficit disorder) Attention and concentration deficit Bipolar disorder Depression HTN (hypertension) Hyperglycemia Manic depressive disorder Other termite helper (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) drug therapy Polysubstance abuse Psychiatric care Psychosis Uterine cancer Wernicke encephalopathy Surgical History History of History of plastic surgery History of tubal ligation Family History Other Hyperlipidemia Hypertension Social History Smoking and tobacco status: current every day smoker cigarettes Packs smoked per day: 0.5 Years cigarettes smoked: 3 Quit status (tobacco): has tried quititng Number of times tried to quit tobacco: 2 Second hand smoke exposure: Yes Smoking risk assessment/counseling performed?: Yes Tobacco counseling given: counseling >3 minutes Alcohol intake: current Substance/Drug Use: current Lives independently: No Household members: other Details: Lives with her aunt Marital status: Number of children: 5 Current gender identity: Female Physical Exam Const: COMMON NORMALS: patient oriented x3 and alert GENERAL APPEARANCE: odor of alcohol detected NUTRITIONAL APPEARANCE: obese ORIENTATION/CONSCIOUSNESS: Yes awake, Yes oriented to person, Yes oriented to place and Yes oriented to time OTHER: patient is intoxicated and fairly belligerent; she is rolling all over her bed HENMT: COMMON NORMALS: normocephalic and atraumatic HEAD & SCALP: normal to inspection, normocephalic and atraumatic FACE & SINUS: normal facial exam Eye: COMMON NORMALS: Equal, round and reactive pupils present and EOMs intact bilaterally GENERAL EYE: appearance normal, both eyes and all related structures and normal light reflex PUPIL: Yes Equal, round and reactive pupils present DIRECT OPHTHALMOSCOPY: Yes normal light reflex Resp: COMMON NORMALS: normal respiratory effort and clear to auscultation bilaterally AUSCULTATION: clear to auscultation bilaterally Cardio: COMMON NORMALS: regular rate and regular rhythm RATE: regular rate RHYTHM: regular rhythm GI: COMMON NORMALS: Normal to inspection, nondistended, normoactive bowel sounds present, Soft to palpation and non-tender PALPATION: Yes Soft to palpation Extremity: COMMON NORMALS: normal to inspection GENERAL: Yes normal exam except as noted Neuro: LETICIA COMA SCALE: document GCS findings [place] coma scale eye opening: Spontaneous [place]icia coma scale verbal response: Orientated [place] coma scale motor response: Obey commands Leticia coma scale total score: 15 COMMON NORMALS: patient oriented x3, moves all extremities, no focal motor deficits and no sensory deficits noted SENSORIUM/ORIENTATION: Yes alert, Yes oriented to person, Yes oriented to place and Yes oriented to time Skin: COMMON NORMALS: no rashes or lesions noted GENERAL SKIN EXAM: no rashes or lesions noted Course Vital Signs: Vital signs: Vital Signs Temperature 97.9 F 03/27/23 11:42 Pulse Rate 108 H 03/27/23 13:41 Respiratory Rate 18 03/27/23 13:41 Blood Pressure 186/113 03/27/23 13:41 Pulse Oximetry 99 03/27/23 13:41 Oxygen Delivery Me thod Room Air 03/27/23 13:41 MDM - Alcohol Medical Decision Making Patient much improved after medications and fluids given here. Patient states she would like to go to rehab and has information for [facility]. Her and her significant other states they are planning to contact them today to get on a wait list. She states she has been under a lot of stress recently as her significant other recently was in snf over the past 30 days for selling methamphetamine. Patient states she is not suicidal. She does not want or need to go to [facility] at this time. She does not meet criteria for hospitalization. Patient states she has never went into DTs or had an alcohol withdrawal seizure. This time patient is stable for discharge from the emergency department. Her significant other will be driving her home. Lab Data 03/27/23 12:25 03/27/23 12:25 Laboratory Results WBC 8.56 10^3/uL (3.29-11.43) 03/27/23 12:25 RBC 4.55 10^6/uL (3.85-5.65) 03/27/23 12:25 Hgb 10.70 g/dL (11.27-16.99) L 03/27/23 12:25 Hct 34.9 % (36-47) L 03/27/23 12:25 MCV 76.7 fl (85-98) L 03/27/23 12:25 MCH 23.5 pg (27-33) L 03/27/23 12:25 MCHC 30.7 g/dL (30-55) 03/27/23 12:25 RDW 20.0 % (12.1-15.1) H 03/27/23 12:25 Plt Count 431 10^3/cmm (157-399) H 03/27/23 12:25 MPV 9.0 fL (7.4-10.4) 03/27/23 12:25 Neut % (Auto) 67.7 % 03/27/23 12:25 Lymph % (Auto) 24.1 % 03/27/23 12:25 [place] % (Auto) 6.0 % 03/27/23 12:25 Eos % (Auto) 0.9 % 03/27/23 12:25 Baso % (Auto) 0.9 % 03/27/23 12:25 Neut # (Auto) 5.80 10^3/uL (1.8-7.7) 03/27/23 12:25 Lymph # (Auto) 2.1 10^3/uL (0.8-4.8) 03/27/23 12:25 [place] # (Auto) 0.5 10^3/uL (0.2-0.9) 03/27/23 12:25 Eos # (Auto) 0.1 10^3/uL (0.0-0.8) 03/27/23 12:25 Baso # (Auto) 0.1 10^3/uL (0.0-0.1) 03/27/23 12:25 Nucleated RBC % (auto) 0 % 03/27/23 12:25 Nucleated RBCs # 0.0 /100WBC 03/27/23 12:25 Sodium 135 mmol/L (136-145) L 03/27/23 12:25 Potassium 3.5 mmol/L (3.5-5.1) 03/27/23 12:25 Chloride 98 mmol/L (98-107) 03/27/23 12:25 Carbon Dioxide 16 mmol/L (22-29) L 03/27/23 12:25 Anion Gap 24.5 (5-19) H 03/27/23 12:25 BUN 10 mg/dL (6-20) 03/27/23 12:25 Creatinine 0.5 mg/dL (0.5-0.9) 03/27/23 12:25 GFR Calculation 129.1 mL/min (90-130) 03/27/23 12:25 Glucose 182 mg/dL (65-115) H 03/27/23 12:25 Calculated Osmolality 284 mOsm/kg (285-295) L 03/27/23 12:25 Calcium 8.1 mg/dL (8.5-10.5) L 03/27/23 12:25 Total Bilirubin 0.2 mg/dL (0.15-1.2) 03/27/23 12:25 AST 23 U/L (0-32) 03/27/23 12:25 ALT 15 U/L (0-33) 03/27/23 12:25 Alkaline Phosphatase 83 U/L (35-105) 03/27/23 12:25 Total Protein 6.7 g/dL (6.6-8.7) 03/27/23 12:25 Albumin 4.1 g/dL (3.5-5.2) 03/27/23 12:25 Globulin 2.6 g/dL (1.3-4.6) 03/27/23 12:25 Lipase 23 U/L (13-60) 03/27/23 12:25 Salicylates 1.1 mg/dL (3-10) L 03/27/23 12:25 Acetaminophen < 5.0 ug/mL (10-30) L 03/27/23 12:25 Ethyl Alcohol 236 mg/dL (0-10) H 03/27/23 12:25 Discharge Plan Discharge Patient Disposition: Home Clinical Impression: Chronic alcohol abuse Alcoholic intoxication Qualifiers: Complication of substance-induced condition: uncomplicated Qualified Code(s): F10.920 - Alcohol use, unspecified with intoxication, uncomplicated Condition: Stable Prescriptions: No Action fluoxetine 20 mg capsule 20 mg PO DAILY 30 Days Qty: 30 3RF paliperidone palmitate 234 mg/1.5 mL syringe 234 mg IM Q30D 30 Days Qty: 1.5 4RF atorvastatin 20 mg Tablet 20 mg PO DAILY metoprolol tartrate 50 mg Tablet 50 mg PO DAILY 30 Days Qty: 30 1RF metformin 500 mg tablet 500 mg PO BID 30 Days Qty: 60 1RF triamterene-hydrochlorothiazid 37.5-25 mg tablet 1 tab PO DAILY Excedrin Migraine 250-250-65 mg Tablet 2 tab PO Q6H PRN (Reason: Migraine Headache) Discharge Orders: Discharge ED (Routine); Ordered 03/27/23 Ordered By: Selin Pineda Referrals: Izzy Matute APN [Primary Care Provider] - Patient Instructions: Alcohol Intoxication (DC) Activity Restrictions/Additional Instructions: As we discussed I would like you to call [facility] TODAY or drive to their facility and fill out paperwork to enter into their alcohol detox/rehabilitation program. Coding Level of Care Code ED Manager Credit Collections for Jerry Ellis
--- NOTE | 2023-03-27 12:23 | ECG_ITS ---
[facility] Test Date: 2023-03-27 Pat Name: Keya Castaneda Department: Room: Gender: Female Company Secretary: : 1970 Requested By: Selin Pineda Order Number: [id number] Lorena MD: Tian Cardona M.D. Measurements Intervals [place] Rate: 124 P: 65 [place]: 154 QRS: 50 QRSD: 92 T: 81 QT: 312 QTc: 449 Interpretive Statements SINUS TACHYCARDIA NONSPECIFIC ST & T-WAVE ABNORMALITY ABNORMAL RHYTHM ECG Compared to ECG 02/27/2022 16:16:27 T-wave abnormality now present Sinus rhythm no longer present Myocardial infarct finding no longer present Electronically Signed On 03-27-2023 15:47:40 CDT by Tian Cardona M.D. [id number]
[2023-03-27 12:31] LABS: Basophils # 0.1 10^3/uL (0.0-0.1); Basophils % 0.9 %; Eosinophils # 0.1 10^3/uL (0.0-0.8); Eosinophils % 0.9 %; Hematocrit 34.9 % (36-47); Lymphocytes # 2.1 10^3/uL (0.8-4.8); Lymphocytes % 24.1 %; Mean Corpuscular HGB Conc 30.7 g/dL (30-55); Mean Corpuscular Hemoglobin 23.5 pg (27-33); Mean Corpuscular Volume 76.7 fl (85-98); Monocytes # 0.5 10^3/uL (0.2-0.9); Neutrophils % 67.7 %; Nucleated Red Blood Cells % 0 %; Platelet Count 431 10^3/cmm (157-399); Red Blood Count 4.55 10^6/uL (3.85-5.65); White Blood Count 8.56 10^3/uL (3.29-11.43)
[2023-03-27] MEDS: multivitamin therapeutic Tablet 1 TAB PO (12:43)
[2023-03-27] MEDS: sodium chloride 0.9% 1,000 ML 999 ML IV (12:51)
[2023-03-27] MEDS: LORazepam 2 mg/mL INJ 1 mL 1 MG IVP ×2 (12:52→13:14)
[2023-03-27 12:56] LABS: Alanine Aminotransferase 15 U/L (0-33); Albumin Level 4.1 g/dL (3.5-5.2); Alcohol Level 236 mg/dL (0-10); Alkaline Phosphatase 83 U/L (35-105); Anion Gap 24.5 (5-19); Aspartate Amino Transferase 23 U/L (0-32); Blood Urea Nitrogen 10 mg/dL (6-20); Calcium 8.1 mg/dL (8.5-10.5); Carbon Dioxide 16 mmol/L (22-29); Chloride 98 mmol/L (98-107); Globulin 2.6 g/dL (1.3-4.6); Glomerular Filtration Rate 129.1 mL/min (90-130); Glucose 182 mg/dL (65-115); Lipase 23 U/L (13-60); Osmolality Calculated 284 mOsm/kg (285-295); Potassium 3.5 mmol/L (3.5-5.1); Salicylate 1.1 mg/dL (3-10); Sodium 135 mmol/L (136-145); Total Bilirubin 0.2 mg/dL (0.15-1.2); Total Protein 6.7 g/dL (6.6-8.7)
[2023-03-27 12:57] LABS: Acetaminophen < 5.0 ug/mL (10-30)
[2023-03-27 12:59] VITALS: BP 190/113; PULSE 116; RESP 20; O2SAT 97
[2023-03-27] MEDS: acetaminophen 500 mg Tablet 1000 MG PO (13:12)
[2023-03-27] MEDS: metoprolol tartrate 1 mg/1 mL SDV 5 mL 2.5 MG IVP (13:13)
[2023-03-27] MEDS: metoprolol tartrate 50 mg Tablet PO (13:13)
--- NOTE | 2023-03-27 13:23 | PC.PHAR ---
pt and pts verified medications-pt states just restarted taking her meds again states she had a build up [facility] states last filled lipitor 20mg daily jun 2021-metformin 500mg bid written 03/24/22 ext doesnt show when last filled-metoprolol tartrate 50mg daily filled 04/22/23 30d/s-triam/hctz 37.5-25mg daily filled 01/04/23 30d/s-notes are made in the pharmacy comments
[2023-03-27 13:41] VITALS: BP 186/113; PULSE 108; RESP 18; O2SAT 99
[2023-03-27 14:21] VITALS: BP 180/126; PULSE 96; RESP 20; O2SAT 99
== END 2023-03-27 14:35 | disposition home or self-care (01) ==
PROVIDERS: Emergency Provider Physician Assistant; PCP Nurse Practitioner Family
DX: F10.129 Alcohol abuse with intoxication, unspecified (principal); Y90.7 Blood alcohol level of 200-239 mg/100 ml; Z79.84 Long term (current) use of oral hypoglycemic drugs; F17.210 Nicotine dependence, cigarettes, uncomplicated; I10 Essential (primary) hypertension; Z85.42 Personal history of malignant neoplasm of other parts of uterus
CPT/HCPCS: 36415; 80053; 80307; 83690; 85025; 93005; 96374; 96375; 96376; 99284; J2060; J3411; J3490; J7030

== ENCOUNTER → 2023-05-30 15:35 | Outpatient (BNVA) | payer MEDICAID, SELFPAY | PROVIDERS: PCP Nurse Practitioner Family; Visit Provider Nurse Practitioner Psychiatric/Mental Health | DX: F31.9 Bipolar disorder, unspecified (principal); F10.90 Alcohol use, unspecified, uncomplicated; Z79.899 Other long term (current) drug therapy | CPT/HCPCS: 80307 ==

== ENCOUNTER 2023-06-11 13:41 | Outpatient (CLI) | payer MEDICAID, SELFPAY ==
--- NOTE | 2023-06-11 14:30 | CT_ITS ---
WS: [id number] CT HEAD TECHNIQUE: Noncontrast and contrast-enhanced CT of the head. CLINICAL INFORMATION: Rule out stroke COMPARISON: CT 10/17/2021 DLP: 2012.[address] scans at [facility] use at least one of these dose optimization techniques: automated e xposure control; mA and/or kV adjustment per patient size (includes targeted exams where dose is matc hed to clinical indication); or iterative reconstruction. FINDINGS: No evidence intracranial hemorrhage or mass effect. Ventricular system and basal cisterns are patent. Mild small vessel changes. Mild parenchymal volume loss. Mastoid air cells are well aerated. Mild mu cosal thickening in the paranasal sinuses. Normal posterior nasopharynx. No abnormal intracranial enhancement. No other suspicious findings. IMPRESSION: 1. No evidence of intracranial hemorrhage or mass effect 2. Mild small vessel changes. Mild parenchymal volume loss. 3. No abnormal intracranial enhancement.
[2023-06-11] MEDS: iohexol 350 mg/mL 500 mL Btl (per mL) IV (14:37)
== END 2023-06-11 13:42 | disposition home or self-care (01) ==
LOC: RAD 13:41
PROVIDERS: PCP Nurse Practitioner Family; Visit Provider Nurse Practitioner Psychiatric/Mental Health
DX: R20.0 Anesthesia of skin (principal); R20.2 Paresthesia of skin
CPT/HCPCS: 70470; Q9967

== ENCOUNTER 2024-03-19 13:27 | Emergency (ER) | payer MEDICAID, SELFPAY ==
[2024-03-19] VITALS (7 sets, daily range): BP systolic 100–129; BP diastolic 66–92; PULSE 69–83; RESP 18; TEMP 36.8; O2SAT 98–99; BMI 35.2
--- NOTE | 2024-03-19 13:41 | XR_ITS ---
WS: [id number] Exam: XR chest 1V portable [id number] Date/Time of Exam: 03/19/2024 1:43 PM Reason For Exam: dyspnea/cough Comparison 10/29/2021. Findings: The lungs are clear and fully expanded. Costophrenic angles are sharp. No infiltrates. Bronchovascula r relief appears normal. Cardiac silhouette is unremarkable. Bony elements are intact. XR/XR chest 1V portable [id number] IMPRESSION: Unremarkable chest radiograph.
--- NOTE | 2024-03-19 13:41 | ECG_ITS ---
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 Measurements Intervals [place] Rate: 78 P: 23 [place]: 154 QRS: 23 QRSD: 87 T: 32 QT: 402 QTc: 459 Interpretive Statements SINUS RHYTHM SEPTAL MYOCARDIAL INFARCTION , OF INDETERMINATE AGE [40+ ms Q WAVE IN V1/V2] Compared to ECG 03/27/2023 12:23:04 Myocardial infarct finding now present Sinus tachycardia no longer present T-wave abnormality no longer present Electronically Signed On 03-20-2024 18:08:36 CDT by Dorothy Freeman M.D. [id number]
--- NOTE | 2024-03-19 14:11 | ED_ITS ---
HPI - Weakness 2 General: Chief complaint: Weakness Stated complaint: weakness Time Seen by Provider: 03/19/24 13:34 History of Present Illness: 53-year-old female presents the emergenc y room complaining of lightheadedness that is anything began this morning. She was fasting overnight for lab work she did take her blood pressure medicines as well as her metformin this morning at a regular time later she ate despite this was still feeling lightheaded and dizzy. On arrival here she is mildly hypotensive with a blood pressure just over 100 systolic. She reports every time she stands up or try to walk she gets dizzy and lightheaded, Associated symptoms: Denies chest pain, chills, dysuria or fever(s) Review of Systems 2 Const: Denies: fever(s) or chills Card: Denies: chest pain Resp: Denies: dyspnea GI: Denies: abdominal pain : Denies: dysuria, urinary frequency or urinary urgency Musc: Reports: back pain (Lower right side at the level L5-S1); Denies: neck pain Skin/Breast: Denies: rash PFSH ED 2 PFSH: Medical History Nicotine dependence, cigarettes, uncomplicated Methamphetamine dependence, episodic Last use 12/24/23 Marijuana use, episodic Alcohol use disorder, severe, dependence Bipolar disorder with moderate depression Psychiatric care Hyperglycemia Opioid use disorder, severe, in sustained remission Borderline personality disorder HTN (hypertension) Uterine cancer Surgical History History of plastic surgery History of tubal ligation History of Family History Other Hyperlipidemia Hypertension Social History Smoking and tobacco/nicotine status: current every day tobacco/nicotine user cigarettes Packs smoked per day: 0.5 Years cigarettes smoked: 3 Quit status (tobacco/nicotine): has tried quititng Number of times tried to quit tobacco: 2 Second hand smoke exposure: Yes Alcohol intake: current Substance/Drug Use: current Lives independently: No Household members: other Details: Lives with her aunt Marital status: Number of children: 5 Current gender identity: Female Physical Exam 2 Const: COMMON NORMALS: no acute distress GENERAL APPEARANCE: cooperative ORIENTATION/CONSCIOUSNESS: Yes awake, Yes oriented to person, Yes oriented to place and Yes oriented to time HENMT: COMMON NORMALS: normocephalic, atraumatic and hearing grossly normal bilaterally HEAD & SCALP: normocephalic and atraumatic Resp: COMMON NORMALS: normal respiratory effort, No retractions, No use of accessory muscles and clear to auscultation bilaterally AUSCULTATION: clear to auscultation bilaterally Cardio: COMMON NORMALS: regular rate, regular rhythm and No murmurs present (Cardio) RATE: regular rate RHYTHM: regular rhythm GI: COMMON NORMALS: Soft to palpation and No hepatosplenomegaly present A USCULTATION: Yes normoactive bowel sounds PALPATION: Yes Soft to palpation, No Tenderness to palpation present (GI), No Guarding due to palpation present (GI) and Yes No hepatosplenomegaly present Extremity: COMMON NORMALS: normal to inspection, capillary refill normal, no clubbing, cyanosis or edema, no calf tenderness and no pedal edema Neuro: SENSORIUM/ORIENTATION: Yes oriented to person, Yes oriented to place and Yes oriented to time Skin: COMMON NORMALS: no rashes or lesions noted GENERAL SKIN EXAM: no rashes or lesions noted Course 2 Vital Signs: Vital signs: Vital Signs Temperature 98.2 F 03/19/24 13:28 Pulse Rate 77 03/19/24 17:35 Respiratory Rate 18 03/19/24 13:28 Blood Pressure 129/92 03/19/24 17:35 Pulse Oximetry 99 03/19/24 17:35 Oxygen Delivery Me thod Room Air 03/19/24 13:28 MDM - Weakness Medical Decision Making Patient was orthostatic when she first arrived this improved after IV fluids. It is exacerbated by her use of antihypertensives as well as her fasting episode. She never really was truly hypoglycemic. Additionally she was found to have mild acute kidney injury with a creatinine of 2. She was given IV fluids we will discharge the patient home she should follow-up with primary care doctor next week we will have her hold her metformin, diclofenac and triamterene hydrochlorothiazide. She should follow-up with her primary care doctor next week. In addition she did have a cystitis we have given her a dose of ceftriaxone here and start oral cefdinir tomorrow 1 tablet twice a day for 7 days. She has any worsening or changes symptoms or recurrence of symptoms return to the emergency room. Lab Data 03/19/24 14:14 03/19/24 14:14 Radiology Impressions Chest X-Ray 03/19/24 13:41 IMPRESSION: Unremarkable chest radiograph. Laboratory Results WBC 12.06 10^3/uL (3.29-11.43) H 03/19/24 14:14 RBC 4.04 10^6/uL (3.85-5.65) 03/19/24 14:14 Hgb 11.70 g/dL (11.27-16.99) 03/19/24 14:14 Hct 36.9 % (36-47) 03/19/24 14:14 MCV 91.3 fl (85-98) 03/19/24 14:14 MCH 29.0 pg (27-33) 03/19/24 14:14 MCHC 31.7 g/dL (30-55) 03/19/24 14:14 RDW 14.0 % (12.1-15.1) 03/19/24 14:14 Plt Count 298 10^3/cmm (157-399) 03/19/24 14:14 MPV 11.3 fL (7.4-10.4) H 03/19/24 14:14 Neut % (Auto) 77.3 % 03/19/24 14:14 Lymph % (Auto) 12.4 % 03/19/24 14:14 [place] % (Auto) 7.5 % 03/19/24 14:14 Eos % (Auto) 1.5 % 03/19/24 14:14 Baso % (Auto) 0.4 % 03/19/24 14:14 Neut # (Auto) 9.31 10^3/uL (1.8-7.7) H 03/19/24 14:14 Lymph # (Auto) 1.5 10^3/uL (0.8-4.8) 03/19/24 14:14 [place] # (Auto) 0.9 10^3/uL (0.2-0.9) 03/19/24 14:14 Eos # (Auto) 0.2 10^3/uL (0.0-0.8) 03/19/24 14:14 Baso # (Auto) 0.1 10^3/uL (0.0-0.1) 03/19/24 14:14 Nucleated RBC % (auto) 0 % 03/19/24 14:14 Nucleated RBCs # 0.0 /100WBC 03/19/24 14:14 Sodium 140 mmol/L (136-145) 03/19/24 14:14 Potassium 4.9 mmol/L (3.5-5.1) 03/19/24 14:14 Chloride 104 mmol/L (98-107) 03/19/24 14:14 Carbon Dioxide 16 mmol/L (22-29) L 03/19/24 14:14 Anion Gap 24.9 (5-19) H 03/19/24 14:14 BUN 20 mg/dL (6-20) 03/19/24 14:14 Creatinine 2.0 mg/dL (0.5-0.9) H 03/19/24 14:14 GFR Calculation 26.0 mL/min (90-130) L 03/19/24 14:14 Glucose 85 mg/dL (65-115) 03/19/24 14:14 Calculated Osmolality 292 mOsm/kg (285-295) 03/19/24 14:14 Calcium 8.4 mg/dL (8.5-10.5) L 03/19/24 14:14 Total Bilirubin 0.2 mg/dL (0.15-1.2) 03/19/24 14:14 AST 12 U/L (0-32) 03/19/24 14:14 ALT 9 U/L (0-33) 03/19/24 14:14 Alkaline Phosphatase 90 U/L (35-105) 03/19/24 14:14 Total Protein 7.1 g/dL (6.6-8.7) 03/19/24 14:14 Albumin 4.2 g/dL (3.5-5.2) 03/19/24 14:14 Globulin 2.9 g/dL (1.3-4.6) 03/19/24 14:14 Urine Color Yellow (Yellow) 03/19/24 15:21 Urine Appearance Turbid (CLEAR) A 03/19/24 15:21 Urine pH 5.5 (5-7) 03/19/24 15:21 Ur Specific [place] 1.019 (1.005-1.030) 03/19/24 15:21 Urine Protein 2+ (Negative) A 03/19/24 15:21 Urine Glucose (UA) Negative (Normal) 03/19/24 15:21 Urine Ketones Trace (Negative) 03/19/24 15:21 Urine Blood Negative (Negative) 03/19/24 15:21 Urine Nitrate Negative (Negative) 03/19/24 15:21 Urine Bilirubin Negative (Negative) 03/19/24 15:21 Urine Urobilinogen 1.0 mg/dL (Negative) 03/19/24 15:21 Ur Leukocyte Esterase 2+ (Negative) A 03/19/24 15:21 Urine RBC 6-10 /hpf (0-2) 03/19/24 15:21 Urine WBC 51-100 /hpf (0-5) H 03/19/24 15:21 Ur Squamous Epith Cells 51-100 /hpf (0-5) 03/19/24 15:21 Amorphous Sediment Not Reportable 03/19/24 15:21 Urine Bacteria Exceeds /hpf (NONE) 03/19/24 15:21 Hyaline Casts 32.24 /lpf 03/19/24 15:21 All radiology interpretation(s) finalized by discharge Discharge Plan Discharge Patient Disposition: Home Clinical Impression: Orthostatic hypotension, Cystitis Condition: Stable Prescriptions: New cefdinir 300 mg capsule 300 mg PO BID Qty: 14 0RF Discontinued metformin 500 mg tablet 1,000 mg PO BID diclofenac sodium 75 mg tablet,delayed release (DR/EC) 75 mg PO BID PRN triamterene-hydrochlorothiazid 37.5-25 mg tablet 1 tab PO DAILY No Action paliperidone palmitate 117 mg/0.75 mL syringe 117 mg IM Q30D 30 Days Qty: 0.75 6RF Rx Instructions: Injection every 30 days, to be administered at [facility] propranolol 10 mg tablet 10 mg PO BID Qty: 60 6RF Rx Instructions: Take one tablet twice per day metoprolol tartrate 50 mg tablet 50 mg PO BID gabapentin 300 mg capsule 300 mg PO BID ziprasidone HCl [Geodon] 60 mg capsule 60 mg PO .7 pm Qty: 30 6RF Rx Instructions: Take one capsule at 7 pm with 500 calories of food(meal/snack) naltrexone 50 mg tablet 50 mg PO .morning Qty: 30 6RF Rx Instructions: Take one tablet every morning atorvastatin 20 mg Tablet 20 mg PO DAILY Excedrin Migraine 250-250-65 mg Tablet 2 tab PO Q6H PRN (Reason: Migraine Headache) Discharge Orders: Discharge ED (Routine); Ordered 03/19/24 Ordered By: Oscar Cabrales Referrals: Izzy Matute APN [Primary Care Provider] - Discharge Diet: Usual diet Discharge Activity: Resume usual activity Patient Instructions: Opioid Safety, Pain Management Activity Restrictions/Additional Instructions: Thank you for choosing [facility] for your healthcare needs today. It is very important that you follow up as instructed or that you return to the Emergency Department should you have concerns or if your condition changes or worsens in any way. You were seen in the emergency room with complaints of lightheadedness dizziness and weakness. You are found to have orthostatic hypotension. This is a condition where your blood pressure drops when you change body positions. This improved after you are given IV fluids. Your kidney function was also elevated. Recommend that you stop taking diclofenac, metformin, and triamterene hydrochlorothiazide. The fluid you were given today should improve your kidney function holding these medications will also help it. You should follow-up with your primary care doctor within the next week to reevaluate your kidney function and recheck your blood pressure. Finally there is an incidental finding of a bladder infection recommend you start oral antibiotics with the cefdinir 300 mg 1 pill twice a day for 7 days. You were given a dose of IV antibiotics today in the emergency room and can start your oral antibiotics tomorrow Coding Level of Care Code ED Cvt Rn for [facility] Fwd Related Data Home Medications Medication Instructions Recorded Confirmed atorvastatin 20 mg tablet 20 mg PO DAILY 10/01/21 03/19/24 [id number]-pyqrtigetwnzy-ligubxzm 250 2 tab PO Q6H PRN Migraine Headache 03/27/23 03/19/24 mg-250 mg-65 mg tablet (Excedrin Migraine) gabapentin 300 mg capsule 300 mg PO BID 01/22/24 03/19/24 metoprolol tartrate 50 mg tablet 50 mg PO BID 01/22/24 03/19/24 Previous Rx's Medication Instructions Recorded paliperidone palmitate 117 mg/0.75 117 mg (0.75 mL) IM Q30D 30 days 12/26/23 mL intramuscular syringe #0.75 mL propranolol 10 mg tablet 10 mg PO BID #60 tabs 12/26/23 naltrexone 50 mg tablet 50 mg PO .morning #30 tabs 02/20/24 ziprasidone HCl 60 mg capsule 60 mg PO .7 pm #30 caps 02/20/24 (Geodon) cefdinir 300 mg capsule 300 mg PO BID #14 caps 03/19/24 Allergies Allergy/AdvReac Type Severity Reaction Status Date / Time No Known Allergies Allergy Verified 03/19/24 09:53
[2024-03-19 14:32] LABS: Basophils # 0.1 10^3/uL (0.0-0.1); Basophils % 0.4 %; Eosinophils # 0.2 10^3/uL (0.0-0.8); Eosinophils % 1.5 %; Hematocrit 36.9 % (36-47); Lymphocytes # 1.5 10^3/uL (0.8-4.8); Lymphocytes % 12.4 %; Mean Corpuscular HGB Conc 31.7 g/dL (30-55); Mean Corpuscular Volume 91.3 fl (85-98); Mean Platelet Volume 11.3 fL (7.4-10.4); Monocytes # 0.9 10^3/uL (0.2-0.9); Monocytes % 7.5 %; Neutrophils # 9.31 10^3/uL (1.8-7.7); Neutrophils % 77.3 %; Nucleated Red Blood Cells % 0 %; Platelet Count 298 10^3/cmm (157-399); Red Blood Count 4.04 10^6/uL (3.85-5.65); White Blood Count 12.06 10^3/uL (3.29-11.43)
[2024-03-19 14:50] LABS: Alanine Aminotransferase 9 U/L (0-33); Albumin Level 4.2 g/dL (3.5-5.2); Alkaline Phosphatase 90 U/L (35-105); Anion Gap 24.9 (5-19); Aspartate Amino Transferase 12 U/L (0-32); Blood Urea Nitrogen 20 mg/dL (6-20); Calcium 8.4 mg/dL (8.5-10.5); Carbon Dioxide 16 mmol/L (22-29); Chloride 104 mmol/L (98-107); Creatinine Clr Calc Pharmacy 36.8875; Globulin 2.9 g/dL (1.3-4.6); Glucose 85 mg/dL (65-115); Osmolality Calculated 292 mOsm/kg (285-295); Potassium 4.9 mmol/L (3.5-5.1); Sodium 140 mmol/L (136-145); Total Bilirubin 0.2 mg/dL (0.15-1.2); Total Protein 7.1 g/dL (6.6-8.7)
[2024-03-19] MEDS: sodium chloride 0.9% 1,000 ML 999 ML IV (15:23)
[2024-03-19 15:40] LABS: Charge for UA Resulting for Rev
[2024-03-19 15:41] LABS: Bilirubin Urine Negative (Negative); Blood Urine Negative (Negative); Glucose Urine UA Negative (Normal); Ketones Urine Trace (Negative); Leukocyte Esterase Urine 2+ (Negative); Nitrate Urine Negative (Negative); Protein Urine 2+ (Negative); Specific Gravity, Urine 1.019 (1.005-1.030); Urine Appearance Turbid (CLEAR); Urine Color Yellow (Yellow); pH Urine 5.5 (5-7)
[2024-03-19 15:43] LABS: Bacteria Urine EXCEEDS /hpf; Hyaline Casts Urine 32.24 /lpf; Squamous Epithelial Cell Urine 51-100 /hpf (0-5); WBC Urine 51-100 /hpf (0-5)
[2024-03-19 16:27] LABS: Add Urine Culture? Yes; UA Slide Review UA Slide Review Perf
[2024-03-19] MEDS: cefTRIAXone 1,000 mg SDV 1000 MG IVP (17:36)
--- NOTE | 2024-03-19 17:38 | PC.NURSE ---
Orthostatic b/p at approx @1720: Lyin/90 Sittin/81 Standin/80
--- NOTE | 2024-03-19 18:20 | PC.NURSE ---
pt called ER with request to have prescription sent to [facility] in [place], [place], this nurse called prescription in requested pharmacy.
== END 2024-03-19 18:17 | disposition home or self-care (01) ==
PROVIDERS: Emergency Provider Family Medicine; PCP Nurse Practitioner Family
DX: I95.1 Orthostatic hypotension (principal); N30.90 Cystitis, unspecified without hematuria; F17.210 Nicotine dependence, cigarettes, uncomplicated; I10 Essential (primary) hypertension; Z85.42 Personal history of malignant neoplasm of other parts of uterus
CPT/HCPCS: 36415; 71045; 80053; 81003; 81015; 85025; 87077; 87086; 87186; 93005; 96361; 96374; 99285; J0696; J7030

== ENCOUNTER 2024-03-25 09:54 | Outpatient (CLI) | payer MEDICAID, SELFPAY ==
--- NOTE | 2024-03-25 10:01 | USCV_ITS ---
Keya Castaneda Age: 53 Gender: F : 1970 Exam Date: 03/25/2024 10:21 Ordering Phys: Izzy Matute APN Technologist: R Exam Location: [facility] – [place] Indication: LE Swelling HISTORY: Lower extremity swelling. PROCEDURES: Venous duplex imaging was performed in bilateral lower extremities. The following venous structures were evaluated: common femoral vein, profunda vein, proximal portion of the greater saphenous vein, superficial femoral vein, and the popliteal vein. In addition, the posterior tibial and peroneal trunk were evaluated. Serial compression, augmentation maneuvers, and spectral Doppler flow evaluation were performed. FINDINGS: Normal 2-D Doppler and augmentation and compressibility throughout the lower extremity venous structures. Additional imaging through the proximal calf veins also reveals no thrombus. Limited evaluation of the greater saphenous vein is patent with no thrombus. CONCLUSIONS No DVT bilateral lower extremities. Dr. Nelsy Wilson DO (Electronically Signed) Final Date: 26 March 2024 08:49 S
== END 2024-03-25 09:55 | disposition home or self-care (01) ==
LOC: RAD 09:55
PROVIDERS: PCP Nurse Practitioner Family; Visit Provider Nurse Practitioner Family
DX: M79.89 Other specified soft tissue disorders (principal); M79.605 Pain in left leg; M79.604 Pain in right leg
CPT/HCPCS: 93970

== ENCOUNTER 2024-03-27 14:14 | Outpatient (CLI) | payer MEDICAID, SELFPAY ==
--- NOTE | 2024-03-27 14:30 | USCV_ITS ---
Keya Castaneda Age: 53 Gender: F : 1970 Exam Date: 03/27/2024 15:05 Ordering Phys: Izzy Matute APN Technologist: USR Exam Location: [facility] [place] Indication: Pain Risk Factors: Previous Vascular Surgery: RIGHT LEFT BP: 124.0 / 90.00 BP: 120.0/ 88.00 0 0 Waveform Velocity (cm/s) Velocity (cm/s) Waveform Triphasic 66.1 Iliac Prox 59.8 Triphasic Triphasic 68.1 Iliac Mid 60.8 Triphasic Triphasic 60.8 Iliac Distal 60.4 Triphasic Triphasic 79.0 STRAPPER 61.0 Triphasic Triphasic 71.0 SFA Prox 70.0 Triphasic Triphasic 64.0 SFA Mid 59.0 Triphasic Triphasic SFA Dist Triphasic 58.0 46.0 Triphasic 31.0 POP 34.0 Triphasic Triphasic 61.0 HOMEOPATHIC DOCTOR 56.0 Triphasic Triphasic 38.0 DPA 47.0 Triphasic 1.1 SCOOTER 1.0 FINDINGS Resting SCOOTER 1.1 on the right and 1.0 on the left Normal arterial Doppler waveforms and velocities bilaterally CONCLUSIONS No evidence of any significant arterial obstruction, based on the above findings. Dr Dorothy Freeman MD [facility] (Electronically Signed) Final Date: 30 March 2024 12:17 S
== END 2024-03-27 14:15 | disposition home or self-care (01) ==
LOC: RAD 14:14
PROVIDERS: PCP Nurse Practitioner Family; Visit Provider Nurse Practitioner Family
DX: M79.605 Pain in left leg (principal); M79.604 Pain in right leg; M79.89 Other specified soft tissue disorders
CPT/HCPCS: 93925

== ENCOUNTER → 2024-06-11 10:35 | Outpatient (BNVA) | payer SELFPAY | PROVIDERS: PCP Nurse Practitioner Family; Visit Provider Nurse Practitioner Psychiatric/Mental Health | DX: Z79.899 Other long term (current) drug therapy (principal) | CPT/HCPCS: 80053; 80061; 83036 ==

== ENCOUNTER 2024-07-06 18:41 | Emergency (ER) | payer MEDICAID, SELFPAY ==
[2024-06-24 13:30] VITALS: BP 143/81; BMI 36.0
[2024-07-06 19:17] VITALS: BP 120/80; PULSE 65; RESP 16; TEMP 36.9; O2SAT 97
--- NOTE | 2024-07-06 19:38 | XRR_ITS ---
PROCEDURE INFORMATION: Exam: XR Right Ankle Exam date and time: 07/06/2024 7:46 PM Age: 54 years old Clinical indication: Injury or trauma; Fall; Blunt trauma; Ankle; Right; Additional info: Fall/lateral ankle pain TECHNIQUE: Imaging protocol: Radiologic exam of the right ankle. Views: 3 or more views. COMPARISON: CR (LOW EXM, ) 07/06/2024 7:43 PM FINDINGS: Bones/joints: There is a minimally displaced oblique fracture of the distal right fibula extending up to the level of the tibial plafond. There is a small os trigonum. Soft tissues: There is mild soft tissue swelling laterally. XR/XR ankle RT min 3V* [id number] IMPRESSION: Fracture of the distal right fibula.
--- NOTE | 2024-07-06 19:38 | XRR_ITS ---
PROCEDURE INFORMATION: Exam: XR Right Knee Exam date and time: 07/06/2024 7:43 PM Age: 54 years old Clinical indication: Injury or trauma; Fall; Blunt trauma; Knee; Right; Additional info: Fall/anterior pain TECHNIQUE: Imaging protocol: Radiologic exam of the right knee. Views: 3 views. COMPARISON: No relevant prior studies available. FINDINGS: Bones/joints: Normal. Soft tissues: Normal. XR/XR knee RT 3V* [id number] IMPRESSION: No acute findings.
--- NOTE | 2024-07-06 19:42 | W.ED.EXTPRO ---
HPI - Extremity Problem General: Chief complaint: Extremity Injury, Lower Stated complaint: right leg injury Time Seen by Provider: 07/06/24 19:25 Source: patient Mode of arrival: ambulatory Limitations: no limitations History of Present Illness: Patient is a 54-year-old female presenting to the emergency department after a fall at occurred just prior to arrival. She states she slipped on wet stairs when walking outside, hyperextended both of her knees and then subsequently fell, primarily injuring her right knee and right ankle. States she has not been ambulatory since the incident secondary to pain. Reporting pain to anterior right knee, pain to right lateral ankle associated with swelling to the right lateral ankle. Abrasion reported to right mustafa. She did not hit her head or have any concerning symptoms prior to falling. She states that she is currently undergoing detox for opioids. MD Complaint: joint pain Onset (ago): minute(s) Pain Consistency: constant Location: right, knee and other (Ankle) Relieving factors: nothing Exacerbating factors: range of motion, weight bearing, walking and palpation Associated symptoms: Deny chest pain, fever(s) or rash Related Data Home Medications Medication Instructions Recorded Confirmed atorvastatin 20 mg tablet 20 mg PO DAILY 10/01/21 06/22/24 [id number]-[id number]-[id number] 250 2 tab PO Q6H PRN Migraine Headache 03/27/23 06/22/24 mg-250 mg-65 mg tablet (Excedrin Migraine) gabapentin 300 mg capsule 300 mg PO BID 01/22/24 06/22/24 metoprolol tartrate 50 mg tablet 50 mg PO BID 01/22/24 06/22/24 Previous Rx's Medication Instructions Recorded naltrexone 50 mg tablet 50 mg PO .morning #30 tabs 02/20/24 cefdinir 300 mg capsule 300 mg PO BID #14 caps 03/19/24 paliperidone palmitate 117 mg/0.75 117 mg (0.75 mL) IM Q30D 30 days 06/11/24 mL intramuscular syringe #0.75 mL propranolol 10 mg tablet 10 mg PO BID #60 tabs 06/11/24 ziprasidone HCl 80 mg capsule 80 mg PO .7 pm #30 caps 06/11/24 (Geodon) Allergies Allergy/AdvReac Type Severity Reaction Status Date / Time No Known Allergies Allergy Verified 07/06/24 19:24 Review of Systems General: Reports: 10 or more systems reviewed and unremarkable except in HPI and below Const: Reports: other (Fall); Denies: fever(s) or chills Card: Denies: chest pain Resp: Denies: dyspnea or productive cough GI: Denies: abdominal pain, nausea, vomiting or diarrhea : Denies: flank pain Musc: Reports: joint pain (Right knee and right ankle), joint swelling (Right ankle) and limited range of motion; Denies: neck pain, back pain, extremity pain, extremity swelling, joint redness, joint warmth or muscle weakness Skin/Breast: Reports: new lesions (Abrasion to right mustafa); Denies: rash Neuro: Denies: headache(s), numbness in extremities or weakness in extremities PFSH ED PFSH: Medical History Nicotine dependence, cigarettes, uncomplicated Methamphetamine dependence, episodic Last use 05/10/24 Marijuana use, episodic Alcohol use disorder, severe, dependence Bipolar disorder with moderate depression Psychiatric care Hyperglycemia Opioid use disorder, severe, in sustained remission Borderline personality disorder HTN (hypertension) Uterine cancer Surgical History History of plastic surgery History of tubal ligation History of Family History Other Hyperlipidemia Hypertension Social History Smoking and tobacco/nicotine status: current every day tobacco/nicotine user cigarettes Packs smoked per day: 0.5 Years cigarettes smoked: 8 Quit status (tobacco/nicotine): has tried quititng Number of times tried to quit tobacco: 2 Second hand smoke exposure: Yes Alcohol intake: current Substance/Drug Use: current Other substance/drug use details: 2 weeks since last use Adopted: No Caregiver/support person: No Lives independently: No Household members: spouse Housing: House Marital status: Number of children: 2 Number of grandchildren: 1 Highest education level completed: Some College, No Degree service: No Current occupational status: disabled Current occupation: trying to get disability Current occupational exposures/hazards: No Pets and animals: Yes Pets & animals: cat(s) Leisure activites: other Leisure activities details: sleep and watch tic lalo Sexually active: Yes How many partners: 1 Do you think of yourself as: Straight/Heterosexual Current gender identity: Female Jennifer/Uatsdin: Zoroastrian Special jennifer needs: No Agree to transfusion: Yes Female Reproductive History: Para: 2 Physical Exam Const: COMMON NORMALS: no acute distress, patient oriented x3, no limitations, healthy appearing, alert and well nourished HENMT: COMMON NORMALS: normocephalic and atraumatic HEAD & SCALP: normocephalic and atraumatic Neck/C-Spine: COMMON NORMALS: full ROM, supple and no meningeal signs Extremity: COMMON NORMALS: full ROM, capillary refill normal, no joint enlargement and no clubbing, cyanosis or edema NARRATIVE EXTREMITY EXAM: No obvious swelling over the right knee compared to the left. Diffuse tender to palpation of the right knee. Swelling to the right lateral malleolus with associated diffuse tenderness to palpation. Pain with inversion of the right ankle, no joint laxity with anterior drawer testing. No tenderness to palpation of the right foot. 2+ DP/PT pulses. Neuro: COMMON NORMALS: patient oriented x3, moves all extremities, no focal motor deficits and no sensory deficits noted SENSORIUM/ORIENTATION: Yes alert MENINGEAL SIGNS: Yes no meningeal signs Skin: NARRATIVE SKIN EXAM: Abrasion to right proximal mustafa Course Vital Signs: Vital signs: Vital Signs Temperature 98.5 F 07/06/24 19:17 Pulse Rate 65 07/06/24 19:17 Respiratory Rate 16 07/06/24 19:17 Blood Pressure 120/80 07/06/24 19:17 Pulse Oximetry 97 07/06/24 19:17 Oxygen Delivery Me thod Room Air 07/06/24 19:17 MDM - Extremity (Nontraumatic) Medical Decision Making Patient presented after a fall injuring her right knee and ankle. There was some swelling to the right lateral malleolus, and x-ray did confirm a nondisplaced fracture. There was no fracture of the proximal fibula on knee x-ray, and the rest of the knee x-ray unremarkable. We will have her placed in posterior short leg splint with stirrup and referred to podiatry for further evaluation. Her post splint neurovascular exam is intact. Reasons to return discussed. XR interpretation done by ED provider, pending radiology final review ED provider radiology interpretation(s): X-ray right ankle showing nondisplaced fracture of distal fibula. X-ray right knee unremarkable. Discharge Plan Discharge Patient Disposition: Home Clinical Impression: Closed right fibular fracture Qualifiers: Encounter type: initial encounter Fibula location: lateral malleolus Fracture alignment: nondisplaced Qualified Code(s): S82.64XA - Nondisplaced fracture of lateral malleolus of right fibula, initial encounter for closed fracture Condition: Stable Prescriptions: No Action metoprolol tartrate 50 mg tablet 50 mg PO BID gabapentin 300 mg capsule 300 mg PO BID naltrexone 50 mg tablet 50 mg PO .morning Qty: 30 6RF Rx Instructions: Take one tablet every morning ziprasidone HCl [Geodon] 80 mg capsule 80 mg PO .7 pm Qty: 30 3RF Rx Instructions: Take one capsule at 7 pm with 500 calories of food propranolol 10 mg tablet 10 mg PO BID Qty: 60 6RF Rx Instructions: Take one tablet twice per day paliperidone palmitate 117 mg/0.75 mL syringe 117 mg IM Q30D 30 Days Qty: 0.75 12RF Rx Instructions: Injection every 30 days, to be administered at [facility] atorvastatin 20 mg Tablet 20 mg PO DAILY Excedrin Migraine 250-250-65 mg Tablet 2 tab PO Q6H PRN (Reason: Migraine Headache) cefdinir 300 mg capsule 300 mg PO BID Qty: 14 0RF Discharge Orders: Discharge ED (Routine); Ordered 07/06/24 Ordered By: Chirag Islas Referrals: Izzy Matute APN [Primary Care Provider] - Patient Instructions: Ankle Fracture (ED) Activity Restrictions/Additional Instructions: Nonweightbearing with crutches. Please follow-up with podiatry as instructed. Elevate the extremity and take ibuprofen and Tylenol for pain relief. Please return with any new or worsening symptoms. Coding Level of Care Code ED Investor Relations Specialist for Jerry Ellis
[2024-07-06] MEDS: ibuprofen 600 mg Tablet PO (20:10)
[2024-07-06 21:02] VITALS: BP 145/90; PULSE 67; O2SAT 98
--- NOTE | 2024-07-07 07:35 | DCPLANNER ---
Message sent to Podiatry for follow up on a right fibula fracture
== END 2024-07-06 21:12 | disposition home or self-care (01) ==
PROVIDERS: Emergency Provider Physician Assistant; PCP Nurse Practitioner Family
DX: S82.64XA Nondisplaced fracture of lateral malleolus of right fibula, initial encounter for closed fracture (principal); F17.210 Nicotine dependence, cigarettes, uncomplicated; I10 Essential (primary) hypertension; E78.5 Hyperlipidemia, unspecified; W01.0XXA Fall on same level from slipping, tripping and stumbling without subsequent striking against object, initial encounter; C55 Malignant neoplasm of uterus, part unspecified
CPT/HCPCS: 29515; 73562; 73610; 99284; E0114

== ENCOUNTER → 2024-07-08 07:49 | Outpatient (BNVA) | payer MEDICAID, SELFPAY ==
[2024-06-24 13:30] VITALS: BP 143/81; BMI 36.0
== END ==
PROVIDERS: PCP Nurse Practitioner Family; Visit Provider Podiatrist Foot & Ankle Surgery
DX: S82.64XA Nondisplaced fracture of lateral malleolus of right fibula, initial encounter for closed fracture; X58.XXXA Exposure to other specified factors, initial encounter
CPT/HCPCS: 99203

== ENCOUNTER → 2024-07-23 11:13 | Outpatient (BNVA) | payer MEDICAID, SELFPAY ==
[2024-06-24 13:30] VITALS: BP 143/81; BMI 36.0
== END ==
PROVIDERS: PCP Nurse Practitioner Family; Visit Provider Podiatrist Foot & Ankle Surgery
DX: M25.571 Pain in right ankle and joints of right foot (principal); S82.64XD Nondisplaced fracture of lateral malleolus of right fibula, subsequent encounter for closed fracture with routine healing; W10.8XXD Fall (on) (from) other stairs and steps, subsequent encounter
CPT/HCPCS: 73610; 99213

== ENCOUNTER → 2024-08-06 09:56 | Outpatient (BNVA) | payer MEDICAID, OTHER, SELFPAY ==
[2024-06-24 13:30] VITALS: BP 143/81; BMI 36.0
== END ==
PROVIDERS: PCP Nurse Practitioner Family; Visit Provider Podiatrist Foot & Ankle Surgery
DX: M25.571 Pain in right ankle and joints of right foot (principal); S82.64XA Nondisplaced fracture of lateral malleolus of right fibula, initial encounter for closed fracture; X50.9XXA Other and unspecified overexertion or strenuous movements or postures, initial encounter
CPT/HCPCS: 73610; 99213

== ENCOUNTER 2024-08-07 13:58 | Emergency (ER) | payer MEDICAID, SELFPAY ==
[2024-06-24 13:30] VITALS: BP 143/81; BMI 36.0
--- NOTE | 2024-08-07 14:02 | XR_ITS ---
WS: [id number] XR chest 1V portable [id number] REASON FOR EXAM: Chest pain FINDINGS: The chest is unchanged compared to 02/28/2024. Mild to moderate tortuosity of the thoracic aorta. Normal heart size. Calcified granulomas disease bilaterally. No acute pulmonary parenchymal or pleural abnormality is identified. No significant abnormality of the bony thorax. XR/XR chest 1V portable [id number] IMPRESSION: Stable chest without acute abnormality.
--- NOTE | 2024-08-07 14:03 | ECG_ITS ---
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
[2024-08-07 14:04] VITALS: BP 113/79; BP 118/82; BP 123/73; PULSE 50; PULSE 63; PULSE 74
[2024-08-07 14:08] VITALS: BP 128/72; PULSE 58; RESP 18; TEMP 36.8; O2SAT 98
[2024-08-07 14:10] LABS: Basophils % 0.5 %; Eosinophils # 0.3 10^3/uL (0.0-0.8); Eosinophils % 3.1 %; Hematocrit 33.7 % (36-47); Lymphocytes # 1.4 10^3/uL (0.8-4.8); Mean Corpuscular Hemoglobin 26.7 pg (27-33); Mean Corpuscular Volume 83.4 fl (85-98); Mean Platelet Volume 11.1 fL (7.4-10.4); Monocytes # 0.5 10^3/uL (0.2-0.9); Monocytes % 6.1 %; Neutrophils # 6.07 10^3/uL (1.8-7.7); Neutrophils % 73.1 %; Nucleated Red Blood Cells % 0 %; Platelet Count 281 10^3/cmm (157-399); Red Blood Count 4.04 10^6/uL (3.85-5.65); Red Cell Distribution Width 14.5 % (12.1-15.1); White Blood Count 8.31 10^3/uL (3.29-11.43)
[2024-08-07] MEDS: sodium chloride 0.9% 1,000 ML 999 ML IV (14:11)
[2024-08-07 14:30] LABS: Troponin(5th) Baseline 12 ng/L (0-10)
--- NOTE | 2024-08-07 14:34 | W.ED.CHESTPA ---
HPI - Chest Pain General: Chief Complaint: Chest Pain Stated Complaint: cp,htn Time Seen by Provider: 08/07/24 13:59 History of Present Illness: 54-year-old woman with a history of nicotine dependence, bipolar disorder, hypertension who presents to the emergency room after having a near syncopal episode with bradycardia and hypotension while she was at the [facility] here. She arrived by ambulance. He said her heart rate was in the 40s and her blood pressure was in the 90s. They have given a little bit of fluid. She says she still feels a bit weak. She also says she had some epigastric discomfort that felt like indigestion about the time this happened. Related Data Home Medications Medication Instructions Recorded Confirmed atorvastatin 20 mg tablet 20 mg PO DAILY 10/01/21 08/07/24 cfbiaip-psackktunaflw-zbizrhbr 250 2 tab PO Q6H PRN Migraine Headache 03/27/23 08/07/24 mg-250 mg-65 mg tablet (Excedrin Migraine) gabapentin 300 mg capsule 300 mg PO BID 01/22/24 08/07/24 diclofenac sodium 75 mg 75 mg PO BID PRN Pain 08/07/24 08/07/24 tablet,delayed release metoprolol tartrate 25 mg tablet 25 mg PO BID 08/07/24 08/07/24 naltrexone 50 mg tablet 50 mg PO QAM 08/07/24 08/07/24 oxybutynin chloride 10 mg 10 mg PO DAILY 08/07/24 08/07/24 tablet,extended release 24 hr Previous Rx's Medication Instructions Recorded paliperidone palmitate 117 mg/0.75 117 mg (0.75 mL) IM Q30D 30 days 06/11/24 mL intramuscular syringe #0.75 mL propranolol 10 mg tablet 10 mg PO BID #60 tabs 06/11/24 Cam Boot #1 ea 07/08/24 ziprasidone HCl 80 mg capsule 80 mg PO .7 pm #30 caps 07/09/24 (Geodon) cefdinir 300 mg capsule 300 mg PO BID 5 days #10 caps 08/07/24 famotidine 40 mg tablet 40 mg PO DAILY #7 tabs 08/07/24 Allergies Allergy/AdvReac Type Severity Reaction Status Date / Time No Known Allergies Allergy Verified 08/07/24 12:58 Review of Systems Narrative: Constitutional symptoms: Negative except as documented in HPI. Skin symptoms: Negative except as documented in HPI. Eye symptoms: Negative except as documented in HPI. ENMT symptoms: Negative except as documented in HPI. Respiratory symptoms: Negative except as documented in HPI. Cardiovascular symptoms: Negative except as documented in HPI. Gastrointestinal symptoms: Negative except as documented in HPI. Genitourinary symptoms: Negative except as documented in HPI. Musculoskeletal symptoms: Negative except as documented in HPI. Neurologic symptoms: Negative except as documented in HPI. Psychiatric symptoms: Negative except as documented in HPI. Endocrine symptoms: Negative except as documented in HPI. PFSH ED PFSH: Medical History Alcohol use disorder, severe, in sustained remission, dependence Nicotine dependence, cigarettes, uncomplicated Methamphetamine dependence, episodic Marijuana use, episodic Bipolar disorder with moderate depression Psychiatric care Hyperglycemia Opioid use disorder, severe, in sustained remission Borderline personality disorder HTN (hypertension) Uterine cancer Surgical History History of plastic surgery History of tubal ligation History of Family History Other Hyperlipidemia Hypertension Social History Smoking and tobacco/nicotine status: current every day tobacco/nicotine user cigarettes Packs smoked per day: 0.5 Years cigarettes smoked: 8 Quit status (tobacco/nicotine): has tried quititng Number of times tried to quit tobacco: 2 Second hand smoke exposure: Yes Alcohol intake: current Substance/Drug Use: current Other substance/drug use details: 2 weeks since last use Adopted: No Caregiver/support person: No Lives independently: No Household members: spouse Housing: House Marital status: Number of children: 2 Number of grandchildren: 1 Highest education level completed: Some College, No Degree service: No Current occupational status: disabled Current occupation: trying to get disability Current occupational exposures/hazards: No Pets and animals: Yes Pets & animals: cat(s) Leisure activites: other Leisure activities details: sleep and watch tic lalo Sexually active: Yes How many partners: 1 Do you think of yourself as: Straight/Heterosexual Current gender identity: Female Jennifer/Confucianism: Sikh Special jennifer needs: No Agree to transfusion: Yes Female Reproductive History: Para: 2 Physical Exam Narrative: EXAM NARRATIVE: General: Alert, no acute distress. Skin: Warm, dry. Head: Normocephalic, atraumatic. Neck: Supple, trachea midline. Eye: Extraocular movements are intact. Ears, nose, mouth and throat: mucosa moist. Cardiovascular: Regular, bradycardic, normal peripheral perfusion. Respiratory: Lungs are clear to auscultation, respirations are non-labored, breath sounds are equal, Symmetrical chest wall expansion. Gastrointestinal: Soft, Nontender, Non distended Musculoskeletal: Normal ROM, no deformity. Neurological: Alert and oriented, No focal neurological deficit observed. Psychiatric: Cooperative, appropriate mood & affect. Course Vital Signs: Vital signs: Vital Signs Temperature 98.2 F 08/07/24 14:08 Pulse Rate 65 08/07/24 15:36 Respiratory Rate 18 08/07/24 14:08 Blood Pressure 147/94 08/07/24 15:36 Pulse Oximetry 97 08/07/24 15:36 Oxygen Delivery Me thod Room Air 08/07/24 14:08 MDM - Chest Pain Medical Decision Making Medical decision making: Differential diagnosis including but not limited to and based on the above HPI, review of systems and physical exam in this patient with near syncope: Vasovagal, orthostatics hypotension, cardiac dysrhythmia, myocardial infarction, infection and hypotension, Orders placed to evaluate differential diagnosis based on the above differential, HPI and physical exam EKG: Time 1402. Rate 53. Sinus bradycardia, No ST-T changes, no ectopy, normal NM & QRS intervals, This was reviewed and interpreted by myself the ER physician at 1405 Repeat EKG: Time 1613. Rate 62. Normal sinus rhythm, No ST-T changes, no ectopy, normal NM & QRS intervals, This was reviewed and interpreted by myself the ER physician at 1616. Rate has increased to 62. No other significant changes. Chest x-ray: No acute process. Stable calcified granulomatous disease bilaterally. No infiltrate. No pneumothorax. This was reviewed and interpreted by myself the emergency room physician. I also reviewed the radiology report. Lab Review: Laboratory results were reviewed and interpreted by myself the emergency room physician. No leukocytosis. No anemia. Stable renal insufficiency with creatinine 1.3. Serial troponins are negative. I reviewed the patient's medical record. Reexamination: Patient remained stable. No increased work of breathing. No altered mental status. No focal motor deficits. Patient says she feels quite a bit better. I discussed with her that I think this is likely a urinary tract infection causing abdominal cramping and indigestion which ultimately caused a vasovagal syncope. Heart rate is improved. Blood pressure is improved. Assessment and plan: Urinary tract infection Vasovagal syncope Bradycardia ?IV Rocephin and IV fluids in the emergency room. -I discussed the patient with the hospitalist on-call who is admitting the patient. - Discussed findings and plan with patient. Answered any questions. - All laboratory values were reviewed and interpreted personally by myself, the ER physician - All imaging was reviewed and interpreted personally by myself, the ER physician. - Evaluation and treatment of this problem were appropriate in the emergency setting Lab Data 08/07/24 13:48 08/07/24 13:48 Radiology Impressions Chest X-Ray 08/07/24 14:02 IMPRESSION: Stable chest without acute abnormality. Laboratory Results WBC 8.31 10^3/uL (3.29-11.43) 08/07/24 13:48 RBC 4.04 10^6/uL (3.85-5.65) 08/07/24 13:48 Hgb 10.80 g/dL (11.27-16.99) L 08/07/24 13:48 Hct 33.7 % (36-47) L 08/07/24 13:48 MCV 83.4 fl (85-98) L 08/07/24 13:48 MCH 26.7 pg (27-33) L 08/07/24 13:48 MCHC 32.0 g/dL (30-55) 08/07/24 13:48 RDW 14.5 % (12.1-15.1) 08/07/24 13:48 Plt Count 281 10^3/cmm (157-399) 08/07/24 13:48 MPV 11.1 fL (7.4-10.4) H 08/07/24 13:48 Neut % (Auto) 73.1 % 08/07/24 13:48 Lymph % (Auto) 17.0 % 08/07/24 13:48 [place] % (Auto) 6.1 % 08/07/24 13:48 Eos % (Auto) 3.1 % 08/07/24 13:48 Baso % (Auto) 0.5 % 08/07/24 13:48 Neut # (Auto) 6.07 10^3/uL (1.8-7.7) 08/07/24 13:48 Lymph # (Auto) 1.4 10^3/uL (0.8-4.8) 08/07/24 13:48 [place] # (Auto) 0.5 10^3/uL (0.2-0.9) 08/07/24 13:48 Eos # (Auto) 0.3 10^3/uL (0.0-0.8) 08/07/24 13:48 Baso # (Auto) 0.0 10^3/uL (0.0-0.1) 08/07/24 13:48 Nucleated RBC % (auto) 0 % 08/07/24 13:48 Nucleated RBCs # 0.0 /100WBC 08/07/24 13:48 Sodium 138 mmol/L (136-145) 08/07/24 13:48 Potassium 4.4 mmol/L (3.5-5.1) 08/07/24 13:48 Chloride 105 mmol/L (98-107) 08/07/24 13:48 Carbon Dioxide 19 mmol/L (22-29) L 08/07/24 13:48 Anion Gap 18.4 (5-19) 08/07/24 13:48 BUN 16 mg/dL (6-20) 08/07/24 13:48 Creatinine 1.3 mg/dL (0.5-0.9) H 08/07/24 13:48 GFR Calculation 42.5 mL/min (90-130) L 08/07/24 13:48 Glucose 108 mg/dL (65-115) 08/07/24 13:48 Calculated Osmolality 288 mOsm/kg (285-295) 08/07/24 13:48 Lactic Acid 1.0 mmol/L (0.5-2.2) 08/07/24 13:48 Calcium 8.9 mg/dL (8.5-10.5) 08/07/24 13:48 Total Bilirubin 0.3 mg/dL (0.15-1.2) 08/07/24 13:48 AST 11 U/L (0-32) 08/07/24 13:48 ALT 8 U/L (0-33) 08/07/24 13:48 Alkaline Phosphatase 113 U/L (35-105) H 08/07/24 13:48 Troponin T Baseline 12 ng/L (0-10) H 08/07/24 13:48 Troponin T 120 Minute 9.59 ng/L (0-10) 08/07/24 15:57 Delta Troponin T -2.41 ABS# (0-10) L 08/07/24 15:57 Total Protein 6.4 g/dL (6.6-8.7) L 08/07/24 13:48 Albumin 4.1 g/dL (3.5-5.2) 08/07/24 13:48 Globulin 2.3 g/dL (1.3-4.6) 08/07/24 13:48 Urine Color Yellow (Yellow) 08/07/24 15:21 Urine Appearance Clear (CLEAR) 08/07/24 15:21 Urine pH 5.5 (5-7) 08/07/24 15:21 Ur Specific [place] 1.020 (1.005-1.030) 08/07/24 15:21 Urine Protein Trace (Negative) A 08/07/24 15:21 Urine Glucose (UA) Negative (Normal) 08/07/24 15:21 Urine Ketones Negative (Negative) 08/07/24 15:21 Urine Blood Negative (Negative) 08/07/24 15:21 Urine Nitrate Positive (Negative) A 08/07/24 15:21 Urine Bilirubin Negative (Negative) 08/07/24 15:21 Urine Urobilinogen 1.0 mg/dL (Negative) 08/07/24 15:21 Ur Leukocyte Esterase Negative (Negative) 08/07/24 15:21 Urine RBC 0-2 /hpf (0-2) 08/07/24 15:21 Urine WBC 0-5 /hpf (0-5) 08/07/24 15:21 Ur Squamous Epith Cells 0-5 /hpf (0-5) 08/07/24 15:21 Amorphous Sediment Not Reportable 08/07/24 15:21 Urine Bacteria 4+ /hpf (NONE) H 08/07/24 15:21 Hyaline Casts 8.67 /lpf 08/07/24 15:21 Urine Opiates Screen Negative ng/mL (Negative) 08/07/24 15:21 Ur Barbiturates Screen Negative ng/mL (Negative) 08/07/24 15:21 Ur Phencyclidine Scrn Negative ng/mL (Negative) 08/07/24 15:21 Ur Amphetamines Screen Positive ng/mL (Negative) H 08/07/24 15:21 U Benzodiazepines Scrn Negative ng/mL (Negative) 08/07/24 15:21 Urine Cocaine Screen Negative ng/mL (Negative) 08/07/24 15:21 U Marijuana (THC) Screen Negative ng/mL (Negative) 08/07/24 15:21 All radiology interpretation(s) finalized by discharge Discharge Plan Discharge Patient Disposition: Home Clinical Impression: Vasovagal syncope, Urinary tract infection, Non-cardiac chest pain Condition: Stable Prescriptions: New famotidine 40 mg tablet 40 mg PO DAILY Qty: 7 0RF cefdinir 300 mg capsule 300 mg PO BID 5 Days Qty: 10 0RF No Action ziprasidone HCl [Geodon] 80 mg capsule 80 mg PO .7 pm Qty: 30 6RF Rx Instructions: with 500 calories of food (DME) Cam Boot See Rx Instructions .Route .MEDSUPPLY Qty: 1 0RF Rx Instructions: As directed by Home gabapentin 300 mg capsule 300 mg PO BID propranolol 10 mg tablet 10 mg PO BID Qty: 60 6RF Hold Instructions: Doctor's Order paliperidone palmitate 117 mg/0.75 mL syringe 117 mg IM Q30D 30 Days Qty: 0.75 12RF Rx Instructions: Injection every 30 days, to be administered at [facility] atorvastatin 20 mg Tablet 20 mg PO DAILY Excedrin Migraine 250-250-65 mg Tablet 2 tab PO Q6H PRN (Reason: Migraine Headache) oxybutynin chloride 10 mg tablet extended release 24hr 10 mg PO DAILY diclofenac sodium 75 mg tablet,delayed release (DR/EC) 75 mg PO BID PRN (Reason: Pain) metoprolol tartrate 25 mg tablet 25 mg PO BID naltrexone 50 mg tablet 50 mg PO QAM Discharge Orders: Discharge ED (Routine); Ordered 08/07/24 Ordered By: Moira Jones Referrals: Izzy Matute APN [Primary Care Provider] - Discharge Diet: Usual diet Discharge Activity: Increase activity as tolerated Patient Instructions: Urinary Tract Infection in Women (ED), Syncope (ED), Opioid Safety, Pain Management Activity Restrictions/Additional Instructions: Thank you for choosing [facility] for your healthcare needs today. Please realize this is an emergency room and that we are providing you with a medical screening exam and this may not be complete and all inclusive of all the testing and or work up that you may need to determine your ailment or severity of your illness. You have been screened and evaluated and felt safe for discharge. Health conditions do change or evolve sometimes and as such it is important that you follow up with your Primary Doctor to be re checked, 3-5 days is a general good time frame for follow up. You are always welcome to return to the ED for re assessment if your symptoms are worsening or you have new concerns Coding Level of Care Code ED Poultry Raiser for Jerry Ellis
[2024-08-07 14:36] LABS: Alanine Aminotransferase 8 U/L (0-33); Albumin Level 4.1 g/dL (3.5-5.2); Alkaline Phosphatase 113 U/L (35-105); Anion Gap 18.4 (5-19); Aspartate Amino Transferase 11 U/L (0-32); Blood Urea Nitrogen 16 mg/dL (6-20); Calcium 8.9 mg/dL (8.5-10.5); Carbon Dioxide 19 mmol/L (22-29); Chloride 105 mmol/L (98-107); Globulin 2.3 g/dL (1.3-4.6); Glomerular Filtration Rate 42.5 mL/min (90-130); Glucose 108 mg/dL (65-115); Osmolality Calculated 288 mOsm/kg (285-295); Potassium 4.4 mmol/L (3.5-5.1); Sodium 138 mmol/L (136-145); Total Bilirubin 0.3 mg/dL (0.15-1.2); Total Protein 6.4 g/dL (6.6-8.7)
[2024-08-07 15:36] VITALS: BP 147/94; PULSE 65; O2SAT 97
[2024-08-07 15:38] LABS: Bilirubin Urine Negative (Negative); Blood Urine Negative (Negative); Glucose Urine UA Negative (Normal); Ketones Urine Negative (Negative); Leukocyte Esterase Urine Negative (Negative); Nitrate Urine Positive (Negative); Protein Urine Trace (Negative); Urine Appearance Clear (CLEAR); Urine Color Yellow (Yellow); pH Urine 5.5 (5-7)
[2024-08-07 15:43] LABS: Bacteria Urine 4+ /hpf; Hyaline Casts Urine 8.67 /lpf; RBC Urine 0-2 /hpf (0-2); Squamous Epithelial Cell Urine 0-5 /hpf (0-5); WBC Urine 0-5 /hpf (0-5)
[2024-08-07 15:50] LABS: Add Urine Culture? Yes; UA Slide Review UA Slide Review Perf
[2024-08-07 15:51] LABS: Amphetamines Screen Urine Positive (Negative); Barbiturates Screen Urine Negative (Negative); Benzodiazepines Screen Urine Negative (Negative); Cocaine Screen Urine Negative (Negative); Opiate Screen Urine Negative (Negative); PCP Screen Urine Negative (Negative); THC Screen Urine Negative (Negative)
--- NOTE | 2024-08-07 16:13 | ECG_ITS ---
[employer] Test Date: 2024-08-07 Pat Name: Keya Castaneda Department: Room: Gender: Female Facilities Project Manager: : 1970 Requested By: Moira Alas Order Number: [id number] Lorena MD: BALDEV NIXON Measurements Intervals [place] Rate: 62 P: 53 MO: 179 QRS: 53 QRSD: 92 T: 57 QT: 450 QTc: 460 Interpretive Statements SINUS RHYTHM LOW QRS VOLTAGE IN PRECORDIAL LEADS [QRS DEFLECTION < 1.0 mV IN CHEST LEADS] SEPTAL MYOCARDIAL INFARCTION , PROBABLY OLD [40+ ms Q WAVE IN V1/V2] Compared to ECG 08/07/2024 14:02:50 Low QRS voltage now present Sinus bradycardia no longer present Myocardial infarct finding still present Electronically Signed On 08-07-2024 23:31:43 COMMERCIAL REAL ESTATE SALES MANAGER by BALDEV NIXON [id number]
[2024-08-07 16:20] LABS: Troponin 5 2HR 9.59 ng/L (0-10)
[2024-08-07 16:21] LABS: Troponin 5 2HR Delta -2.41 ABS# (0-10)
[2024-08-07] MEDS: cefTRIAXone 1,000 mg SDV 1000 MG IVP (16:22)
[2024-08-07 16:59] LABS: Adenovirus Not Detected (NOT DETECT); Chlamydia Pneumoniae Not Detected (NOT DETECT); Coronavirus 229E,HKU1,NL63,OC4 Not Detected (NOT DETECT); Human Metapneumovirus Not Detected (NOT DETECT); Human Rhinovirus/Enterovirus Not Detected (NOT DETECT); Influenza A Not Detected (NOT DETECT); Influenza A H1 Not Detected (NOT DETECT); Influenza A H1-2009 Not Detected (NOT DETECT); Influenza A H3 Not Detected (NOT DETECT); Influenza B Not Detected (NOT DETECT); Mycoplasma Pneumoniae Not Detected (NOT DETECT); Parainfluenza Virus Type 1 Not Detected (NOT DETECT); Parainfluenza Virus Type 2 Not Detected (NOT DETECT); Parainfluenza Virus Type 3 Not Detected (NOT DETECT); Parainfluenza Virus Type 4 Not Detected (NOT DETECT); Respiratory Syncytial Virus A Not Detected (NOT DETECT); Respiratory Syncytial Virus B Not Detected (NOT DETECT); SARS-COV-2 Not Detected (NOT DETECT)
[2024-08-07 17:02] VITALS: BP 129/80; PULSE 77; O2SAT 97
== END 2024-08-07 17:03 | disposition home or self-care (01) ==
PROVIDERS: Emergency Provider Emergency Medicine; PCP Nurse Practitioner Family
DX: R55 Syncope and collapse (principal); N39.0 Urinary tract infection, site not specified; R07.89 Other chest pain; F17.210 Nicotine dependence, cigarettes, uncomplicated; I10 Essential (primary) hypertension
CPT/HCPCS: 36415; 71045; 80053; 80306; 81001; 83605; 84484; 85025; 87040; 87077; 87086; 87186; 87486; 87581; 87633; 93005; 96361; 96374; 99285; J0696; J7030

== ENCOUNTER → 2024-08-20 10:54 | Outpatient (BNVA) | payer MEDICAID, SELFPAY ==
[2024-06-24 13:30] VITALS: BP 143/81; BMI 36.0
== END ==
PROVIDERS: PCP Nurse Practitioner Family; Visit Provider Podiatrist Foot & Ankle Surgery
DX: M25.571 Pain in right ankle and joints of right foot (principal); S82.64XA Nondisplaced fracture of lateral malleolus of right fibula, initial encounter for closed fracture; X58.XXXA Exposure to other specified factors, initial encounter
CPT/HCPCS: 73610; 99213

== ENCOUNTER → 2024-09-03 11:28 | Outpatient (BNVA) | payer OTHER, MEDICAID, SELFPAY ==
[2024-06-24 13:30] VITALS: BP 143/81; BMI 36.0
== END ==
PROVIDERS: PCP Nurse Practitioner Family; Visit Provider Podiatrist Foot & Ankle Surgery
DX: M25.571 Pain in right ankle and joints of right foot (principal); S82.64XA Nondisplaced fracture of lateral malleolus of right fibula, initial encounter for closed fracture; X58.XXXA Exposure to other specified factors, initial encounter
CPT/HCPCS: 73610

== ENCOUNTER → 2024-09-24 13:42 | Outpatient (BNVA) | payer MEDICAID, SELFPAY ==
[2024-06-24 13:30] VITALS: BP 143/81; BMI 36.0
== END ==
PROVIDERS: PCP Nurse Practitioner Family; Visit Provider Podiatrist Foot & Ankle Surgery
DX: S82.64XD Nondisplaced fracture of lateral malleolus of right fibula, subsequent encounter for closed fracture with routine healing (principal); X58.XXXD Exposure to other specified factors, subsequent encounter
CPT/HCPCS: 73610; 99213

== ENCOUNTER 2024-12-03 09:58 | Outpatient (CLI) | payer MEDICAID, SELFPAY ==
[2024-06-24 13:30] VITALS: BP 143/81; BMI 36.0
--- NOTE | 2024-12-03 10:05 | MR_ITS ---
WS: [id number] MRI HEAD WITH CONTRAST WITH ATTENTION TO THE INTERNAL AUDITORY CANALS TECHNIQUE: Sagittal T1, T2 axial, T2 axial flair, axial susceptibility weighted imaging, axial diffusion weighted images, and coronal T2 images were obtained. Pre and post T1 axial and post T1 coronal images. ADC and FSPGR images. Post gadolinium images with attention to the internal auditory canals. Axial fiesta imaging. CLINICAL INFORMATION: HEARING LOSS, SUDDEN,LEFT COMPARISON: None. FINDINGS: Proximal 7th and 8th cranial nerves are normal in appearance. No evidence of enhancing IAC or CP angle mass. Normal trigeminal nerve root entry zones. Mild mucosal thickening in the mastoid tips. Mild small vessel changes with mild parenchymal volume loss. Small vessel changes in the vince. No hemosiderin. No restricted diffusion to suggest acute ischemia. Normal posterior nasopharynx. Paranasal sinuses are well aerated. MR/MR iac's wo/w con* [id number] IMPRESSION: 1. No evidence of restricted diffusion to suggest acute ischemia. 2. Mild small vessel changes with mild parenchymal volume loss. Small vessel c hanges in the vince. 3. Proximal 7th and 8th cranial nerves are normal in appearance. No evidence o f enhancing IAC or CP angle mass. 4. Paranasal sinuses are well aerated. Mild mucosal thickening in the mastoid tips. 5. No hemosiderin.
[2024-12-03] MEDS: gadobenate dimeglumine 20 mL vial IV (11:02)
== END 2024-12-03 09:59 | disposition home or self-care (01) ==
PROVIDERS: PCP Nurse Practitioner Family; Visit Provider Specialist
DX: H91.22 Sudden idiopathic hearing loss, left ear (principal); R93.0 Abnormal findings on diagnostic imaging of skull and head, not elsewhere classified; H74.8X9 Other specified disorders of middle ear and mastoid, unspecified ear
CPT/HCPCS: 70553

== ENCOUNTER → 2025-02-25 13:44 | Outpatient (BNVA) | payer OTHER, SELFPAY ==
[2024-06-24 13:30] VITALS: BP 143/81; BMI 36.0
== END ==
PROVIDERS: PCP Nurse Practitioner Family; Visit Provider Nurse Practitioner Psychiatric/Mental Health
DX: Z79.899 Other long term (current) drug therapy (principal)
CPT/HCPCS: 80053; 80061; 80307; 83036